=== PATIENT | female | born 1970 | race African-American/Black ===

== ENCOUNTER 2016-12-11 12:08 | Inpatient (IN) | payer OTHER ==
[2016-12-11 13:47] VITALS: BMI 25.7
--- NOTE | 2016-12-11 17:50 | HP ---
CIWA Score - CIWA Score Nausea/Vomitin Muscle Tremors: 3 Anxiety: 3 Agitation: 3 Paroxysmal Sweats: 2 Orientation: 0-Oriented Tacttile Disturbances: 2-Mild Itch/Numbness/Burn Auditory Disturbances: 2-Mild Harshness/Frighten Visual Disturbances: 2-Mild Sensitivity Headache: 2-Mild CIWA-Ar Total Score: 22 Admission ROS [facility] - HPI Chief Complaint: i need help to stop drinking alcohol and cocaine Allergies/Adverse Reactions: Allergies Allergy/AdvReac Type Severity Reaction Status Date / Time No Known Allergies Allergy Verified 12/11/16 17:21 History of Present Illness: this 46 years old female with alcohol,cocaine dependence,heroin abused,seeking detox,last treatment 01/17/16 to 01/21/16 seizure alcohol related last 11/05 old injury left knee seen at [facility] ,need to follow up with orthopedist ambulation with cane history of asthma and hypertension bipolar disorder longest of sobriety 2 years Exam Limitations: No Limitations - Ebola screening Have you traveled outside of the country in the last 21 days: No Have you been sick,other than usual withdrawal symptoms: No - Review of Systems Constitutional: Loss of Appetite, Malaise, Night Sweats, Changes in sleep, Unintentional Wgt. Loss EENT: reports: Nose Congestion Respiratory: reports: No Symptoms reported, Other (athmahistory) Cardiac: reports: No Symptoms Reported GI: reports: Diarrhea, Nausea, Poor Fluid Intake, Vomiting : reports: No Symptoms Reported Musculoskeletal: reports: Back Pain, Joint Pain (pain in left knee history of old injury of left knee), Muscle Pain Integumentary: reports: Dryness Neuro: reports: Headache, Tremors Endocrine: reports: No Symptoms Reported Hematology: reports: No Symptoms Reported Psychiatric: reports: No Sypmtoms Reported (bipolar disorder), Judgement Intact , Mood/Affect Appropiate Patient History - Patient Medical History Hx Anemia: Yes (NO TREATMENT) Hx Asthma: Yes (on albuterolinhaler) Hx Chronic Obstructive Pulmonary Disease (COPD): No Hx Cancer: No Hx Cardiac Disorders: No Hx Congestive Heart Failure: No Hx Hypertension: Yes (on meds.) Hx Hypercholesterolemia: No Hx Pacemaker: No HX Cerebrovascular Accident: No Hx Seizures: Yes (etph related seizure 2 months ago.) Hx Dementia: No Hx Diabetes: No Hx Gastrointestinal Disorders: No Hx Liver Disease: No Hx Genitourinary Disorders: No Hx Sexually Transmitted Disorders: No Hx Renal Disease (ESRD): No Hx Thyroid Disease: No Hx Human Immunodeficiency Virus (HIV): No (10/06 ngative last) Hx Hepatitis C: No Hx Depression: Yes Hx Suicide Attempt: Yes (Tried to drink bleach in 11/04) Hx Bipolar Disorder: Yes Hx Schizophrenia: No Other Medical History: no suicidal,no homicidal - Patient Surgical History Past Surgical History: No Hx Neurologic Surgery: No Hx Cataract Extraction: No Hx Cardiac Surgery: No Hx Lung Surgery: No Hx Breast Surgery: No Hx Breast Biopsy: No Hx Abdominal Surgery: No Hx Appendectomy: No Hx Cholecystectomy: No Hx Genitourinary Surgery: No Hx Section: No Hx Orthopedic Surgery: No Hx Hysterectomy: No - PPD History Previous Implant?: Yes Documented Results: Negative w/o proof Implanted On Prior [facility] Admission?: Yes Date: 06/20/15 Results: 0 mm PPD to be Administered?: Yes - Reproductive History Patient is a Female of Child Bearing Age (11 -55 yrs old): Yes Last Menstrual Period: 11/03/16 Patient : No - Smoking Cessation Smoking history: Current every day smoker Have you smoked in the past 12 months: Yes Aproximately how many cigarettes per day: 10 Cigars Per Day: 0 Hx Chewing Tobacco Use: No Initiated information on smoking cessation: Yes 'Breaking Loose' booklet given: 12/11/16 - Substance & Tx. History Hx Alcohol Use: Yes Hx Substance Use: Yes Substance Use Type: Alcohol, Cocaine, Heroin Hx Substance Use Treatment: Yes ([facility] 01/17/16 to 01/21/16) - Substances Abused Cocaine Route: Inhalation Frequency: Daily Amount used: $30 Age of first use: 24 Date of Last Use: 12/09/16 Heroin Route: Inhalation Frequency: 1-2 times per week Amount used: 2 bags Age of first use: 46 Date of Last Use: 12/10/16 Alcohol-cognac/beer Route: Oral Frequency: Daily Amount used: 2 pts./2-6 pks. Age of first use: 21 Date of Last Use: 12/11/16 Family Disease History - Family Disease History Family Disease History: Diabetes: Sister, Heart Disease: Grandparent, Mother ( 20 years abstinence), CA: Grandparent, Other: Mother Admission Physical Exam S - Vital Signs Vital Signs: Vital Signs - 24 hr 12/11/16 13:44 Temperature 97.0 F L Pulse Rate 104 H Respiratory 18 Rate Blood Pressure 135/82 - Physical General Appearance: Yes: Moderate Distress, Tremorous, Irritable, Sweating HEENTM: Yes: Normal ENT Inspection, CJ, Pharynx Normal, Nasal Congestion Respiratory: Yes: Lungs Clear, Normal Breath Sounds, No Respiratory Distress Neck: Yes: Within Normal Limits, Supple, Trachea in good position Breast: Yes: Breast Exam Deferred Cardiology: Yes: Tachycardia Abdominal: Yes: Within Normal Limits, Normal Bowel Sounds, Non Tender, Soft Genitourinary: Yes: Within Normal Limits Back: Yes: Within Normal Limits, Muscle Spasm Musculoskeletal: Yes: Back pain, Muscle Pain Extremities: Yes: Within Normal Limits, Normal Range of Motion, Tremors, Other ( old injury of left knee ambulation with cane) Neurological: Yes: film and video editor II-XII NML intact, Alert, Motor Strength 5/5 Integumentary: Yes: Dry Lymphatic: Yes: Within Normal Limits - Diagnostic (1) Alcohol dependence with uncomplicated withdrawal Current Visit: No Status: Acute (2) Asthma Current Visit: No Status: Chronic Qualifiers: Asthma severity: mild intermittent Asthma complication type: with status asthmaticus Qualified Code(s): J45.22 - Mild intermittent asthma with status asthmaticus Comment: TREATED WITH VENTOLIN (3) Chronic back pain Current Visit: No Status: Chronic Qualifiers: Back pain location: low back pain Back pain laterality: left Sciatica presence: with sciatica Sciatica laterality: sciatica of left side Qualified Code(s): M54.42 - Lumbago with sciatica, left side; G89.29 - Other chronic pain Comment: SINCE 2010 (4) Cocaine dependence Current Visit: No Status: Chronic Qualifiers: Substance use status: uncomplicated Qualified Code(s): F14.20 - Cocaine dependence, uncomplicated (5) Hypertension Current Visit: No Status: Chronic Qualifiers: Hypertension type: essential hypertension Qualified Code(s): I10 - Essential (primary) hypertension Comment: HYDROCHLOROTHIAZIDE 12.5 MG NORVASC 5 MG (6) Nicotine dependence Current Visit: No Status: Chronic Qualifiers: Nicotine product type: cigarettes Substance use status: uncomplicated Qualified Code(s): F17.210 - Nicotine dependence, cigarettes, uncomplicated (7) Bipolar I disorder, most recent episode mixed Current Visit: No Status: Suspected (8) History of anemia Current Visit: No Status: Suspected Comment: NO TREATMENT LAB PENDING (9) Injury of left knee Current Visit: Yes Status: Acute (10) Use of cane as ambulatory aid Current Visit: Yes Status: Acute Cleared for Admission [facility] - Detox or Rehab [facility] Level of Care: Medically Managed Detox Regimen/Protocol: Librium [facility] Breath Alcohol Content Breath Alcohol Content: 0 Urine Pregancy Test - Result Urine Test Results: Negative- NO Line Present Urine Drug Screen - Results Drug Screen Negative: No Urine Drug Screen Results: THC-Marijuana, JENNIFER-Cocaine, TCA-Tricyclic Antidepress
[2016-12-11] MEDS ORDERED: ACETAMINOPHEN 325 MG TABLET (FP) PO PRN (18:07)
[2016-12-11] MEDS ORDERED: MAG HYDROX/AL HYDROX/SIMETH 30 ML UNIT-DOSE CUP PO PRN (18:07)
[2016-12-11] MEDS ORDERED: diphenhydrAMINE HCL 50 MG CAPSULE PO PRN (18:07)
[2016-12-11] MEDS ORDERED: MAGNESIUM HYDROX 2400MG/30ML ORAL SUSPENSION 30 ML CUP PO PRN (18:07)
[2016-12-11] MEDS ORDERED: P-EPHED 60MG/TRIPROLIDI 2.5MG TABLET PO PRN (18:07)
[2016-12-11] MEDS ORDERED: MAGNESIUM CITRATE 300 ML BOTTLE PO PRN (18:07)
[2016-12-11] MEDS ORDERED: chlordiazePOXIDE HCL 25 MG CAPSULE PO PRN (18:07)
[2016-12-11] MEDS ORDERED: chlordiazePOXIDE HCL 25 MG CAPSULE PO ONE ×2 (18:07→21:00)
[2016-12-11] MEDS ORDERED: guaiFENesin/D-METHORPHAN HB 10 ML UNIT-DOSE CUPS PO PRN (18:07)
[2016-12-11] MEDS ORDERED: LOPERAMIDE HCL 2 MG CAPSULE PO PRN (18:07)
[2016-12-11] MEDS ORDERED: MENTHOL/PHENOL 1 EACH UD MM PRN (18:07)
[2016-12-11] MEDS: NICOTINE 21 MG/24 HOURS TOPICAL PATCH TD SCH (21:06)
[2016-12-11] MEDS: chlordiazePOXIDE HCL 25 MG CAPSULE PO SCH (22:08)
[2016-12-11] MEDS: THIAMINE HCL 100 MG TABLET (FP) PO SCH (22:09)
[2016-12-11] MEDS: IBUPROFEN 400 MG TABLET (FP) PO PRN (22:09)
[2016-12-12] MEDS: chlordiazePOXIDE HCL 25 MG CAPSULE PO SCH ×4 (05:35→22:44)
--- NOTE | 2016-12-12 07:43 | CONSULT ---
[facility] Psychiatric Consult - Data Date of interview: 12/12/16 Admission source: [facility] Identifying data: This is 46 years old female ambulating with cane, with history of psychiatric hospitalization, intoxicated with: Alcohol, Cocaine, Heroin , Nicotine Substance Abuse History: - Smoking Cessation. Smoking history: Current every day smoker. Have you smoked in the past 12 months: Yes. Aproximately how many cigarettes per day: 10. Cigars Per Day: 0. Hx Chewing Tobacco Use: No. Initiated information on smoking cessation: Yes. 'Breaking Loose' booklet given : 12/11/16. - Substance & Tx. History. Hx Alcohol Use: Yes. Hx Substance Use : Yes. Substance Use Type: Alcohol, Cocaine, Heroin. Hx Substance Use Treatment: Yes ([facility] 01/17/16 to 01/21/16). - Substances Abused. Cocaine. Route: Inhalation. Frequency: Daily. Amount used: $30. Age of first use: 24. Date of Last Use: 12/09/16. Heroin. Route: Inhalation. Frequency: 1-2 times per week. Amount used: 2 bags. Age of first use: 46. Date of Last Use: 12/10/16. Alcohol-cognac/beer. Route: Oral. Frequency: Daily. Amount used : 2 pts./2-6 pks. Age of first use: 21. Date of Last Use: 12/11/16 Medical History: LBP, HTN, Anemia history, Psychiatric History: Patient reports hiostory of Bipolar disorder, reports most recent psychiatrioc admission on: 2014 at [facility], reports taking prior to admission: Ambien 10mg po qhs. Lexapro 20mg poqd. Depakote 250mg po bid. \Seroquel 50mg po tid Physical/Sexual Abuse/Trauma History: Denies Additional Comment: Ambien 10mg po qhs. Lexapro 20mg poqd. Depakote 250mg po bid. \Seroquel 50mg po tid Mental Status Exam - Mental Status Exam Alert and Oriented to: Person Cognitive Function: Fair Patient Appearance: Unkempt Mood: Sad Affect: Flat Patient Behavior: Sedated Speech Pattern: Delayed Voice Loudness: Mildly Loud Thought Process: Goal Oriented Thought Disorder: Being Controlled Hallucinations: Denies Suicidal Ideation: Denies Homicidal Ideation: Denies Insight/Judgement: Fair Sleep: Difficulty falling asleep Appetite: Weight gain Muscle strength/Tone: Mild Hypotonicity Gait/Station: Deferred Additional Comments: Seroquel 200mg po qhs. Trazodone 150mg po qhs Psychiatric Findings - Problem List (Pierz 1, 2,3) (1) Alcohol dependence Current Visit: No Status: Acute Qualifiers: Substance use status: uncomplicated Qualified Code(s): F10.20 - Alcohol dependence, uncomplicated (2) Alcohol dependence with uncomplicated withdrawal Current Visit: No Status: Acute (3) Cocaine dependence Current Visit: No Status: Chronic Qualifiers: Substance use status: uncomplicated Qualified Code(s): F14.20 - Cocaine dependence, uncomplicated (4) Hypertension Current Visit: No Status: Chronic Qualifiers: Hypertension type: essential hypertension Qualified Code(s): I10 - Essential (primary) hypertension Comment: HYDROCHLOROTHIAZIDE 12.5 MG NORVASC 5 MG (5) Nicotine dependence Current Visit: No Status: Chronic Qualifiers: Nicotine product type: cigarettes Substance use status: uncomplicated Qualified Code(s): F17.210 - Nicotine dependence, cigarettes, uncomplicated (6) Bipolar I disorder, most recent episode mixed Current Visit: No Status: Suspected - Initial Treatment Plan Initial Treatment Plan: Ambien 10mg po qhs. Lexapro 20mg poqd. Depakote 250mg po bid. \Seroquel 50mg po tid
[2016-12-12 10:13] LABS: MCH 30.7 pg (25.7-33.7); PLATELET COUNT 330 K/MM3 (134-434); RDW 14.9 % (11.6-15.6); WHITE BLOOD COUNT 4.6 K/mm3 (4.0-10.0)
[2016-12-12] MEDS: DIVALPROEX SODIUM 250 MG TABLET E.C. (FP) PO SCH ×2 (10:25→22:25)
[2016-12-12] MEDS: HYDROCHLOROTHIAZIDE 25 MG TABLET (FP) PO SCH (10:25)
[2016-12-12] MEDS: NICOTINE 21 MG/24 HOURS TOPICAL PATCH TD SCH (10:25)
[2016-12-12] MEDS: PRENATAL VITAMINS W/ FOLIC ACID TABLET (FP) PO SCH (10:25)
[2016-12-12] MEDS: ESCITALOPRAM OXALATE 20 MG TABLET (FP) PO SCH (10:25)
[2016-12-12] MEDS ORDERED: COLLOIDAL OATMEAL 1 BAR EACH TP PRN (10:36)
[2016-12-12 10:44] LABS: ALBUMIN 3.3 g/dl (3.4-5.0); ALK PHOS 55 U/L (45-117); ANION GAP 11 (8-16); BILIRUBIN,TOTAL 0.6 mg/dL (0.2-1.0); CALCIUM 8.6 mg/dL (8.5-10.1); CO2 26 mmol/L (21-32); CREATININE 0.8 mg/dL (0.55-1.02); GLUCOSE,RANDOM 101 mg/dL (74-106); SGOT/AST 15 U/L (15-37); SGPT/ALT 17 U/L (12-78); TOT PROT 7.6 g/dl (6.4-8.2)
[2016-12-12] MEDS: CYCLOBENZAPRINE HCL 10 MG TABLET (FP) PO PRN ×2 (10:59→22:27)
--- NOTE | 2016-12-12 11:37 | PN ---
S CIWA - CIWA Score Nausea/Vomitin Muscle Tremors: 3 Anxiety: 3 Agitation: 3 Paroxysmal Sweats: 1-Minimal Palms Moist Orientation: 0-Oriented Tacttile Disturbances: 1-Very Mild Itch/Numbness Auditory Disturbances: 1-Very Mild Visual Disturbances: 1-Very Mild Sensitivity Headache: 2-Mild CIWA-Ar Total Score: 18 S Progress Note (SOAP) Subjective: ALERT,IRRITABLE,ANXIOUS,INTERRUPTED SLEEP,TREMOR,PAIN IN THE LEFT KNEE OLD INJURY Objective: 12/12/16 11:35 Vital Signs Temperature 98.4 F 12/12/16 09:47 Pulse Rate 94 H 12/12/16 09:47 Respiratory Rate 18 12/12/16 09:47 Blood Pressure 143/71 12/12/16 09:47 O2 Sat by Pulse Oximetry (%) EKG NSR,NORMAL ECG Laboratory Last Values WBC 4.6 K/mm3 (4.0-10.0) 12/12/16 07:00 RBC 3.61 M/mm3 (3.60-5.2) 12/12/16 07:00 Hgb 11.1 GM/dL (10.7-15.3) 12/12/16 07:00 Hct 33.6 % (32.4-45.2) 12/12/16 07:00 MCV 93.0 fl (80-96) 12/12/16 07:00 MCH 30.7 pg (25.7-33.7) 12/12/16 07:00 MCHC 33.0 g/dl (32.0-36.0) 12/12/16 07:00 RDW 14.9 % (11.6-15.6) 12/12/16 07:00 Plt Count 330 K/MM3 (134-434) 12/12/16 07:00 MPV 7.0 fl (7.5-11.1) L 12/12/16 07:00 Sodium 135 mmol/L (136-145) L 12/12/16 07:00 Potassium 3.8 mmol/L (3.5-5.1) 12/12/16 07:00 Chloride 98 mmol/L (98-107) 12/12/16 07:00 Carbon Dioxide 26 mmol/L (21-32) 12/12/16 07:00 Anion Gap 11 (8-16) 12/12/16 07:00 BUN 11 mg/dL (7-18) 12/12/16 07:00 Creatinine 0.8 mg/dL (0.55-1.02) 12/12/16 07:00 Creat Clearance w eGFR > 60 (>60) 12/12/16 07:00 Random Glucose 101 mg/dL (74-106) D 12/12/16 07:00 Calcium 8.6 mg/dL (8.5-10.1) 12/12/16 07:00 Total Bilirubin 0.6 mg/dL (0.2-1.0) D 12/12/16 07:00 AST 15 U/L (15-37) D 12/12/16 07:00 ALT 17 U/L (12-78) 12/12/16 07:00 Alkaline Phosphatase 55 U/L (45-117) 12/12/16 07:00 Total Protein 7.6 g/dl (6.4-8.2) 12/12/16 07:00 Albumin 3.3 g/dl (3.4-5.0) L 12/12/16 07:00 Assessment: 12/12/16 11:36 WITHDRAWAL SYMPTOM Plan: CONTINUE DETOX
--- NOTE | 2016-12-12 12:27 | EKG ---
Test Reason : Blood Pressure : / mmHG Vent. Rate : 089 BPM Atrial Rate : 089 BPM P-R Int : 144 ms QRS Dur : 078 ms QT Int : 374 ms P-R-T Axes : 053 015 036 degrees QTc Int : 455 ms NORMAL SINUS RHYTHM NORMAL ECG NO PREVIOUS ECGS AVAILABLE Confirmed by LACEY WINKLER, PACHECO ([id number]) on 12/12/2016 12:27:26 PM Referred By: Jacques Dasilva Confirmed By:PACHECO RAHMAN MD
[2016-12-12] MEDS: QUEtiapine FUMARATE 50 MG TABLET PO SCH ×2 (13:25→22:25)
[2016-12-12] MEDS: hydrOXYzine PAMOATE 50 MG CAPSULE (FP) PO PRN ×2 (13:25→18:37)
[2016-12-12] MEDS: ALBUTEROL SO4 6.7 GM HFA INHALER IH PRN ×2 (14:28→22:42)
[2016-12-12] MEDS: IBUPROFEN 400 MG TABLET (FP) PO PRN (18:36)
[2016-12-12] MEDS: ZOLPIDEM TARTRATE 10 MG TABLET (PARK CARE ONLY) PO PRN (22:27)
[2016-12-12] MEDS: THIAMINE HCL 100 MG TABLET (FP) PO SCH (22:27)
[2016-12-13] MEDS: QUEtiapine FUMARATE 50 MG TABLET PO SCH ×3 (05:50→22:19)
[2016-12-13] MEDS: chlordiazePOXIDE HCL 25 MG CAPSULE PO SCH ×3 (05:50→17:50)
--- NOTE | 2016-12-13 09:19 | PN ---
S CIWA - CIWA Score Nausea/Vomitin Muscle Tremors: 3 Anxiety: 2 Agitation: 2 Paroxysmal Sweats: 1-Minimal Palms Moist Orientation: 0-Oriented Tacttile Disturbances: 1-Very Mild Itch/Numbness Auditory Disturbances: 1-Very Mild Visual Disturbances: 1-Very Mild Sensitivity Headache: 2-Mild CIWA-Ar Total Score: 16 S Progress Note (SOAP) Subjective: ALERT,IRRITABLE,ANXIOUS,INTERRUPTED SLEEP,TREMOR Objective: 12/13/16 09:18 Vital Signs Temperature 96.9 F L 12/13/16 06:04 Pulse Rate 65 12/13/16 06:04 Respiratory Rate 16 12/13/16 06:04 Blood Pressure 136/73 12/13/16 06:04 O2 Sat by Pulse Oximetry (%) Laboratory Last Values WBC 4.6 K/mm3 (4.0-10.0) 12/12/16 07:00 RBC 3.61 M/mm3 (3.60-5.2) 12/12/16 07:00 Hgb 11.1 GM/dL (10.7-15.3) 12/12/16 07:00 Hct 33.6 % (32.4-45.2) 12/12/16 07:00 MCV 93.0 fl (80-96) 12/12/16 07:00 MCH 30.7 pg (25.7-33.7) 12/12/16 07:00 MCHC 33.0 g/dl (32.0-36.0) 12/12/16 07:00 RDW 14.9 % (11.6-15.6) 12/12/16 07:00 Plt Count 330 K/MM3 (134-434) 12/12/16 07:00 MPV 7.0 fl (7.5-11.1) L 12/12/16 07:00 Sodium 135 mmol/L (136-145) L 12/12/16 07:00 Potassium 3.8 mmol/L (3.5-5.1) 12/12/16 07:00 Chloride 98 mmol/L (98-107) 12/12/16 07:00 Carbon Dioxide 26 mmol/L (21-32) 12/12/16 07:00 Anion Gap 11 (8-16) 12/12/16 07:00 BUN 11 mg/dL (7-18) 12/12/16 07:00 Creatinine 0.8 mg/dL (0.55-1.02) 12/12/16 07:00 Creat Clearance w eGFR > 60 (>60) 12/12/16 07:00 Random Glucose 101 mg/dL (74-106) D 12/12/16 07:00 Calcium 8.6 mg/dL (8.5-10.1) 12/12/16 07:00 Total Bilirubin 0.6 mg/dL (0.2-1.0) D 12/12/16 07:00 AST 15 U/L (15-37) D 12/12/16 07:00 ALT 17 U/L (12-78) 12/12/16 07:00 Alkaline Phosphatase 55 U/L (45-117) 12/12/16 07:00 Total Protein 7.6 g/dl (6.4-8.2) 12/12/16 07:00 Albumin 3.3 g/dl (3.4-5.0) L 12/12/16 07:00 Assessment: 12/13/16 09:19 WITHDRAWAL SYMPTOM Plan: CONTINUE DETOX
[2016-12-13] MEDS: PRENATAL VITAMINS W/ FOLIC ACID TABLET (FP) PO SCH (10:18)
[2016-12-13] MEDS: HYDROCHLOROTHIAZIDE 25 MG TABLET (FP) PO SCH (10:18)
[2016-12-13] MEDS: ESCITALOPRAM OXALATE 20 MG TABLET (FP) PO SCH (10:18)
[2016-12-13] MEDS: DIVALPROEX SODIUM 250 MG TABLET E.C. (FP) PO SCH ×2 (10:18→22:18)
[2016-12-13] MEDS: NICOTINE 21 MG/24 HOURS TOPICAL PATCH TD SCH (10:18)
[2016-12-13] MEDS: hydrOXYzine PAMOATE 50 MG CAPSULE (FP) PO PRN ×2 (10:20→17:53)
[2016-12-13] MEDS: IBUPROFEN 400 MG TABLET (FP) PO PRN (10:20)
[2016-12-13 14:35] LABS: URINE APPEARANCE CLOUDY; URINE BILIRUBIN NEGATIVE (NEGATIVE); URINE BLOOD NEGATIVE (NEGATIVE); URINE COLOR YELLOW; URINE GLUCOSE (UA) NEGATIVE (NEGATIVE); URINE KETONE NEGATIVE (NEGATIVE); URINE LEUK ESTERASE NEGATIVE (NEGATIVE); URINE NITRITE NEGATIVE (NEGATIVE); URINE PROTEIN NEGATIVE (NEGATIVE); URINE UROBILINOGEN NEGATIVE mg/dL (0.2-1.0)
[2016-12-13] MEDS: ZOLPIDEM TARTRATE 10 MG TABLET (PARK CARE ONLY) PO PRN (22:18)
[2016-12-13] MEDS: THIAMINE HCL 100 MG TABLET (FP) PO SCH (22:19)
[2016-12-13] MEDS: chlordiazePOXIDE 5 MG CAPSULE PO SCH (22:19)
[2016-12-13] MEDS: ALBUTEROL SO4 6.7 GM HFA INHALER IH PRN (22:21)
[2016-12-14] MEDS: chlordiazePOXIDE 5 MG CAPSULE PO SCH ×3 (05:49→17:31)
[2016-12-14] MEDS: QUEtiapine FUMARATE 50 MG TABLET PO SCH ×3 (05:49→22:11)
[2016-12-14] MEDS: ALBUTEROL SO4 6.7 GM HFA INHALER IH PRN ×2 (05:50→22:11)
[2016-12-14] MEDS: DIVALPROEX SODIUM 250 MG TABLET E.C. (FP) PO SCH ×2 (10:11→22:12)
[2016-12-14] MEDS: ESCITALOPRAM OXALATE 20 MG TABLET (FP) PO SCH (10:11)
[2016-12-14] MEDS: PRENATAL VITAMINS W/ FOLIC ACID TABLET (FP) PO SCH (10:11)
[2016-12-14] MEDS: HYDROCHLOROTHIAZIDE 25 MG TABLET (FP) PO SCH (10:12)
[2016-12-14] MEDS: NICOTINE 21 MG/24 HOURS TOPICAL PATCH TD SCH (10:12)
[2016-12-14] MEDS: hydrOXYzine PAMOATE 50 MG CAPSULE (FP) PO PRN (10:15)
--- NOTE | 2016-12-14 11:17 | PN ---
S Progress Note (SOAP) Subjective: ALERT,IRRITABLE,ANXIOUS,INTERRUPTED SLEEP Objective: 12/14/16 11:16 Vital Signs Temperature 97.3 F L 12/14/16 10:10 Pulse Rate 107 H 12/14/16 10:10 Respiratory Rate 16 12/14/16 10:10 Blood Pressure 122/74 12/14/16 10:10 O2 Sat by Pulse Oximetry (%) Assessment: 12/14/16 11:16 WITHDRAWAL SYMPTOM Plan: CONTINUE DETOX,DISCHARGE IN AM
[2016-12-14] MEDS: CYCLOBENZAPRINE HCL 10 MG TABLET (FP) PO PRN ×2 (11:41→22:12)
[2016-12-14] MEDS ORDERED: CYCLOBENZAPRINE HCL 10 MG TABLET (FP) PO ONE (12:30)
[2016-12-14] MEDS: THIAMINE HCL 100 MG TABLET (FP) PO SCH (22:12)
[2016-12-14] MEDS: chlordiazePOXIDE HCL 10 MG CAPSULE PO SCH (22:12)
[2016-12-14] MEDS: ZOLPIDEM TARTRATE 10 MG TABLET (PARK CARE ONLY) PO PRN (22:12)
[2016-12-15] MEDS: QUEtiapine FUMARATE 50 MG TABLET PO SCH (06:29)
[2016-12-15] MEDS: chlordiazePOXIDE HCL 10 MG CAPSULE PO SCH ×2 (06:29→10:49)
--- NOTE | 2016-12-15 08:10 | DS ---
[facility] Detox Discharge Summary Admission Date: 12/11/16 Discharge Date: 12/15/16 - History Present History: Alcohol Dependence, Cocaine Dependence Additional Comments: follow up with after care program as arrangement Pertinent Past History: asthma hypertension chronic low back pain nicotine dependence bipoar 1 disorder ptsd type 2 dm hypertension old laceration of left upper arm with nerve and vascular injury - Physical Exam Results Vital Signs: Vital Signs Temperature 97.7 F 12/15/16 06:00 Pulse Rate 79 12/15/16 06:00 Respiratory Rate 18 12/15/16 06:00 Blood Pressure 127/71 12/15/16 06:00 O2 Sat by Pulse Oximetry (%) Pertinent Admission Physical Exam Findings: withdrawal symptom - Treatment Hospital Course: Detox Protocol Followed, Detoxed Safely, Responded well, Discharged Condition Good Patient has Accepted a Rehab Referral to: declined - Medication Discharge Medications: Ambulatory Orders Zolpidem Tartrate [Ambien] 10 mg PO HS 06/08/15 Divalproex [Depakote -] 250 mg PO BID #60 tablet.ec 01/18/16 Escitalopram Oxalate [Lexapro -] 20 mg PO DAILY #30 tablet 01/18/16 Divalproex [Depakote -] 250 mg PO BID #60 tab 12/12/16 Escitalopram Oxalate [Lexapro -] 20 mg PO DAILY #30 tab 12/12/16 Quetiapine Fumarate [Seroquel] 100 mg PO TID #90 tablet 12/12/16 Zolpidem Tartrate [Ambien] 0 mg PO HS #14 tablet MDD 10 12/12/16 Albuterol Sulfate Inhaler - [Ventolin HFA Inhaler -] 2 inh IH Q4H PRN #1 inh Hydrochlorothiazide [Hctz -] 25 mg PO DAILY #30 tab 12/15/16 - Diagnosis (1) Alcohol dependence with uncomplicated withdrawal Current Visit: No Status: Acute (2) Asthma Current Visit: No Status: Chronic Qualifiers: Asthma severity: mild intermittent Asthma complication type: with status asthmaticus Qualified Code(s): J45.22 - Mild intermittent asthma with status asthmaticus (3) Chronic back pain Current Visit: No Status: Chronic Qualifiers: Back pain location: low back pain Back pain laterality: left Sciatica presence: with sciatica Sciatica laterality: sciatica of left side Qualified Code(s): M54.42 - Lumbago with sciatica, left side; G89.29 - Other chronic pain (4) Cocaine dependence Current Visit: No Status: Chronic Qualifiers: Substance use status: uncomplicated Qualified Code(s): F14.20 - Cocaine dependence, uncomplicated (5) Hypertension Current Visit: No Status: Chronic Qualifiers: Hypertension type: essential hypertension Qualified Code(s): I10 - Essential (primary) hypertension (6) Nicotine dependence Current Visit: No Status: Chronic Qualifiers: Nicotine product type: cigarettes Substance use status: uncomplicated Qualified Code(s): F17.210 - Nicotine dependence, cigarettes, uncomplicated (7) Bipolar I disorder, most recent episode mixed Current Visit: No Status: Suspected (8) History of anemia Current Visit: No Status: Suspected (9) Injury of left knee Current Visit: Yes Status: Acute (10) Use of cane as ambulatory aid Current Visit: Yes Status: Acute - AMA Did Patient Leave Against Medical Advice: No
[2016-12-15 10:27] VITALS: BP 124/79; PULSE 94; TEMP 98.2
[2016-12-15] MEDS: DIVALPROEX SODIUM 250 MG TABLET E.C. (FP) PO SCH (10:45)
[2016-12-15] MEDS: PRENATAL VITAMINS W/ FOLIC ACID TABLET (FP) PO SCH (10:45)
[2016-12-15] MEDS: HYDROCHLOROTHIAZIDE 25 MG TABLET (FP) PO SCH (10:45)
[2016-12-15] MEDS: ESCITALOPRAM OXALATE 20 MG TABLET (FP) PO SCH (10:45)
[2016-12-15] MEDS: NICOTINE 21 MG/24 HOURS TOPICAL PATCH TD SCH (10:46)
[2016-12-15] MEDS: hydrOXYzine PAMOATE 50 MG CAPSULE (FP) PO PRN (10:48)
== END 2016-12-15 12:25 | disposition home or self-care (01) | DRG 774 ==
LOC: YASAS 12:08 → Y6N 18:47
PROVIDERS: ADMIT Internal Medicine; ATTEND Internal Medicine
PROC: HZ2ZZZZ Detoxification Services for Substance Abuse Treatment (ICD-10-PCS; principal; 2016-12-15)
DX: F10.230 Alcohol dependence with withdrawal, uncomplicated (principal); F14.20 Cocaine dependence, uncomplicated; F31.89 Other bipolar disorder; G40.509 Epileptic seizures related to external causes, not intractable, without status epilepticus; M54.5 Low back pain; G89.29 Other chronic pain; S89.91XD Unspecified injury of right lower leg, subsequent encounter; X58.XXXD Exposure to other specified factors, subsequent encounter; R26.89 Other abnormalities of gait and mobility; Z99.89 Dependence on other enabling machines and devices
CPT/HCPCS: 36415; 80053; 81003; 85027; 86593; 93005; 93010

== ENCOUNTER 2016-12-26 12:36 | Inpatient (IN) | payer OTHER ==
[2016-12-26 13:23] VITALS: BMI 25.6
[2016-12-26] MEDS ORDERED: MENTHOL/PHENOL 1 EACH UD MM PRN (14:07)
[2016-12-26] MEDS ORDERED: P-EPHED 60MG/TRIPROLIDI 2.5MG TABLET PO PRN (14:07)
[2016-12-26] MEDS ORDERED: diphenhydrAMINE HCL 50 MG CAPSULE PO PRN (14:07)
[2016-12-26] MEDS ORDERED: guaiFENesin/D-METHORPHAN HB 10 ML UNIT-DOSE CUPS PO PRN (14:07)
[2016-12-26] MEDS ORDERED: LOPERAMIDE HCL 2 MG CAPSULE PO PRN (14:07)
[2016-12-26] MEDS ORDERED: IBUPROFEN 400 MG TABLET (FP) PO PRN (14:07)
[2016-12-26] MEDS ORDERED: MAGNESIUM HYDROX 2400MG/30ML ORAL SUSPENSION 30 ML CUP PO PRN (14:07)
[2016-12-26] MEDS ORDERED: MAG HYDROX/AL HYDROX/SIMETH 30 ML UNIT-DOSE CUP PO PRN (14:07)
[2016-12-26] MEDS ORDERED: ACETAMINOPHEN 325 MG TABLET (FP) PO PRN (14:07)
[2016-12-26] MEDS ORDERED: MAGNESIUM CITRATE 300 ML BOTTLE PO PRN (14:07)
[2016-12-26] MEDS ORDERED: CYCLOBENZAPRINE HCL 10 MG TABLET (FP) PO PRN (14:09)
--- NOTE | 2016-12-26 14:12 | HP ---
[facility] Rehab Assess/Revision - Admission History Admitted to Rehab from: [facility] Date of Admission to Rehab: 12/26/2016 - Vital signs Vital Signs: Vital Signs Period Temp Pulse Resp BP Sys/Kimble Pulse Ox Last 24 Hr 96.1 F 100 20 129/69 - Findings Detox History & Physical reviewed: Yes Concur with findings: Yes Comments/Additional Findings: Patient has been sober until today when she was told she needed to drink alcohol to be admitted, DESIREE 0.148today, drank only today and yesterday, will stay in admitting until sober enought to go to floor, will monitor for withdrawal symtoms. h/o alcohol withdrwal seizure x1 in past no DTS.
[2016-12-26] MEDS: HYDROCHLOROTHIAZIDE 25 MG TABLET (FP) PO SCH (19:36)
[2016-12-26] MEDS: hydrOXYzine PAMOATE 50 MG CAPSULE (FP) PO PRN (19:36)
[2016-12-26] MEDS: ALBUTEROL SO4 6.7 GM HFA INHALER IH PRN (19:37)
[2016-12-26] MEDS: NICOTINE 21 MG/24 HOURS TOPICAL PATCH TD SCH (21:55)
[2016-12-26] MEDS: THIAMINE HCL 100 MG TABLET (FP) PO SCH (21:56)
[2016-12-26] MEDS: QUEtiapine FUMARATE 100 MG TABLET (FP) PO SCH (21:56)
[2016-12-26] MEDS: DIVALPROEX SODIUM 250 MG TABLET E.C. (FP) PO SCH (21:56)
[2016-12-27] MEDS ORDERED: PT OWN MED DRAWER 7, Y5N ONE ×2 (01:16→17:46)
[2016-12-27] MEDS: QUEtiapine FUMARATE 100 MG TABLET (FP) PO SCH ×3 (06:24→21:39)
[2016-12-27] MEDS: ALBUTEROL SO4 6.7 GM HFA INHALER IH PRN ×2 (06:25→17:47)
[2016-12-27] MEDS: hydrOXYzine PAMOATE 50 MG CAPSULE (FP) PO PRN ×2 (06:26→17:46)
[2016-12-27] MEDS: NICOTINE 21 MG/24 HOURS TOPICAL PATCH TD SCH (10:14)
[2016-12-27] MEDS: DIVALPROEX SODIUM 250 MG TABLET E.C. (FP) PO SCH ×2 (10:14→21:39)
[2016-12-27] MEDS: HYDROCHLOROTHIAZIDE 25 MG TABLET (FP) PO SCH (10:15)
[2016-12-27] MEDS: ESCITALOPRAM OXALATE 20 MG TABLET (FP) PO SCH (10:15)
[2016-12-27] MEDS: PRENATAL VITAMINS W/ FOLIC ACID TABLET (FP) PO SCH (10:15)
[2016-12-27 17:17] LABS: URINE APPEARANCE CLEAR; URINE BILIRUBIN NEGATIVE (NEGATIVE); URINE BLOOD NEGATIVE (NEGATIVE); URINE COLOR LTYELLOW; URINE GLUCOSE (UA) NEGATIVE (NEGATIVE); URINE KETONE NEGATIVE (NEGATIVE); URINE LEUK ESTERASE NEGATIVE (NEGATIVE); URINE NITRITE NEGATIVE (NEGATIVE); URINE PROTEIN NEGATIVE (NEGATIVE); URINE UROBILINOGEN NEGATIVE mg/dL (0.2-1.0)
[2016-12-27] MEDS: THIAMINE HCL 100 MG TABLET (FP) PO SCH (21:40)
[2016-12-28] MEDS: QUEtiapine FUMARATE 100 MG TABLET (FP) PO SCH (06:48)
[2016-12-28] MEDS: ALBUTEROL SO4 6.7 GM HFA INHALER IH PRN ×2 (06:49→13:10)
[2016-12-28] MEDS: hydrOXYzine PAMOATE 50 MG CAPSULE (FP) PO PRN ×3 (06:49→21:55)
--- NOTE | 2016-12-28 09:48 | HP ---
Psychiatrist Admission - Data Date of interview: 12/28/16 Admission source: [facility] Identifying data: This is the second admission to [address] [place] [address] this 46 years old AA female single mother of 8,resides in long term,supporteds by [facility]. Medical History: Significant for HTN,Low back pain,BA,H/O anemia. Psychiatric History: Patient reports history of bipolar disorder.First hospitalization was at 20 yo to [facility] due to first psychotic episode provoked by drug abuse.Patient was placed on Paxil,then Prozac.Both of them has been discontinued due to side effects and she was started on Lexapro and Seroquel with some response.Patient reports 5-6 more psychiatric admissions, most recent was 3 months ago to [facility] due to depression,drug use, drinking.She reports one suicidal attempt in 1992 by cutting her wrist under influence of drugs.Patient sees psychiatrist at [facility] in the [place].Current medications:Depakote 250 mg po bid,Risperidone 2 mg po hs,Lexapro 20 mg po daily and Seroquel 100 mg po tid .Patient is willing to adjust her medications at this time and start Campral. Physical/Sexual Abuse/Trauma History: denies Vital Signs: Vital Signs - 24 hr 12/28/16 12/28/16 12/28/16 00:30 03:30 07:24 Temperature 98.0 F Pulse Rate 88 Respiratory 18 18 18 Rate Blood Pressure 122/79 Allergies/Adverse Reactions: Allergies Allergy/AdvReac Type Severity Reaction Status Date / Time No Known Allergies Allergy Verified 12/26/16 14:02 Date of last physical exam: 12/26/16 Concur with the findings of this exam: Yes - Substance Abuse/Tx History Hx Alcohol Use: Yes (reorts drinking since 20 to,vodka) Hx Substance Use: Yes (cocaine since 20 yo,$100 daily,heroin since 45 sniffing, 4 bags daily) Substance Use Type: Alcohol, Cocaine, Heroin Hx Substance Use Treatment: Yes (completed this program in 2016) - Admission Criteria Previous failed treatment: Yes Poor recovery environment: Yes Comorbidities: Yes Lacks judgement: Yes Mental Status Exam - Mental Status Exam Alert and Oriented to: Time, Place, Person Cognitive Function: Grossly Intact Patient Appearance: Well Groomed Mood: Anxious Affect: Mood Congruent, Labile Patient Behavior: Cooperative Speech Pattern: Clear Voice Loudness: Normal Thought Process: Goal Oriented Thought Disorder: Being Controlled Hallucinations: Denies Suicidal Ideation: Denies Homicidal Ideation: Denies Insight/Judgement: Fair Sleep: Fair Appetite: Good Muscle strength/Tone: Normal Gait/Station: Normal Psychiatric Findings - Problem List ([place] 1, 2,3) (1) Alcohol dependence Current Visit: Yes Status: Chronic Qualifiers: (2) Asthma Current Visit: Yes Status: Chronic Qualifiers: Comment: TREATED WITH VENTOLIN (3) Chronic back pain Current Visit: Yes Status: Chronic Qualifiers: Comment: SINCE 2010 (4) Cocaine dependence Current Visit: Yes Status: Chronic Qualifiers: (5) Hypertension Current Visit: Yes Status: Chronic Qualifiers: Comment: HYDROCHLOROTHIAZIDE 12.5 MG NORVASC 5 MG (6) Nicotine dependence Current Visit: Yes Status: Chronic Qualifiers: (7) Bipolar I disorder, most recent episode mixed Current Visit: Yes Status: Suspected (8) Opioid dependence Current Visit: Yes Status: Chronic - Initial Treatment Plan Initial Treatment Plan: Continue Lexapro 20 mg po daily,Depakote 250 mg po bid, start Risperidone 2 mg po hs and Seroquel 100 mg po bid will be adjusted to 25 mg po tid.Start Campral 333 mg po 2 tab tid.Obtain Depakote level.Will monitor progress.
[2016-12-28] MEDS: DIVALPROEX SODIUM 250 MG TABLET E.C. (FP) PO SCH ×2 (10:39→21:58)
[2016-12-28] MEDS: PRENATAL VITAMINS W/ FOLIC ACID TABLET (FP) PO SCH (10:39)
[2016-12-28] MEDS: HYDROCHLOROTHIAZIDE 25 MG TABLET (FP) PO SCH (10:39)
[2016-12-28] MEDS: ESCITALOPRAM OXALATE 20 MG TABLET (FP) PO SCH (10:39)
[2016-12-28] MEDS: NICOTINE 21 MG/24 HOURS TOPICAL PATCH TD SCH (10:40)
[2016-12-28] MEDS ORDERED: ONDANSETRON *ODT* 4 MG TABLET SL PRN (11:17)
--- NOTE | 2016-12-28 11:22 | PN ---
[facility] Progress Note Note: Patient c/o opioid withdrawal sx, last used methadone 6 days ago, would like to start suboxone and recieve symptomatic treatment for withdrawal. will start suboxone 2mg s/l, patient may increase dose every 3 days until comfortable and not reporting cravings or withdrawal sx. Will follow. give one week suboxone on discharge to local [facility] where she will continue MAT with suboxone. Risks and benefits of suboxone discussed with patient.
[2016-12-28] MEDS ORDERED: ONDANSETRON *ODT* 4 MG TABLET SL ONE (12:15)
[2016-12-28] MEDS: NAPROXEN 500 MG TABLET (FP) PO SCH ×2 (13:09→21:58)
[2016-12-28] MEDS: PANTOPRAZOLE 40 MG TABLET (FP) PO SCH (13:09)
[2016-12-28] MEDS: cloNIDine HCL 0.1 MG TABLET PO SCH ×2 (13:09→21:56)
[2016-12-28] MEDS: BUPRENORPHINE/NALOXONE 2 MG/0.5 MG FILM PACKET SL SCH (13:09)
[2016-12-28] MEDS: ACAMPROSATE CALCIUM 333 MG TABLET.DR PO SCH ×2 (14:55→21:56)
[2016-12-28] MEDS: CYCLOBENZAPRINE HCL 5 MG TABLET PO SCH ×2 (14:55→21:58)
[2016-12-28] MEDS: QUEtiapine FUMARATE 25 MG TABLET (FP) PO SCH ×2 (14:55→21:56)
[2016-12-28] MEDS ORDERED: PT OWN MED DRAWER 7, Y5N ONE ×2 (16:00→21:58)
[2016-12-28] MEDS: THIAMINE HCL 100 MG TABLET (FP) PO SCH (21:55)
[2016-12-28] MEDS: risperiDONE 2 MG TABLET PO SCH (21:59)
[2016-12-29] MEDS ORDERED: PT OWN MED DRAWER 7, Y5N ONE ×4 (03:34→22:24)
[2016-12-29] MEDS: QUEtiapine FUMARATE 25 MG TABLET (FP) PO SCH ×3 (06:58→21:56)
[2016-12-29] MEDS: ACAMPROSATE CALCIUM 333 MG TABLET.DR PO SCH ×3 (06:58→21:56)
[2016-12-29] MEDS: ALBUTEROL SO4 6.7 GM HFA INHALER IH PRN ×2 (06:59→21:54)
[2016-12-29] MEDS: CYCLOBENZAPRINE HCL 5 MG TABLET PO SCH ×3 (06:59→21:55)
[2016-12-29] MEDS: hydrOXYzine PAMOATE 50 MG CAPSULE (FP) PO PRN ×3 (06:59→21:57)
--- NOTE | 2016-12-29 09:32 | EKG ---
Test Reason : Blood Pressure : / mmHG Vent. Rate : 078 BPM Atrial Rate : 078 BPM P-R Int : 152 ms QRS Dur : 082 ms QT Int : 402 ms P-R-T Axes : 029 022 039 degrees QTc Int : 458 ms NORMAL SINUS RHYTHM MINIMAL VOLTAGE CRITERIA FOR LVH, MAY BE NORMAL VARIANT WHEN COMPARED WITH ECG OF 11-DEC-2016 19:18, NO SIGNIFICANT CHANGE WAS FOUND Confirmed by MD MONICA, SUSANA ([id number]) on 12/29/2016 9:31:55 AM Referred By: Confirmed By:SUSANA ANDERSON MD
[2016-12-29] MEDS: cloNIDine HCL 0.1 MG TABLET PO SCH ×2 (10:03→21:55)
[2016-12-29] MEDS: HYDROCHLOROTHIAZIDE 25 MG TABLET (FP) PO SCH (10:04)
[2016-12-29] MEDS: DIVALPROEX SODIUM 250 MG TABLET E.C. (FP) PO SCH ×2 (10:04→21:55)
[2016-12-29] MEDS: ESCITALOPRAM OXALATE 20 MG TABLET (FP) PO SCH (10:04)
[2016-12-29] MEDS: PANTOPRAZOLE 40 MG TABLET (FP) PO SCH (10:04)
[2016-12-29] MEDS: NAPROXEN 500 MG TABLET (FP) PO SCH ×2 (10:04→21:55)
[2016-12-29] MEDS: PRENATAL VITAMINS W/ FOLIC ACID TABLET (FP) PO SCH (10:04)
[2016-12-29] MEDS: BUPRENORPHINE/NALOXONE 2 MG/0.5 MG FILM PACKET SL SCH (10:05)
[2016-12-29] MEDS: NICOTINE 21 MG/24 HOURS TOPICAL PATCH TD SCH (10:05)
[2016-12-29] MEDS: risperiDONE 2 MG TABLET PO SCH (21:55)
[2016-12-29] MEDS: THIAMINE HCL 100 MG TABLET (FP) PO SCH (21:57)
[2016-12-30] MEDS: CYCLOBENZAPRINE HCL 5 MG TABLET PO SCH ×3 (06:29→21:48)
[2016-12-30] MEDS: ALBUTEROL SO4 6.7 GM HFA INHALER IH PRN ×2 (06:29→21:50)
[2016-12-30] MEDS: ACAMPROSATE CALCIUM 333 MG TABLET.DR PO SCH ×3 (06:29→21:47)
[2016-12-30] MEDS: QUEtiapine FUMARATE 25 MG TABLET (FP) PO SCH ×3 (06:29→21:48)
[2016-12-30] MEDS: hydrOXYzine PAMOATE 50 MG CAPSULE (FP) PO PRN ×3 (06:30→21:50)
[2016-12-30] MEDS: NICOTINE 21 MG/24 HOURS TOPICAL PATCH TD SCH (10:09)
[2016-12-30] MEDS: PRENATAL VITAMINS W/ FOLIC ACID TABLET (FP) PO SCH (10:10)
[2016-12-30] MEDS: DIVALPROEX SODIUM 250 MG TABLET E.C. (FP) PO SCH ×2 (10:10→21:48)
[2016-12-30] MEDS: PANTOPRAZOLE 40 MG TABLET (FP) PO SCH (10:10)
[2016-12-30] MEDS: NAPROXEN 500 MG TABLET (FP) PO SCH ×2 (10:10→21:50)
[2016-12-30] MEDS: HYDROCHLOROTHIAZIDE 25 MG TABLET (FP) PO SCH (10:10)
[2016-12-30] MEDS: cloNIDine HCL 0.1 MG TABLET PO SCH ×2 (10:10→21:48)
[2016-12-30] MEDS: ESCITALOPRAM OXALATE 20 MG TABLET (FP) PO SCH (10:10)
[2016-12-30] MEDS: BUPRENORPHINE/NALOXONE 2 MG/0.5 MG FILM PACKET SL SCH (10:11)
[2016-12-30] MEDS ORDERED: PT OWN MED DRAWER 7, Y5N ONE ×2 (13:19→21:46)
[2016-12-30] MEDS: risperiDONE 2 MG TABLET PO SCH (21:48)
[2016-12-30] MEDS: THIAMINE HCL 100 MG TABLET (FP) PO SCH (21:48)
[2016-12-31] MEDS: ACAMPROSATE CALCIUM 333 MG TABLET.DR PO SCH ×3 (06:40→21:50)
[2016-12-31] MEDS: ALBUTEROL SO4 6.7 GM HFA INHALER IH PRN ×3 (06:40→17:58)
[2016-12-31] MEDS: CYCLOBENZAPRINE HCL 5 MG TABLET PO SCH ×3 (06:40→21:53)
[2016-12-31] MEDS: QUEtiapine FUMARATE 25 MG TABLET (FP) PO SCH ×3 (06:40→21:52)
[2016-12-31] MEDS: hydrOXYzine PAMOATE 50 MG CAPSULE (FP) PO PRN ×4 (06:40→23:06)
[2016-12-31] MEDS: cloNIDine HCL 0.1 MG TABLET PO SCH ×2 (10:43→21:49)
[2016-12-31] MEDS: BUPRENORPHINE/NALOXONE 2 MG/0.5 MG FILM PACKET SL SCH ×2 (10:43→21:49)
[2016-12-31] MEDS: NAPROXEN 500 MG TABLET (FP) PO SCH ×2 (10:43→21:49)
[2016-12-31] MEDS: DIVALPROEX SODIUM 250 MG TABLET E.C. (FP) PO SCH ×2 (10:43→21:49)
[2016-12-31] MEDS: NICOTINE 21 MG/24 HOURS TOPICAL PATCH TD SCH (10:43)
[2016-12-31] MEDS: HYDROCHLOROTHIAZIDE 25 MG TABLET (FP) PO SCH (10:43)
[2016-12-31] MEDS: ESCITALOPRAM OXALATE 20 MG TABLET (FP) PO SCH (10:43)
[2016-12-31] MEDS: PRENATAL VITAMINS W/ FOLIC ACID TABLET (FP) PO SCH (10:43)
[2016-12-31] MEDS: PANTOPRAZOLE 40 MG TABLET (FP) PO SCH (10:43)
[2016-12-31] MEDS ORDERED: PT OWN MED DRAWER 7, Y5N ONE ×3 (12:24→22:16)
[2016-12-31] MEDS: HYDROCORTISONE 1% TOPICAL CREAM 30 GM TUBE TP SCH ×2 (16:22→21:53)
[2016-12-31] MEDS: risperiDONE 2 MG TABLET PO SCH (21:50)
[2016-12-31] MEDS: THIAMINE HCL 100 MG TABLET (FP) PO SCH (21:51)
[2017-01-01] MEDS: CYCLOBENZAPRINE HCL 5 MG TABLET PO SCH ×3 (06:53→21:50)
[2017-01-01] MEDS: ACAMPROSATE CALCIUM 333 MG TABLET.DR PO SCH ×3 (06:53→21:48)
[2017-01-01] MEDS: ALBUTEROL SO4 6.7 GM HFA INHALER IH PRN ×2 (06:53→13:17)
[2017-01-01] MEDS: QUEtiapine FUMARATE 25 MG TABLET (FP) PO SCH ×3 (06:54→21:48)
[2017-01-01] MEDS: hydrOXYzine PAMOATE 50 MG CAPSULE (FP) PO PRN ×3 (06:55→21:48)
[2017-01-01] MEDS ORDERED: PT OWN MED DRAWER 7, Y5N ONE ×3 (08:46→21:09)
[2017-01-01] MEDS: HYDROCHLOROTHIAZIDE 25 MG TABLET (FP) PO SCH (10:52)
[2017-01-01] MEDS: NAPROXEN 500 MG TABLET (FP) PO SCH ×2 (10:52→21:50)
[2017-01-01] MEDS: cloNIDine HCL 0.1 MG TABLET PO SCH ×2 (10:52→21:48)
[2017-01-01] MEDS: ESCITALOPRAM OXALATE 20 MG TABLET (FP) PO SCH (10:52)
[2017-01-01] MEDS: NICOTINE 21 MG/24 HOURS TOPICAL PATCH TD SCH (10:53)
[2017-01-01] MEDS: DIVALPROEX SODIUM 250 MG TABLET E.C. (FP) PO SCH ×2 (10:53→21:48)
[2017-01-01] MEDS: PRENATAL VITAMINS W/ FOLIC ACID TABLET (FP) PO SCH (10:53)
[2017-01-01] MEDS: PANTOPRAZOLE 40 MG TABLET (FP) PO SCH (10:53)
[2017-01-01] MEDS: HYDROCORTISONE 1% TOPICAL CREAM 30 GM TUBE TP SCH ×2 (10:54→21:50)
[2017-01-01] MEDS: BUPRENORPHINE/NALOXONE 2 MG/0.5 MG FILM PACKET SL SCH ×2 (10:54→21:48)
[2017-01-01] MEDS: risperiDONE 2 MG TABLET PO SCH (21:48)
[2017-01-01] MEDS: THIAMINE HCL 100 MG TABLET (FP) PO SCH (21:48)
[2017-01-02] MEDS: ACAMPROSATE CALCIUM 333 MG TABLET.DR PO SCH ×3 (06:49→21:54)
[2017-01-02] MEDS: QUEtiapine FUMARATE 25 MG TABLET (FP) PO SCH ×3 (06:49→21:54)
[2017-01-02] MEDS: ALBUTEROL SO4 6.7 GM HFA INHALER IH PRN (06:49)
[2017-01-02] MEDS: CYCLOBENZAPRINE HCL 5 MG TABLET PO SCH ×3 (06:50→21:55)
[2017-01-02] MEDS: hydrOXYzine PAMOATE 50 MG CAPSULE (FP) PO PRN ×3 (06:50→14:51)
[2017-01-02] MEDS: DIVALPROEX SODIUM 250 MG TABLET E.C. (FP) PO SCH ×2 (10:22→21:54)
[2017-01-02] MEDS: cloNIDine HCL 0.1 MG TABLET PO SCH ×2 (10:22→21:54)
[2017-01-02] MEDS: PANTOPRAZOLE 40 MG TABLET (FP) PO SCH (10:22)
[2017-01-02] MEDS: PRENATAL VITAMINS W/ FOLIC ACID TABLET (FP) PO SCH (10:22)
[2017-01-02] MEDS: HYDROCORTISONE 1% TOPICAL CREAM 30 GM TUBE TP SCH ×2 (10:22→21:55)
[2017-01-02] MEDS: ESCITALOPRAM OXALATE 20 MG TABLET (FP) PO SCH (10:22)
[2017-01-02] MEDS: NAPROXEN 500 MG TABLET (FP) PO SCH ×2 (10:22→21:55)
[2017-01-02] MEDS: HYDROCHLOROTHIAZIDE 25 MG TABLET (FP) PO SCH (10:22)
[2017-01-02] MEDS: NICOTINE 21 MG/24 HOURS TOPICAL PATCH TD SCH (10:23)
[2017-01-02] MEDS: BUPRENORPHINE/NALOXONE 2 MG/0.5 MG FILM PACKET SL SCH ×2 (10:23→21:54)
[2017-01-02] MEDS: COLLOIDAL OATMEAL 1 BAR EACH TP PRN (10:30)
[2017-01-02] MEDS ORDERED: PT OWN MED DRAWER 7, Y5N ONE ×2 (12:38→22:59)
[2017-01-02] MEDS: THIAMINE HCL 100 MG TABLET (FP) PO SCH (21:54)
[2017-01-02] MEDS: risperiDONE 2 MG TABLET PO SCH (21:54)
[2017-01-03] MEDS: ACAMPROSATE CALCIUM 333 MG TABLET.DR PO SCH ×3 (06:45→21:47)
[2017-01-03] MEDS: QUEtiapine FUMARATE 25 MG TABLET (FP) PO SCH ×3 (06:45→21:51)
[2017-01-03] MEDS: hydrOXYzine PAMOATE 50 MG CAPSULE (FP) PO PRN ×3 (06:45→21:51)
[2017-01-03] MEDS: CYCLOBENZAPRINE HCL 5 MG TABLET PO SCH ×3 (06:45→21:52)
[2017-01-03] MEDS ORDERED: PT OWN MED DRAWER 7, Y5N ONE ×2 (08:45→21:48)
[2017-01-03] MEDS: ESCITALOPRAM OXALATE 20 MG TABLET (FP) PO SCH (11:02)
[2017-01-03] MEDS: PANTOPRAZOLE 40 MG TABLET (FP) PO SCH (11:02)
[2017-01-03] MEDS: DIVALPROEX SODIUM 250 MG TABLET E.C. (FP) PO SCH ×2 (11:02→21:47)
[2017-01-03] MEDS: HYDROCORTISONE 1% TOPICAL CREAM 30 GM TUBE TP SCH ×2 (11:03→21:52)
[2017-01-03] MEDS: NAPROXEN 500 MG TABLET (FP) PO SCH ×2 (11:03→21:47)
[2017-01-03] MEDS: HYDROCHLOROTHIAZIDE 25 MG TABLET (FP) PO SCH (11:03)
[2017-01-03] MEDS: NICOTINE 21 MG/24 HOURS TOPICAL PATCH TD SCH (11:03)
[2017-01-03] MEDS: cloNIDine HCL 0.1 MG TABLET PO SCH ×2 (11:03→21:47)
[2017-01-03] MEDS: PRENATAL VITAMINS W/ FOLIC ACID TABLET (FP) PO SCH (11:03)
[2017-01-03] MEDS: BUPRENORPHINE/NALOXONE 2 MG/0.5 MG FILM PACKET SL SCH ×2 (11:04→21:47)
[2017-01-03] MEDS: THIAMINE HCL 100 MG TABLET (FP) PO SCH (21:47)
[2017-01-03] MEDS: risperiDONE 2 MG TABLET PO SCH (21:47)
[2017-01-04] MEDS: hydrOXYzine PAMOATE 50 MG CAPSULE (FP) PO PRN ×2 (06:56→10:50)
[2017-01-04] MEDS: CYCLOBENZAPRINE HCL 5 MG TABLET PO SCH ×3 (06:56→22:32)
[2017-01-04] MEDS: ACAMPROSATE CALCIUM 333 MG TABLET.DR PO SCH ×3 (06:56→22:30)
[2017-01-04] MEDS: ALBUTEROL SO4 6.7 GM HFA INHALER IH PRN ×3 (06:57→22:33)
[2017-01-04] MEDS: QUEtiapine FUMARATE 25 MG TABLET (FP) PO SCH ×2 (06:57→13:22)
[2017-01-04] MEDS ORDERED: PT OWN MED DRAWER 7, Y5N ONE ×4 (09:13→20:21)
[2017-01-04] MEDS: HYDROCORTISONE 1% TOPICAL CREAM 30 GM TUBE TP SCH ×2 (10:48→22:32)
[2017-01-04] MEDS: cloNIDine HCL 0.1 MG TABLET PO SCH ×2 (10:49→22:32)
[2017-01-04] MEDS: ESCITALOPRAM OXALATE 20 MG TABLET (FP) PO SCH (10:49)
[2017-01-04] MEDS: DIVALPROEX SODIUM 250 MG TABLET E.C. (FP) PO SCH ×2 (10:50→22:32)
[2017-01-04] MEDS: BUPRENORPHINE/NALOXONE 2 MG/0.5 MG FILM PACKET SL SCH ×2 (10:50→22:32)
[2017-01-04] MEDS: NICOTINE 21 MG/24 HOURS TOPICAL PATCH TD SCH (10:50)
[2017-01-04] MEDS: HYDROCHLOROTHIAZIDE 25 MG TABLET (FP) PO SCH (10:50)
[2017-01-04] MEDS: PANTOPRAZOLE 40 MG TABLET (FP) PO SCH (10:50)
[2017-01-04] MEDS: NAPROXEN 500 MG TABLET (FP) PO SCH ×2 (10:50→22:32)
[2017-01-04] MEDS: PRENATAL VITAMINS W/ FOLIC ACID TABLET (FP) PO SCH (10:52)
[2017-01-04] MEDS: risperiDONE 2 MG TABLET PO SCH (22:32)
[2017-01-04] MEDS: THIAMINE HCL 100 MG TABLET (FP) PO SCH (22:36)
[2017-01-05] MEDS ORDERED: PT OWN MED DRAWER 7, Y5N ONE ×6 (06:13→23:07)
[2017-01-05] MEDS: hydrOXYzine PAMOATE 50 MG CAPSULE (FP) PO PRN ×3 (06:41→21:49)
[2017-01-05] MEDS: ACAMPROSATE CALCIUM 333 MG TABLET.DR PO SCH ×3 (06:42→21:49)
[2017-01-05] MEDS: CYCLOBENZAPRINE HCL 5 MG TABLET PO SCH ×3 (06:42→21:53)
[2017-01-05] MEDS: ALBUTEROL SO4 6.7 GM HFA INHALER IH PRN (06:43)
[2017-01-05] MEDS: BUPRENORPHINE/NALOXONE 2 MG/0.5 MG FILM PACKET SL SCH ×2 (10:24→21:49)
[2017-01-05] MEDS: HYDROCHLOROTHIAZIDE 25 MG TABLET (FP) PO SCH (10:24)
[2017-01-05] MEDS: DIVALPROEX SODIUM 250 MG TABLET E.C. (FP) PO SCH ×2 (10:25→21:49)
[2017-01-05] MEDS: ESCITALOPRAM OXALATE 20 MG TABLET (FP) PO SCH (10:25)
[2017-01-05] MEDS: PANTOPRAZOLE 40 MG TABLET (FP) PO SCH (10:25)
[2017-01-05] MEDS: NAPROXEN 500 MG TABLET (FP) PO SCH ×2 (10:25→21:50)
[2017-01-05] MEDS: NICOTINE 21 MG/24 HOURS TOPICAL PATCH TD SCH (10:25)
[2017-01-05] MEDS: cloNIDine HCL 0.1 MG TABLET PO SCH ×2 (10:25→21:49)
[2017-01-05] MEDS: HYDROCORTISONE 1% TOPICAL CREAM 30 GM TUBE TP SCH ×2 (10:26→21:51)
[2017-01-05] MEDS: PRENATAL VITAMINS W/ FOLIC ACID TABLET (FP) PO SCH (10:32)
[2017-01-05] MEDS: risperiDONE 2 MG TABLET PO SCH (21:49)
[2017-01-05] MEDS: THIAMINE HCL 100 MG TABLET (FP) PO SCH (21:50)
[2017-01-05] MEDS: NICOTINE POLACRILEX 4 MG GUM BUC PRN (21:52)
[2017-01-06] MEDS: CYCLOBENZAPRINE HCL 5 MG TABLET PO SCH ×3 (06:24→22:01)
[2017-01-06] MEDS: ACAMPROSATE CALCIUM 333 MG TABLET.DR PO SCH ×3 (06:24→22:00)
[2017-01-06] MEDS: ALBUTEROL SO4 6.7 GM HFA INHALER IH PRN ×2 (06:24→15:22)
[2017-01-06] MEDS: NICOTINE POLACRILEX 4 MG GUM BUC PRN ×3 (06:24→15:21)
[2017-01-06] MEDS: hydrOXYzine PAMOATE 50 MG CAPSULE (FP) PO PRN ×3 (06:25→22:02)
[2017-01-06] MEDS ORDERED: PT OWN MED DRAWER 7, Y5N ONE (09:04)
[2017-01-06] MEDS: HYDROCORTISONE 1% TOPICAL CREAM 30 GM TUBE TP SCH ×2 (10:17→22:03)
[2017-01-06] MEDS: NICOTINE 21 MG/24 HOURS TOPICAL PATCH TD SCH (10:17)
[2017-01-06] MEDS: BUPRENORPHINE/NALOXONE 2 MG/0.5 MG FILM PACKET SL SCH ×2 (10:17→22:01)
[2017-01-06] MEDS: PANTOPRAZOLE 40 MG TABLET (FP) PO SCH (10:18)
[2017-01-06] MEDS: HYDROCHLOROTHIAZIDE 25 MG TABLET (FP) PO SCH (10:18)
[2017-01-06] MEDS: DIVALPROEX SODIUM 250 MG TABLET E.C. (FP) PO SCH ×2 (10:19→22:00)
[2017-01-06] MEDS: ESCITALOPRAM OXALATE 20 MG TABLET (FP) PO SCH (10:19)
[2017-01-06] MEDS: NAPROXEN 500 MG TABLET (FP) PO SCH ×2 (10:19→22:00)
[2017-01-06] MEDS: cloNIDine HCL 0.1 MG TABLET PO SCH ×2 (10:19→22:00)
[2017-01-06] MEDS: PRENATAL VITAMINS W/ FOLIC ACID TABLET (FP) PO SCH (10:20)
[2017-01-06] MEDS: risperiDONE 2 MG TABLET PO SCH (22:00)
[2017-01-06] MEDS: THIAMINE HCL 100 MG TABLET (FP) PO SCH (22:03)
[2017-01-07] MEDS ORDERED: PT OWN MED DRAWER 7, Y5N ONE ×3 (03:30→12:38)
[2017-01-07] MEDS: ACAMPROSATE CALCIUM 333 MG TABLET.DR PO SCH ×3 (06:15→22:05)
[2017-01-07] MEDS: hydrOXYzine PAMOATE 50 MG CAPSULE (FP) PO PRN ×2 (06:16→22:03)
[2017-01-07] MEDS: CYCLOBENZAPRINE HCL 5 MG TABLET PO SCH ×3 (06:16→22:04)
[2017-01-07] MEDS: NICOTINE POLACRILEX 4 MG GUM BUC PRN ×3 (06:17→13:15)
[2017-01-07] MEDS: HYDROCHLOROTHIAZIDE 25 MG TABLET (FP) PO SCH (10:19)
[2017-01-07] MEDS: NAPROXEN 500 MG TABLET (FP) PO SCH ×2 (10:19→22:03)
[2017-01-07] MEDS: DIVALPROEX SODIUM 250 MG TABLET E.C. (FP) PO SCH ×2 (10:19→22:03)
[2017-01-07] MEDS: PANTOPRAZOLE 40 MG TABLET (FP) PO SCH (10:19)
[2017-01-07] MEDS: ESCITALOPRAM OXALATE 20 MG TABLET (FP) PO SCH (10:19)
[2017-01-07] MEDS: NICOTINE 21 MG/24 HOURS TOPICAL PATCH TD SCH (10:19)
[2017-01-07] MEDS: BUPRENORPHINE/NALOXONE 2 MG/0.5 MG FILM PACKET SL SCH ×2 (10:19→22:03)
[2017-01-07] MEDS: PRENATAL VITAMINS W/ FOLIC ACID TABLET (FP) PO SCH (10:20)
[2017-01-07] MEDS: ALBUTEROL SO4 6.7 GM HFA INHALER IH PRN (10:22)
[2017-01-07] MEDS: cloNIDine HCL 0.1 MG TABLET PO SCH ×2 (10:28→22:03)
[2017-01-07] MEDS: HYDROCORTISONE 1% TOPICAL CREAM 30 GM TUBE TP SCH ×2 (10:28→22:06)
[2017-01-07] MEDS: risperiDONE 2 MG TABLET PO SCH (22:03)
[2017-01-07] MEDS: THIAMINE HCL 100 MG TABLET (FP) PO SCH (22:03)
[2017-01-08] MEDS: ACAMPROSATE CALCIUM 333 MG TABLET.DR PO SCH ×3 (06:16→21:47)
[2017-01-08] MEDS: hydrOXYzine PAMOATE 50 MG CAPSULE (FP) PO PRN ×4 (06:17→21:49)
[2017-01-08] MEDS: CYCLOBENZAPRINE HCL 5 MG TABLET PO SCH ×3 (06:17→21:47)
[2017-01-08] MEDS: NICOTINE POLACRILEX 4 MG GUM BUC PRN ×2 (06:17→13:16)
[2017-01-08] MEDS: COLLOIDAL OATMEAL 1 BAR EACH TP PRN (06:23)
--- NOTE | 2017-01-08 10:21 | PN ---
[facility] Progress Note Note: Fungus of the feet Tinactin cream bid
[2017-01-08] MEDS: NICOTINE 21 MG/24 HOURS TOPICAL PATCH TD SCH (10:32)
[2017-01-08] MEDS: BUPRENORPHINE/NALOXONE 2 MG/0.5 MG FILM PACKET SL SCH ×2 (10:32→21:49)
[2017-01-08] MEDS: NAPROXEN 500 MG TABLET (FP) PO SCH ×2 (10:32→21:48)
[2017-01-08] MEDS: ESCITALOPRAM OXALATE 20 MG TABLET (FP) PO SCH (10:32)
[2017-01-08] MEDS: PRENATAL VITAMINS W/ FOLIC ACID TABLET (FP) PO SCH (10:32)
[2017-01-08] MEDS: DIVALPROEX SODIUM 250 MG TABLET E.C. (FP) PO SCH ×2 (10:32→21:48)
[2017-01-08] MEDS: PANTOPRAZOLE 40 MG TABLET (FP) PO SCH (10:32)
[2017-01-08] MEDS: HYDROCHLOROTHIAZIDE 25 MG TABLET (FP) PO SCH (10:32)
[2017-01-08] MEDS ORDERED: PT OWN MED DRAWER 7, Y5N ONE ×2 (10:34→10:49)
[2017-01-08] MEDS: HYDROCORTISONE 1% TOPICAL CREAM 30 GM TUBE TP SCH ×2 (10:35→21:47)
[2017-01-08] MEDS: cloNIDine HCL 0.1 MG TABLET PO SCH ×2 (10:45→21:48)
[2017-01-08] MEDS: TOLNAFTATE 1% CREAM 15 GM TUBE TP SCH ×2 (10:47→21:51)
[2017-01-08] MEDS: risperiDONE 2 MG TABLET PO SCH (21:47)
[2017-01-08] MEDS: THIAMINE HCL 100 MG TABLET (FP) PO SCH (21:55)
[2017-01-09] MEDS: CYCLOBENZAPRINE HCL 5 MG TABLET PO SCH ×3 (06:27→21:53)
[2017-01-09] MEDS: ACAMPROSATE CALCIUM 333 MG TABLET.DR PO SCH ×3 (06:27→21:54)
[2017-01-09] MEDS: ALBUTEROL SO4 6.7 GM HFA INHALER IH PRN ×2 (06:27→18:39)
[2017-01-09] MEDS: hydrOXYzine PAMOATE 50 MG CAPSULE (FP) PO PRN ×4 (06:27→21:53)
[2017-01-09] MEDS: NICOTINE POLACRILEX 4 MG GUM BUC PRN ×3 (06:28→18:39)
[2017-01-09] MEDS: cloNIDine HCL 0.1 MG TABLET PO SCH ×2 (10:23→21:54)
[2017-01-09] MEDS: HYDROCHLOROTHIAZIDE 25 MG TABLET (FP) PO SCH (10:23)
[2017-01-09] MEDS: DIVALPROEX SODIUM 250 MG TABLET E.C. (FP) PO SCH ×2 (10:23→21:53)
[2017-01-09] MEDS: PANTOPRAZOLE 40 MG TABLET (FP) PO SCH (10:24)
[2017-01-09] MEDS: PRENATAL VITAMINS W/ FOLIC ACID TABLET (FP) PO SCH (10:24)
[2017-01-09] MEDS: ESCITALOPRAM OXALATE 20 MG TABLET (FP) PO SCH (10:24)
[2017-01-09] MEDS: NAPROXEN 500 MG TABLET (FP) PO SCH ×2 (10:24→21:53)
[2017-01-09] MEDS: BUPRENORPHINE/NALOXONE 2 MG/0.5 MG FILM PACKET SL SCH ×2 (10:27→21:53)
[2017-01-09] MEDS: NICOTINE 21 MG/24 HOURS TOPICAL PATCH TD SCH (10:27)
[2017-01-09] MEDS: HYDROCORTISONE 1% TOPICAL CREAM 30 GM TUBE TP SCH ×2 (10:28→21:56)
[2017-01-09] MEDS: TOLNAFTATE 1% CREAM 15 GM TUBE TP SCH ×2 (10:41→21:57)
[2017-01-09] MEDS ORDERED: PT OWN MED DRAWER 7, Y5N ONE (12:13)
--- NOTE | 2017-01-09 16:16 | PN ---
Psychiatric Progress Note Vital Signs: Vital Signs Period Temp Pulse Resp BP Sys/Kimble Pulse Ox Last 24 Hr 98.6 F 99-108 18-18 115-146/75-89 Date of Session: 01/09/17 Chief Complaint:: Discharge visit HPI: Patient addressed Alcohol,Opioid,Cocaine dependence comorbid with Bipolar disorder. ROS: Significant for BA,HTN,Low back pain. Current Medications: Active Medications Generic Name Dose Route Start Last Admin Trade Name Freq PRN Reason Stop Dose Admin Acamprosate 666 mg 12/28/16 14:00 01/09/17 13:32 Campral - PO 666 mg TID RAYMUNDO Administration Acetaminophen 650 mg 12/26/16 14:07 Tylenol - PO Q4H PRN FEVER OR PAIN Al Hydroxide/Mg Hydroxide 30 ml 12/26/16 14:07 Mylanta Oral Suspension - PO Q6H PRN DYSPEPSIA Albuterol Sulfate 2 puff 12/26/16 14:08 01/09/17 06:27 Ventolin Hfa Inhaler - IH 2 puff Q4H PRN Administration ASTHMA Buprenorphine/Naloxone 1 each 12/31/16 22:00 01/09/17 10:27 Suboxone 2mg/0.5mg Sl Film - SL 1 each BID RAYMUNDO Administration Clonidine 0.1 mg 12/28/16 12:15 01/09/17 10:23 Catapres - PO 0.1 mg BID RAYMUNDO Administration Colloidal Oatmeal 1 applic 12/31/16 13:35 01/08/17 06:23 Aveeno Soap - TP 1 applic DAILY PRN Administration HYGEINE Cyclobenzaprine HCl 5 mg 12/28/16 14:00 01/09/17 13:32 Cyclobenzaprine Hcl PO 5 mg TID RAYMUNDO Administration Diphenhydramine HCl 50 mg 12/26/16 14:07 12/27/16 21:40 Benadryl - PO 50 mg HSMR1 PRN Administration FOR ITCHING Divalproex Sodium 250 mg 12/26/16 22:00 01/09/17 10:23 Depakote - PO 250 mg BID RAYMUNDO Administration Escitalopram Oxalate 20 mg 12/27/16 10:00 01/09/17 10:24 Lexapro - PO 20 mg DAILY RAYMUNDO Administration Eucalyptus/Menthol/Phenol/Sorbitol 1 each 09/06/17 14:07 Cepastat Lozenge - MM Q4H PRN SORE THROAT Guaifenesin 10 ml 12/26/16 14:07 Robitussin Dm - PO Q6H PRN COUGH Hydrochlorothiazide 25 mg 12/26/16 14:15 01/09/17 10:23 Hctz - PO 25 mg DAILY RAYMUNDO Administration Hydrocortisone 1 applic 12/31/16 15:15 01/09/17 10:28 Hytone 1% Cream - TP 1 appful BID RAYMUNDO Administration Hydroxyzine Pamoate 50 mg 12/26/16 14:07 01/09/17 14:38 Vistaril - PO 50 mg Q4H PRN Administration AGITATION Loperamide HCl 4 mg 12/26/16 14:07 Imodium - PO Q6H PRN DIARRHEA Magnesium Hydroxide 30 ml 12/26/16 14:07 Milk Of Magnesia - PO DAILY PRN CONSTIPATION Naproxen 500 mg 12/28/16 12:15 01/09/17 10:24 Naprosyn - PO 500 mg BID RAYMUNDO Administration Nicotine 21 mg 12/26/16 14:15 01/09/17 10:27 Nicoderm Patch - TD 21 mg DAILY RAYMUNDO Administration Nicotine Polacrilex 4 mg 12/26/16 14:07 01/09/17 10:27 Nicorette Gum - BUC 4 mg Q2H PRN Administration NICOTINE REPLACEMENT RX Ondansetron HCl 8 mg 12/28/16 11:17 Zofran Odt - SL Q6H PRN NAUSEA AND/OR VOMITING Pantoprazole Sodium 40 mg 12/28/16 12:15 01/09/17 10:24 Protonix - PO 40 mg DAILY RAYMUNDO Administration Multivit/Folic Acid/Iron 1 tab 12/27/16 10:00 01/09/17 10:24 Vitamins (Sjr) - PO 1 tab DAILY RAYMUNDO Administration Pseudoephedrine/Triprolidine 1 combo 12/26/16 14:07 Actifed - PO TID PRN NASAL CONGESTION Risperidone 2 mg 12/28/16 22:00 01/08/17 21:47 Risperdal - PO 2 mg HS RAYMUNDO Administration Thiamine HCl 100 mg 12/26/16 22:00 01/08/17 21:55 Vitamin B1 - PO Not Given HS RAYMUNDO Tolnaftate 1 applic 01/08/17 10:30 01/09/17 10:41 Tinactin 1% Cream - TP Not Given BID RAYMUNDO Current Side Effect: No Lab tests ordered: No Lab tests reviewed: Yes Provider note:: Patient will complete this program tomorrow 01/10/17.She has met her treatment plan and will continue to address his issues on outpatient basis.Patient reports finding Risperidone 2 mg po hs,Depakote 250 mg po bid, Campral 333 mg po 2 tab tid,Lexapro 20 mg po daily help to cope with mood instability,anxiety,cravings for alcohol,depression.Scripts for 30 days provided.Patient identifies areas of difficulties,behaviors which contribute to relapse.Supportive therapy provided focusing on coping skills,support utilization to maintain recovery. PAtient is stable for ddischarge tomorrow . Total face to face time:: 30 Mental Status Exam - Mental Status Exam Alert and Oriented to: Time, Place, Person Cognitive Function: Grossly Intact Patient Appearance: Well Groomed Mood: Sad Affect: Mood Congruent Patient Behavior: Cooperative Speech Pattern: Clear Voice Loudness: Normal Thought Process: Goal Oriented Thought Disorder: Not Present Hallucinations: Denies Suicidal Ideation: Denies Homicidal Ideation: Denies Insight/Judgement: Fair Sleep: Fair Appetite: Good Muscle strength/Tone: Normal Gait/Station: Normal Psychiatric Treatment Plan - Problem List (1) Alcohol dependence Current Visit: Yes Qualifiers: (2) Asthma Current Visit: Yes Qualifiers: Comment: TREATED WITH VENTOLIN (3) Chronic back pain Current Visit: Yes Qualifiers: Comment: SINCE 2010 (4) Cocaine dependence Current Visit: Yes Qualifiers: (5) Hypertension Current Visit: Yes Qualifiers: Comment: HYDROCHLOROTHIAZIDE 12.5 MG NORVASC 5 MG (6) Nicotine dependence Current Visit: Yes Qualifiers: (7) Bipolar I disorder, most recent episode mixed Current Visit: Yes (8) Opioid dependence Current Visit: Yes
[2017-01-09] MEDS: risperiDONE 2 MG TABLET PO SCH (21:54)
[2017-01-09] MEDS: THIAMINE HCL 100 MG TABLET (FP) PO SCH (21:57)
[2017-01-10] MEDS ORDERED: PT OWN MED DRAWER 7, Y5N ONE ×2 (03:17→09:16)
[2017-01-10] MEDS: ACAMPROSATE CALCIUM 333 MG TABLET.DR PO SCH (06:34)
[2017-01-10] MEDS: CYCLOBENZAPRINE HCL 5 MG TABLET PO SCH (06:34)
[2017-01-10] MEDS: ALBUTEROL SO4 6.7 GM HFA INHALER IH PRN (06:35)
[2017-01-10] MEDS: hydrOXYzine PAMOATE 50 MG CAPSULE (FP) PO PRN ×2 (06:35→10:32)
[2017-01-10] MEDS: NICOTINE POLACRILEX 4 MG GUM BUC PRN ×2 (06:35→10:33)
[2017-01-10 07:04] VITALS: TEMP 98.5
[2017-01-10 09:43] VITALS: BP 130/82; PULSE 112
[2017-01-10] MEDS: DIVALPROEX SODIUM 250 MG TABLET E.C. (FP) PO SCH (10:28)
[2017-01-10] MEDS: HYDROCHLOROTHIAZIDE 25 MG TABLET (FP) PO SCH (10:29)
[2017-01-10] MEDS: BUPRENORPHINE/NALOXONE 2 MG/0.5 MG FILM PACKET SL SCH (10:29)
[2017-01-10] MEDS: NAPROXEN 500 MG TABLET (FP) PO SCH (10:29)
[2017-01-10] MEDS: cloNIDine HCL 0.1 MG TABLET PO SCH (10:29)
[2017-01-10] MEDS: ESCITALOPRAM OXALATE 20 MG TABLET (FP) PO SCH (10:29)
[2017-01-10] MEDS: PANTOPRAZOLE 40 MG TABLET (FP) PO SCH (10:29)
[2017-01-10] MEDS: NICOTINE 21 MG/24 HOURS TOPICAL PATCH TD SCH (10:30)
[2017-01-10] MEDS: TOLNAFTATE 1% CREAM 15 GM TUBE TP SCH (10:32)
[2017-01-10] MEDS: PRENATAL VITAMINS W/ FOLIC ACID TABLET (FP) PO SCH (10:33)
[2017-01-10] MEDS: HYDROCORTISONE 1% TOPICAL CREAM 30 GM TUBE TP SCH (10:33)
== END 2017-01-10 12:30 | disposition home or self-care (01) | DRG 772 ==
LOC: YASAS 12:36 → Y3E 16:03
PROVIDERS: ADMIT Psychiatry & Neurology Psychiatry; ATTEND Psychiatry & Neurology Psychiatry
PROC: HZ42ZZZ Group Counseling for Substance Abuse Treatment, Cognitive-Behavioral (ICD-10-PCS; principal; 2016-12-26)
DX: F11.20 Opioid dependence, uncomplicated (principal); F10.20 Alcohol dependence, uncomplicated; F14.20 Cocaine dependence, uncomplicated; F17.210 Nicotine dependence, cigarettes, uncomplicated; F31.89 Other bipolar disorder; I10 Essential (primary) hypertension; J45.909 Unspecified asthma, uncomplicated; M54.5 Low back pain; G89.29 Other chronic pain
CPT/HCPCS: 36415; 80164; 81003; 93005; 93010

== ENCOUNTER 2017-08-13 09:45 | Inpatient (IN) | payer OTHER ==
[2017-08-13 10:28] VITALS: BMI 23.8
--- NOTE | 2017-08-13 11:40 | HP ---
COWS - Scale Resting Pulse: 1= AR 81-100 Sweatin= Chills/Flushing Restless Observation: 3= Extraneous Movement Pupil Size: 2= Moderately Dilated Bone or Joint Aches: 2= Severe Diffuse Aches Runny Nose/ Eye Tearin= Runny Nose/Eyes GI Upset > 30mins: 2= Nausea/Diarrhea Tremor Observation: 2= Slight Tremor Visible Yawning Observation: 2= >3x During Session Anxiety or Irritability: 2=Irritable/Anxious Goose Flesh Skin: 0=Smooth Skin COWS Score: 19 CIWA Score - CIWA Score Nausea/Vomitin Muscle Tremors: 3 Anxiety: 3 Agitation: 3 Paroxysmal Sweats: 2 Orientation: 0-Oriented Tacttile Disturbances: 2-Mild Itch/Numbness/Burn Auditory Disturbances: 2-Mild Harshness/Frighten Visual Disturbances: 1-Very Mild Sensitivity Headache: 2-Mild CIWA-Ar Total Score: 21 Admission ROS BHS - HPI Chief Complaint: I NEED HELP TO STOP USING HEROIN,ALCOHOL,COCAINE AND MARIJUANA Allergies/Adverse Reactions: Allergies Allergy/AdvReac Type Severity Reaction Status Date / Time No Known Allergies Allergy Verified 08/13/17 10:36 History of Present Illness: THIS 46 YEARS OLD MALE WITH HEROIN,ALCOHOL,COCAINE,MARIJUANA DEPENDENCE,SEEKING DETOX,WITHDRAWAL SYMPTOM,LAST TREATMENT [facility] 12/11/16 TO 12/15/16,REHAB TO 01/10/17 HISTORY OF HYPERTENSION,ARTHRITIS LEFT KNEE WEIGHT LOSS NICOTINE DEPENDENCE LONGEST PERIOD OF SOBRIETY 2 YEARS BIPOLAR DISORDER Exam Limitations: No Limitations - Ebola screening Have you traveled outside of the country in the last 21 days: No Have you had contact with anyone from an Ebola affected area: No Have you been sick,other than usual withdrawal symptoms: No Do you have a fever: No - Review of Systems Constitutional: Chills, Loss of Appetite, Malaise, Night Sweats, Changes in sleep, Weakness, Unintentional Wgt. Loss EENT: reports: Tearing, Nose Congestion Respiratory: reports: No Symptoms reported, Other (ON ALBUPEROL INHALER) Cardiac: reports: Palpitations GI: reports: Diarrhea, Nausea, Vomiting : reports: No Symptoms Reported Musculoskeletal: reports: No Symptoms Reported, Back Pain, Joint Pain, Muscle Pain Integumentary: reports: Dryness Neuro: reports: Headache, Tremors Endocrine: reports: No Symptoms Reported Hematology: reports: No Symptoms Reported Psychiatric: reports: No Sypmtoms Reported, Judgement Intact, Mood/Affect Appropiate, Orientated x3 (BIPOLAR DISORDER) Other Systems: Reviewed and Negative Patient History - Patient Medical History Hx Anemia: Yes (NO TREATMENT) Hx Asthma: Yes (ON MDI) Hx Chronic Obstructive Pulmonary Disease (COPD): No Hx Cancer: No Hx Cardiac Disorders: No Hx Congestive Heart Failure: No Hx Hypertension: Yes (NON COMPLIANT) Hx Hypercholesterolemia: No Hx Pacemaker: No HX Cerebrovascular Accident: No Hx Seizures: Yes (07/2017 ETOH RELATED) Hx Dementia: No Hx Diabetes: No Hx Gastrointestinal Disorders: No Hx Liver Disease: No Hx Genitourinary Disorders: No Hx Sexually Transmitted Disorders: No Hx Renal Disease (ESRD): No Hx Thyroid Disease: No Hx Human Immunodeficiency Virus (HIV): No (10/06 ngative last) Hx Hepatitis C: No Hx Depression: Yes Hx Suicide Attempt: No Hx Bipolar Disorder: Yes Hx Schizophrenia: No Other Medical History: NO SUICIDAL,NO HOMICIDAL - Patient Surgical History Past Surgical History: No Hx Neurologic Surgery: No Hx Cataract Extraction: No Hx Cardiac Surgery: No Hx Lung Surgery: No Hx Breast Surgery: No Hx Breast Biopsy: No Hx Abdominal Surgery: No Hx Appendectomy: No Hx Cholecystectomy: No Hx Genitourinary Surgery: No Hx Section: No Hx Orthopedic Surgery: No Hx Hysterectomy: No Anesthesia Reaction: No - PPD History Previous Implant?: Yes Documented Results: Negative w/proof Implanted On Prior [facility] Admission?: Yes Date: 12/13/16 Results: 0MM PPD to be Administered?: No - Reproductive History Patient is a Female of Child Bearing Age (11 -55 yrs old): Yes Last Menstrual Period: 07/26/17 Patient : No - Smoking Cessation Smoking history: Current every day smoker Have you smoked in the past 12 months: Yes Aproximately how many cigarettes per day: 30 Cigars Per Day: 0 Hx Chewing Tobacco Use: No Initiated information on smoking cessation: Yes 'Breaking Loose' booklet given: 08/13/17 - Substance & Tx. History Hx Alcohol Use: Yes Hx Substance Use: Yes Substance Use Type: Alcohol, Cocaine, Heroin, Marijuana Hx Substance Use Treatment: Yes ([facility] 12/11/16 TO 12/15/16,REHAB 12/26/16 TO ) - Substances Abused Heroin Route: Inhalation Frequency: Daily Amount used: 7 BAGS Age of first use: 29 Date of Last Use: 08/12/17 Cocaine Route: Smoking Frequency: 1-2 times per week Amount used: $30, 1 GRAM Age of first use: 20 Date of Last Use: 08/11/17 ETOH Route: Oral Frequency: Daily Amount used: VODKA- 3 PINT, 6-PK-24OZ Age of first use: 21 Date of Last Use: 08/13/17 Marijuana/Hashish Route: Smoking Frequency: 3-6 times per week Amount used: 40$ Age of first use: 19 Date of Last Use: 08/12/17 Family Disease History - Family Disease History Family Disease History: Diabetes: Sister, Heart Disease: Grandparent, Mother ( 20 years abstinence), CA: Grandparent, Other: Mother Admission Physical Exam [facility] - Vital Signs Vital Signs: Vital Signs - 24 hr 08/13/17 10:24 Temperature 99.1 F Pulse Rate 93 H Respiratory 19 Rate Blood Pressure 166/84 - Physical General Appearance: Yes: Moderate Distress, Tremorous, Irritable, Sweating, Anxious HEENTM: Yes: Normal ENT Inspection, CJ, Pharynx Normal Respiratory: Yes: Within Normal Limits, Lungs Clear, Normal Breath Sounds Neck: Yes: Within Normal Limits, Supple, Trachea in good position Breast: Yes: Breast Exam Deferred Cardiology: Yes: Within Normal Limits, Regular Rhythm, Regular Rate, S1, S2 Abdominal: Yes: Within Normal Limits, Normal Bowel Sounds, Non Tender, Soft Genitourinary: Yes: Within Normal Limits Back: Yes: Normal Inspection, Muscle Spasm Musculoskeletal: Yes: Within Normal Limits, Back pain, Muscle Pain Extremities: Yes: Within Normal Limits, Normal Range of Motion, Tremors 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, Alert, Motor Strength 5/5 Integumentary: Yes: Dry Lymphatic: Yes: Within Normal Limits - Diagnostic (1) Opioid dependence with withdrawal Current Visit: Yes Status: Acute (2) Cocaine dependence Current Visit: No Status: Chronic Qualifiers: (3) Cannabis dependence Current Visit: Yes Status: Acute (4) Alcohol dependence with uncomplicated withdrawal Current Visit: No Status: Acute (5) Asthma Current Visit: No Status: Chronic Qualifiers: Comment: TREATED WITH VENTOLIN (6) Hypertension Current Visit: No Status: Chronic Qualifiers: Comment: HYDROCHLOROTHIAZIDE 12.5 MG NORVASC 5 MG (7) Nicotine dependence Current Visit: No Status: Chronic Qualifiers: (8) History of anemia Current Visit: No Status: Suspected Comment: NO TREATMENT LAB PENDING (9) Weight loss Current Visit: Yes Status: Acute Cleared for Admission S - Detox or Rehab [facility] Level of Care: Medically Managed Detox Regimen/Protocol: Methadone/Librium S Breath Alcohol Content Breath Alcohol Content: 0.022 Urine Pregancy Test - Result Urine Test Results: Negative- NO Line Present Urine Drug Screen - Results Drug Screen Negative: Yes Urine Drug Screen Results: THC-Marijuana, JENNIFER-Cocaine, OPI-Opiates
[2017-08-13] MEDS ORDERED: guaiFENesin/D-METHORPHAN HB 10 ML UNIT-DOSE CUPS PO PRN (11:55)
[2017-08-13] MEDS ORDERED: MENTHOL/PHENOL 1 EACH UD MM PRN (11:55)
[2017-08-13] MEDS ORDERED: MAGNESIUM CITRATE 300 ML BOTTLE PO PRN (11:55)
[2017-08-13] MEDS ORDERED: MAGNESIUM HYDROX 2400MG/30ML ORAL SUSPENSION 30 ML CUP PO PRN (11:55)
[2017-08-13] MEDS ORDERED: P-EPHED 60MG/TRIPROLIDI 2.5MG TABLET PO PRN (11:55)
[2017-08-13] MEDS ORDERED: IBUPROFEN 400 MG TABLET (FP) PO PRN (11:55)
[2017-08-13] MEDS ORDERED: hydrOXYzine PAMOATE 25 MG CAPSULE (FP) PO PRN (11:55)
[2017-08-13] MEDS ORDERED: MAG HYDROX/AL HYDROX/SIMETH 30 ML UNIT-DOSE CUP PO PRN (11:55)
[2017-08-13] MEDS ORDERED: chlordiazePOXIDE HCL 25 MG CAPSULE PO PRN (11:55)
[2017-08-13] MEDS ORDERED: LOPERAMIDE HCL 2 MG CAPSULE PO PRN (11:55)
[2017-08-13] MEDS ORDERED: ACETAMINOPHEN 325 MG TABLET (FP) PO PRN (11:55)
[2017-08-13] MEDS ORDERED: METHADONE HCL 10 MG TABLET (FOR DETOX USE ONLY) PO ONE ×2 (12:15→23:00)
[2017-08-13] MEDS: NICOTINE 21 MG/24 HOURS TOPICAL PATCH TD SCH (12:53)
[2017-08-13] MEDS: HYDROCHLOROTHIAZIDE 25 MG TABLET (FP) PO SCH (12:53)
[2017-08-13] MEDS: ONDANSETRON *ODT* 4 MG TABLET SL PRN ×2 (15:57→23:03)
--- NOTE | 2017-08-13 16:25 | EKG ---
Test Reason : Blood Pressure : / mmHG Vent. Rate : 093 BPM Atrial Rate : 093 BPM P-R Int : 142 ms QRS Dur : 084 ms QT Int : 364 ms P-R-T Axes : 061 020 039 degrees QTc Int : 452 ms NORMAL SINUS RHYTHM VOLTAGE CRITERIA FOR LEFT VENTRICULAR HYPERTROPHY ABNORMAL ECG WHEN COMPARED WITH ECG OF 26-DEC-2016 22:15, NO SIGNIFICANT CHANGE WAS FOUND Confirmed by MD JEAN MARIE, RODOLFO ([id number]) on 08/13/2017 4:24:56 PM Referred By: Confirmed By:RODOLFO AJ MD
--- NOTE | 2017-08-13 16:46 | PN ---
S Progress Note Note: Patient with nausea and vomiting. Vital Signs Temperature 99.3 F 08/13/17 14:48 Pulse Rate 95 H 08/13/17 14:48 Respiratory Rate 18 08/13/17 14:48 Blood Pressure 157/96 08/13/17 14:48 O2 Sat by Pulse Oximetry (%) Tigan IM increase fluids Continue to monitor
[2017-08-13] MEDS ORDERED: TRIMETHOBENZAMIDE HCL 200MG/2ML INJ IM ONE (17:00)
[2017-08-13] MEDS: chlordiazePOXIDE HCL 25 MG CAPSULE PO SCH ×2 (17:15→23:00)
[2017-08-13 18:52] LABS: URINE APPEARANCE CLEAR; URINE BILIRUBIN NEGATIVE (<2.0 mg/dL); URINE BLOOD 1+ (NEGATIVE); URINE COLOR LTYELLOW; URINE GLUCOSE (UA) NEGATIVE (NEGATIVE); URINE KETONE NEGATIVE (NEGATIVE); URINE NITRITE NEGATIVE (NEGATIVE); URINE PROTEIN NEGATIVE (NEGATIVE); URINE UROBILINOGEN NEGATIVE mg/dL (0.2-1.0)
[2017-08-13 18:53] LABS: URINE LEUK ESTERASE 2+ (NEGATIVE)
[2017-08-13 18:55] LABS: EPI CELLS RARE /HPF (FEW); URINE MUCUS RARE
[2017-08-13] MEDS: hydrOXYzine PAMOATE 50 MG CAPSULE (FP) PO PRN (19:08)
[2017-08-13] MEDS: ALBUTEROL SO4 18 GM HFA INHALER IH PRN (19:09)
--- NOTE | 2017-08-13 21:26 | PN ---
S Progress Note Note: Patient with severe withdrawal with continuos vomiting and has been tolerate PO medications properly, including methadone PO after trial of zofran and tigan. Vital Signs Temperature 99.3 F 08/13/17 14:48 Pulse Rate 95 H 08/13/17 14:48 Respiratory Rate 18 08/13/17 14:48 Blood Pressure 157/96 08/13/17 14:48 O2 Sat by Pulse Oximetry (%) One time order methadone 5mg IM Continue to monitor
[2017-08-13] MEDS ORDERED: METHADONE DETOX 10 MG/1 ML [20ML VIAL] IM ONE (21:30)
[2017-08-13] MEDS ORDERED: MELATONIN 5 MG TABLETS PO PRN (22:00)
[2017-08-13] MEDS: THIAMINE HCL 100 MG TABLET (FP) PO SCH (23:01)
[2017-08-14] MEDS: chlordiazePOXIDE HCL 25 MG CAPSULE PO SCH ×4 (06:19→22:06)
--- NOTE | 2017-08-14 07:41 | CONSULT ---
[facility] Psychiatric Consult - Data Date of interview: 08/14/17 Admission source: [facility] Identifying data: This is 46 years old gemale, single mother of eight, living with family, on [place], with psychiatric hospitalization history, history of Bipolar Disorder, seeking for detos with withdrawal symptoms after abusingAlcohol, Heroin, Cocaine and Nicotine. Substance Abuse History: - Smoking Cessation. Smoking history: Current every day smoker. Have you smoked in the past 12 months: Yes. Aproximately how many cigarettes per day: 30. Cigars Per Day: 0. Hx Chewing Tobacco Use: No. Initiated information on smoking cessation: Yes. 'Breaking Loose' booklet given : 08/13/17. - Substance & Tx. History. Hx Alcohol Use: Yes. Hx Substance Use : Yes. Substance Use Type: Alcohol, Cocaine, Heroin, Marijuana. Hx Substance Use Treatment: Yes ([facility] 12/11/16 TO 12/15/16,REHAB 12/26/16 TO 01/04/17). - Substances Abused. Heroin. Route: Inhalation. Frequency: Daily. Amount used: 7 BAGS. Age of first use: 29. Date of Last Use: 08/12/17. Cocaine. Route: Smoking. Frequency: 1-2 times per week. Amount used: $30, 1 GRAM. Age of first use: 20. Date of Last Use: 08/11/17. ETOH. Route: Oral. Frequency: Daily. Amount used: VODKA- 3 PINT, 6-PK-24OZ. Age of first use: 21. Date of Last Use: 08/13/17. Marijuana/Hashish. Route: Smoking. Frequency: 3-6 times per week. Amount used: 40$. Age of first use: 19. Date of Last Use: 08/12/17 Medical History: Asthma, Anemia history, HTN, Weight loss history, Psychiatric History: Patient reports history of Bipolar Disorder with most rceent psychiatric admission at [facility] reports cirrently taking : Depakote 250mg po bid. Ambien 10mg po qhs. Risperdal 2mg po bid. [id number] poqd Physical/Sexual Abuse/Trauma History: Denies Additional Comment: Depakote 250mg po bid. Ambien 10mg po qhs. Risperdal 2mg po bid. [id number] poqd Mental Status Exam - Mental Status Exam Alert and Oriented to: Person Cognitive Function: Fair Patient Appearance: Unkempt Mood: Sad Affect: Flat Patient Behavior: Sedated Speech Pattern: Delayed Voice Loudness: Mildly Soft/Quiet Thought Process: Circumstantial, Goal Oriented Thought Disorder: Being Controlled Hallucinations: Denies Suicidal Ideation: Denies Homicidal Ideation: Denies Insight/Judgement: Fair Sleep: Difficulty falling asleep Appetite: Weight loss Muscle strength/Tone: Normal Gait/Station: Normal Additional Comments: Depakote 250mg po bid. Ambien 10mg po qhs. Risperdal 2mg po bid. [id number] poqd Psychiatric Findings - Problem List ([place] 1, 2,3) (1) Cannabis dependence Current Visit: Yes Status: Acute (2) Opioid dependence with withdrawal Current Visit: Yes Status: Acute (3) Alcohol dependence with uncomplicated withdrawal Current Visit: No Status: Acute (4) Alcohol dependence Current Visit: No Status: Chronic Qualifiers: (5) Cocaine dependence Current Visit: No Status: Chronic Qualifiers: (6) Nicotine dependence Current Visit: No Status: Chronic Qualifiers: (7) Opioid dependence Current Visit: No Status: Chronic (8) Bipolar I disorder, most recent episode mixed Current Visit: No Status: Suspected - Initial Treatment Plan Initial Treatment Plan: Depakote 250mg po bid. Ambien 10mg po qhs. Risperdal 2mg po bid. [id number] poqd
[2017-08-14] MEDS ORDERED: METHADONE HCL 10 MG TABLET (FOR DETOX USE ONLY) PO SCH (10:00)
[2017-08-14 10:12] LABS: HEMATOCRIT 37.2 % (32.4-45.2); HEMOGLOBIN 12.3 GM/dL (10.7-15.3); MEAN PLT VOLUME 8.1 fl (7.5-11.1); PLATELET COUNT 351 K/MM3 (134-434); RBC 4.09 M/mm3 (3.60-5.2); RDW 16.3 % (11.6-15.6)
[2017-08-14 10:33] LABS: CHLORIDE 101 mmol/L (98-107); POTASSIUM 3.7 mmol/L (3.5-5.1); SODIUM 137 mmol/L (136-145)
[2017-08-14] MEDS: ONDANSETRON *ODT* 4 MG TABLET SL PRN (10:36)
[2017-08-14] MEDS: PRENATAL VITAMINS W/ FOLIC ACID TABLET (FP) PO SCH (10:38)
[2017-08-14] MEDS: DIVALPROEX SODIUM 250 MG TABLET E.C. PO SCH ×2 (10:39→22:06)
[2017-08-14] MEDS: HYDROCHLOROTHIAZIDE 25 MG TABLET (FP) PO SCH (10:39)
[2017-08-14] MEDS: ESCITALOPRAM OXALATE 20 MG TABLET (FP) PO SCH (10:39)
[2017-08-14] MEDS: risperiDONE 2 MG TABLET PO SCH ×2 (10:39→22:06)
[2017-08-14] MEDS: amLODIPine BESYLATE 10 MG TABLET (FP) PO SCH (10:42)
[2017-08-14] MEDS: NICOTINE 21 MG/24 HOURS TOPICAL PATCH TD SCH (10:43)
[2017-08-14 10:52] LABS: ALBUMIN 3.7 g/dl (3.4-5.0); ALK PHOS 64 U/L (45-117); ANION GAP 8 (8-16); BILIRUBIN,TOTAL 0.4 mg/dL (0.2-1.0); BLOOD UREA NITROGEN 16 mg/dL (7-18); CALCIUM 8.8 mg/dL (8.5-10.1); CO2 28 mmol/L (21-32); CREATININE 0.9 mg/dL (0.55-1.02); GLUCOSE,RANDOM 63 mg/dL (74-106); SGOT/AST 15 U/L (15-37); SGPT/ALT 16 U/L (12-78); TOT PROT 8.6 g/dl (6.4-8.2)
[2017-08-14] MEDS: RANITIDINE HCL 150 MG TABLET (FP) PO SCH ×2 (12:38→22:06)
--- NOTE | 2017-08-14 12:44 | PN ---
S Progress Note Note: patient continue vomiting can not tolerate oral fluid bp 199/90 ap 54 diaphoretic difficulty to take a deep breath ambulance was called and attempted to give information to er without success
[2017-08-14] MEDS: hydrOXYzine PAMOATE 50 MG CAPSULE (FP) PO PRN (18:52)
--- NOTE | 2017-08-14 21:53 | PN ---
[facility] Progress Note Note: Vital Signs Temperature 99.9 F H 08/14/17 19:15 Pulse Rate 91 H 08/14/17 19:15 Respiratory Rate 20 08/14/17 19:15 Blood Pressure 166/96 08/14/17 19:15 O2 Sat by Pulse Oximetry (%) Patient with asymptomatic elevated BP One time dose clonidine 0.1mg STAT
[2017-08-14] MEDS ORDERED: cloNIDine HCL 0.1 MG TABLET PO ONE (22:00)
[2017-08-14] MEDS: THIAMINE HCL 100 MG TABLET (FP) PO SCH (22:06)
[2017-08-14] MEDS: ALBUTEROL SO4 18 GM HFA INHALER IH PRN (22:08)
[2017-08-15] MEDS: chlordiazePOXIDE HCL 25 MG CAPSULE PO SCH ×2 (06:19→10:48)
[2017-08-15] MEDS: DIVALPROEX SODIUM 250 MG TABLET E.C. PO SCH (10:46)
[2017-08-15] MEDS: RANITIDINE HCL 150 MG TABLET (FP) PO SCH ×2 (10:47→22:27)
[2017-08-15] MEDS: METHADONE HCL 5 MG TABLET (FOR DETOX USE ONLY) PO SCH (10:47)
[2017-08-15] MEDS: HYDROCHLOROTHIAZIDE 25 MG TABLET (FP) PO SCH (10:47)
[2017-08-15] MEDS: ALBUTEROL SO4 18 GM HFA INHALER IH PRN ×2 (10:48→17:33)
[2017-08-15] MEDS: risperiDONE 2 MG TABLET PO SCH (10:48)
[2017-08-15] MEDS: PRENATAL VITAMINS W/ FOLIC ACID TABLET (FP) PO SCH (10:48)
[2017-08-15] MEDS: amLODIPine BESYLATE 10 MG TABLET (FP) PO SCH (10:48)
[2017-08-15] MEDS: ESCITALOPRAM OXALATE 20 MG TABLET (FP) PO SCH (10:48)
[2017-08-15] MEDS: NICOTINE 21 MG/24 HOURS TOPICAL PATCH TD SCH (10:49)
[2017-08-15] MEDS: hydrOXYzine PAMOATE 50 MG CAPSULE (FP) PO PRN (11:27)
--- NOTE | 2017-08-15 11:58 | PN ---
[facility] CIWA - CIWA Score Nausea/Vomitin-No Nausea/No Vomiting Muscle Tremors: 4-Moderate,w/Arms Extend Anxiety: 4-Mod. Anxious/Guarded Agitation: 4-Moderately Restless Paroxysmal Sweats: 1-Minimal Palms Moist Orientation: 0-Oriented Tacttile Disturbances: 0-None Auditory Disturbances: 0-None Visual Disturbances: 0-None Headache: 0-None Present CIWA-Ar Total Score: 13 [facility] COWS - Scale Resting Pulse: 1= [place] 81-100 Sweatin= Chills/Flushing Restless Observation: 1= Difficult to Sit Still Pupil Size: 0= Normal to Room Light Bone or Joint Aches: 2= Severe Diffuse Aches Runny Nose/ Eye Tearin= Nasal Congestion GI Upset > 30mins: 1= Stomach Cramp Tremor Observation of Outstretched Hands: 2= Slight Tremor Visible Yawning Observation: 2= >3x During Session Anxiety or Irritability: 2=Irritable/Anxious Goose Flesh Skin: 0=Smooth Skin COWS Score: 13 [facility] Progress Note (SOAP) Subjective: joint pain body ache sweat tremor anxiety restlessness trouble sleep at night denies gi distress tolerate food and fluid well request methadone 40 mg now and percocet 10 mg now for pain Objective: 08/15/17 12:02 Vital Signs Temperature 100.4 F H 08/15/17 10:18 Pulse Rate 122 H 08/15/17 10:18 Respiratory Rate 18 08/15/17 10:18 Blood Pressure 130/89 08/15/17 10:18 O2 Sat by Pulse Oximetry (%) Laboratory Last Values WBC 6.0 K/mm3 (4.0-10.0) D 08/14/17 06:00 RBC 4.09 M/mm3 (3.60-5.2) 08/14/17 06:00 Hgb 12.3 GM/dL (10.7-15.3) D 08/14/17 06:00 Hct 37.2 % (32.4-45.2) 08/14/17 06:00 MCV 91.0 fl (80-96) 08/14/17 06:00 MCH 30.0 pg (25.7-33.7) 08/14/17 06:00 MCHC 33.0 g/dl (32.0-36.0) 08/14/17 06:00 RDW 16.3 % (11.6-15.6) H 08/14/17 06:00 Plt Count 351 K/MM3 (134-434) 08/14/17 06:00 MPV 8.1 fl (7.5-11.1) D 08/14/17 06:00 Sodium 137 mmol/L (136-145) 08/14/17 06:00 Potassium 3.7 mmol/L (3.5-5.1) 08/14/17 06:00 Chloride 101 mmol/L (98-107) 08/14/17 06:00 Carbon Dioxide 28 mmol/L (21-32) 08/14/17 06:00 Anion Gap 8 (8-16) 08/14/17 06:00 BUN 16 mg/dL (7-18) 08/14/17 06:00 Creatinine 0.9 mg/dL (0.55-1.02) 08/14/17 06:00 Creat Clearance w eGFR > 60 (>60) 08/14/17 06:00 Random Glucose 63 mg/dL (74-106) L 08/14/17 06:00 Calcium 8.8 mg/dL (8.5-10.1) 08/14/17 06:00 Total Bilirubin 0.4 mg/dL (0.2-1.0) D 08/14/17 06:00 AST 15 U/L (15-37) 08/14/17 06:00 ALT 16 U/L (12-78) 08/14/17 06:00 Alkaline Phosphatase 64 U/L (45-117) 08/14/17 06:00 Total Protein 8.6 g/dl (6.4-8.2) H 08/14/17 06:00 Albumin 3.7 g/dl (3.4-5.0) 08/14/17 06:00 Urine Color Ltyellow 08/13/17 18:00 Urine Appearance Clear 08/13/17 18:00 Urine pH 6.0 (5.0-8.0) 08/13/17 18:00 Ur Specific [place] 1.010 (1.001-1.035) 08/13/17 18:00 Urine Protein Negative (NEGATIVE) 08/13/17 18:00 Urine Glucose (UA) Negative (NEGATIVE) 08/13/17 18:00 Urine Ketones Negative (NEGATIVE) 08/13/17 18:00 Urine Blood 1+ (NEGATIVE) H 08/13/17 18:00 Urine Nitrite Negative (NEGATIVE) 08/13/17 18:00 Urine Bilirubin Negative (<2.0 mg/dL) 08/13/17 18:00 Urine Urobilinogen Negative mg/dL (0.2-1.0) 08/13/17 18:00 Ur Leukocyte Esterase 2+ (NEGATIVE) H 08/13/17 18:00 Urine WBC (Auto) 7 /hpf (3-5) 08/13/17 18:00 Urine RBC (Auto) 1 /hpf (0-3) 08/13/17 18:00 Ur Epithelial Cells Rare /HPF (FEW) 08/13/17 18:00 Urine Mucus Rare 08/13/17 18:00 RPR Titer Nonreactive (NONREACTIVE) 08/14/17 06:00 lab noted Assessment: 08/15/17 12:02 withdrawal sx Plan: continue detox health teaching on risks of methadone and percocet discuss healthy life style and benefit of drug free
--- NOTE | 2017-08-15 14:02 | PN ---
Psychiatric Progress Note Vital Signs: Vital Signs Period Temp Pulse Resp BP Sys/Kimble Pulse Ox Last 24 Hr 99.1 F-100.4 F 91-122 18-20 130-183/88-98 Date of Session: 08/15/17 Chief Complaint:: Oversedated HPI: As per nursing reportn patient became sedated since this morning Current Medications: Active Medications Generic Name Dose Route Start Last Admin Trade Name Freq PRN Reason Stop Dose Admin Acetaminophen 650 mg 08/13/17 11:55 Tylenol - PO Q4H PRN FEVER Al Hydroxide/Mg Hydroxide 30 ml 08/13/17 11:55 Mylanta Oral Suspension - PO Q6H PRN DYSPEPSIA Albuterol Sulfate 2 puff 08/13/17 11:59 08/15/17 10:48 Ventolin Hfa Inhaler - IH 2 puff Q4H PRN Administration ASTHMA Amlodipine Besylate 10 mg 08/14/17 10:00 08/15/17 10:48 Norvasc - PO 10 mg DAILY RAYMUNDO Administration Chlordiazepoxide HCl 15 mg 08/15/17 17:00 Librium - PO 08/16/17 11:01 [id number] RAYMUNDO Chlordiazepoxide HCl 10 mg 08/16/17 17:00 Librium - PO 08/17/17 11:01 [id number] RAYMUNDO Chlordiazepoxide HCl 25 mg 08/13/17 11:55 08/14/17 01:07 Librium - PO 08/16/17 11:55 25 mg Q4H PRN Administration WITHDRAWAL(CONT SUBST) Divalproex Sodium 250 mg 08/14/17 10:00 08/15/17 10:46 Depakote - PO 250 mg BID RAYMUNDO Administration Escitalopram Oxalate 20 mg 08/14/17 10:00 08/15/17 10:48 Lexapro - PO 20 mg DAILY RAYMUNDO Administration Eucalyptus/Menthol/Phenol/Sorbitol 1 each 08/13/17 11:55 Cepastat Lozenge - MM Q4H PRN SORE THROAT Guaifenesin 10 ml 08/13/17 11:55 Robitussin Dm - PO Q6H PRN COUGH Hydrochlorothiazide 25 mg 08/13/17 12:15 08/15/17 10:47 Hctz - PO 25 mg DAILY RAYMUNDO Administration Hydroxyzine Pamoate 50 mg 08/13/17 19:00 08/15/17 11:27 Vistaril - PO 50 mg Q4H PRN Administration FOR ITCHING Loperamide HCl 4 mg 08/13/17 11:55 Imodium - PO Q6H PRN DIARRHEA Magnesium Citrate 300 ml 08/13/17 11:55 Citroma - PO Q48H PRN CONSTIPATION Magnesium Hydroxide 30 ml 08/13/17 11:55 Milk Of Magnesia - PO DAILY PRN CONSTIPATION Melatonin 5 mg 08/13/17 22:00 Melatonin PO HS PRN INSOMNIA Methadone HCl 15 mg 08/15/17 10:00 08/15/17 10:47 Dolophine - PO 08/16/17 10:01 15 mg DAILY RAYMUNDO Administration Methadone HCl 5 mg 08/18/17 06:00 Dolophine - PO 08/18/17 06:01 DAILY@0600 RAYMUNDO Methadone HCl 10 mg 08/17/17 10:00 Dolophine - PO 08/17/17 10:01 DAILY RAYMUNDO Nicotine 21 mg 08/13/17 12:00 08/15/17 10:49 Nicoderm Patch - TD 21 mg DAILY RAYMUNDO Administration Nicotine Polacrilex 2 mg 08/13/17 11:55 Nicorette Gum - BUC Q2H PRN NICOTINE REPLACEMENT RX Ondansetron HCl 4 mg 08/13/17 15:41 08/14/17 10:36 Zofran Odt - SL 4 mg Q8H PRN Administration NAUSEA Multivit/Folic Acid/Iron 1 tab 08/14/17 10:00 08/15/17 10:48 Vitamins (Sjr) - PO 1 tab DAILY RAYMUNDO Administration Pseudoephedrine/Triprolidine 1 combo 08/13/17 11:55 Actifed - PO TID PRN NASAL CONGESTION Ranitidine HCl 150 mg 08/14/17 10:00 08/15/17 10:47 Zantac - PO 150 mg BID RAYMUNDO Administration Risperidone 2 mg 08/14/17 10:00 08/15/17 10:48 Risperdal - PO 2 mg BID RAYMUNDO Administration Thiamine HCl 100 mg 08/13/17 22:00 08/14/17 22:06 Vitamin B1 - PO 100 mg HS RAYMUNDO Administration Zolpidem Tartrate 10 mg 08/14/17 22:00 Ambien - PO 08/17/17 21:59 HS PRN INSOMNIA Provider note:: Patient evaluated at bedside, chart revewed, patient reports wickness, sedations, not stable , slow speech rate and volume,. Rec: Ho;d psychiatric medications till am evaluation Mental Status Exam - Mental Status Exam Alert and Oriented to: Person Cognitive Function: Fair Patient Appearance: Unkempt Mood: Apathetic, Sad Affect: Flat Patient Behavior: Sedated, Cooperative Speech Pattern: Slurred Voice Loudness: Moderately Soft/Quiet Thought Process: Circumstantial Thought Disorder: Being Controlled Hallucinations: Denies Suicidal Ideation: Denies Homicidal Ideation: Denies Insight/Judgement: Fair Sleep: Difficulty falling asleep Appetite: Fair Muscle strength/Tone: Moderate Hypotonicity Gait/Station: Shuffling Additional Comments: Hold psychiatric medications until psychiatric evaluation in am Psychiatric Treatment Plan - Problem List (1) Cannabis dependence Current Visit: Yes (2) Opioid dependence with withdrawal Current Visit: Yes (3) Alcohol dependence with uncomplicated withdrawal Current Visit: No (4) Alcohol dependence Current Visit: No Qualifiers: (5) Cocaine dependence Current Visit: No Qualifiers: (6) Nicotine dependence Current Visit: No Qualifiers: (7) Opioid dependence Current Visit: No (8) Bipolar I disorder, most recent episode mixed Current Visit: No Initial treatment plan: Hold psychiatric medications until psychiatric evaluation in am
--- NOTE | 2017-08-15 15:06 | PN ---
[facility] Progress Note Note: S: bp 65/32 ap 110 c/o dizziness O: observed patient lying on bed alert oriented x 3 breath even no shortness of breath no trouble breathing skin warm dry speech clearly, cardiac S1S2 tachycardia, pulmonary: wheezing right lower lob abdomen: soft non tenderness extremities full range of motion A: sinus tachycardia unknown origin P: discontinue bp medication psychiatrist discontinue psychotropic medications ekg no significant change observed patient walk from bed to bathroom found make up of few other items health teaching on risks of overdose nursing superviser informed security was called
--- NOTE | 2017-08-15 16:15 | EKG ---
Test Reason : Blood Pressure : / mmHG Vent. Rate : 106 BPM Atrial Rate : 106 BPM P-R Int : 126 ms QRS Dur : 080 ms QT Int : 338 ms P-R-T Axes : 050 024 047 degrees QTc Int : 448 ms SINUS TACHYCARDIA VOLTAGE CRITERIA FOR LEFT VENTRICULAR HYPERTROPHY NONSPECIFIC T WAVE ABNORMALITY ABNORMAL ECG WHEN COMPARED WITH ECG OF 14-AUG-2017 11:04, SINUS RHYTHM IS NO LONGER WITH 2ND DEGREE A-V BLOCK VENT. RATE HAS INCREASED BY 51 BPM NONSPECIFIC T WAVE ABNORMALITY, IMPROVED IN ANTERIOR LEADS NONSPECIFIC T WAVE ABNORMALITY, WORSE IN LATERAL LEADS Confirmed by RUI RASHID MD ([id number]) on 08/15/2017 4:15:03 PM Referred By: Confirmed By:RUI RASHID MD
[2017-08-15] MEDS: NICOTINE POLACRILEX 2 MG GUM BUC PRN ×2 (17:32→22:29)
[2017-08-15] MEDS: chlordiazePOXIDE 5 MG CAPSULE PO SCH ×2 (18:07→22:28)
[2017-08-15] MEDS: ZOLPIDEM TARTRATE 10 MG TABLET (PARK CARE ONLY) PO PRN (22:27)
[2017-08-15] MEDS: THIAMINE HCL 100 MG TABLET (FP) PO SCH (22:28)
[2017-08-16] MEDS: chlordiazePOXIDE 5 MG CAPSULE PO SCH (05:27)
[2017-08-16] MEDS: ALBUTEROL SO4 18 GM HFA INHALER IH PRN ×2 (05:27→20:30)
--- NOTE | 2017-08-16 09:18 | PN ---
[facility] CIWA - CIWA Score Nausea/Vomitin-Mild Nausea/No Vomiting Muscle Tremors: 1-None Visible, but [place] Anxiety: 1-Mildly Anxious Agitation: 1-Slight > Activity Paroxysmal Sweats: 1-Minimal Palms Moist Orientation: 0-Oriented Tacttile Disturbances: 1-Very Mild Itch/Numbness Auditory Disturbances: 0-None Visual Disturbances: 4-Moderate Hallucinations Headache: 1-Very Mild CIWA-Ar Total Score: 11 [facility] COWS - Scale Resting Pulse: 1= [place] 81-100 Sweatin= Chills/Flushing Restless Observation: 1= Difficult to Sit Still Pupil Size: 1= Pupils >than Normal Bone or Joint Aches: 2= Severe Diffuse Aches Runny Nose/ Eye Tearin= Nasal Congestion GI Upset > 30mins: 2= Nausea/Diarrhea Tremor Observation of Outstretched Hands: 1= Tremor [place], Not Seen Yawning Observation: 1= 1-2x During Session Anxiety or Irritability: 2=Irritable/Anxious Goose Flesh Skin: 0=Smooth Skin COWS Score: 13 [facility] Progress Note (SOAP) Subjective: nausea, sweats, interrupted sleep, anxiety, tremors, does nto want libirum for alcohol withdrawl , requesting valium prn for symptomatic control of withdrawla Objective: 08/16/17 09:17 Laboratory Tests 08/13/17 08/14/17 08/14/17 18:00 06:00 06:00 WBC 6.0 D RBC 4.09 Hgb 12.3 D Hct 37.2 MCV 91.0 MCH 30.0 MCHC 33.0 RDW 16.3 H Plt Count 351 MPV 8.1 D Sodium 137 Potassium 3.7 Chloride 101 Carbon Dioxide 28 Anion Gap 8 BUN 16 Creatinine 0.9 Creat Clearance w eGFR > 60 Random Glucose 63 L Calcium 8.8 Total Bilirubin 0.4 D AST 15 ALT 16 Alkaline Phosphatase 64 Total Protein 8.6 H Albumin 3.7 Urine Color Ltyellow Urine Appearance Clear Urine pH 6.0 Ur Specific [place] 1.010 Urine Protein Negative Urine Glucose (UA) Negative Urine Ketones Negative Urine Blood 1+ H Urine Nitrite Negative Urine Bilirubin Negative Urine Urobilinogen Negative Ur Leukocyte Esterase 2+ H Urine WBC (Auto) 7 Urine RBC (Auto) 1 Ur Epithelial Cells Rare Urine Mucus Rare RPR Titer 08/14/17 06:00 WBC RBC Hgb Hct MCV MCH MCHC RDW Plt Count MPV Sodium Potassium Chloride Carbon Dioxide Anion Gap BUN Creatinine Creat Clearance w eGFR Random Glucose Calcium Total Bilirubin AST ALT Alkaline Phosphatase Total Protein Albumin Urine Color Urine Appearance Urine pH Ur Specific [place] Urine Protein Urine Glucose (UA) Urine Ketones Urine Blood Urine Nitrite Urine Bilirubin Urine Urobilinogen Ur Leukocyte Esterase Urine WBC (Auto) Urine RBC (Auto) Ur Epithelial Cells Urine Mucus RPR Titer Nonreactive Assessment: 08/16/17 09:17 wihtdrawal sx - d/c libirum as patietn requested will give valium 10mg q4h prn. for symptoms opf richy
[2017-08-16] MEDS: ESCITALOPRAM OXALATE 20 MG TABLET (FP) PO SCH (10:18)
[2017-08-16] MEDS: RANITIDINE HCL 150 MG TABLET (FP) PO SCH ×2 (10:18→22:22)
[2017-08-16] MEDS: diazePAM 5 MG TABLET PO PRN ×3 (10:18→22:58)
[2017-08-16] MEDS: METHADONE HCL 5 MG TABLET (FOR DETOX USE ONLY) PO SCH (10:18)
[2017-08-16] MEDS: PRENATAL VITAMINS W/ FOLIC ACID TABLET (FP) PO SCH (10:19)
[2017-08-16] MEDS: NICOTINE 21 MG/24 HOURS TOPICAL PATCH TD SCH (10:19)
[2017-08-16] MEDS: NICOTINE POLACRILEX 2 MG GUM BUC PRN ×4 (10:21→22:58)
[2017-08-16] MEDS ORDERED: chlordiazePOXIDE HCL 10 MG CAPSULE PO SCH (17:00)
[2017-08-16] MEDS: ZOLPIDEM TARTRATE 10 MG TABLET (PARK CARE ONLY) PO PRN (22:22)
[2017-08-16] MEDS: THIAMINE HCL 100 MG TABLET (FP) PO SCH (22:22)
[2017-08-17] MEDS: hydrOXYzine PAMOATE 50 MG CAPSULE (FP) PO PRN ×3 (01:56→19:20)
[2017-08-17] MEDS: diazePAM 5 MG TABLET PO PRN (05:54)
[2017-08-17] MEDS: ALBUTEROL SO4 18 GM HFA INHALER IH PRN ×3 (05:55→22:54)
[2017-08-17] MEDS: NICOTINE POLACRILEX 2 MG GUM BUC PRN ×4 (05:56→22:56)
[2017-08-17] MEDS ORDERED: COLLOIDAL OATMEAL 1 BAR EACH TP PRN (09:28)
[2017-08-17] MEDS ORDERED: METHADONE HCL 10 MG TABLET (FOR DETOX USE ONLY) PO SCH (10:00)
[2017-08-17] MEDS: risperiDONE 2 MG TABLET PO SCH ×2 (10:36→22:55)
[2017-08-17] MEDS: PRENATAL VITAMINS W/ FOLIC ACID TABLET (FP) PO SCH (10:36)
[2017-08-17] MEDS: RANITIDINE HCL 150 MG TABLET (FP) PO SCH ×2 (10:36→22:54)
[2017-08-17] MEDS: DIVALPROEX SODIUM 250 MG TABLET E.C. PO SCH ×2 (10:37→22:55)
[2017-08-17] MEDS: ESCITALOPRAM OXALATE 20 MG TABLET (FP) PO SCH (10:37)
[2017-08-17] MEDS: NICOTINE 21 MG/24 HOURS TOPICAL PATCH TD SCH (10:39)
--- NOTE | 2017-08-17 10:57 | PN ---
[facility] Progress Note (SOAP) Subjective: ALERT,PAIN IN THE LEFT KNEE HAD PREVIOUS SURGERY BEFORE,SENSITIVE SKIN Objective: 08/17/17 10:56 Vital Signs Temperature 98.2 F 08/17/17 10:00 Pulse Rate 89 08/17/17 10:00 Respiratory Rate 18 08/17/17 10:00 Blood Pressure 127/76 08/17/17 10:00 O2 Sat by Pulse Oximetry (%) Assessment: 08/17/17 10:56 WITHDRAWAL SYMPTOM Plan: CONTINUE DETOX,DISCHARGE IN AM
[2017-08-17] MEDS: HYDROCORTISONE 1% TOPICAL CREAM 30 GM TUBE TP SCH ×2 (11:21→22:56)
[2017-08-17] MEDS: THIAMINE HCL 100 MG TABLET (FP) PO SCH (22:54)
[2017-08-17] MEDS: CYCLOBENZAPRINE HCL 10 MG TABLET (FP) PO PRN (22:55)
[2017-08-17] MEDS: ZOLPIDEM TARTRATE 10 MG TABLET (PARK CARE ONLY) PO PRN (22:55)
[2017-08-18] MEDS ORDERED: METHADONE HCL 5 MG TABLET (FOR DETOX USE ONLY) PO SCH (06:00)
[2017-08-18] MEDS: ALBUTEROL SO4 18 GM HFA INHALER IH PRN (07:01)
[2017-08-18] MEDS: hydrOXYzine PAMOATE 50 MG CAPSULE (FP) PO PRN (07:03)
[2017-08-18] MEDS: NICOTINE POLACRILEX 2 MG GUM BUC PRN ×2 (07:04→09:56)
--- NOTE | 2017-08-18 09:01 | DS ---
[facility] Detox Discharge Summary Admission Date: 08/13/17 Discharge Date: 08/18/17 - History Present History: Alcohol Dependence, Cannabis Dependence, Cocaine Dependence, Opioid Dependence - Physical Exam Results Vital Signs: Vital Signs Temperature 98.2 F 08/18/17 07:21 Pulse Rate 84 08/18/17 07:21 Respiratory Rate 19 08/18/17 07:21 Blood Pressure 108/65 08/18/17 07:21 O2 Sat by Pulse Oximetry (%) - Treatment Hospital Course: Detox Protocol Followed, Detoxed Safely, Responded well, Discharged Condition Good, Rehab Referral Accepted - Medication Discharge Medications: Ambulatory Orders Zolpidem Tartrate [Ambien] 10 mg PO HS 06/08/15 Hydrochlorothiazide [Hctz -] 25 mg PO DAILY #30 tab 01/10/17 Divalproex [Depakote -] 250 mg PO BID #60 tab 08/14/17 Escitalopram Oxalate [Lexapro -] 20 mg PO DAILY #30 tablet 08/14/17 Risperidone [Risperdal -] 2 mg PO BID #60 tablet 08/14/17 Albuterol Sulfate Inhaler - [Ventolin HFA Inhaler -] 2 inh IH Q4H PRN #1 inh Ranitidine [Zantac -] 150 mg PO BID #60 tablet 08/17/17 - Diagnosis (1) Cannabis dependence Current Visit: Yes Status: Chronic (2) Opioid dependence with withdrawal Current Visit: Yes Status: Chronic (3) Weight loss Current Visit: Yes Status: Chronic (4) Alcohol dependence with uncomplicated withdrawal Current Visit: Yes Status: Chronic (5) Injury of left knee Current Visit: No Status: Acute (6) Nausea & vomiting Current Visit: No Status: Acute Qualifiers: Vomiting type: unspecified Vomiting Intractability: non-intractable Qualified Code(s): R11.2 - Nausea with vomiting, unspecified (7) Use of cane as ambulatory aid Current Visit: No Status: Acute (8) Alcohol dependence Current Visit: Yes Status: Chronic Qualifiers: Substance use status: uncomplicated (9) Asthma Current Visit: No Status: Chronic Qualifiers: (10) Chronic back pain Current Visit: No Status: Chronic Qualifiers: (11) Cocaine dependence Current Visit: Yes Status: Chronic Qualifiers: Substance use status: uncomplicated (12) Hypertension Current Visit: Yes Status: Chronic Qualifiers: Hypertension type: essential hypertension (13) Nicotine dependence Current Visit: Yes Status: Chronic Qualifiers: Nicotine product type: cigarettes Substance use status: uncomplicated Qualified Code(s): F17.210 - Nicotine dependence, cigarettes, uncomplicated (14) Opioid dependence Current Visit: Yes Status: Chronic Qualifiers: Substance use status: uncomplicated Qualified Code(s): F11.20 - Opioid dependence, uncomplicated (15) Bipolar I disorder, most recent episode mixed Current Visit: No Status: Suspected (16) History of anemia Current Visit: No Status: Suspected - AMA Did Patient Leave Against Medical Advice: No
[2017-08-18] MEDS: RANITIDINE HCL 150 MG TABLET (FP) PO SCH (09:56)
[2017-08-18] MEDS: risperiDONE 2 MG TABLET PO SCH (09:56)
[2017-08-18] MEDS: PRENATAL VITAMINS W/ FOLIC ACID TABLET (FP) PO SCH (09:56)
[2017-08-18] MEDS: ESCITALOPRAM OXALATE 20 MG TABLET (FP) PO SCH (09:56)
[2017-08-18] MEDS: NICOTINE 21 MG/24 HOURS TOPICAL PATCH TD SCH (09:56)
[2017-08-18] MEDS: DIVALPROEX SODIUM 250 MG TABLET E.C. PO SCH (09:56)
[2017-08-18] MEDS: HYDROCORTISONE 1% TOPICAL CREAM 30 GM TUBE TP SCH (09:56)
[2017-08-18] MEDS: CYCLOBENZAPRINE HCL 10 MG TABLET (FP) PO PRN (09:58)
[2017-08-18 11:08] VITALS: BP 123/80; PULSE 95; TEMP 99.5
== END 2017-08-18 10:11 | disposition home or self-care (01) | DRG 773 ==
LOC: YASAS 09:45 → Y6N 11:49
PROVIDERS: ADMIT Internal Medicine; ATTEND Internal Medicine
PROC: HZ2ZZZZ Detoxification Services for Substance Abuse Treatment (ICD-10-PCS; principal; 2017-08-13)
DX: F11.23 Opioid dependence with withdrawal (principal); F10.230 Alcohol dependence with withdrawal, uncomplicated; F14.20 Cocaine dependence, uncomplicated; F12.20 Cannabis dependence, uncomplicated; F17.210 Nicotine dependence, cigarettes, uncomplicated; F31.60 Bipolar disorder, current episode mixed, unspecified; I10 Essential (primary) hypertension; J45.909 Unspecified asthma, uncomplicated; M54.5 Low back pain; G89.29 Other chronic pain; R11.2 Nausea with vomiting, unspecified; R26.2 Difficulty in walking, not elsewhere classified; Z99.89 Dependence on other enabling machines and devices; Z91.14 Patient's other noncompliance with medication regimen; Z86.69 Personal history of other diseases of the nervous system and sense organs; Z87.898 Personal history of other specified conditions
CPT/HCPCS: 36415; 80053; 81003; 81015; 85027; 86593; 93005; 93010; J0735; Q0162

== ENCOUNTER 2017-08-14 11:00 | Emergency (ER) | payer OTHER ==
[2017-08-14] MEDS ORDERED: ONDANSETRON 4 MG/2 ML VIAL IVPUSH ONE (11:16)
[2017-08-14] MEDS ORDERED: SODIUM CHLORIDE 1,000 ML IV STA (11:16)
--- NOTE | 2017-08-14 11:16 | PDOC ---
History of Present Illness - General History Source: Patient Exam Limitations: Clinical Condition - History of Present Illness Initial Comments: 08/14/17 11:30 This is 46 years old female, single mother of eight, living with family, with significant past medical history of Asthma, anemia, hypertension, bipolar disorder, and Alcohol, Heroin, Cocaine and Nicotine abuse, sent from [facility] detox facility for evaluation of nausea and vomiting. The patient is a poor historian. The patient reportedly complained of abdominal pain with associated nausea and vomiting in the facility today. The patient reports low back pain and diffuse abdominal pain today. She denies use of drugs or ETOH since being at [facility]. The patients last reported drug use was on 08/12/17 involving heroin, cocaine, marijuana and tobacco. She denies chest pain, shortness of breath, headache and dizziness. She denies fever, chills, diarrhea and constipation. She denies dysuria, frequency, urgency and hematuria. <Margi Moraes - Last Filed: 08/14/17 11:30> - General History Source: Patient Exam Limitations: No Limitations <Angelina Roblero - Last Filed: 08/14/17 15:27> - General Chief Complaint: Pain, Acute Stated Complaint: DRUG WITHDRAWAL Past History <Margi Moraes - Last Filed: 08/14/17 11:30> - Past Medical History Anemia: Yes (NO TREATMENT) Asthma: Yes (ON MDI) Cancer: No Cardiac Disorders: No CVA: No COPD: No CHF: No Dementia: No Diabetes: No GI Disorders: No Disorders: No HTN: Yes (NON COMPLIANT) Hypercholesterolemia: No Kidney Stones: No Liver Disease: No Seizures: Yes (07/2017 ETOH RELATED) Thyroid Disease: No - Surgical History Abdominal Surgery: No Appendectomy: No Cardiac Surgery: No Cholecystectomy: No Lung Surgery: No Neurologic Surgery: No Orthopedic Surgery: No - Reproductive History PID: No - Suicide/Smoking/Psychosocial Hx Smoking History: Current every day smoker Have you smoked in the past 12 months: Yes Number of Cigarettes Smoked Daily: 30 Cigars Per Day: 0 'Breaking Loose' booklet given: 08/13/17 Hx Alcohol Use: Yes Drug/Substance Use Hx: Yes Substance Use Type: Alcohol, Cocaine, Heroin, Marijuana Hx Substance Use Treatment: Yes ([facility] 12/11/16 TO 12/15/16,[facility] 12/26/16 TO ) <Angelina Roblero - Last Filed: 08/14/17 15:27> - Past Medical History Allergies/Adverse Reactions: Allergies Allergy/AdvReac Type Severity Reaction Status Date / Time No Known Allergies Allergy Verified 08/13/17 10:36 Home Medications: Ambulatory Orders Zolpidem Tartrate [Ambien] 10 mg PO HS 06/08/15 Albuterol Sulfate Inhaler - [Ventolin HFA Inhaler -] 2 inh IH Q4H PRN #1 inh Hydrochlorothiazide [Hctz -] 25 mg PO DAILY #30 tab 01/10/17 Divalproex [Depakote -] 250 mg PO BID #60 tab 08/14/17 Escitalopram Oxalate [Lexapro -] 20 mg PO DAILY #30 tablet 08/14/17 Risperidone [Risperdal -] 2 mg PO BID #60 tablet 08/14/17 Review of Systems - Review of Systems Able to Perform ROS?: Yes Comments:: 08/14/17 11:30 CONSTITUTIONAL: Absent: fever, no chills, no fatigue EYES: Absent: visual changes ENT: Absent: ear pain, no sore throat CARDIOVASCULAR: Absent: chest pain, no palpitations RESPIRATORY: Absent: cough, no SOB GASTROINTESTINAL: (+) abdominal pain, nausea, vomiting, Absent: no constipation, no diarrhea GENITOURINARY: Absent: dysuria, no frequency, no hematuria MUSCULOSKELETAL: (+) back pain, Absent: no arthralgia, no myalgia SKIN: Absent: rash NEURO: Absent: headache <Margi Moraes - Last Filed: 08/14/17 11:30> *Physical Exam - Vital Signs Last Vital Signs Temp Pulse Resp BP Pulse Ox 98.5 F 57 L 18 175/79 100 08/14/17 11:15 08/14/17 11:15 08/14/17 11:15 08/14/17 11:15 08/14/17 11:15 - Physical Exam Comments: 08/14/17 11:31 GENERAL: (+) somnolent but arousable to verbal stimuli. The patient is in no acute distress. HEAD: Normal with no signs of trauma. EYES: PERRLA, EOMI, sclera anicteric, conjunctiva clear. ENT: Ears normal, nares patent, oropharynx clear without exudates. Moist mucous membranes. NECK: Normal range of motion, supple without lymphadenopathy, JVD, or masses. LUNGS: Breath sounds equal, clear to auscultation bilaterally. No wheezes, and no crackles. HEART:(+) bradycardic rate with Regular rhythm, normal S1 and S2 without murmur , rub or gallop. ABDOMEN: (+) diffuse abdominal tendernes with guarding. Soft, normoactive bowel sounds. no rebound. No masses palpable. EXTREMITIES: Normal range of motion, no edema. No clubbing or cyanosis. No erythema, or tenderness. NEUROLOGICAL: Cranial nerves II through XII grossly intact. Normal speech. No focal neurological deficits. MUSCULOSKELETAL: Back non-tender to palpation, no CVA tenderness SKIN: Warm, Dry, normal turgor, no rashes or lesions noted. <Margi Moraes - Last Filed: 08/14/17 11:30> ED Treatment Course - LABORATORY CBC & Chemistry Diagram: 08/14/17 11:40 08/14/17 11:40 <Angelina Roblero - Last Filed: 08/14/17 15:27> Medical Decision Making - Medical Decision Making 08/14/17 11:34 Respiratory is a 46-year-old female with a history of anemia, asthma, hypertension, polysubstance abuse including snorting heroin, snorting cocaine, daily use of alcohol, daily use of marijuana, daily uses tobacco. She was admitted to the [facility] for detox yesterday. She was noted since then to have persistent nausea and vomiting. She was started on by mouth medications, but there is some concern that she is not holding down her medications. Patient apparently complained of abdominal pain. She was noted to have no fever, no chills. No diarrhea. She is transferred to the ER for further evaluation. On the nurse's examination, the patient reported abdominal pain On my examination, the patient was very somnolent, and reported lower back pain. She denied all other review of system complaints including abdominal pain. Heart is bradycardic with no murmur Lungs are clear Patient abdomen is soft but diffusely tender to palpation, patient voluntarily guards. Will do: Labs EKG CT abdomen and pelvis IV hydration Zofran EKG: Sinus rhythm, rate of 55 bpm, axis is normal, intervals are normal, biphasic T waves noted in V3 V4 V5 V6. This is new as compared to EKG from December 2016 08/14/17 13:43 Laboratory Tests 08/14/17 08/14/17 08/14/17 11:40 11:40 11:40 WBC 10.3 H D Hgb 14.0 D Hct 41.8 Plt Count 371 Neutrophils % 72.6 Lymphocytes % 16.2 Sodium 135 L Potassium 3.9 Chloride 100 Carbon Dioxide 27 BUN 14 Creatinine 0.8 Random Glucose 104 Creatine Kinase 109 Troponin I < 0.02 Total Amylase 62 Lipase 127 Serum , Qual Negative Pending CT 08/14/17 15:21 CT is negative for acute pathology Results reviewed with patient She is in agreement with discharge to home Will po challenge Will discharge back to [facility] No pathology found on CT Suspect pt abdominal pain and nausea to be related to withdrawal? Clinical Impression: nausea and vomiting, initial presentation 08/14/17 15:26 <Angelina Roblero - Last Filed: 08/14/17 15:27> *DC/Admit/Observation/Transfer - Attestations Scribe Attestion: 08/14/17 11:32 Documentation prepared by Margi Moraes, acting as medical office receptionist for Angelina Roblero MD <Margi Moraes - Last Filed: 08/14/17 11:30> - Discharge Dispostion Admit: No <Angelina Roblero - Last Filed: 08/14/17 15:27> Diagnosis at time of Disposition: Nausea & vomiting Qualifiers: Vomiting type: unspecified Vomiting Intractability: non-intractable Qualified Code(s): R11.2 - Nausea with vomiting, unspecified - Discharge Dispostion Disposition: HOME Condition at time of disposition: Stable - Patient Instructions Printed Discharge Instructions: DI for Nausea -- Adult, Nausea and Vomiting- Adult Additional Instructions: Thank you for coming to the ER Please request anti emetics for nausea
[2017-08-14 11:25] VITALS: BMI 24.3
[2017-08-14] MEDS ORDERED: ONDANSETRON 4 MG/2 ML VIAL ONE (11:25)
[2017-08-14 11:47] LABS: BASO % 0.9 % (0-2.0); EOS % 0.2 % (0-4.5); HEMATOCRIT 41.8 % (32.4-45.2); LYMPH % 16.2 % (8-40); MCH 30.1 pg (25.7-33.7); MCHC 33.6 g/dl (32.0-36.0); MEAN CELL VOLUME 89.5 fl (80-96); MEAN PLT VOLUME 7.4 fl (7.5-11.1); MONO % 10.1 % (3.8-10.2); NEUT % 72.6 % (42.8-82.8); PLATELET COUNT 371 K/MM3 (134-434); RBC 4.67 M/mm3 (3.60-5.2); RDW 16.3 % (11.6-15.6); WHITE BLOOD COUNT 10.3 K/mm3 (4.0-10.0)
--- NOTE | 2017-08-14 12:02 | EKG ---
Test Reason : Blood Pressure : / mmHG Vent. Rate : 055 BPM Atrial Rate : 102 BPM P-R Int : 134 ms QRS Dur : 082 ms QT Int : 452 ms P-R-T Axes : 026 025 034 degrees QTc Int : 432 ms SINUS TACHYCARDIA WITH 2ND DEGREE A-V BLOCK VOLTAGE CRITERIA FOR LEFT VENTRICULAR HYPERTROPHY ABNORMAL ECG WHEN COMPARED WITH ECG OF 13-AUG-2017 13:01, SINUS RHYTHM IS NOW WITH 2ND DEGREE A-V BLOCK VENT. RATE HAS DECREASED BY 38 BPM Confirmed by PACHECO RAHMAN MD ([id number]) on 08/14/2017 12:02:32 PM Referred By: Confirmed By:PACHECO RAHMAN MD
[2017-08-14 12:43] LABS: ALBUMIN 3.9 g/dl (3.4-5.0); AMYLASE 62 U/L (25-115); ANION GAP 8 (8-16); BILIRUBIN,TOTAL 0.5 mg/dL (0.2-1.0); BLOOD UREA NITROGEN 14 mg/dL (7-18); CALCIUM 9.1 mg/dL (8.5-10.1); CHLORIDE 100 mmol/L (98-107); CO2 27 mmol/L (21-32); CREATININE 0.8 mg/dL (0.55-1.02); GLUCOSE,RANDOM 104 mg/dL (74-106); LIPASE 127 U/L (73-393); SGPT/ALT 16 U/L (12-78); SODIUM 135 mmol/L (136-145); TOT PROT 9.3 g/dl (6.4-8.2)
[2017-08-14 12:45] LABS: ALK PHOS 64 U/L (45-117)
[2017-08-14 12:54] LABS: POTASSIUM 3.9 mmol/L (3.5-5.1); SGOT/AST 18 U/L (15-37)
[2017-08-14 18:10] VITALS: BP 140/84; PULSE 89; TEMP 98
== END 2017-08-14 18:10 | disposition home or self-care (01) ==
LOC: JER 11:00
PROC: 3E033GC Introduction of Other Therapeutic Substance into Peripheral Vein, Percutaneous Approach (ICD-10-PCS; principal; 2017-08-14)
DX: R11.2 Nausea with vomiting, unspecified (principal); I10 Essential (primary) hypertension; J45.909 Unspecified asthma, uncomplicated; D64.9 Anemia, unspecified; F31.9 Bipolar disorder, unspecified; F10.10 Alcohol abuse, uncomplicated; F14.10 Cocaine abuse, uncomplicated; F17.210 Nicotine dependence, cigarettes, uncomplicated
CPT/HCPCS: 36415; 71045-TC-FY; 74177-TC; 80053; 82150; 82550; 83690; 84484; 84703; 85025; 93005; 93010; 99282-25; J7030

== ENCOUNTER 2018-03-12 10:34 | Inpatient (IN) | payer OTHER ==
[2018-03-12 11:09] VITALS: BMI 22.3
--- NOTE | 2018-03-12 12:00 | HP ---
COWS - Scale Resting Pulse: 1= [place] 81-100 Sweatin= Chills/Flushing Restless Observation: 1= Difficult to Sit Still Pupil Size: 1= Pupils >than Normal Bone or Joint Aches: 2= Severe Diffuse Aches Runny Nose/ Eye Tearin= Runny Nose/Eyes GI Upset > 30mins: 2= Nausea/Diarrhea Tremor Observation: 2= Slight Tremor Visible Yawning Observation: 1= 1-2x During Session Anxiety or Irritability: 2=Irritable/Anxious Goose Flesh Skin: 0=Smooth Skin COWS Score: 15 CIWA Score Nausea/Vomitin Muscle Tremors: 2 Anxiety: 2 Agitation: 2 Paroxysmal Sweats: 1-Minimal Palms Moist Orientation: 0-Oriented Tacttile Disturbances: 1-Very Mild Itch/Numbness Auditory Disturbances: 1-Very Mild Visual Disturbances: 0-None Headache: 2-Mild CIWA-Ar Total Score: 13 - Admission Criteria OASAS Guidelines: Admission for Medically Managed Detox: Requires at least one of the followin. CIWA greater than 12 2. Seizures within the past 24 hours 3. Delirium tremens within the past 24 hours 4. Hallucinations within the past 24 hours 5. Acute intervention needed for co occurring medical disorder 6. Acute intervention needed for co occurring psychiatric disorder 7. Severe withdrawal that cannot be handled at a lower level of care (continued vomiting, continued diarrhea, abnormal vital signs) requiring intravenous medication and/or fluids 8. Patient presents the following: CIWA greater than 12 Admission Criteria Met: Admission criteria met Admission ROS [facility] - [facility] Chief Complaint: i need help to stop using heroin and alcohol Allergies/Adverse Reactions: Allergies Allergy/AdvReac Type Severity Reaction Status Date / Time No Known Allergies Allergy Verified 03/12/18 11:33 History of Present Illness: this 47 years old female with heroin and alcohol dependence,seeking detox, withdrawal symptom,last detox 08/13/17 to 08/18/17 [id number] nicotine dependence weight loss bipolar disorder,insomnia longest sobriety 3 years Exam Limitations: No Limitations - Ebola screening Have you traveled outside of the country in the last 21 days: No Have you had contact with anyone from an Ebola affected area: No Have you been sick,other than usual withdrawal symptoms: No Do you have a fever: No - Review of Systems Constitutional: Chills, Loss of Appetite, Malaise, Night Sweats, Changes in sleep, Weakness, Unintentional Wgt. Loss EENT: reports: Tearing, Nose Congestion Respiratory: reports: No Symptoms reported, Other (asthma) Cardiac: reports: No Symptoms Reported GI: reports: Diarrhea, Nausea, Poor Appetite, Vomiting, Abdominal cramping : reports: No Symptoms Reported Musculoskeletal: reports: Back Pain, Muscle Pain Integumentary: reports: Dryness Neuro: reports: Headache, Tremors Endocrine: reports: No Symptoms Reported Hematology: reports: No Symptoms Reported Psychiatric: reports: No Sypmtoms Reported, Judgement Intact, Mood/Affect Appropiate, Orientated x3, Anxious (bipolar disorder), Depressed Patient History - Patient Medical History Hx Anemia: Yes (NO TREATMENT) Hx Asthma: Yes (on albuterol inhaler) Hx Chronic Obstructive Pulmonary Disease (COPD): No Hx Cancer: No Hx Cardiac Disorders: No Hx Congestive Heart Failure: No Hx Hypertension: Yes (On meds.) Hx Hypercholesterolemia: No Hx Pacemaker: No HX Cerebrovascular Accident: No Hx Seizures: No Hx Dementia: No Hx Diabetes: No Hx Gastrointestinal Disorders: No Hx Liver Disease: No Hx Genitourinary Disorders: No Hx Sexually Transmitted Disorders: No Hx Renal Disease (ESRD): No Hx Thyroid Disease: No Hx Human Immunodeficiency Virus (HIV): No (10/06 ngative last) Hx Hepatitis C: No Hx Depression: Yes Hx Suicide Attempt: Yes (Pt states she tried to overdose 1 yr ago.) Hx Bipolar Disorder: Yes Hx Schizophrenia: No Other Medical History: no suicidal,no homicidal - Patient Surgical History Past Surgical History: No Hx Neurologic Surgery: No Hx Cataract Extraction: No Hx Cardiac Surgery: No Hx Lung Surgery: No Hx Breast Surgery: No Hx Breast Biopsy: No Hx Abdominal Surgery: No Hx Appendectomy: No Hx Cholecystectomy: No Hx Genitourinary Surgery: No Hx Section: No Hx Orthopedic Surgery: No Hx Hysterectomy: No Anesthesia Reaction: No - PPD History Previous Implant?: Yes Documented Results: Negative w/proof Implanted On Prior [facility] Admission?: Yes Date: 12/13/16 Results: 0 mm PPD to be Administered?: Yes - Reproductive History Patient is a Female of Child Bearing Age (11 -55 yrs old): Yes Last Menstrual Period: 01/21/18 Patient : No - Smoking Cessation Smoking history: Current every day smoker Have you smoked in the past 12 months: Yes Aproximately how many cigarettes per day: 20 Cigars Per Day: 0 Hx Chewing Tobacco Use: No Initiated information on smoking cessation: Yes 'Breaking Loose' booklet given: 03/12/18 - Substance & Tx. History Hx Alcohol Use: Yes Hx Substance Use: Yes Substance Use Type: Alcohol, Heroin Hx Substance Use Treatment: Yes ([facility] 08/13/17 to 08/18/17) - Substances Abused Heroin Route: Inhalation Frequency: Daily Amount used: 1 and 1/2 grams Age of first use: 40 Date of Last Use: 03/11/18 Alcohol Route: Oral Frequency: Daily Amount used: 2 20 oz cans of beer Age of first use: 21 Date of Last Use: 03/12/18 Family Disease History - Family Disease History Family Disease History: Diabetes: Sister, Heart Disease: Grandparent, Mother ( 20 years abstinence), CA: Grandparent, Other: Mother Admission Physical Exam S - Vital Signs Vital Signs: Vital Signs - 24 hr 03/12/18 11:06 Temperature 98.9 F Pulse Rate 83 Respiratory 18 Rate Blood Pressure 146/99 - Physical General Appearance: Yes: Moderate Distress, Tremorous, Irritable, Sweating, Anxious HEENTM: Yes: Normal ENT Inspection, CJ, Pharynx Normal Respiratory: Yes: Lungs Clear, Normal Breath Sounds, No Respiratory Distress Neck: Yes: Within Normal Limits, Supple, Trachea in good position Breast: Yes: Breast Exam Deferred Cardiology: Yes: Within Normal Limits, Regular Rhythm, Regular Rate, S1, S2 Abdominal: Yes: Within Normal Limits, Normal Bowel Sounds, Non Tender, Flat, Soft Genitourinary: Yes: Within Normal Limits Back: Yes: Within Normal Limits, Muscle Spasm Musculoskeletal: Yes: Within Normal Limits, Back pain, Muscle Pain Extremities: Yes: Within Normal Limits, Normal Range of Motion, Tremors Neurological: Yes: damascener II-XII NML intact, Fully Oriented, Alert, Motor Strength 5/5 Integumentary: Yes: Dry Lymphatic: Yes: Within Normal Limits - Diagnostic (1) Opioid dependence with withdrawal Current Visit: Yes Status: Acute (2) Alcohol dependence with uncomplicated withdrawal Current Visit: Yes Status: Acute (3) Asthma Current Visit: No Status: Chronic Qualifiers: Comment: TREATED WITH VENTOLIN (4) Chronic back pain Current Visit: No Status: Chronic Qualifiers: Comment: SINCE 2010 (5) Hypertension Current Visit: No Status: Chronic Qualifiers: Hypertension type: essential hypertension Qualified Code(s): I10 - Essential (primary) hypertension Comment: HYDROCHLOROTHIAZIDE 12.5 MG NORVASC 5 MG (6) Nicotine dependence Current Visit: No Status: Chronic Qualifiers: Nicotine product type: cigarettes Substance use status: uncomplicated Qualified Code(s): F17.210 - Nicotine dependence, cigarettes, uncomplicated (7) Weight loss Current Visit: No Status: Chronic (8) History of anemia Current Visit: No Status: Suspected Comment: NO TREATMENT LAB PENDING (9) Bipolar disorder Current Visit: Yes Status: Acute Cleared for Admission [facility] - Detox or Rehab S Level of Care: Medically Managed Detox Regimen/Protocol: Methadone/Librium [facility] Breath Alcohol Content Breath Alcohol Content: 0 Urine Pregancy Test - Result Urine Test Results: Negative- NO Line Present Urine Drug Screen - Results Drug Screen Negative: No Urine Drug Screen Results: OPI-Opiates, OXY-Oxycodone
[2018-03-12] MEDS ORDERED: LOPERAMIDE HCL 2 MG CAPSULE PO PRN (12:07)
[2018-03-12] MEDS ORDERED: MAGNESIUM CITRATE 300 ML BOTTLE PO PRN (12:07)
[2018-03-12] MEDS ORDERED: MAGNESIUM HYDROX 2400MG/30ML ORAL SUSPENSION 30 ML CUP PO PRN (12:07)
[2018-03-12] MEDS ORDERED: IBUPROFEN 400 MG TABLET (FP) PO PRN (12:07)
[2018-03-12] MEDS ORDERED: MENTHOL/PHENOL 1 EACH UD MM PRN (12:07)
[2018-03-12] MEDS ORDERED: guaiFENesin/D-METHORPHAN HB 10 ML UNIT-DOSE CUPS PO PRN (12:07)
[2018-03-12] MEDS ORDERED: P-EPHED 60MG/TRIPROLIDI 2.5MG TABLET PO PRN (12:07)
[2018-03-12] MEDS ORDERED: ACETAMINOPHEN 325 MG TABLET (FP) PO PRN (12:07)
[2018-03-12] MEDS ORDERED: METHADONE HCL 10 MG TABLET (FOR DETOX USE ONLY) PO ONE ×2 (13:00→23:00)
[2018-03-12] MEDS: TRIMETHOBENZAMIDE HCL 200MG/2ML INJ IM PRN ×2 (15:03→21:16)
[2018-03-12] MEDS: NICOTINE 21 MG/24 HOURS TOPICAL PATCH TD SCH (15:59)
--- NOTE | 2018-03-12 16:12 | CONSULT ---
[facility] Psychiatric Consult - Data Date of interview: 03/12/18 Admission source: [facility] Identifying data: Patient is a 47 year old single female, mother of eight, domiciled (living with her mother), and is supported by [facility]. This is one of multiple admissions to detox. Patient admitted to for alcohol and opiate dependence. Substance Abuse History: Smoking Cessation. Smoking history: Current every day smoker. Have you smoked in the past 12 months: Yes. Aproximately how many cigarettes per day: 20. Cigars Per Day: 0. Hx Chewing Tobacco Use: No. Initiated information on smoking cessation: Yes. 'Breaking Loose' booklet given : 03/12/18. - Substance & Tx. History. Hx Alcohol Use: Yes. Hx Substance Use : Yes. Substance Use Type: Alcohol, Heroin. Hx Substance Use Treatment: Yes ( [facility] 08/13/17 to 08/18/17). - Substances Abused. Heroin. Route: Inhalation. Frequency: Daily. Amount used: 1 and 1/2 grams. Age of first use : 40. Date of Last Use: 03/11/18. Alcohol. Route: Oral. Frequency: Daily. Amount used: 2 20 oz cans of beer. Age of first use: 21. Date of Last Use: 03/12/18 Medical History: Anemia, asthma, hypertension Psychiatric History: Patient reports h/o multiple psychiatric hospitalizations, most recently 3 years ago at [facility]. She is also known to [facility]. Patient was prescribed lexapro 20mg daily + Depakote 250mg BID + risperdal 2mg while in detox in July of 2017. She has also accepted seroquel in the past. Reports medication noncompliance for several months. Patient refusing to restart psychotrophic medications. Patient is requesting a sleep aid. She reports taking ambien. Pharmacy claims reviewed and noted ambien prescription for january 2018. Patient reports one suicide attempt via overdose last year. Patient denies current thoughts or urges to hurt self or others. Physical/Sexual Abuse/Trauma History: denies. Mental Status Exam - Mental Status Exam Alert and Oriented to: Time, Place, Person Cognitive Function: Fair Patient Appearance: Well Groomed Mood: Withdrawn, Anxious Affect: Mood Congruent Patient Behavior: Fatigued Speech Pattern: Appropriate Voice Loudness: Moderately Soft/Quiet Thought Process: Goal Oriented Thought Disorder: Not Present Hallucinations: Denies Suicidal Ideation: Denies Homicidal Ideation: Denies Insight/Judgement: Poor Sleep: Poorly Appetite: Fair Muscle strength/Tone: Normal Gait/Station: Normal Psychiatric Findings - Problem List ([place] 1, 2,3) (1) Substance induced mood disorder Current Visit: Yes Status: Acute (2) Substance-induced sleep disorder Current Visit: Yes Status: Acute (3) Alcohol dependence with uncomplicated withdrawal Current Visit: Yes Status: Acute (4) Opioid dependence with withdrawal Current Visit: Yes Status: Acute - Initial Treatment Plan Initial Treatment Plan: Psychoeducation provided. Detoxification in progress. Will order Belsomra 10mg qhs. Benefits and side effects discussed. Verbal consent given.
[2018-03-12] MEDS: chlordiazePOXIDE HCL 25 MG CAPSULE PO SCH ×2 (17:28→23:15)
[2018-03-12] MEDS: chlordiazePOXIDE HCL 25 MG CAPSULE PO PRN (19:49)
[2018-03-12] MEDS: SUVOREXANT 10 MG TABLET PO PRN (21:17)
[2018-03-12] MEDS: THIAMINE HCL 100 MG TABLET (FP) PO SCH (21:18)
[2018-03-13] LABS: URINE APPEARANCE CLEAR; URINE BILIRUBIN NEGATIVE (<2.0 mg/dL); URINE COLOR STRAW; URINE GLUCOSE (UA) NEGATIVE (NEGATIVE); URINE KETONE NEGATIVE (NEGATIVE); URINE LEUK ESTERASE 2+ (NEGATIVE); URINE NITRITE NEGATIVE (NEGATIVE); URINE PROTEIN NEGATIVE (NEGATIVE); URINE UROBILINOGEN NEGATIVE mg/dL (0.2-1.0)
[2018-03-13 00:06] LABS: EPI CELLS RARE /HPF (FEW); URINE BACTERIA RARE /hpf (NONE SEEN)
[2018-03-13] MEDS: chlordiazePOXIDE HCL 25 MG CAPSULE PO SCH ×4 (05:45→22:35)
[2018-03-13] MEDS: TRIMETHOBENZAMIDE HCL 200MG/2ML INJ IM PRN (06:15)
[2018-03-13] MEDS ORDERED: cloNIDine HCL 0.1 MG TABLET PO SCH (10:00)
[2018-03-13] MEDS ORDERED: METHADONE HCL 10 MG TABLET (FOR DETOX USE ONLY) PO SCH (10:00)
[2018-03-13 10:22] LABS: HEMATOCRIT 40.1 % (32.4-45.2); HEMOGLOBIN 13.3 GM/dL (10.7-15.3); MCH 31.6 pg (25.7-33.7); MCHC 33.1 g/dl (32.0-36.0); MEAN CELL VOLUME 95.3 fl (80-96); MEAN PLT VOLUME 8.1 fl (7.5-11.1); PLATELET COUNT 353 K/MM3 (134-434); RBC 4.21 M/mm3 (3.60-5.2); RDW 14.6 % (11.6-15.6); WHITE BLOOD COUNT 8.5 K/mm3 (4.0-10.0)
[2018-03-13] MEDS: PRENATAL VITAMINS W/ FOLIC ACID TABLET (FP) PO SCH (10:23)
[2018-03-13] MEDS: NICOTINE POLACRILEX 2 MG GUM BUC PRN ×3 (10:24→22:36)
[2018-03-13] MEDS: cloNIDine HCL 0.1 MG TABLET PO SCH ×2 (10:24→22:35)
[2018-03-13] MEDS: HYDROCHLOROTHIAZIDE 25 MG TABLET (FP) PO SCH (10:24)
[2018-03-13] MEDS: NICOTINE 21 MG/24 HOURS TOPICAL PATCH TD SCH (10:24)
[2018-03-13] MEDS: ALBUTEROL SO4 8 GM HFA INHALER IH PRN ×2 (10:27→22:34)
[2018-03-13 10:38] LABS: ALBUMIN 3.8 g/dl (3.4-5.0); ALK PHOS 58 U/L (45-117); ANION GAP 12 MMOL/L (8-16); BILIRUBIN,TOTAL 0.5 mg/dL (0.2-1); BLOOD UREA NITROGEN 23 mg/dL (7-18); CALCIUM 8.6 mg/dL (8.5-10.1); CHLORIDE 97 mmol/L (98-107); CO2 25 mmol/L (21-32); CREATININE 0.8 mg/dL (0.55-1.3); GLUCOSE,RANDOM 71 mg/dL (74-106); POTASSIUM 3.6 mmol/L (3.5-5.1); SGOT/AST 19 U/L (15-37); SGPT/ALT 24 U/L (13-61); SODIUM 134 mmol/L (136-145); TOT PROT 8.3 g/dl (6.4-8.2)
--- NOTE | 2018-03-13 11:11 | PN ---
[facility] CIWA - CIWA Score Nausea/Vomitin-No Nausea/No Vomiting Muscle Tremors: 3 Anxiety: 3 Agitation: 3 Paroxysmal Sweats: 3 Orientation: 0-Oriented Tacttile Disturbances: 0-None Auditory Disturbances: 0-None Visual Disturbances: 0-None Headache: 0-None Present CIWA-Ar Total Score: 12 S COWS - Scale Resting Pulse: 0= [place] 80 or Below Sweatin=Flushed/Facial Moisture Restless Observation: 1= Difficult to Sit Still Pupil Size: 0= Normal to Room Light Bone or Joint Aches: 2= Severe Diffuse Aches Runny Nose/ Eye Tearin= Nasal Congestion GI Upset > 30mins: 1= Stomach Cramp Tremor Observation of Outstretched Hands: 1= Tremor [place], Not Seen Yawning Observation: 1= 1-2x During Session Anxiety or Irritability: 1=Feels Anxious/Irritable Goose Flesh Skin: 0=Smooth Skin COWS Score: 10 S Progress Note (SOAP) Subjective: sweats shakes interrupted sleep body aches Objective: 03/13/18 11:10 Vital Signs Temperature 99.9 F H 03/13/18 09:36 Pulse Rate 55 L 03/13/18 09:36 Respiratory Rate 18 03/13/18 09:36 Blood Pressure 168/74 03/13/18 09:36 O2 Sat by Pulse Oximetry (%) Laboratory Tests 03/12/18 03/13/18 03/13/18 23:45 05:40 05:40 WBC 8.5 RBC 4.21 Hgb 13.3 Hct 40.1 MCV 95.3 MCH 31.6 MCHC 33.1 RDW 14.6 D Plt Count 353 MPV 8.1 Sodium 134 L Potassium 3.6 Chloride 97 L Carbon Dioxide 25 Anion Gap 12 BUN 23 H Creatinine 0.8 Creat Clearance w eGFR > 60 Random Glucose 71 L Calcium 8.6 Total Bilirubin 0.5 AST 19 ALT 24 Alkaline Phosphatase 58 Total Protein 8.3 H Albumin 3.8 Urine Color Straw Urine Appearance Clear Urine pH 5.0 Ur Specific [place] 1.009 L Urine Protein Negative Urine Glucose (UA) Negative Urine Ketones Negative Urine Blood 1+ H Urine Nitrite Negative Urine Bilirubin Negative Urine Urobilinogen Negative Ur Leukocyte Esterase 2+ H Urine WBC (Auto) 16 Urine RBC (Auto) 1 Ur Epithelial Cells Rare Urine Bacteria Rare aaox3 ambulating no acute distress Assessment: 03/13/18 11:11 withdrawal sx Plan: continue detox increase fluids
[2018-03-13] MEDS: chlordiazePOXIDE HCL 25 MG CAPSULE PO PRN (13:55)
[2018-03-13] MEDS: hydrOXYzine PAMOATE 25 MG CAPSULE (FP) PO PRN ×2 (18:08→22:34)
[2018-03-13] MEDS: THIAMINE HCL 100 MG TABLET (FP) PO SCH (22:35)
[2018-03-13] MEDS: SUVOREXANT 10 MG TABLET PO PRN (22:35)
[2018-03-14] MEDS: chlordiazePOXIDE HCL 25 MG CAPSULE PO SCH ×2 (05:54→10:27)
[2018-03-14] MEDS: NICOTINE POLACRILEX 2 MG GUM BUC PRN ×5 (06:12→22:24)
[2018-03-14] MEDS: hydrOXYzine PAMOATE 25 MG CAPSULE (FP) PO PRN ×2 (08:02→14:41)
[2018-03-14] MEDS: PRENATAL VITAMINS W/ FOLIC ACID TABLET (FP) PO SCH (10:26)
[2018-03-14] MEDS: HYDROCHLOROTHIAZIDE 25 MG TABLET (FP) PO SCH (10:27)
[2018-03-14] MEDS: METHADONE HCL 5 MG TABLET (FOR DETOX USE ONLY) PO SCH (10:27)
[2018-03-14] MEDS: NICOTINE 21 MG/24 HOURS TOPICAL PATCH TD SCH (10:28)
[2018-03-14] MEDS: cloNIDine HCL 0.1 MG TABLET PO SCH ×2 (11:00→22:24)
--- NOTE | 2018-03-14 12:31 | PN ---
[facility] CIWA - CIWA Score Nausea/Vomitin-No Nausea/No Vomiting Muscle Tremors: 3 Anxiety: 3 Agitation: 3 Paroxysmal Sweats: 2 Orientation: 0-Oriented Tacttile Disturbances: 0-None Auditory Disturbances: 0-None Visual Disturbances: 0-None Headache: 0-None Present CIWA-Ar Total Score: 11 [facility] COWS - Scale Resting Pulse: 2= [place] 101-120 Sweatin= Chills/Flushing Restless Observation: 1= Difficult to Sit Still Pupil Size: 0= Normal to Room Light Bone or Joint Aches: 1= Mild Discomfort Runny Nose/ Eye Tearin= Nasal Congestion GI Upset > 30mins: 0= None Tremor Observation of Outstretched Hands: 2= Slight Tremor Visible Yawning Observation: 0= None Anxiety or Irritability: 2=Irritable/Anxious Goose Flesh Skin: 0=Smooth Skin COWS Score: 10 [facility] Progress Note (SOAP) Subjective: anxiety sweats chills body aches interrupted sleep muscle spasms Objective: 03/14/18 12:30 Vital Signs Temperature 98.1 F 03/14/18 09:24 Pulse Rate 101 H 03/14/18 09:24 Respiratory Rate 18 03/14/18 09:24 Blood Pressure 100/69 03/14/18 09:24 O2 Sat by Pulse Oximetry (%) Laboratory Tests 03/12/18 03/13/18 03/13/18 23:45 05:40 05:40 WBC 8.5 RBC 4.21 Hgb 13.3 Hct 40.1 MCV 95.3 MCH 31.6 MCHC 33.1 RDW 14.6 D Plt Count 353 MPV 8.1 Sodium 134 L Potassium 3.6 Chloride 97 L Carbon Dioxide 25 Anion Gap 12 BUN 23 H Creatinine 0.8 Creat Clearance w eGFR > 60 Random Glucose 71 L Calcium 8.6 Total Bilirubin 0.5 AST 19 ALT 24 Alkaline Phosphatase 58 Total Protein 8.3 H Albumin 3.8 Urine Color Straw Urine Appearance Clear Urine pH 5.0 Ur Specific [place] 1.009 L Urine Protein Negative Urine Glucose (UA) Negative Urine Ketones Negative Urine Blood 1+ H Urine Nitrite Negative Urine Bilirubin Negative Urine Urobilinogen Negative Ur Leukocyte Esterase 2+ H Urine WBC (Auto) 16 Urine RBC (Auto) 1 Ur Epithelial Cells Rare Urine Bacteria Rare RPR Titer 03/13/18 05:40 WBC RBC Hgb Hct MCV MCH MCHC RDW Plt Count MPV Sodium Potassium Chloride Carbon Dioxide Anion Gap BUN Creatinine Creat Clearance w eGFR Random Glucose Calcium Total Bilirubin AST ALT Alkaline Phosphatase Total Protein Albumin Urine Color Urine Appearance Urine pH Ur Specific [place] Urine Protein Urine Glucose (UA) Urine Ketones Urine Blood Urine Nitrite Urine Bilirubin Urine Urobilinogen Ur Leukocyte Esterase Urine WBC (Auto) Urine RBC (Auto) Ur Epithelial Cells Urine Bacteria RPR Titer Nonreactive aaox3 ambulating no acute distress Assessment: 03/14/18 12:30 withdrawal sx Plan: continue detox increase fluids flexitil 10mg prn visitirl prn
[2018-03-14] MEDS: ALBUTEROL SO4 8 GM HFA INHALER IH PRN ×2 (14:41→22:22)
--- NOTE | 2018-03-14 19:04 | PN ---
Psychiatric Progress Note Vital Signs: Vital Signs Period Temp Pulse Resp BP Sys/Kimble Pulse Ox Last 24 Hr 97.7 F-98.4 F 82-103 18-20 100-129/64-70 Date of Session: 03/14/18 Chief Complaint:: " I need my sleep aid and other medications." HPI: Patient admitted to for alcohol and opiate dependence. ROS: Anemia, asthma, hypertension Current Medications: Active Medications Generic Name Dose Route Start Last Admin Trade Name Freq PRN Reason Stop Dose Admin Acetaminophen 650 mg 03/12/18 12:07 Tylenol - PO Q4H PRN FEVER Al Hydroxide/Mg Hydroxide 30 ml 03/12/18 12:07 Mylanta Oral Suspension - PO Q6H PRN DYSPEPSIA Albuterol Sulfate 2 puff 03/12/18 12:10 03/14/18 14:41 Ventolin Hfa Inhaler - IH 2 puff Q4H PRN Administration ASTHMA Chlordiazepoxide HCl 15 mg 03/14/18 17:00 Librium - PO 03/15/18 11:01 [id number] RAYMUNDO Chlordiazepoxide HCl 10 mg 03/15/18 17:00 Librium - PO 03/16/18 11:01 [id number] RAYMUNDO Chlordiazepoxide HCl 25 mg 03/12/18 12:07 03/13/18 13:55 Librium - PO 03/15/18 12:08 25 mg Q4H PRN Administration WITHDRAWAL(CONT SUBST) Clonidine 0.1 mg 03/13/18 10:00 03/14/18 11:00 Catapres - PO 0.1 mg BID RAYMUNDO Administration Cyclobenzaprine HCl 10 mg 03/14/18 10:04 Flexeril - PO TID PRN MUSCLE SPASMS Eucalyptus/Menthol/Phenol/Sorbitol 1 each 03/12/18 12:07 Cepastat Lozenge - MM Q4H PRN SORE THROAT Guaifenesin 10 ml 03/12/18 12:07 Robitussin Dm - PO Q6H PRN COUGH Hydrochlorothiazide 25 mg 03/13/18 10:00 03/14/18 10:27 Hctz - PO 25 mg DAILY RAYMUNDO Administration Hydroxyzine Pamoate 50 mg 03/14/18 15:38 Vistaril - PO Q4H PRN FOR ITCHING Ibuprofen 400 mg 03/12/18 12:07 Motrin - PO Q6H PRN PAIN LEVEL 4-6 Loperamide HCl 4 mg 03/12/18 12:07 Imodium - PO Q6H PRN DIARRHEA Magnesium Citrate 300 ml 03/12/18 12:07 Citroma - PO Q48H PRN CONSTIPATION Magnesium Hydroxide 30 ml 03/12/18 12:07 Milk Of Magnesia - PO DAILY PRN CONSTIPATION Melatonin 5 mg 03/12/18 22:00 Melatonin PO HS PRN INSOMNIA Methadone HCl 15 mg 03/14/18 10:00 03/14/18 10:27 Dolophine - PO 03/15/18 10:01 15 mg DAILY RAYMUNDO Administration Methadone HCl 5 mg 03/17/18 06:00 Dolophine - PO 03/17/18 06:01 DAILY@0600 RAYMUNDO Methadone HCl 10 mg 03/16/18 10:00 Dolophine - PO 03/16/18 10:01 DAILY RAYMUNDO Nicotine 21 mg 03/12/18 12:45 03/14/18 10:28 Nicoderm Patch - TD 21 mg DAILY RAYMUNDO Administration Nicotine Polacrilex 2 mg 03/12/18 12:07 03/14/18 14:39 Nicorette Gum - BUC 2 mg Q2H PRN Administration NICOTINE REPLACEMENT RX Multivit/Folic Acid/Iron 1 tab 03/13/18 10:00 03/14/18 10:26 Vitamins (Sjr) - PO 1 tab DAILY RAYMUNDO Administration Pseudoephedrine/Triprolidine 1 combo 03/12/18 12:07 Actifed - PO TID PRN NASAL CONGESTION Suvorexant 10 mg 03/14/18 22:00 Belsomra PO 03/17/18 17:21 HS PRN INSOMNIA Thiamine HCl 100 mg 03/12/18 22:00 03/13/18 22:35 Vitamin B1 - PO 100 mg HS RAYMUNDO Administration Trimethobenzamide HCl 200 mg 03/12/18 14:04 03/13/18 06:15 Tigan Injection - IM 200 mg Q8H PRN Administration NAUSEA AND/OR VOMITING Medication(s) Change(s): No. Current Side Effect: No Lab tests ordered: No Lab tests reviewed: Yes Provider note:: Patient requesting renewal of belsomra 10mg qhs. She is also requesting to restart lexapro and depakote. As per pharmacy claims patient most recently received a prescription of lexapro and depakote in July. 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 Patient satisfied and receptive to feedback. Will renew belsomra 10mg qhs. Total face to face time:: 25 Mental Status Exam - Mental Status Exam Alert and Oriented to: Time, Place, Person Cognitive Function: Good Patient Appearance: Well Groomed Mood: Hopeful Affect: Appropriate Patient Behavior: Appropriate, Cooperative Speech Pattern: Appropriate Voice Loudness: Normal Thought Process: Intact, Goal Oriented Thought Disorder: Not Present Hallucinations: Denies Suicidal Ideation: Denies Homicidal Ideation: Denies Insight/Judgement: Poor Sleep: Fair Appetite: Fair Muscle strength/Tone: Normal Gait/Station: Normal Psychiatric Treatment Plan - Problem List (1) Substance induced mood disorder Current Visit: Yes (2) Substance-induced sleep disorder Current Visit: Yes (3) Alcohol dependence with uncomplicated withdrawal Current Visit: Yes (4) Opioid dependence with withdrawal Current Visit: Yes
[2018-03-14] MEDS: hydrOXYzine PAMOATE 50 MG CAPSULE (FP) PO PRN (19:33)
[2018-03-14] MEDS ORDERED: SUVOREXANT 10 MG TABLET PO PRN (22:00)
[2018-03-14] MEDS: chlordiazePOXIDE 5 MG CAPSULE PO SCH ×2 (22:21→22:25)
[2018-03-14] MEDS: THIAMINE HCL 100 MG TABLET (FP) PO SCH (22:21)
[2018-03-14] MEDS: MELATONIN 5 MG TABLETS PO PRN (22:23)
[2018-03-14] MEDS: CYCLOBENZAPRINE HCL 10 MG TABLET (FP) PO PRN (22:25)
[2018-03-15] MEDS: NICOTINE POLACRILEX 2 MG GUM BUC PRN ×3 (05:43→22:36)
[2018-03-15] MEDS: chlordiazePOXIDE 5 MG CAPSULE PO SCH ×2 (05:43→10:22)
[2018-03-15] MEDS: ALBUTEROL SO4 8 GM HFA INHALER IH PRN (05:44)
[2018-03-15] MEDS: hydrOXYzine PAMOATE 50 MG CAPSULE (FP) PO PRN ×3 (08:45→22:33)
[2018-03-15] MEDS: MAG HYDROX/AL HYDROX/SIMETH 30 ML UNIT-DOSE CUP PO PRN (08:46)
[2018-03-15] MEDS: HYDROCHLOROTHIAZIDE 25 MG TABLET (FP) PO SCH (10:22)
[2018-03-15] MEDS: PRENATAL VITAMINS W/ FOLIC ACID TABLET (FP) PO SCH (10:22)
[2018-03-15] MEDS: METHADONE HCL 5 MG TABLET (FOR DETOX USE ONLY) PO SCH (10:22)
[2018-03-15] MEDS: cloNIDine HCL 0.1 MG TABLET PO SCH ×2 (10:22→22:32)
[2018-03-15] MEDS: NICOTINE 21 MG/24 HOURS TOPICAL PATCH TD SCH (10:23)
[2018-03-15] MEDS: CYCLOBENZAPRINE HCL 10 MG TABLET (FP) PO PRN ×2 (10:23→22:32)
--- NOTE | 2018-03-15 12:59 | PN ---
[facility] Progress Note (SOAP) Subjective: anxiety sweats Objective: 03/15/18 12:58 Vital Signs Temperature 98.8 F 03/15/18 09:47 Pulse Rate 83 03/15/18 09:47 Respiratory Rate 16 03/15/18 09:47 Blood Pressure 130/77 03/15/18 09:47 O2 Sat by Pulse Oximetry (%) aaox3 ambulating no acute distress Assessment: 03/15/18 12:58 withdrawal sx Plan: continue detox increase fluids psych order for a revisit placed. pt prefer to speak to psych.
[2018-03-15] MEDS ORDERED: COLLOIDAL OATMEAL 1 BAR EACH TP PRN (13:20)
--- NOTE | 2018-03-15 16:06 | PN ---
Psychiatric Progress Note Vital Signs: Vital Signs Period Temp Pulse Resp BP Sys/Kimble Pulse Ox Last 24 Hr 97.7 F-99.3 F 79-97 16-18 118-130/63-77 Date of Session: 03/15/18 Chief Complaint:: " I feel anxious. " HPI: Asked to see this patient because of complaint of " feeling anxious and in need of something strong to calm me down ". Detoxification remains uneventful. Well tolerated. Except for mild anxiety + medication-seeking behavior. ROS: Unremarkable. Current Medications: Active Medications Generic Name Dose Route Start Last Admin Trade Name Freq PRN Reason Stop Dose Admin Acetaminophen 650 mg 03/12/18 12:07 Tylenol - PO Q4H PRN FEVER Al Hydroxide/Mg Hydroxide 30 ml 03/12/18 12:07 03/15/18 08:46 Mylanta Oral Suspension - PO 30 ml Q6H PRN Administration DYSPEPSIA Albuterol Sulfate 2 puff 03/12/18 12:10 03/15/18 05:44 Ventolin Hfa Inhaler - IH 2 puff Q4H PRN Administration ASTHMA Chlordiazepoxide HCl 10 mg 03/15/18 17:00 Librium - PO 03/16/18 11:01 [id number] RAYMUNDO Clonidine 0.1 mg 03/13/18 10:00 03/15/18 10:22 Catapres - PO 0.1 mg BID RAYMUNDO Administration Colloidal Oatmeal 1 applic 03/15/18 13:20 03/15/18 13:38 Aveeno Soap - TP 1 applic DAILY PRN Administration HYGEINE Cyclobenzaprine HCl 10 mg 03/14/18 10:04 03/15/18 10:23 Flexeril - PO 10 mg TID PRN Administration MUSCLE SPASMS Eucalyptus/Menthol/Phenol/Sorbitol 1 each 03/12/18 12:07 Cepastat Lozenge - MM Q4H PRN SORE THROAT Guaifenesin 10 ml 03/12/18 12:07 Robitussin Dm - PO Q6H PRN COUGH Hydrochlorothiazide 25 mg 03/13/18 10:00 03/15/18 10:22 Hctz - PO 25 mg DAILY RAYMUNDO Administration Hydroxyzine Pamoate 50 mg 03/14/18 15:38 03/15/18 13:19 Vistaril - PO 50 mg Q4H PRN Administration FOR ITCHING Ibuprofen 400 mg 03/12/18 12:07 Motrin - PO Q6H PRN PAIN LEVEL 4-6 Loperamide HCl 4 mg 03/12/18 12:07 Imodium - PO Q6H PRN DIARRHEA Magnesium Citrate 300 ml 03/12/18 12:07 Citroma - PO Q48H PRN CONSTIPATION Magnesium Hydroxide 30 ml 03/12/18 12:07 Milk Of Magnesia - PO DAILY PRN CONSTIPATION Melatonin 5 mg 03/12/18 22:00 03/14/18 22:23 Melatonin PO 5 mg HS PRN Administration INSOMNIA Methadone HCl 5 mg 03/17/18 06:00 Dolophine - PO 03/17/18 06:01 DAILY@0600 RAYMUNDO Methadone HCl 10 mg 03/16/18 10:00 Dolophine - PO 03/16/18 10:01 DAILY RAYMUNDO Nicotine 21 mg 03/12/18 12:45 03/15/18 10:23 Nicoderm Patch - TD 21 mg DAILY RAYMUNDO Administration Nicotine Polacrilex 2 mg 03/12/18 12:07 03/15/18 08:46 Nicorette Gum - BUC 2 mg Q2H PRN Administration NICOTINE REPLACEMENT RX Multivit/Folic Acid/Iron 1 tab 03/13/18 10:00 03/15/18 10:22 Vitamins (Sjr) - PO 1 tab DAILY RAYMUNDO Administration Pseudoephedrine/Triprolidine 1 combo 03/12/18 12:07 Actifed - PO TID PRN NASAL CONGESTION Suvorexant 10 mg 03/14/18 22:00 Belsomra PO 03/17/18 17:21 HS PRN INSOMNIA Thiamine HCl 100 mg 03/12/18 22:00 03/14/18 22:21 Vitamin B1 - PO 100 mg HS RAYMUNDO Administration Trimethobenzamide HCl 200 mg 03/12/18 14:04 03/13/18 06:15 Tigan Injection - IM 200 mg Q8H PRN Administration NAUSEA AND/OR VOMITING Medication(s) Change(s): None. Patient is instructed to use her prn doses of hydroxyzine + breathing exercises + attendance to therapy sessions. Current Side Effect: No Lab tests ordered: No Lab tests reviewed: Yes Provider note:: Chart reviewed. Met with the patient. She declares that she is apprehensive about her discharge date due to issue of homelessness + fear of returning to the company of the " people who use ". Advised to enlist in rehabilitation. Patient indicates that she plans to go to the [facility] program after discharge. Redirected about her request for a benzodiazepine. Made aware that anxiety responds to medications other than benzos (SSRI drugs) in addition to psychotherapy. Calmed down. Ms Carlos is not psychotic. Responds well to reassurance. Baseline. Total face to face time:: 25 Mental Status Exam - Mental Status Exam Alert and Oriented to: Time, Place, Person Cognitive Function: Good Patient Appearance: Well Groomed Mood: Apprehensive Affect: Normal Range Patient Behavior: Appropriate, Cooperative Speech Pattern: Clear, Appropriate Voice Loudness: Normal Thought Process: Goal Oriented Thought Disorder: Not Present Hallucinations: Denies Suicidal Ideation: Denies Homicidal Ideation: Denies Insight/Judgement: Poor Sleep: Well Appetite: Good Muscle strength/Tone: Normal Gait/Station: Normal Psychiatric Treatment Plan - Problem List (1) Alcohol dependence with uncomplicated withdrawal Current Visit: Yes (2) Opioid dependence with withdrawal Current Visit: Yes (3) Substance induced mood disorder Current Visit: Yes (4) Nicotine dependence Current Visit: No Qualifiers: Nicotine product type: cigarettes Substance use status: uncomplicated Qualified Code(s): F17.210 - Nicotine dependence, cigarettes, uncomplicated
[2018-03-15] MEDS: chlordiazePOXIDE HCL 10 MG CAPSULE PO SCH ×2 (17:23→22:32)
[2018-03-15] MEDS: THIAMINE HCL 100 MG TABLET (FP) PO SCH (22:32)
[2018-03-15] MEDS: MELATONIN 5 MG TABLETS PO PRN (22:34)
[2018-03-16] MEDS: chlordiazePOXIDE HCL 10 MG CAPSULE PO SCH ×2 (05:54→10:27)
[2018-03-16] MEDS: hydrOXYzine PAMOATE 50 MG CAPSULE (FP) PO PRN ×3 (05:56→22:31)
[2018-03-16] MEDS: NICOTINE POLACRILEX 2 MG GUM BUC PRN ×3 (05:57→22:35)
[2018-03-16] MEDS: ALBUTEROL SO4 8 GM HFA INHALER IH PRN ×2 (06:09→22:33)
[2018-03-16] MEDS: MAG HYDROX/AL HYDROX/SIMETH 30 ML UNIT-DOSE CUP PO PRN ×2 (07:04→12:57)
[2018-03-16] MEDS ORDERED: METHADONE HCL 10 MG TABLET (FOR DETOX USE ONLY) PO SCH (10:00)
[2018-03-16] MEDS: HYDROCHLOROTHIAZIDE 25 MG TABLET (FP) PO SCH (10:27)
[2018-03-16] MEDS: PRENATAL VITAMINS W/ FOLIC ACID TABLET (FP) PO SCH (10:27)
[2018-03-16] MEDS: cloNIDine HCL 0.1 MG TABLET PO SCH ×2 (10:28→22:31)
[2018-03-16] MEDS: CYCLOBENZAPRINE HCL 10 MG TABLET (FP) PO PRN ×2 (10:30→22:31)
--- NOTE | 2018-03-16 10:58 | PN ---
[facility] Progress Note (SOAP) Subjective: feeling better no tremor no body aches no gi distress sleep better at night Objective: 03/16/18 10:57 Vital Signs Temperature 98.6 F 03/16/18 09:36 Pulse Rate 97 H 03/16/18 09:36 Respiratory Rate 16 03/16/18 09:36 Blood Pressure 127/67 03/16/18 09:36 O2 Sat by Pulse Oximetry (%) Laboratory Last Values WBC 8.5 K/mm3 (4.0-10.0) 03/13/18 05:40 RBC 4.21 M/mm3 (3.60-5.2) 03/13/18 05:40 Hgb 13.3 GM/dL (10.7-15.3) 03/13/18 05:40 Hct 40.1 % (32.4-45.2) 03/13/18 05:40 MCV 95.3 fl (80-96) 03/13/18 05:40 MCH 31.6 pg (25.7-33.7) 03/13/18 05:40 MCHC 33.1 g/dl (32.0-36.0) 03/13/18 05:40 RDW 14.6 % (11.6-15.6) D 03/13/18 05:40 Plt Count 353 K/MM3 (134-434) 03/13/18 05:40 MPV 8.1 fl (7.5-11.1) 03/13/18 05:40 Sodium 134 mmol/L (136-145) L 03/13/18 05:40 Potassium 3.6 mmol/L (3.5-5.1) 03/13/18 05:40 Chloride 97 mmol/L (98-107) L 03/13/18 05:40 Carbon Dioxide 25 mmol/L (21-32) 03/13/18 05:40 Anion Gap 12 MMOL/L (8-16) 03/13/18 05:40 BUN 23 mg/dL (7-18) H 03/13/18 05:40 Creatinine 0.8 mg/dL (0.55-1.3) 03/13/18 05:40 Creat Clearance w eGFR > 60 (>60) 03/13/18 05:40 Random Glucose 71 mg/dL (74-106) L 03/13/18 05:40 Calcium 8.6 mg/dL (8.5-10.1) 03/13/18 05:40 Total Bilirubin 0.5 mg/dL (0.2-1) 03/13/18 05:40 AST 19 U/L (15-37) 03/13/18 05:40 ALT 24 U/L (13-61) 03/13/18 05:40 Alkaline Phosphatase 58 U/L (45-117) 03/13/18 05:40 Total Protein 8.3 g/dl (6.4-8.2) H 03/13/18 05:40 Albumin 3.8 g/dl (3.4-5.0) 03/13/18 05:40 Urine Color Straw 03/12/18 23:45 Urine Appearance Clear 03/12/18 23:45 Urine pH 5.0 (5.0-8.0) 03/12/18 23:45 Ur Specific [place] 1.009 (1.010-1.035) L 03/12/18 23:45 Urine Protein Negative (NEGATIVE) 03/12/18 23:45 Urine Glucose (UA) Negative (NEGATIVE) 03/12/18 23:45 Urine Ketones Negative (NEGATIVE) 03/12/18 23:45 Urine Blood 1+ (NEGATIVE) H 03/12/18 23:45 Urine Nitrite Negative (NEGATIVE) 03/12/18 23:45 Urine Bilirubin Negative (<2.0 mg/dL) 03/12/18 23:45 Urine Urobilinogen Negative mg/dL (0.2-1.0) 03/12/18 23:45 Ur Leukocyte Esterase 2+ (NEGATIVE) H 03/12/18 23:45 Urine WBC (Auto) 16 /hpf (3-5) 03/12/18 23:45 Urine RBC (Auto) 1 /hpf (0-3) 03/12/18 23:45 Ur Epithelial Cells Rare /HPF (FEW) 03/12/18 23:45 Urine Bacteria Rare /hpf (NONE SEEN) 03/12/18 23:45 RPR Titer Nonreactive (NONREACTIVE) 03/13/18 05:40 lab noted Assessment: 03/16/18 10:57 mild withdrawal sx Plan: medically supervised detox
[2018-03-16] MEDS: NICOTINE 21 MG/24 HOURS TOPICAL PATCH TD SCH (11:03)
[2018-03-16] MEDS: THIAMINE HCL 100 MG TABLET (FP) PO SCH (22:31)
[2018-03-16] MEDS: MELATONIN 5 MG TABLETS PO PRN (22:32)
[2018-03-17] MEDS ORDERED: METHADONE HCL 5 MG TABLET (FOR DETOX USE ONLY) PO SCH (06:00)
[2018-03-17] MEDS: hydrOXYzine PAMOATE 50 MG CAPSULE (FP) PO PRN ×2 (06:05→10:06)
[2018-03-17] MEDS: CYCLOBENZAPRINE HCL 10 MG TABLET (FP) PO PRN (06:05)
[2018-03-17] MEDS: TRIMETHOBENZAMIDE HCL 200MG/2ML INJ IM PRN (06:06)
[2018-03-17] MEDS: NICOTINE POLACRILEX 2 MG GUM BUC PRN ×2 (06:07→10:06)
[2018-03-17 06:15] VITALS: TEMP 98.1
[2018-03-17 09:16] VITALS: BP 121/67; PULSE 101
--- NOTE | 2018-03-17 09:33 | DS ---
[facility] Detox Discharge Summary Admission Date: 03/12/18 Discharge Date: 03/17/18 - History Present History: Alcohol Dependence, Opioid Dependence - Physical Exam Results Vital Signs: Vital Signs Temperature 98.1 F 03/17/18 06:00 Pulse Rate 101 H 03/17/18 09:15 Respiratory Rate 18 03/17/18 09:15 Blood Pressure 121/67 03/17/18 09:15 O2 Sat by Pulse Oximetry (%) - Treatment Hospital Course: Detox Protocol Followed, Detoxed Safely, Responded well, Discharged Condition Good, Rehab Referral Accepted - Medication Discharge Medications: Ambulatory Orders Zolpidem Tartrate [Ambien] 10 mg PO HS 06/08/15 Albuterol Sulfate Inhaler - [Ventolin HFA Inhaler -] 2 inh IH Q4H PRN #1 inh Clonidine HCl [Catapres] 0.1 mg PO DAILY #10 tablet 03/16/18 Hydrochlorothiazide [Hctz -] 25 mg PO DAILY #14 tab 03/16/18 - Diagnosis (1) Alcohol dependence with uncomplicated withdrawal Current Visit: Yes Status: Chronic (2) Bipolar disorder Current Visit: Yes Status: Acute (3) Opioid dependence with withdrawal Current Visit: Yes Status: Chronic (4) Substance induced mood disorder Current Visit: Yes Status: Acute (5) Substance-induced sleep disorder Current Visit: Yes Status: Acute (6) Asthma Current Visit: Yes Status: Chronic Qualifiers: Asthma severity: mild Asthma complication type: unspecified (7) Cannabis dependence Current Visit: Yes Status: Chronic (8) Chronic back pain Current Visit: Yes Status: Chronic Qualifiers: Back pain location: low back pain Back pain laterality: unspecified (9) Cocaine dependence Current Visit: No Status: Chronic Qualifiers: Substance use status: uncomplicated (10) Hypertension Current Visit: Yes Status: Chronic Qualifiers: Hypertension type: essential hypertension Qualified Code(s): I10 - Essential (primary) hypertension (11) Nicotine dependence Current Visit: Yes Status: Chronic Qualifiers: Nicotine product type: cigarettes Substance use status: uncomplicated Qualified Code(s): F17.210 - Nicotine dependence, cigarettes, uncomplicated (12) Weight loss Current Visit: No Status: Chronic (13) Bipolar I disorder, most recent episode mixed Current Visit: No Status: Suspected (14) History of anemia Current Visit: No Status: Suspected - AMA Did Patient Leave Against Medical Advice: No (pt decleined)
[2018-03-17] MEDS: HYDROCHLOROTHIAZIDE 25 MG TABLET (FP) PO SCH (10:06)
[2018-03-17] MEDS: cloNIDine HCL 0.1 MG TABLET PO SCH (10:06)
[2018-03-17] MEDS: PRENATAL VITAMINS W/ FOLIC ACID TABLET (FP) PO SCH (10:06)
[2018-03-17] MEDS: NICOTINE 21 MG/24 HOURS TOPICAL PATCH TD SCH (10:06)
[2018-03-17] MEDS: MAG HYDROX/AL HYDROX/SIMETH 30 ML UNIT-DOSE CUP PO PRN (10:55)
== END 2018-03-17 13:00 | disposition home or self-care (01) | DRG 773 ==
LOC: YASAS 10:34 → Y6N 12:32
PROVIDERS: ADMIT Neuromusculoskeletal Medicine & OMM; ATTEND Neuromusculoskeletal Medicine & OMM
PROC: HZ2ZZZZ Detoxification Services for Substance Abuse Treatment (ICD-10-PCS; principal; 2018-03-12)
DX: F11.23 Opioid dependence with withdrawal (principal); F10.230 Alcohol dependence with withdrawal, uncomplicated; F14.20 Cocaine dependence, uncomplicated; F12.20 Cannabis dependence, uncomplicated; F17.210 Nicotine dependence, cigarettes, uncomplicated; F19.24 Other psychoactive substance dependence with psychoactive substance-induced mood disorder; F19.282 Other psychoactive substance dependence with psychoactive substance-induced sleep disorder; F31.60 Bipolar disorder, current episode mixed, unspecified; I10 Essential (primary) hypertension; J45.909 Unspecified asthma, uncomplicated; M54.5 Low back pain; G89.29 Other chronic pain; R63.4 Abnormal weight loss; Z68.22 Body mass index [BMI] 22.0-22.9, adult; Z86.2 Personal history of diseases of the blood and blood-forming organs and certain disorders involving the immune mechanism
CPT/HCPCS: 36415; 80053; 81003; 81015; 85027; 86593; J0735

== ENCOUNTER 2019-05-14 10:05 | Inpatient (IN) | payer OTHER ==
--- NOTE | 2019-05-14 12:43 | HP ---
COWS - Scale Resting Pulse: 2= SC 101-120 Sweatin= Chills/Flushing Restless Observation: 0= Sits Still Pupil Size: 1= Pupils >than Normal Bone or Joint Aches: 2= Severe Diffuse Aches Runny Nose/ Eye Tearin= Runny Nose/Eyes GI Upset > 30mins: 2= Nausea/Diarrhea Tremor Observation: 1= Tremor [place], Not Seen Yawning Observation: 0= None Anxiety or Irritability: 2=Irritable/Anxious Goose Flesh Skin: 0=Smooth Skin COWS Score: 13 CIWA Score Nausea/Vomitin Muscle Tremors: 6 Anxiety: 3 Agitation: 3 Paroxysmal Sweats: 1-Minimal Palms Moist Orientation: 1-Uncertain about Date Tacttile Disturbances: 0-None Auditory Disturbances: 0-None Visual Disturbances: 0-None Headache: 3-Moderate CIWA-Ar Total Score: 19 - Admission Criteria OASAS Guidelines: Admission for Medically Managed Detox: Requires at least one of the followin. CIWA greater than 12 2. Seizures within the past 24 hours 3. Delirium tremens within the past 24 hours 4. Hallucinations within the past 24 hours 5. Acute intervention needed for co occurring medical disorder 6. Acute intervention needed for co occurring psychiatric disorder 7. Severe withdrawal that cannot be handled at a lower level of care (continued vomiting, continued diarrhea, abnormal vital signs) requiring intravenous medication and/or fluids 8. Admitting History and Physical - Admission Chief Complaint: for detox from heroin and alcohol History of Present Illness: 48 yo F PMH of asthma, HTN , athritis, polysubstance abuse ( heroin, alcohol, cocaine, morphine, marijuana) presents to [facility] for detox. pt was last here in 02/2018. she states she was only sober for a week and relapsed since there was a in her family. Pt states that she has gets tremors from withdrawal, and 2 weeks ago she had a seizure when she tried to detox on her own. she was hospitalized at [facility] 2 weeks ago for the seizure. Her last blackout was on saturday. Her last overdose from heroin was last year , hospitalized at [facility]. Denies thoughts of hurting herself or others . denies IV drug use . states she inhales and smokes Heroin: 1.5 bundle/ day. last use this am at 4 am . started 3 years ago Alcohol: 2 pints peter daily started > 30 y ago. last drink this am prior to arrival Cocaine: uses every other day. $40 day Marijuana: 3x/week Fentanyl: in the heroin Morphine: admits use but cant state how much Cigarettes 1.5 pk/ day. since 15 Lives in apartment in the by herself. History Source: Patient Limitations to Obtaining History: No Limitations - Past Medical History Pulmonary: Yes: Asthma ...LMP: 01/21/18 - Smoking History Smoking history: Current every day smoker Have you smoked in the past 12 months: Yes Aproximately how many cigarettes per day: 20 - Alcohol/Substance Use Hx Alcohol Use: Yes History of Substance Use: reports: Cocaine, Heroin, Marijuana - Social History Usual Living Arrangement: Yes: Alone Admission [facility] Allergies/Adverse Reactions: Allergies Allergy/AdvReac Type Severity Reaction Status Date / Time No Known Allergies Allergy Verified 03/12/18 11:33 Exam Limitations: No Limitations - Ebola screening Have you traveled outside of the country in the last 21 days: No Have you had contact with anyone from an Ebola affected area: No Do you have a fever: No - Review of Systems Constitutional: Chills Respiratory: denies: Cough, Orthopnea, Shortness of Breath Cardiac: denies: Chest Pain, Palpitations GI: reports: Diarrhea, Nausea. denies: Constipated, Vomiting Musculoskeletal: reports: Joint Pain, Muscle Pain Integumentary: reports: Pruritus. denies: Rash Neuro: reports: Headache. denies: Numbness Patient History - Patient Medical History Hx Anemia: Yes (NO TREATMENT) Hx Asthma: Yes (TAKE RESCUE INHALER) Hx Chronic Obstructive Pulmonary Disease (COPD): No Hx Cancer: No Hx Cardiac Disorders: No Hx Congestive Heart Failure: No Hx Hypertension: Yes (TAKING DIRUETIC) Hx Hypercholesterolemia: No Hx Pacemaker: No HX Cerebrovascular Accident: No Hx Seizures: Yes Hx Dementia: No Hx Diabetes: No Hx Gastrointestinal Disorders: No Hx Liver Disease: No Hx Genitourinary Disorders: No Hx Sexually Transmitted Disorders: No Hx Renal Disease (ESRD): No Hx Thyroid Disease: No Hx Human Immunodeficiency Virus (HIV): No (10/06 ngative last) Hx Hepatitis C: No Hx Depression: No Hx Suicide Attempt: Yes (8 YEARS AGO) Hx Bipolar Disorder: Yes Hx Schizophrenia: No - Patient Surgical History Past Surgical History: No Hx Neurologic Surgery: No Hx Cataract Extraction: No Hx Cardiac Surgery: No Hx Lung Surgery: No Hx Breast Surgery: No Hx Breast Biopsy: No Hx Abdominal Surgery: No Hx Appendectomy: No Hx Cholecystectomy: No Hx Genitourinary Surgery: No Hx Section: No Hx Orthopedic Surgery: No Hx Hysterectomy: No Anesthesia Reaction: No - PPD History Previous Implant?: Yes Documented Results: Negative w/proof Date: 12/13/16 Results: 0 mm - Reproductive History Last Menstrual Period: 01/21/18 - Smoking Cessation Smoking history: Current every day smoker Have you smoked in the past 12 months: Yes Aproximately how many cigarettes per day: 20 Cigars Per Day: 0 Hx Chewing Tobacco Use: No Initiated information on smoking cessation: Yes 'Breaking Loose' booklet given: 05/14/19 - Substances abused Heroin Substance route: Inhalation Frequency: Daily Amount used: about 2 and half BAGS Age of first use: 45 Date of last use: 05/13/19 Cocaine Substance route: Inhalation Frequency: 3-6 times per week Amount used: 50 dollars a day Age of first use: 21 Date of last use: 05/14/19 Marijuana/Hashish Substance route: Smoking Frequency: 3-6 times per week Amount used: .5 gram Age of first use: 18 Date of last use: 05/12/19 Admission Physical Exam [facility] - Vital Signs Vital Signs: Vital Signs - 24 hr 05/14/19 11:06 Temperature 98 F Pulse Rate 103 H Respiratory 18 Rate Blood Pressure 136/76 - Physical General Appearance: Yes: Thin, Tremorous, Irritable, Anxious HEENTM: Yes: Hearing grossly Normal, Normocephalic, Normal Voice, CJ, Pharynx Normal Respiratory: Yes: No Accessory Muscle Use, Rhonchi (scattered throughout), Wheezing Cardiology: Yes: Regular Rhythm, S1, S2, JVD, Tachycardia. No: Edema Abdominal: Yes: Normal Bowel Sounds, Soft, Tenderness (throughout) Back: No: CVA Tenderness Extremities: Yes: Normal Inspection, Tremors Neurological: Yes: applied anthropologist II-XII NML intact, Fully Oriented. No: Numbness Integumentary: Yes: Normal Color, Dry, Warm - Diagnostic (2) Asthma Current Visit: Yes Status: Chronic Qualifiers: Asthma severity: mild Asthma persistence: unspecified Asthma complication type: uncomplicated Qualified Code(s): J45.909 - Unspecified asthma, uncomplicated Comment: TREATED WITH VENTOLIN (3) Cocaine dependence Current Visit: Yes Status: Chronic Qualifiers: Substance use status: uncomplicated Qualified Code(s): F14.20 - Cocaine dependence, uncomplicated (4) Hypertension Current Visit: Yes Status: Chronic Qualifiers: Hypertension type: essential hypertension Qualified Code(s): I10 - Essential (primary) hypertension Comment: HYDROCHLOROTHIAZIDE 12.5 MG NORVASC 5 MG (5) Nicotine dependence Current Visit: Yes Status: Chronic Qualifiers: Nicotine product type: cigarettes Substance use status: uncomplicated Qualified Code(s): F17.210 - Nicotine dependence, cigarettes, uncomplicated Comment: . Cleared for Admission S - Detox or Rehab [facility] Level of Care: Medically Managed Breathalyzer - Breathalyzer Breathalyzer: 0.029 Urine Drug Screen - Test Device Lot number: [id number] Expiration date: 11/19/20 - Control Is test valid?: Yes - Results Drug screen NEGATIVE: No Urine drug screen results: THC-Marijuana, JENNIFER-Cocaine, FEN-Fentanyl, MOP-Opiates Inpatient Rehab Admission - Rehab Decision to Admit Inpatient rehab admission?: No
[2019-05-14] MEDS ORDERED: ALBUTEROL SO4 2.5/IPRATROPIUM 0.5 INH SOL 3 ML VIAL.NEB. NEB ONE (13:08)
[2019-05-14] MEDS ORDERED: MAG HYDROX/AL HYDROX/SIMETH 30 ML UNIT-DOSE CUP PO PRN (13:14)
[2019-05-14] MEDS ORDERED: hydrOXYzine PAMOATE 25 MG CAPSULE (FP) PO PRN (13:14)
[2019-05-14] MEDS ORDERED: MENTHOL/PHENOL 1 EACH UD MM PRN (13:14)
[2019-05-14] MEDS ORDERED: MAGNESIUM HYDROX 2400MG/30ML ORAL SUSPENSION 30 ML CUP PO PRN (13:14)
[2019-05-14] MEDS ORDERED: IBUPROFEN 400 MG TABLET (FP) PO PRN (13:14)
[2019-05-14] MEDS ORDERED: cloNIDine HCL 0.1 MG TABLET PO PRN (13:14)
[2019-05-14] MEDS ORDERED: MAGNESIUM CITRATE 300 ML BOTTLE PO PRN (13:14)
[2019-05-14] MEDS ORDERED: METHADONE HCL 10 MG TABLET (FOR DETOX USE ONLY) PO ONE (13:14)
[2019-05-14] MEDS ORDERED: chlordiazePOXIDE HCL 25 MG CAPSULE PO PRN (13:14)
[2019-05-14] MEDS ORDERED: ACETAMINOPHEN 325 MG TABLET (FP) PO PRN ×2 (13:14)
[2019-05-14] MEDS: chlordiazePOXIDE HCL 25 MG CAPSULE PO SCH ×3 (14:42→22:28)
--- NOTE | 2019-05-14 15:15 | EKG ---
Test Reason : Blood Pressure : / mmHG Vent. Rate : 100 BPM Atrial Rate : 100 BPM P-R Int : 150 ms QRS Dur : 074 ms QT Int : 342 ms P-R-T Axes : 054 026 051 degrees QTc Int : 441 ms NORMAL SINUS RHYTHM VOLTAGE CRITERIA FOR LEFT VENTRICULAR HYPERTROPHY CANNOT RULE OUT SEPTAL INFARCT , AGE UNDETERMINED ABNORMAL ECG WHEN COMPARED WITH ECG OF 15-AUG-2017 14:42, MINIMAL CRITERIA FOR SEPTAL INFARCT ARE NOW PRESENT Confirmed by RUI RASHID MD ([id number]) on 05/14/2019 3:15:00 PM Referred By: Confirmed By:RUI RASHID MD
[2019-05-14 17:01] LABS: HEMATOCRIT 35.6 % (32.4-45.2); HEMOGLOBIN 11.9 GM/dL (10.7-15.3); MCH 31.4 pg (25.7-33.7); MCHC 33.4 g/dl (32.0-36.0); MEAN CELL VOLUME 93.9 fl (80-96); MEAN PLT VOLUME 7.5 fl (7.5-11.1); PLATELET COUNT 326 K/MM3 (134-434); RBC 3.79 M/mm3 (3.60-5.2); RDW 15.4 % (11.6-15.6); WHITE BLOOD COUNT 7.4 K/mm3 (4.0-10.0)
--- NOTE | 2019-05-14 17:17 | PN ---
Teaching Attending Note Name of Resident: Clara Cadena ATTENDING PHYSICIAN STATEMENT I saw and evaluated the patient. I reviewed the resident's note and discussed the case with the resident. I agree with the resident's findings and plan as documented. SUBJECTIVE: 48 y.o. pt here requesting detox from etoh and heroin use , reports 2 pints of peter daily latest use today , w/d seizure 2 weeks [address] [facility],reports tremors and blackouts . heroin : 1.5 bundles/day x 3 years via inhalation , latest use today , OD 1 yr ago , hosp. @ [facility] . cocaine : every other day cannabis : 3 x/week tobacco : 1 1/2 ppd PMH of asthma, HTN , athritis, OBJECTIVE: thin , moderate distress . Vital Signs - 24 hr 05/14/19 11:06 Temperature 98 F Pulse Rate 103 H Respiratory 18 Rate Blood Pressure 136/76 ASSESSMENT AND PLAN: AUD - Librium detox Opiate dependence - Methadone detox Smoking cessation counseling .
[2019-05-14 17:39] LABS: ALBUMIN 3.7 g/dl (3.4-5.0); BILIRUBIN,TOTAL 0.6 mg/dL (0.2-1); BLOOD UREA NITROGEN 25.8 mg/dL (7-18); CALCIUM 8.8 mg/dL (8.5-10.1); CREATININE 1.1 mg/dL (0.55-1.3); TOT PROT 7.5 g/dl (6.4-8.2)
[2019-05-14] MEDS: THIAMINE HCL 100 MG TABLET (FP) PO SCH (21:53)
[2019-05-14] MEDS: cloNIDine HCL 0.1 MG TABLET PO SCH (21:53)
[2019-05-14] MEDS: MELATONIN 5 MG TABLETS PO PRN (21:56)
[2019-05-15] MEDS: chlordiazePOXIDE HCL 25 MG CAPSULE PO SCH ×3 (06:10→17:35)
[2019-05-15] MEDS: cloNIDine HCL 0.1 MG TABLET PO SCH ×3 (06:13→22:18)
[2019-05-15] MEDS ORDERED: METHADONE HCL 10 MG TABLET (FOR DETOX USE ONLY) ONE (08:50)
[2019-05-15] MEDS ORDERED: METHADONE HCL 5 MG TABLET (FOR DETOX USE ONLY) ONE (08:50)
[2019-05-15] MEDS ORDERED: METHADONE (DETOX) 20 MG, METHADONE (DETOX) 5 MG PO ONE (10:00)
[2019-05-15] MEDS: NICOTINE 14 MG/24 HOURS TOPICAL PATCH TD SCH (10:19)
[2019-05-15] MEDS: PRENATAL VITAMINS W/ FOLIC ACID TABLET (FP) PO SCH (10:19)
[2019-05-15] MEDS: NICOTINE POLACRILEX 2 MG GUM BUC PRN ×2 (10:20→18:21)
--- NOTE | 2019-05-15 11:22 | PN ---
S CIWA - CIWA Score Nausea/Vomitin-Mild Nausea/No Vomiting Muscle Tremors: 3 (mild postural tremor on arm extension) Anxiety: 3 Agitation: 1-Slight > Activity Paroxysmal Sweats: 2 Orientation: 0-Oriented Tacttile Disturbances: 0-None Auditory Disturbances: 0-None Visual Disturbances: 0-None Headache: 3-Moderate CIWA-Ar Total Score: 13 S COWS - Scale Resting Pulse: 0= IN 80 or Below Sweatin=Flushed/Facial Moisture Restless Observation: 1= Difficult to Sit Still Pupil Size: 0= Normal to Room Light Bone or Joint Aches: 1= Mild Discomfort Runny Nose/ Eye Tearin= None GI Upset > 30mins: 2= Nausea/Diarrhea Tremor Observation of Outstretched Hands: 2= Slight Tremor Visible Yawning Observation: 0= None Anxiety or Irritability: 2=Irritable/Anxious Goose Flesh Skin: 0=Smooth Skin COWS Score: 10 S Progress Note (SOAP) Subjective: Complaints include the following: diaphoresis, insomnia, aches all over, nause, anxiety, headache, itch over chest Objective: 05/15/19 11:20 Laboratory Last Values WBC 7.4 K/mm3 (4.0-10.0) 05/14/19 13:40 RBC 3.79 M/mm3 (3.60-5.2) 05/14/19 13:40 Hgb 11.9 GM/dL (10.7-15.3) 05/14/19 13:40 Hct 35.6 % (32.4-45.2) 05/14/19 13:40 MCV 93.9 fl (80-96) 05/14/19 13:40 MCH 31.4 pg (25.7-33.7) 05/14/19 13:40 MCHC 33.4 g/dl (32.0-36.0) 05/14/19 13:40 RDW 15.4 % (11.6-15.6) 05/14/19 13:40 Plt Count 326 K/MM3 (134-434) 05/14/19 13:40 MPV 7.5 fl (7.5-11.1) 05/14/19 13:40 Sodium 137 mmol/L (136-145) 05/14/19 13:40 Potassium 4.0 mmol/L (3.5-5.1) 05/14/19 13:40 Chloride 101 mmol/L (98-107) 05/14/19 13:40 Carbon Dioxide 29 mmol/L (21-32) 05/14/19 13:40 Anion Gap 7 MMOL/L (8-16) L 05/14/19 13:40 BUN 25.8 mg/dL (7-18) H 05/14/19 13:40 Creatinine 1.1 mg/dL (0.55-1.3) 05/14/19 13:40 Est GFR (CKD-EPI)AfAm 67.79 05/14/19 13:40 Est GFR (CKD-EPI)NonAf 58.49 05/14/19 13:40 Random Glucose 107 mg/dL (74-106) H 05/14/19 13:40 Calcium 8.8 mg/dL (8.5-10.1) 05/14/19 13:40 Total Bilirubin 0.6 mg/dL (0.2-1) 05/14/19 13:40 AST 16 U/L (15-37) 05/14/19 13:40 ALT 19 U/L (13-61) 05/14/19 13:40 Alkaline Phosphatase 61 U/L (45-117) 05/14/19 13:40 Total Protein 7.5 g/dl (6.4-8.2) 05/14/19 13:40 Albumin 3.7 g/dl (3.4-5.0) 05/14/19 13:40 POC Urine HCG, Qual Negative 05/14/19 12:04 Vital Signs Temperature 97.9 F 05/15/19 10:00 Pulse Rate 87 05/15/19 10:00 Respiratory Rate 18 05/15/19 10:00 Blood Pressure 110/69 05/15/19 10:00 O2 Sat by Pulse Oximetry (%) Gnl: WDWN, in mild distress Mental status: anxious, alert, attentive, follows complex commands Motor: ambulates in roach without difficulty Skin: scars and slightly red anterior chest wall Assessment: 05/15/19 11:22 1 Opioid withdrawal 2. alcohol withdrawal 3. Anxiety 4. Rash 05/15/19 11:24 Plan: 1. continue opiod withdrawal protocol 2. continue alcohol withdrawal protocol 3. [place] soap 4. Psychiatry consultation
--- NOTE | 2019-05-15 11:30 | CONSULT ---
[facility] Psychiatric Consult - Data Date of interview: 05/15/19 Admission source: Self-referred Identifying data: Ms Carlos is a 48 years old single Black female, mother of 8 children, unemployed receiving SSI, domiciled seeking detox treatment for alcohol opioid, covaine and cannabis Substance Abuse History: Reports history of alcohol, heroin, morphine, cocaine and marijuana use. Refer to addiction counselor's summary for further information Medical History: Significant for bronchial asthma, hypertension, arthritis and history of anemia and alcohol related seizure Psychiatric History: Patient is known for multiple previous admission to this facility. She reports that her fisrt psychiaric contact was at age 16 when she was admitted to [facility] for one month. She said that she was diagnosed with MDD, Bipolar and started on psychotropic medications. Reports mutiple subsequent psychiatric hospitalizations at [facility] and [facility]. Reports that her most recent one was in 2017 at [facility]. Denies current outpatient psychiatric treatment nor taking psychotropic medication. Told tag writer that her most recent OPD care was at [facility] in 2018 . Reports being prescribed Lexapro, Depakote, Risperdal in the past. During her most recent admission to this facility, she saw MANULE Gotti and she was prescribed Belsomra 10 mg/hs prn for insomnia. Patient reports one suicide attempt via overdose in 2017. At present, denies experiencing psychotic, manic or depressive symptoms, S/H ideations. However, reports feeling anxious and sleeping poorly Mental Status Exam - Mental Status Exam Alert and Oriented to: Time, Place, Person Cognitive Function: Fair Patient Appearance: Well Groomed Mood: Anxious Affect: Appropriate Patient Behavior: Cooperative Speech Pattern: Clear Voice Loudness: Normal Thought Process: Intact, Goal Oriented Hallucinations: Denies Suicidal Ideation: Denies Homicidal Ideation: Denies Insight/Judgement: Poor Sleep: Poorly Appetite: Fair Muscle strength/Tone: Normal Gait/Station: Normal Psychiatric Findings - Problem List ([place] 1, 2,3) (1) Bipolar II disorder Current Visit: Yes Status: Chronic (2) Substance-induced anxiety disorder Current Visit: Yes Status: Acute (3) Substance-induced sleep disorder Current Visit: No Status: Acute (4) Alcohol dependence with uncomplicated withdrawal Current Visit: No Status: Acute Comment: . (5) Opioid dependence with withdrawal Current Visit: No Status: Acute Comment: . (6) Cocaine dependence Current Visit: No Status: Chronic Qualifiers: Substance use status: uncomplicated Qualified Code(s): F14.20 - Cocaine dependence, uncomplicated (7) Cannabis dependence Current Visit: No Status: Acute (8) Nicotine dependence Current Visit: No Status: Chronic Qualifiers: Nicotine product type: cigarettes Substance use status: uncomplicated Qualified Code(s): F17.210 - Nicotine dependence, cigarettes, uncomplicated Comment: . (9) Asthma Current Visit: No Status: Chronic Qualifiers: Asthma severity: mild Asthma complication type: unspecified Comment: TREATED WITH VENTOLIN (10) Hypertension Current Visit: No Status: Chronic Qualifiers: Hypertension type: essential hypertension Qualified Code(s): I10 - Essential (primary) hypertension Comment: HYDROCHLOROTHIAZIDE 12.5 MG NORVASC 5 MG (11) History of anemia Current Visit: No Status: Suspected Comment: NO TREATMENT LAB PENDING - Initial Treatment Plan Initial Treatment Plan: 1) Start Belsomra 10 mg po HS prn for insomia and Vistaril 50 mg po Q 4hrs prn for anxiety. 2) Continue inpatient detoxification
[2019-05-15] MEDS ORDERED: COLLOIDAL OATMEAL 1 BAR EACH TP ONE (12:00)
[2019-05-15] MEDS: hydrOXYzine PAMOATE 50 MG CAPSULE (FP) PO PRN (12:02)
--- NOTE | 2019-05-15 17:39 | PN ---
[facility] CIWA - CIWA Score Nausea/Vomitin-No Nausea/No Vomiting Muscle Tremors: 3 Anxiety: 4-Mod. Anxious/Guarded Agitation: 4-Moderately Restless Paroxysmal Sweats: No Perspiration Orientation: 0-Oriented Tacttile Disturbances: 0-None Auditory Disturbances: 0-None Visual Disturbances: 0-None Headache: 0-None Present CIWA-Ar Total Score: 11 BHS Progress Note (SOAP) Subjective: C/o increased anxiety w/ minimal help from Libruim or vistaril. States takes clonazepam at home regularly. Patient Name: Aria Carlos Date: 1970 Address: [address] [place] [address] Sex: Male Rx Written Rx Dispensed Drug Quantity Days Supply Prescriber Name 04/17/2019 04/27/2019 clonazepam 2 mg tablet 90 30 Micah Zuluaga MD 04/17/2019 04/27/2019 zolpidem tartrate 10 mg tablet 30 30 Micah Zuluaga MD Patient Name: Aria Carlos Date: 1970 Address: [address] [place] [address] Sex: Female Rx Written Rx Dispensed Drug Quantity Days Supply Prescriber Name 03/31/2019 03/31/2019 clonazepam 2 mg tablet 90 30 Micah Zuluaga MD 03/31/2019 03/31/2019 zolpidem tartrate 10 mg tablet 30 30 Micah Zuluaga MD 02/25/2019 02/25/2019 zolpidem tartrate 10 mg tablet 30 30 Micah Zuluaga MD 02/25/2019 02/25/2019 clonazepam 2 mg tablet 90 30 Micah Zuluaga MD 01/13/2019 01/16/2019 zolpidem tartrate 10 mg tablet 30 30 Micah Zuluaga MD 01/13/2019 01/16/2019 clonazepam 2 mg tablet 90 30 Micah Zuluaga MD 12/15/2018 12/15/2018 zolpidem tartrate 10 mg tablet 30 30 Micah Zuluaga MD 12/15/2018 12/15/2018 clonazepam 2 mg tablet 90 30 Micah Zuluaga MD 11/10/2018 11/15/2018 clonazepam 2 mg tablet 90 30 Micah Zuluaga MD 10/30/2018 10/31/2018 zolpidem tartrate 5 mg tablet 15 15 Micah Zuluaga MD 10/15/2018 10/15/2018 clonazepam 2 mg tablet 90 30 Micah Zuluaga MD 06/16/2018 09/16/2018 zolpidem tartrate 10 mg tablet 30 30 Micah Zuluaga MD 09/11/2018 09/13/2018 clonazepam 2 mg tablet 90 30 Micah Zuluaga MD 06/16/2018 08/16/2018 zolpidem tartrate 10 mg tablet 30 30 Micah Zuluaga MD 06/16/2018 07/16/2018 zolpidem tartrate 10 mg tablet 30 30 FedMicah gannon MD 06/16/2018 06/16/2018 zolpidem tartrate 10 mg tablet 30 30 Micah Zuluaga MD 06/16/2018 06/16/2018 clonazepam 1 mg tablet 90 30 Micah Zuluaga MD Will d/c Libruim and start on Valium. Patient explained that based on drug hx may still have some anxiety and that will not be able to switch back to Libruim. Patient states will f/u with MH Provider upon discharge,
[2019-05-15] MEDS ORDERED: diazePAM 5 MG TABLET PO ONE (18:00)
[2019-05-15] MEDS: ALBUTEROL SO4 HFA INHALER IH PRN (18:22)
[2019-05-15] MEDS: THIAMINE HCL 100 MG TABLET (FP) PO SCH (22:13)
[2019-05-15] MEDS: diazePAM 5 MG TABLET PO SCH (22:13)
[2019-05-16] MEDS: diazePAM 5 MG TABLET PO PRN ×3 (02:40→22:18)
[2019-05-16] MEDS: METHOCARBAMOL 500 MG TABLET PO PRN ×2 (02:40→23:36)
[2019-05-16] MEDS: hydrOXYzine PAMOATE 50 MG CAPSULE (FP) PO PRN ×3 (02:40→12:20)
[2019-05-16] MEDS ORDERED: chlordiazePOXIDE HCL 25 MG CAPSULE PO SCH (05:00)
[2019-05-16] MEDS: diazePAM 5 MG TABLET PO SCH ×3 (05:21→22:56)
[2019-05-16] MEDS: ALBUTEROL SO4 HFA INHALER IH PRN (05:23)
[2019-05-16] MEDS: cloNIDine HCL 0.1 MG TABLET PO SCH ×3 (05:56→23:03)
[2019-05-16] MEDS: PRENATAL VITAMINS W/ FOLIC ACID TABLET (FP) PO SCH (09:26)
[2019-05-16] MEDS: NICOTINE 14 MG/24 HOURS TOPICAL PATCH TD SCH (09:26)
[2019-05-16] MEDS ORDERED: METHADONE HCL 10 MG TABLET (FOR DETOX USE ONLY) PO ONE (10:00)
[2019-05-16] MEDS: NICOTINE POLACRILEX 2 MG GUM BUC PRN ×2 (10:28→22:22)
[2019-05-16] MEDS ORDERED: HYDROCORTISONE 0.5% TOPICAL OINTMENT TUBE TP SCH (11:15)
[2019-05-16] MEDS: HYDROCORTISONE 0.5% TOPICAL CREAM 30 GM TUBE TP SCH ×2 (12:19→22:56)
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
[2019-05-16] MEDS: THIAMINE HCL 100 MG TABLET (FP) PO SCH (22:19)
[2019-05-16] MEDS: SUVOREXANT 10 MG TABLET PO PRN (22:21)
[2019-05-17] MEDS ORDERED: chlordiazePOXIDE HCL 10 MG CAPSULE PO PRN
[2019-05-17] MEDS: hydrOXYzine PAMOATE 50 MG CAPSULE (FP) PO PRN ×3 (01:28→20:21)
[2019-05-17] MEDS ORDERED: chlordiazePOXIDE HCL 10 MG CAPSULE PO SCH (05:00)
[2019-05-17] MEDS: diazePAM 5 MG TABLET PO SCH ×2 (05:45→17:31)
[2019-05-17] MEDS: cloNIDine HCL 0.1 MG TABLET PO SCH ×3 (05:46→21:58)
[2019-05-17] MEDS: ALBUTEROL SO4 HFA INHALER IH PRN (05:49)
[2019-05-17] MEDS: NICOTINE POLACRILEX 2 MG GUM BUC PRN ×3 (05:50→22:03)
[2019-05-17] MEDS ORDERED: METHADONE HCL 5 MG TABLET (FOR DETOX USE ONLY) ONE (09:00)
[2019-05-17] MEDS ORDERED: METHADONE HCL 10 MG TABLET (FOR DETOX USE ONLY) ONE (09:01)
[2019-05-17] MEDS: NICOTINE 14 MG/24 HOURS TOPICAL PATCH TD SCH (09:23)
[2019-05-17] MEDS: HYDROCORTISONE 0.5% TOPICAL CREAM 30 GM TUBE TP SCH (09:23)
[2019-05-17] MEDS: PRENATAL VITAMINS W/ FOLIC ACID TABLET (FP) PO SCH (09:23)
[2019-05-17] MEDS: diazePAM 5 MG TABLET PO PRN (09:27)
[2019-05-17] MEDS: METHOCARBAMOL 500 MG TABLET PO PRN ×2 (09:48→22:01)
[2019-05-17] MEDS ORDERED: METHADONE (DETOX) 10 MG, METHADONE (DETOX) 5 MG PO ONE (10:00)
--- NOTE | 2019-05-17 17:16 | PN ---
[facility] CIWA - CIWA Score Nausea/Vomitin-No Nausea/No Vomiting Muscle Tremors: 2 Anxiety: 2 Agitation: 2 Paroxysmal Sweats: 2 Orientation: 0-Oriented Tacttile Disturbances: 0-None Auditory Disturbances: 0-None Visual Disturbances: 0-None Headache: 0-None Present CIWA-Ar Total Score: 8 BHS COWS - Scale Resting Pulse: 1= [place] 81-100 Sweatin= Chills/Flushing Restless Observation: 0= Sits Still Pupil Size: 0= Normal to Room Light Bone or Joint Aches: 1= Mild Discomfort Runny Nose/ Eye Tearin= Runny Nose/Eyes GI Upset > 30mins: 1= Stomach Cramp Tremor Observation of Outstretched Hands: 0= None Yawning Observation: 1= 1-2x During Session Anxiety or Irritability: 1=Feels Anxious/Irritable Goose Flesh Skin: 0=Smooth Skin COWS Score: 8 S Progress Note (SOAP) Subjective: Profuse sweating, yawning, body ache, tremor, chills, nausea, diarrhea Objective: 05/17/19 17:14 Last Vital Signs Temp Pulse Resp BP Pulse Ox 97.9 F 90 17 117/72 05/17/19 14:38 05/17/19 14:38 05/17/19 14:38 05/17/19 14:38 Laboratory Tests 05/14/19 05/14/19 05/14/19 12:04 13:40 13:40 WBC 7.4 RBC 3.79 Hgb 11.9 Hct 35.6 MCV 93.9 MCH 31.4 MCHC 33.4 RDW 15.4 Plt Count 326 MPV 7.5 Sodium 137 Potassium 4.0 Chloride 101 Carbon Dioxide 29 Anion Gap 7 L BUN 25.8 H Creatinine 1.1 Est GFR (CKD-EPI)AfAm 67.79 Est GFR (CKD-EPI)NonAf 58.49 Random Glucose 107 H Calcium 8.8 Total Bilirubin 0.6 AST 16 ALT 19 Alkaline Phosphatase 61 Total Protein 7.5 Albumin 3.7 POC Urine HCG, Qual Negative RPR Titer 05/14/19 13:40 WBC RBC Hgb Hct MCV MCH MCHC RDW Plt Count MPV Sodium Potassium Chloride Carbon Dioxide Anion Gap BUN Creatinine Est GFR (CKD-EPI)AfAm Est GFR (CKD-EPI)NonAf Random Glucose Calcium Total Bilirubin AST ALT Alkaline Phosphatase Total Protein Albumin POC Urine HCG, Qual RPR Titer Nonreactive Labs reviewed: bun 25.8 (high) Assessment: 05/17/19 17:15 Withdrawal sxs Noted with azotemia Plan: Continue detox Azotemia: encouraged PO water intake
[2019-05-17] MEDS: THIAMINE HCL 100 MG TABLET (FP) PO SCH (21:59)
[2019-05-17] MEDS: SUVOREXANT 10 MG TABLET PO PRN (22:00)
[2019-05-18] MEDS: HYDROCORTISONE 0.5% TOPICAL CREAM 30 GM TUBE TP SCH ×3 (00:23→22:11)
[2019-05-18] MEDS: hydrOXYzine PAMOATE 50 MG CAPSULE (FP) PO PRN ×3 (03:37→16:07)
[2019-05-18] MEDS: NICOTINE POLACRILEX 2 MG GUM BUC PRN ×3 (03:38→17:26)
[2019-05-18] MEDS: ALBUTEROL SO4 HFA INHALER IH PRN ×2 (03:39→17:26)
[2019-05-18] MEDS ORDERED: chlordiazePOXIDE HCL 10 MG CAPSULE PO SCH (05:00)
[2019-05-18] MEDS: cloNIDine HCL 0.1 MG TABLET PO SCH ×3 (05:30→22:06)
[2019-05-18] MEDS: METHOCARBAMOL 500 MG TABLET PO PRN ×2 (05:31→11:44)
[2019-05-18] MEDS ORDERED: diazePAM 5 MG TABLET PO ONE (06:00)
[2019-05-18] MEDS ORDERED: METHADONE HCL 10 MG TABLET (FOR DETOX USE ONLY) PO ONE (10:00)
[2019-05-18] MEDS: NICOTINE 14 MG/24 HOURS TOPICAL PATCH TD SCH (10:26)
[2019-05-18] MEDS: PRENATAL VITAMINS W/ FOLIC ACID TABLET (FP) PO SCH (10:26)
[2019-05-18] MEDS: diazePAM 5 MG TABLET PO PRN ×3 (13:05→22:07)
--- NOTE | 2019-05-18 13:54 | PN ---
[facility] CIWA - CIWA Score Nausea/Vomitin-No Nausea/No Vomiting Muscle Tremors: 2 Anxiety: 1-Mildly Anxious Agitation: 0-Normal Activity Paroxysmal Sweats: No Perspiration Orientation: 0-Oriented Tacttile Disturbances: 0-None Auditory Disturbances: 0-None Visual Disturbances: 0-None Headache: 0-None Present CIWA-Ar Total Score: 3 S COWS - Scale Resting Pulse: 1= [place] 81-100 Sweatin= No chills or Flushing Restless Observation: 1= Difficult to Sit Still Pupil Size: 0= Normal to Room Light Bone or Joint Aches: 1= Mild Discomfort Runny Nose/ Eye Tearin= None GI Upset > 30mins: 0= None Tremor Observation of Outstretched Hands: 0= None Yawning Observation: 0= None Anxiety or Irritability: 1=Feels Anxious/Irritable Goose Flesh Skin: 0=Smooth Skin COWS Score: 4 [facility] Progress Note (SOAP) Subjective: anxiety sweats irritable Objective: 05/18/19 13:54 Vital Signs Temperature 98.1 F 05/18/19 13:15 Pulse Rate 99 H 05/18/19 13:15 Respiratory Rate 18 05/18/19 13:15 Blood Pressure 130/67 05/18/19 13:15 O2 Sat by Pulse Oximetry (%) aaox3 ambulating no acute distress Assessment: 05/18/19 13:54 withdrawals Plan: continue detox valium prn d/c in am
[2019-05-18] MEDS: BISMUTH SUBSALICYLATE 524 MG/30 ML UD PO PRN ×2 (17:27→22:11)
[2019-05-18] MEDS: THIAMINE HCL 100 MG TABLET (FP) PO SCH (22:05)
[2019-05-18] MEDS: MELATONIN 5 MG TABLETS PO PRN (22:06)
[2019-05-19] MEDS: hydrOXYzine PAMOATE 50 MG CAPSULE (FP) PO PRN ×2 (03:03→08:33)
[2019-05-19] MEDS ORDERED: chlordiazePOXIDE HCL 10 MG CAPSULE PO ONE (05:00)
[2019-05-19] MEDS ORDERED: METHADONE HCL 5 MG TABLET (FOR DETOX USE ONLY) PO ONE (06:00)
[2019-05-19] MEDS: cloNIDine HCL 0.1 MG TABLET PO SCH (06:09)
[2019-05-19] MEDS: NICOTINE POLACRILEX 2 MG GUM BUC PRN (06:11)
--- NOTE | 2019-05-19 08:28 | DS ---
[facility] Detox Discharge Summary Admission Date: 05/14/19 Discharge Date: 05/19/19 - History Present History: Alcohol Dependence, Cannabis Dependence, Opioid Dependence, Sedative Dependence - Physical Exam Results Vital Signs: Vital Signs Temperature 98.1 F 05/19/19 07:16 Pulse Rate 76 05/19/19 07:16 Respiratory Rate 18 05/19/19 07:16 Blood Pressure 112/50 L 05/19/19 07:16 O2 Sat by Pulse Oximetry (%) Pertinent Admission Physical Exam Findings: Vital Signs Temperature 98.1 F 05/19/19 07:16 Pulse Rate 76 05/19/19 07:16 Respiratory Rate 18 05/19/19 07:16 Blood Pressure 112/50 L 05/19/19 07:16 O2 Sat by Pulse Oximetry (%) Laboratory Tests 05/14/19 05/14/19 05/14/19 12:04 13:40 13:40 WBC 7.4 RBC 3.79 Hgb 11.9 Hct 35.6 MCV 93.9 MCH 31.4 MCHC 33.4 RDW 15.4 Plt Count 326 MPV 7.5 Sodium 137 Potassium 4.0 Chloride 101 Carbon Dioxide 29 Anion Gap 7 L BUN 25.8 H Creatinine 1.1 Est GFR (CKD-EPI)AfAm 67.79 Est GFR (CKD-EPI)NonAf 58.49 Random Glucose 107 H Calcium 8.8 Total Bilirubin 0.6 AST 16 ALT 19 Alkaline Phosphatase 61 Total Protein 7.5 Albumin 3.7 POC Urine HCG, Qual Negative RPR Titer 05/14/19 13:40 WBC RBC Hgb Hct MCV MCH MCHC RDW Plt Count MPV Sodium Potassium Chloride Carbon Dioxide Anion Gap BUN Creatinine Est GFR (CKD-EPI)AfAm Est GFR (CKD-EPI)NonAf Random Glucose Calcium Total Bilirubin AST ALT Alkaline Phosphatase Total Protein Albumin POC Urine HCG, Qual RPR Titer Nonreactive aaox3 ambulating no acute distress - Treatment Hospital Course: Detox Protocol Followed, Detoxed Safely, Responded well, Discharged Condition Good, Rehab Referral Accepted - Medication Discharge Medications: Ambulatory Orders Albuterol Sulfate Inhaler - [Ventolin HFA Inhaler -] 2 inh IH Q4H PRN #1 inh - Diagnosis (1) Substance-induced anxiety disorder Current Visit: Yes Status: Acute (2) Bipolar II disorder Current Visit: Yes Status: Chronic (3) Alcohol dependence with uncomplicated withdrawal Current Visit: Yes Status: Chronic (4) Bipolar disorder Current Visit: No Status: Acute (5) Cannabis dependence Current Visit: Yes Status: Chronic (6) Opioid dependence with withdrawal Current Visit: Yes Status: Chronic (7) Substance induced mood disorder Current Visit: No Status: Acute (8) Substance-induced sleep disorder Current Visit: No Status: Acute (9) Asthma Current Visit: Yes Status: Chronic Qualifiers: Asthma severity: mild Asthma persistence: unspecified Asthma complication type: uncomplicated Qualified Code(s): J45.909 - Unspecified asthma, uncomplicated (10) Chronic back pain Current Visit: No Status: Chronic Qualifiers: Back pain location: low back pain Back pain laterality: unspecified (11) Cocaine dependence Current Visit: Yes Status: Chronic Qualifiers: Substance use status: uncomplicated Qualified Code(s): F14.20 - Cocaine dependence, uncomplicated (12) Hypertension Current Visit: Yes Status: Chronic Qualifiers: Hypertension type: essential hypertension Qualified Code(s): I10 - Essential (primary) hypertension (13) Nicotine dependence Current Visit: Yes Status: Chronic Qualifiers: Nicotine product type: cigarettes Substance use status: uncomplicated Qualified Code(s): F17.210 - Nicotine dependence, cigarettes, uncomplicated - AMA Did Patient Leave Against Medical Advice: No
[2019-05-19] MEDS: NICOTINE 14 MG/24 HOURS TOPICAL PATCH TD SCH (10:21)
[2019-05-19] MEDS: PRENATAL VITAMINS W/ FOLIC ACID TABLET (FP) PO SCH (10:21)
[2019-05-19] MEDS: HYDROCORTISONE 0.5% TOPICAL CREAM 30 GM TUBE TP SCH (11:12)
[2019-05-19] MEDS: METHOCARBAMOL 500 MG TABLET PO PRN (12:05)
[2019-05-19 13:48] VITALS: BP 104/69; PULSE 95; TEMP 97.9
--- NOTE | 2019-05-19 15:11 | EKG ---
Test Reason : Blood Pressure : / mmHG Vent. Rate : 086 BPM Atrial Rate : 086 BPM P-R Int : 146 ms QRS Dur : 082 ms QT Int : 382 ms P-R-T Axes : 056 030 051 degrees QTc Int : 457 ms NORMAL SINUS RHYTHM MODERATE VOLTAGE CRITERIA FOR LVH, MAY BE NORMAL VARIANT BORDERLINE ECG WHEN COMPARED WITH ECG OF 14-MAY-2019 13:46, MINIMAL CRITERIA FOR SEPTAL INFARCT ARE NO LONGER PRESENT Confirmed by MD Elfego, Sanjay ([id number]) on 05/19/2019 3:11:32 PM Referred By: VERONICA ROWE Confirmed By:Sanjay Telles MD
== END 2019-05-19 14:02 | disposition home or self-care (01) | DRG 773 ==
LOC: YASAS 10:05 → Y6N 13:34
PROVIDERS: ADMIT Allergy & Immunology; ATTEND Allergy & Immunology
PROC: HZ2ZZZZ Detoxification Services for Substance Abuse Treatment (ICD-10-PCS; principal; 2019-05-14)
DX: F11.23 Opioid dependence with withdrawal (principal); F10.230 Alcohol dependence with withdrawal, uncomplicated; F14.20 Cocaine dependence, uncomplicated; F12.20 Cannabis dependence, uncomplicated; F17.210 Nicotine dependence, cigarettes, uncomplicated; F31.81 Bipolar II disorder; F19.24 Other psychoactive substance dependence with psychoactive substance-induced mood disorder; F19.280 Other psychoactive substance dependence with psychoactive substance-induced anxiety disorder; F19.282 Other psychoactive substance dependence with psychoactive substance-induced sleep disorder; F31.9 Bipolar disorder, unspecified; F41.9 Anxiety disorder, unspecified; I10 Essential (primary) hypertension; J45.909 Unspecified asthma, uncomplicated; M54.5 Low back pain; G89.29 Other chronic pain; R79.89 Other specified abnormal findings of blood chemistry; R21 Rash and other nonspecific skin eruption; R00.0 Tachycardia, unspecified; M19.90 Unspecified osteoarthritis, unspecified site; Z86.69 Personal history of other diseases of the nervous system and sense organs; Z91.5 Personal history of self-harm
CPT/HCPCS: 36415; 80053; 81025; 85027; 86593; 93005; 93010; J0735

== ENCOUNTER 2019-05-19 14:22 | Inpatient (IN) | payer OTHER ==
--- NOTE | 2019-05-19 12:22 | HP ---
[facility] Rehab Assess/Revision - Admission History Admitted to Rehab from[facility] - Findings Detox History & Physical reviewed: Yes Concur with findings: Yes Inpatient Rehab Admission - Rehab Decision to Admit Inpatient rehab admission?: Yes - Initial Determination Are CD services needed?: Yes Free of communicable disease: Yes Not in need of hospitalization: Yes - Rehab Admission Criteria Previous failed treatment: Yes Poor recovery environment: Yes Comorbidities: Yes Lacks judgement: Yes Patient is meeting Inpatient Rehab admission criteria:: Yes
[2019-05-19] MEDS ORDERED: P-EPHED 60MG/TRIPROLIDI 2.5MG TABLET PO PRN (15:49)
[2019-05-19] MEDS ORDERED: MENTHOL/PHENOL 1 EACH UD MM PRN (15:49)
[2019-05-19] MEDS ORDERED: guaiFENesin 200 MG/10 ML 10 ML UNIT-DOSE CUPS PO PRN (15:49)
[2019-05-19] MEDS ORDERED: ACETAMINOPHEN 325 MG TABLET (FP) PO PRN (15:49)
[2019-05-19] MEDS ORDERED: LOPERAMIDE HCL 2 MG CAPSULE PO PRN (15:49)
--- NOTE | 2019-05-19 15:56 | PN ---
S Progress Note Note: patient admitted to [facility], stable. Orders initiated. Vital Signs Period Temp Pulse Resp BP Sys/Kimble Pulse Ox Last 24 Hr 98.4 F 97 18 100/66
[2019-05-19] MEDS ORDERED: TUBERCULIN PPD 5 TU/0.1ML VIAL ID ONE (16:36)
[2019-05-19] MEDS: hydrOXYzine PAMOATE 50 MG CAPSULE (FP) PO PRN ×2 (16:37→21:40)
[2019-05-19] MEDS: THIAMINE HCL 100 MG TABLET (FP) PO SCH (21:40)
[2019-05-19] MEDS: NICOTINE POLACRILEX 2 MG GUM BUC PRN (21:41)
[2019-05-19] MEDS: MELATONIN 5 MG TABLETS PO PRN (21:41)
[2019-05-20] MEDS: ALBUTEROL SO4 HFA INHALER IH PRN (02:39)
[2019-05-20] MEDS: hydrOXYzine PAMOATE 50 MG CAPSULE (FP) PO PRN ×4 (02:40→21:29)
[2019-05-20] MEDS: HYDROCORTISONE 1% TOPICAL CREAM 30 GM TUBE TP PRN (06:08)
[2019-05-20] MEDS ORDERED: NICOTINE 14 MG/24 HOURS TOPICAL PATCH TD SCH (10:00)
[2019-05-20] MEDS: PRENATAL VITAMINS W/ FOLIC ACID TABLET (FP) PO SCH (10:04)
[2019-05-20] MEDS: NICOTINE POLACRILEX 2 MG GUM BUC PRN ×2 (10:08→14:33)
--- NOTE | 2019-05-20 10:40 | PN ---
BHS COWS - Scale Resting Pulse: 2= [place] 101-120 (109-pulse) Sweatin= Streaming Sweat Restless Observation: 1= Difficult to Sit Still (Shaking hands, shaking head.) Pupil Size: 0= Normal to Room Light Bone or Joint Aches: 2= Severe Diffuse Aches Runny Nose/ Eye Tearin= Runny Nose/Eyes GI Upset > 30mins: 0= None Tremor Observation of Outstretched Hands: 4= Gross Tremor/Twitching Yawning Observation: 0= None Anxiety or Irritability: 2=Irritable/Anxious Goose Flesh Skin: 0=Smooth Skin COWS Score: 17 BHS Progress Note (SOAP) Subjective: 04/17/2019 04/27/2019 clonazepam 2 mg tablet 90 30 Micah Zuluaga MD 04/17/2019 04/27/2019 zolpidem tartrate 10 mg tablet 30 30 Micah Zuluaga MD Patient Name: Aria Carlos Date: 1970 Address: [address] [place] [address] Sex: Female Rx Written Rx Dispensed Drug Quantity Days Supply Prescriber Name 03/31/2019 03/31/2019 clonazepam 2 mg tablet 90 30 Micah Zuluaga MD 03/31/2019 03/31/2019 zolpidem tartrate 10 mg tablet 30 30 Micah Zuluaga MD 02/25/2019 02/25/2019 zolpidem tartrate 10 mg tablet 30 30 Micah Zuluaga MD 02/25/2019 02/25/2019 clonazepam 2 mg tablet 90 30 Micha Zuluaga MD 01/13/2019 01/16/2019 zolpidem tartrate 10 mg tablet 30 30 Micah Zuluaga MD 01/13/2019 01/16/2019 clonazepam 2 mg tablet 90 30 Micah Zuluaga MD 12/15/2018 12/15/2018 zolpidem tartrate 10 mg tablet 30 30 Micah Zuluaga MD 12/15/2018 12/15/2018 clonazepam 2 mg tablet 90 30 Micah Zuluaga MD 11/10/2018 11/15/2018 clonazepam 2 mg tablet 90 30 Micah Zuluaga MD 10/30/2018 10/31/2018 zolpidem tartrate 5 mg tablet 15 15 Micah Zuluaga MD 10/15/2018 10/15/2018 clonazepam 2 mg tablet 90 30 FedrickMicah MD 06/16/2018 09/16/2018 zolpidem tartrate 10 mg tablet 30 30 FedrickMicah MD 09/11/2018 09/13/2018 clonazepam 2 mg tablet 90 30 FedrickMicah MD 06/16/2018 08/16/2018 zolpidem tartrate 10 mg tablet 30 30 FedrickMicah MD 06/16/2018 07/16/2018 zolpidem tartrate 10 mg tablet 30 30 FedrickMicah MD 06/16/2018 06/16/2018 zolpidem tartrate 10 mg tablet 30 30 FedrickMicah MD 06/16/2018 06/16/2018 clonazepam 1 mg tablet 90 30 FedrickMicah MD Objective: see COIWS, General: anxious, HEENTM: normocephalic Lungs: clear' Heart: s1 s1 ABD: _BS MSK: full weight bearing, steady gait, Neuro: Cn 2-12intact 05/21/19 12:10 Assessment: withdrawal from heroin 05/21/19 12:11 Plan: Start Suboxone MAT
[2019-05-20] MEDS ORDERED: BUPRENORPHINE/NALOXONE 4 MG/1 MG FILM PACKET SL ONE (11:17)
[2019-05-20] MEDS ORDERED: PT OWN MED DRAWER 7, Y5N ONE (11:30)
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
[2019-05-20] MEDS: ESCITALOPRAM OXALATE 10 MG TABLET PO SCH (14:33)
[2019-05-20] MEDS: THIAMINE HCL 100 MG TABLET (FP) PO SCH (21:29)
[2019-05-20] MEDS: BUPRENORPHINE/NALOXONE 4 MG/1 MG FILM PACKET SL SCH (21:31)
[2019-05-20] MEDS: risperiDONE 2 MG TABLET PO SCH (21:31)
[2019-05-20] MEDS: SUVOREXANT 10 MG TABLET PO PRN (21:33)
[2019-05-21] MEDS: hydrOXYzine PAMOATE 50 MG CAPSULE (FP) PO PRN ×4 (03:04→21:37)
[2019-05-21] MEDS: ALBUTEROL SO4 HFA INHALER IH PRN ×2 (06:36→16:36)
[2019-05-21] MEDS: NICOTINE POLACRILEX 2 MG GUM BUC PRN ×4 (06:37→21:55)
[2019-05-21] MEDS: HYDROCORTISONE 1% TOPICAL CREAM 30 GM TUBE TP PRN (07:27)
[2019-05-21] MEDS ORDERED: PT OWN MED DRAWER 7, Y5N ONE ×3 (07:27→15:10)
[2019-05-21] MEDS: NICOTINE 21 MG/24 HOURS TOPICAL PATCH TD SCH (09:58)
[2019-05-21] MEDS: ESCITALOPRAM OXALATE 10 MG TABLET PO SCH (09:58)
[2019-05-21] MEDS: BUPRENORPHINE/NALOXONE 4 MG/1 MG FILM PACKET SL SCH ×2 (09:58→21:36)
[2019-05-21] MEDS: PRENATAL VITAMINS W/ FOLIC ACID TABLET (FP) PO SCH (09:58)
--- NOTE | 2019-05-21 14:49 | PN ---
BHS COWS - Scale Resting Pulse: 2= ND 101-120 Sweatin= Beads of Sweat on Face Restless Observation: 0= Sits Still Pupil Size: 0= Normal to Room Light Bone or Joint Aches: 2= Severe Diffuse Aches (legs and back) Runny Nose/ Eye Tearin= Runny Nose/Eyes GI Upset > 30mins: 1= Stomach Cramp Tremor Observation of Outstretched Hands: 2= Slight Tremor Visible Yawning Observation: 0= None Anxiety or Irritability: 1=Feels Anxious/Irritable Goose Flesh Skin: 0=Smooth Skin COWS Score: 13 BHS Progress Note (SOAP) Subjective: patient is still experiencing withdrawal. See COWS Objective: P/D; General: restless, anxious HEENTM: Normocephalic, nares-congested, [place] Neck: supple Lungs: clear, respirations unlabored Heart: s1 s2 ABD:=BS Neuro: CN 2-12 intact 05/21/19 14:50 Assessment: Withdrawal from heroin 05/21/19 14:50 Plan: Increase suboxone to 4 mg TID.
[2019-05-21] MEDS ORDERED: BUPRENORPHINE/NALOXONE 4 MG/1 MG FILM PACKET SL ONE (15:00)
[2019-05-21] MEDS: THIAMINE HCL 100 MG TABLET (FP) PO SCH (21:36)
[2019-05-21] MEDS: MELATONIN 5 MG TABLETS PO PRN (21:36)
[2019-05-21] MEDS: risperiDONE 2 MG TABLET PO SCH (21:37)
[2019-05-21] MEDS: SUVOREXANT 10 MG TABLET PO PRN (21:37)
[2019-05-22] MEDS: hydrOXYzine PAMOATE 50 MG CAPSULE (FP) PO PRN ×4 (05:13→21:38)
[2019-05-22] MEDS: ALBUTEROL SO4 HFA INHALER IH PRN ×2 (06:19→09:57)
[2019-05-22] MEDS: NICOTINE POLACRILEX 2 MG GUM BUC PRN ×2 (06:19→15:39)
[2019-05-22] MEDS: HYDROCORTISONE 1% TOPICAL CREAM 30 GM TUBE TP PRN (06:19)
[2019-05-22] MEDS: COLLOIDAL OATMEAL 1 BAR EACH TP PRN (09:54)
[2019-05-22] MEDS: NICOTINE 21 MG/24 HOURS TOPICAL PATCH TD SCH (09:54)
[2019-05-22] MEDS: PRENATAL VITAMINS W/ FOLIC ACID TABLET (FP) PO SCH (09:55)
[2019-05-22] MEDS: BUPRENORPHINE/NALOXONE 4 MG/1 MG FILM PACKET SL SCH ×3 (09:55→21:39)
[2019-05-22] MEDS: ESCITALOPRAM OXALATE 10 MG TABLET PO SCH (09:55)
[2019-05-22] MEDS ORDERED: BUPRENORPHINE/NALOXONE 4 MG/1 MG FILM PACKET SL SCH (10:00)
[2019-05-22] MEDS ORDERED: PT OWN MED DRAWER 7, Y5N ONE ×2 (13:23→16:04)
--- NOTE | 2019-05-22 14:25 | PN ---
BHS Progress Note Note: Patient c/o itching to arms (posterior aspect). Healing scabs noted. No redness or swelling of arms present. Will d/c hydrocortisone and start Benadryl TP cream bid. Monitor clinically.
[2019-05-22] MEDS: risperiDONE 2 MG TABLET PO SCH (21:38)
[2019-05-22] MEDS: THIAMINE HCL 100 MG TABLET (FP) PO SCH (21:38)
[2019-05-22] MEDS: SUVOREXANT 10 MG TABLET PO PRN (21:40)
[2019-05-23] MEDS: NICOTINE POLACRILEX 2 MG GUM BUC PRN ×2 (06:10→15:48)
[2019-05-23] MEDS: hydrOXYzine PAMOATE 50 MG CAPSULE (FP) PO PRN ×4 (06:10→21:08)
[2019-05-23] MEDS: ALBUTEROL SO4 HFA INHALER IH PRN (06:10)
[2019-05-23] MEDS: ESCITALOPRAM OXALATE 10 MG TABLET PO SCH (10:07)
[2019-05-23] MEDS: NICOTINE 21 MG/24 HOURS TOPICAL PATCH TD SCH (10:07)
[2019-05-23] MEDS: PRENATAL VITAMINS W/ FOLIC ACID TABLET (FP) PO SCH (10:07)
[2019-05-23] MEDS: BUPRENORPHINE/NALOXONE 4 MG/1 MG FILM PACKET SL SCH ×3 (10:08→21:08)
[2019-05-23] MEDS: risperiDONE 2 MG TABLET PO SCH (21:07)
[2019-05-23] MEDS: THIAMINE HCL 100 MG TABLET (FP) PO SCH (21:07)
[2019-05-23] MEDS: SUVOREXANT 10 MG TABLET PO PRN (21:09)
[2019-05-24] MEDS: ALBUTEROL SO4 HFA INHALER IH PRN (06:32)
[2019-05-24] MEDS: NICOTINE POLACRILEX 2 MG GUM BUC PRN ×4 (06:32→21:14)
[2019-05-24] MEDS: hydrOXYzine PAMOATE 50 MG CAPSULE (FP) PO PRN ×4 (06:32→21:11)
[2019-05-24] MEDS: BUPRENORPHINE/NALOXONE 4 MG/1 MG FILM PACKET SL SCH ×3 (09:57→21:11)
[2019-05-24] MEDS: NICOTINE 21 MG/24 HOURS TOPICAL PATCH TD SCH (09:57)
[2019-05-24] MEDS: PRENATAL VITAMINS W/ FOLIC ACID TABLET (FP) PO SCH (09:58)
[2019-05-24] MEDS: ESCITALOPRAM OXALATE 10 MG TABLET PO SCH (09:58)
--- NOTE | 2019-05-24 13:46 | PN ---
Psychiatric Progress Note Vital Signs: Vital Signs Period Temp Pulse Resp BP Sys/Kimble Pulse Ox Last 24 Hr 97.5 F 62-106 16-18 103-122/65-79 Date of Session: 05/24/19 Chief Complaint:: " I'm not sleeping well." HPI: Patient admitted to [facility] for alcohol opioid, cocaine, and cannabis dependence. Consultation ordered due to complaints of insomnia. ROS: Patient is alert +oriented x3. Current Medications: Active Medications Generic Name Dose Route Start Last Admin Trade Name Freq PRN Reason Stop Dose Admin Acetaminophen 650 mg 05/19/19 15:49 Tylenol - PO Q4H PRN FEVER Al Hydroxide/Mg Hydroxide 30 ml 05/19/19 15:49 Mylanta Oral Suspension - PO Q6H PRN DYSPEPSIA Albuterol Sulfate 2 puff 05/19/19 15:50 05/24/19 06:32 Ventolin Hfa Inhaler - IH 2 puff Q4H PRN Administration SHORT OF BREATH/WHEEZING Buprenorphine/Naloxone 1 each 05/21/19 22:00 05/24/19 09:57 Suboxone 4 Mg/1 Mg Film Packet SL 05/27/19 21:59 1 each TID@1000,1400,2200 RAYMUNDO Administration Colloidal Oatmeal 1 applic 05/22/19 08:41 05/22/19 09:54 Aveeno Soap - TP 1 bar DAILY PRN Administration HYGEINE Escitalopram Oxalate 10 mg 05/20/19 14:10 05/24/19 09:58 Lexapro - PO 10 mg DAILY RAYMUNDO Administration Eucalyptus/Menthol/Phenol/Sorbitol 1 each 05/19/19 15:49 Cepastat Lozenge - MM Q4H PRN SORE THROAT Guaifenesin 10 ml 05/19/19 15:49 Robitussin - PO Q6H PRN COUGH Hydroxyzine Pamoate 50 mg 05/19/19 15:49 05/24/19 11:08 Vistaril - PO 50 mg Q4H PRN Administration AGITATION Ibuprofen 400 mg 05/19/19 15:49 Motrin - PO Q6H PRN Pain Level 4-6 Loperamide HCl 4 mg 05/19/19 15:49 Imodium - PO Q6H PRN DIARRHEA Magnesium Citrate 300 ml 05/19/19 15:49 Citroma - PO Q48H PRN CONSTIPATION Magnesium Hydroxide 30 ml 05/19/19 15:49 Milk Of Magnesia - PO DAILY PRN CONSTIPATION Nicotine 21 mg 05/21/19 10:00 05/24/19 09:57 Nicoderm Patch - TD 21 mg DAILY RAYMUNDO Administration Nicotine Polacrilex 2 mg 05/19/19 15:49 05/24/19 06:32 Nicorette Gum - BUC 2 mg Q2H PRN Administration NICOTINE REPLACEMENT RX Multivit/Folic Acid/Iron 1 tab 05/20/19 10:00 05/24/19 09:58 Vitamins (Sjr) - PO 1 tab DAILY RAYMUNDO Administration Pseudoephedrine/Triprolidine 1 combo 05/19/19 15:49 Actifed - PO TID PRN NASAL CONGESTION Risperidone 2 mg 05/20/19 22:00 05/23/19 21:07 Risperdal - PO 2 mg HS RAYMUNDO Administration Suvorexant 15 mg 05/24/19 22:00 Belsomra PO HS PRN INSOMNIA Thiamine HCl 100 mg 05/19/19 22:00 05/23/19 21:07 Vitamin B1 - PO 100 mg HS RAYMUNDO Administration Zinc Acetate/Diphenhydramine 1 applic 05/22/19 22:00 05/24/19 09:57 Benadryl 2% Cream TP 1 applic BID RAYMUNDO Administration Medication(s) Change(s): Yes. Will order Belsomra 15mg HS. Current Side Effect: No Lab tests ordered: No Lab tests reviewed: Yes Provider note:: Patient seen by Dr. Morton. Today, patient reports poor sleep despite accepting Belsomra 10mg HS. Medications reviewed. Will order Belsomra 15mg HS. Patient educated on the importance of proper sleep hygiene. Benefits and side effects discussed. Verbal consent given. Total face to face time:: 20 Mental Status Exam - Mental Status Exam Alert and Oriented to: Time, Place, Person Cognitive Function: Good Patient Appearance: Well Groomed Mood: Euthymic Affect: Mood Congruent Patient Behavior: Appropriate, Cooperative Speech Pattern: Appropriate Voice Loudness: Normal Thought Process: Intact, Goal Oriented Thought Disorder: Not Present Hallucinations: Denies Suicidal Ideation: Denies Homicidal Ideation: Denies Insight/Judgement: Poor Sleep: Poorly Appetite: Fair Muscle strength/Tone: Normal Gait/Station: Normal Psychiatric Treatment Plan - Problem List (1) Alcohol dependence Current Visit: Yes (2) Opioid dependence Current Visit: Yes (3) Bipolar disorder Current Visit: Yes (4) Cannabis dependence Current Visit: Yes (5) Substance-induced anxiety disorder Current Visit: No (6) Substance-induced sleep disorder Current Visit: Yes
[2019-05-24] MEDS: MAG HYDROX/AL HYDROX/SIMETH 30 ML UNIT-DOSE CUP PO PRN (13:48)
[2019-05-24] MEDS ORDERED: PT OWN MED DRAWER 7, Y5N ONE (21:10)
[2019-05-24] MEDS: risperiDONE 2 MG TABLET PO SCH (21:11)
[2019-05-24] MEDS: THIAMINE HCL 100 MG TABLET (FP) PO SCH (21:11)
[2019-05-24] MEDS: SUVOREXANT 15 MG TABLET PO PRN (21:12)
[2019-05-25] MEDS: hydrOXYzine PAMOATE 50 MG CAPSULE (FP) PO PRN ×4 (04:37→18:05)
[2019-05-25] MEDS: IBUPROFEN 400 MG TABLET (FP) PO PRN (05:06)
[2019-05-25] MEDS: NICOTINE POLACRILEX 2 MG GUM BUC PRN ×2 (06:33→10:02)
[2019-05-25] MEDS: ALBUTEROL SO4 HFA INHALER IH PRN (06:33)
[2019-05-25] MEDS: NICOTINE 21 MG/24 HOURS TOPICAL PATCH TD SCH (09:59)
[2019-05-25] MEDS: PRENATAL VITAMINS W/ FOLIC ACID TABLET (FP) PO SCH (09:59)
[2019-05-25] MEDS: ESCITALOPRAM OXALATE 10 MG TABLET PO SCH (09:59)
[2019-05-25] MEDS ORDERED: PT OWN MED DRAWER 7, Y5N ONE (10:01)
[2019-05-25] MEDS: BUPRENORPHINE/NALOXONE 4 MG/1 MG FILM PACKET SL SCH ×3 (10:02→21:48)
[2019-05-25] MEDS: MAG HYDROX/AL HYDROX/SIMETH 30 ML UNIT-DOSE CUP PO PRN (18:04)
[2019-05-25] MEDS: risperiDONE 2 MG TABLET PO SCH (21:48)
[2019-05-25] MEDS: THIAMINE HCL 100 MG TABLET (FP) PO SCH (21:48)
[2019-05-25] MEDS: MELATONIN 5 MG TABLETS PO PRN (21:49)
[2019-05-25] MEDS: SUVOREXANT 15 MG TABLET PO PRN (21:50)
[2019-05-26] MEDS: hydrOXYzine PAMOATE 50 MG CAPSULE (FP) PO PRN ×5 (03:17→21:09)
[2019-05-26] MEDS ORDERED: PT OWN MED DRAWER 7, Y5N ONE ×4 (06:12→16:05)
[2019-05-26] MEDS: ALBUTEROL SO4 HFA INHALER IH PRN ×3 (06:29→18:22)
[2019-05-26] MEDS: NICOTINE POLACRILEX 2 MG GUM BUC PRN ×3 (06:29→18:23)
[2019-05-26] MEDS: NICOTINE 21 MG/24 HOURS TOPICAL PATCH TD SCH (09:54)
[2019-05-26] MEDS: ESCITALOPRAM OXALATE 10 MG TABLET PO SCH (09:54)
[2019-05-26] MEDS: BUPRENORPHINE/NALOXONE 4 MG/1 MG FILM PACKET SL SCH ×3 (09:54→21:09)
[2019-05-26] MEDS: PRENATAL VITAMINS W/ FOLIC ACID TABLET (FP) PO SCH (09:54)
[2019-05-26] MEDS: MAG HYDROX/AL HYDROX/SIMETH 30 ML UNIT-DOSE CUP PO PRN (15:47)
[2019-05-26] MEDS: risperiDONE 2 MG TABLET PO SCH (21:08)
[2019-05-26] MEDS: THIAMINE HCL 100 MG TABLET (FP) PO SCH (21:09)
[2019-05-26] MEDS: SUVOREXANT 15 MG TABLET PO PRN (21:10)
[2019-05-27] MEDS: hydrOXYzine PAMOATE 50 MG CAPSULE (FP) PO PRN ×4 (02:28→18:26)
[2019-05-27] MEDS: IBUPROFEN 400 MG TABLET (FP) PO PRN ×2 (02:42→14:12)
[2019-05-27] MEDS: ALBUTEROL SO4 HFA INHALER IH PRN (06:46)
[2019-05-27] MEDS: NICOTINE POLACRILEX 2 MG GUM BUC PRN ×3 (06:46→14:39)
[2019-05-27] MEDS: NICOTINE 21 MG/24 HOURS TOPICAL PATCH TD SCH (09:44)
[2019-05-27] MEDS: ESCITALOPRAM OXALATE 10 MG TABLET PO SCH (09:45)
[2019-05-27] MEDS: PRENATAL VITAMINS W/ FOLIC ACID TABLET (FP) PO SCH (09:46)
[2019-05-27] MEDS: BUPRENORPHINE/NALOXONE 4 MG/1 MG FILM PACKET SL SCH ×2 (09:46→14:10)
--- NOTE | 2019-05-27 14:02 | PN ---
BHS COWS - Scale Resting Pulse: 2= [place] 101-120 Sweatin=Flushed/Facial Moisture Restless Observation: 1= Difficult to Sit Still Pupil Size: 0= Normal to Room Light Bone or Joint Aches: 4=Acute Joint/Muscle Pain Runny Nose/ Eye Tearin= Runny Nose/Eyes GI Upset > 30mins: 1= Stomach Cramp Tremor Observation of Outstretched Hands: 2= Slight Tremor Visible Yawning Observation: 0= None Anxiety or Irritability: 2=Irritable/Anxious Goose Flesh Skin: 0=Smooth Skin COWS Score: 16 BHS Progress Note (SOAP) Subjective: Patient continues to be anxious and experience symptoms of withdrawal Objective: GeneraL anxious HEENTM: normocephalic Lungs: clear Heart; s1 s2 ABD; +BS neuro Cn2-12intact 05/27/19 14:04 Assessment: Continues to experience withdrawal from heroin 05/27/19 14:05 Plan: Presently on suboxone 12mg/day, will increase to 16mg
[2019-05-27] MEDS: MAGNESIUM HYDROX 2400MG/30ML ORAL SUSPENSION 30 ML CUP PO PRN (14:13)
[2019-05-27] MEDS ORDERED: PT OWN MED DRAWER 7, Y5N ONE ×3 (17:23→22:37)
[2019-05-27] MEDS: BUPRENORPHINE/NALOXONE 8 MG/2 MG FILM PACKET SL SCH (17:55)
[2019-05-27] MEDS: THIAMINE HCL 100 MG TABLET (FP) PO SCH (21:33)
[2019-05-27] MEDS: risperiDONE 2 MG TABLET PO SCH (21:34)
[2019-05-27] MEDS: SUVOREXANT 15 MG TABLET PO PRN (21:36)
[2019-05-28] MEDS: IBUPROFEN 400 MG TABLET (FP) PO PRN ×2 (02:36→22:45)
[2019-05-28] MEDS: hydrOXYzine PAMOATE 50 MG CAPSULE (FP) PO PRN ×4 (02:36→22:46)
[2019-05-28] MEDS: ALBUTEROL SO4 HFA INHALER IH PRN (06:25)
[2019-05-28] MEDS: NICOTINE POLACRILEX 2 MG GUM BUC PRN ×2 (06:26→10:11)
[2019-05-28] MEDS: COLLOIDAL OATMEAL 1 BAR EACH TP PRN (06:27)
[2019-05-28] MEDS: NICOTINE 21 MG/24 HOURS TOPICAL PATCH TD SCH (10:10)
[2019-05-28] MEDS: PRENATAL VITAMINS W/ FOLIC ACID TABLET (FP) PO SCH (10:11)
[2019-05-28] MEDS: ESCITALOPRAM OXALATE 10 MG TABLET PO SCH (10:11)
[2019-05-28] MEDS: BUPRENORPHINE/NALOXONE 8 MG/2 MG FILM PACKET SL SCH ×2 (10:11→18:03)
[2019-05-28] MEDS ORDERED: PT OWN MED DRAWER 7, Y5N ONE ×4 (14:07→22:06)
[2019-05-28] MEDS: MAGNESIUM HYDROX 2400MG/30ML ORAL SUSPENSION 30 ML CUP PO PRN (18:31)
[2019-05-28] MEDS: THIAMINE HCL 100 MG TABLET (FP) PO SCH (22:45)
[2019-05-28] MEDS: risperiDONE 2 MG TABLET PO SCH (22:46)
[2019-05-29] MEDS ORDERED: PT OWN MED DRAWER 7, Y5N ONE ×2 (08:15→18:39)
[2019-05-29] MEDS: ESCITALOPRAM OXALATE 10 MG TABLET PO SCH (09:41)
[2019-05-29] MEDS: NICOTINE 21 MG/24 HOURS TOPICAL PATCH TD SCH (09:41)
[2019-05-29] MEDS: PRENATAL VITAMINS W/ FOLIC ACID TABLET (FP) PO SCH (09:41)
[2019-05-29] MEDS: BUPRENORPHINE/NALOXONE 8 MG/2 MG FILM PACKET SL SCH ×2 (09:41→18:28)
[2019-05-29] MEDS: hydrOXYzine PAMOATE 50 MG CAPSULE (FP) PO PRN ×3 (12:28→22:07)
[2019-05-29] MEDS: NICOTINE POLACRILEX 2 MG GUM BUC PRN ×2 (15:53→22:11)
[2019-05-29] MEDS: THIAMINE HCL 100 MG TABLET (FP) PO SCH (22:04)
[2019-05-29] MEDS: risperiDONE 2 MG TABLET PO SCH (22:04)
[2019-05-29] MEDS: SUVOREXANT 15 MG TABLET PO PRN (22:07)
[2019-05-30] MEDS: ALBUTEROL SO4 HFA INHALER IH PRN ×2 (06:35→21:37)
[2019-05-30] MEDS: hydrOXYzine PAMOATE 50 MG CAPSULE (FP) PO PRN ×5 (06:35→22:47)
[2019-05-30] MEDS: IBUPROFEN 400 MG TABLET (FP) PO PRN ×2 (06:35→21:38)
[2019-05-30] MEDS ORDERED: PT OWN MED DRAWER 7, Y5N ONE ×4 (08:09→19:04)
[2019-05-30] MEDS: NICOTINE 21 MG/24 HOURS TOPICAL PATCH TD SCH (09:46)
[2019-05-30] MEDS: ESCITALOPRAM OXALATE 10 MG TABLET PO SCH (09:46)
[2019-05-30] MEDS: PRENATAL VITAMINS W/ FOLIC ACID TABLET (FP) PO SCH (09:46)
[2019-05-30] MEDS: BUPRENORPHINE/NALOXONE 8 MG/2 MG FILM PACKET SL SCH ×2 (09:47→17:46)
[2019-05-30] MEDS: NICOTINE POLACRILEX 2 MG GUM BUC PRN ×3 (10:39→21:39)
--- NOTE | 2019-05-30 14:53 | PN ---
[facility] Progress Note Note: Psychiatry Attending's note : Called for renewal of suvorexant. Chart reviewed. Medication is confirmed. Well tolerated. No report of adverse effects. Informed consent already given by the patient. Belsomra 15 mg po hs prn. Ordered. Continuity of care.
[2019-05-30] MEDS: THIAMINE HCL 100 MG TABLET (FP) PO SCH (21:37)
[2019-05-30] MEDS: risperiDONE 2 MG TABLET PO SCH (21:37)
[2019-05-30] MEDS: SUVOREXANT 15 MG TABLET PO PRN (21:38)
[2019-05-30] MEDS ORDERED: SUVOREXANT 10 MG TABLET PO PRN (22:00)
[2019-05-31] MEDS: hydrOXYzine PAMOATE 50 MG CAPSULE (FP) PO PRN ×4 (06:36→23:17)
[2019-05-31] MEDS: ALBUTEROL SO4 HFA INHALER IH PRN ×2 (06:36→21:42)
[2019-05-31] MEDS: NICOTINE POLACRILEX 2 MG GUM BUC PRN ×3 (06:36→21:42)
[2019-05-31] MEDS: NICOTINE 21 MG/24 HOURS TOPICAL PATCH TD SCH (10:11)
[2019-05-31] MEDS: PRENATAL VITAMINS W/ FOLIC ACID TABLET (FP) PO SCH (10:12)
[2019-05-31] MEDS: ESCITALOPRAM OXALATE 10 MG TABLET PO SCH (10:12)
[2019-05-31] MEDS: BUPRENORPHINE/NALOXONE 8 MG/2 MG FILM PACKET SL SCH ×2 (10:13→17:59)
[2019-05-31] MEDS: COLLOIDAL OATMEAL 1 BAR EACH TP PRN (19:17)
[2019-05-31] MEDS ORDERED: PT OWN MED DRAWER 7, Y5N ONE (19:35)
[2019-05-31] MEDS: SUVOREXANT 15 MG TABLET PO PRN (21:42)
[2019-05-31] MEDS: IBUPROFEN 400 MG TABLET (FP) PO PRN (21:43)
[2019-05-31] MEDS: risperiDONE 2 MG TABLET PO SCH (21:43)
[2019-05-31] MEDS: THIAMINE HCL 100 MG TABLET (FP) PO SCH (21:43)
[2019-06-01] MEDS: IBUPROFEN 400 MG TABLET (FP) PO PRN ×3 (06:57→22:03)
[2019-06-01] MEDS: hydrOXYzine PAMOATE 50 MG CAPSULE (FP) PO PRN ×4 (06:57→21:53)
[2019-06-01] MEDS: ALBUTEROL SO4 HFA INHALER IH PRN ×2 (06:57→14:28)
[2019-06-01] MEDS: NICOTINE POLACRILEX 2 MG GUM BUC PRN ×4 (06:57→21:53)
[2019-06-01] MEDS ORDERED: PT OWN MED DRAWER 7, Y5N ONE ×2 (08:46→19:58)
[2019-06-01] MEDS: NICOTINE 21 MG/24 HOURS TOPICAL PATCH TD SCH (09:35)
[2019-06-01] MEDS: BUPRENORPHINE/NALOXONE 8 MG/2 MG FILM PACKET SL SCH ×2 (09:35→17:59)
[2019-06-01] MEDS: PRENATAL VITAMINS W/ FOLIC ACID TABLET (FP) PO SCH (09:35)
[2019-06-01] MEDS: ESCITALOPRAM OXALATE 10 MG TABLET PO SCH (09:35)
[2019-06-01] MEDS: THIAMINE HCL 100 MG TABLET (FP) PO SCH (21:50)
[2019-06-01] MEDS: risperiDONE 2 MG TABLET PO SCH (21:50)
[2019-06-01] MEDS: SUVOREXANT 15 MG TABLET PO PRN (21:59)
[2019-06-02] MEDS ORDERED: PT OWN MED DRAWER 7, Y5N ONE (06:37)
[2019-06-02] MEDS: NICOTINE POLACRILEX 2 MG GUM BUC PRN ×2 (06:37→09:57)
[2019-06-02] MEDS: ALBUTEROL SO4 HFA INHALER IH PRN (06:37)
[2019-06-02] MEDS: hydrOXYzine PAMOATE 50 MG CAPSULE (FP) PO PRN ×3 (06:37→17:25)
[2019-06-02] MEDS: IBUPROFEN 400 MG TABLET (FP) PO PRN ×2 (07:23→17:25)
[2019-06-02] MEDS: NICOTINE 21 MG/24 HOURS TOPICAL PATCH TD SCH (09:55)
[2019-06-02] MEDS: ESCITALOPRAM OXALATE 10 MG TABLET PO SCH (09:55)
[2019-06-02] MEDS: PRENATAL VITAMINS W/ FOLIC ACID TABLET (FP) PO SCH (09:55)
[2019-06-02] MEDS ORDERED: BUPRENORPHINE/NALOXONE 8 MG/2 MG FILM PACKET SL ONE (10:14)
--- NOTE | 2019-06-02 10:42 | PN ---
BHS Progress Note Note: Psychiatric nurse practitioner note: Belsomra 15mg renewed X3 days. Verbal consent given.
--- NOTE | 2019-06-02 13:53 | PN ---
S Progress Note Note: Patient continues to feel the effects of withdrawal. anxious, sweats, body aches. Requests increasing suboxone P/E: General: appears anxious skin: moist, extremities: slight tremor Neuro: CN 2-12 intact. Vital Signs Period Temp Pulse Resp BP Sys/Kimble Pulse Ox Last 24 Hr 98.1 F 85-99 18-18 114-115/63-73 A/P: withdrawal from opioids. Will increase suboxone to 8mg TID. Patient understands that suboxone cannot be increased again.
[2019-06-02] MEDS: BUPRENORPHINE/NALOXONE 8 MG/2 MG FILM PACKET SL SCH ×2 (17:04→21:01)
[2019-06-02] MEDS ORDERED: BUPRENORPHINE/NALOXONE 8 MG/2 MG FILM PACKET SL SCH (18:00)
[2019-06-02] MEDS: THIAMINE HCL 100 MG TABLET (FP) PO SCH (21:02)
[2019-06-02] MEDS: risperiDONE 2 MG TABLET PO SCH (21:02)
[2019-06-02] MEDS: SUVOREXANT 15 MG TABLET PO PRN (21:04)
[2019-06-03] MEDS: hydrOXYzine PAMOATE 50 MG CAPSULE (FP) PO PRN ×5 (06:27→21:51)
[2019-06-03] MEDS: ALBUTEROL SO4 HFA INHALER IH PRN ×2 (06:27→21:52)
[2019-06-03] MEDS: IBUPROFEN 400 MG TABLET (FP) PO PRN ×2 (06:27→21:52)
[2019-06-03] MEDS: NICOTINE POLACRILEX 2 MG GUM BUC PRN ×4 (06:27→16:49)
[2019-06-03] MEDS: NICOTINE 21 MG/24 HOURS TOPICAL PATCH TD SCH (09:41)
[2019-06-03] MEDS: PRENATAL VITAMINS W/ FOLIC ACID TABLET (FP) PO SCH (09:41)
[2019-06-03] MEDS: ESCITALOPRAM OXALATE 10 MG TABLET PO SCH (09:41)
[2019-06-03] MEDS: BUPRENORPHINE/NALOXONE 8 MG/2 MG FILM PACKET SL SCH ×3 (09:43→22:48)
--- NOTE | 2019-06-03 15:17 | PREP.REFER ---
HIV PrEP/PEP - PrEP HIV Risk Assessment When was your last HIV test?: 02/2019-negative HIV Test offered: Refused Are you concerned about any sexual encounters past 6 months?: No Have you had a STI in the last 6 months?: No Have you shared needles or other equipment?: No Are you interested in daily medication to help prevent HIV?: Yes (Patient was on PrEP in the community, insurance stopped payment on it. will follow up with provider.) Recommendation: Consider PrEP referral
--- NOTE | 2019-06-03 15:18 | PN ---
S Progress Note Note: Patient reports that cravings and withdrawal symptoms seem to be reduced at this dosage of suboxone
[2019-06-03] MEDS ORDERED: PT OWN MED DRAWER 7, Y5N ONE ×2 (19:12→21:51)
[2019-06-03] MEDS: THIAMINE HCL 100 MG TABLET (FP) PO SCH (21:51)
[2019-06-03] MEDS: risperiDONE 2 MG TABLET PO SCH (21:53)
[2019-06-03] MEDS: SUVOREXANT 15 MG TABLET PO PRN (22:47)
[2019-06-04] MEDS: hydrOXYzine PAMOATE 50 MG CAPSULE (FP) PO PRN ×4 (01:55→18:15)
[2019-06-04] MEDS: ALBUTEROL SO4 HFA INHALER IH PRN ×2 (06:34→22:00)
[2019-06-04] MEDS: NICOTINE POLACRILEX 2 MG GUM BUC PRN ×4 (06:35→18:16)
[2019-06-04] MEDS: IBUPROFEN 400 MG TABLET (FP) PO PRN (06:35)
[2019-06-04] MEDS ORDERED: PT OWN MED DRAWER 7, Y5N ONE ×3 (08:31→22:08)
[2019-06-04] MEDS: PRENATAL VITAMINS W/ FOLIC ACID TABLET (FP) PO SCH (09:38)
[2019-06-04] MEDS: BUPRENORPHINE/NALOXONE 8 MG/2 MG FILM PACKET SL SCH ×3 (09:38→22:02)
[2019-06-04] MEDS: ESCITALOPRAM OXALATE 10 MG TABLET PO SCH (09:38)
[2019-06-04] MEDS: NICOTINE 21 MG/24 HOURS TOPICAL PATCH TD SCH (09:38)
--- NOTE | 2019-06-04 11:13 | PN ---
BHS Progress Note (SOAP) Subjective: patient c/o bump on left arm. Has been self treating for 3 days with lotion. denies fever, chills, other s/s of systemic infection. Objective: 06/04/19 11:09 Vital Signs Period Temp Pulse Resp BP Sys/Kimble Pulse Ox Last 24 Hr 98.0 F 76-96 16-18 96-118/65-66 P/E General: no apparent distress SKIN: raised red area on posterior side of lower left arm above the level of the rest of skin with central punctum and some scaling. Warm to touch Extremities: Full ROM, +pulses, brisk capillary refill bilateral arms. Neuro: Muscle strength equal upper extremities. Assessment: cellulitis, left arm. 06/04/19 11:12 Plan: Bactrim DS and warm soaks to area ordered.
[2019-06-04] MEDS: SULFAMETHOXAZOLE/TRIMETHOPRIM 800MG/160MG D.S. TABLET PO SCH (11:41)
[2019-06-04] MEDS: COLLOIDAL OATMEAL 1 BAR EACH TP PRN (17:39)
[2019-06-04] MEDS: risperiDONE 2 MG TABLET PO SCH (22:00)
[2019-06-04] MEDS: THIAMINE HCL 100 MG TABLET (FP) PO SCH (22:00)
[2019-06-04] MEDS: SUVOREXANT 15 MG TABLET PO PRN (22:01)
[2019-06-05] MEDS: NICOTINE POLACRILEX 2 MG GUM BUC PRN ×4 (06:31→22:53)
[2019-06-05] MEDS: hydrOXYzine PAMOATE 50 MG CAPSULE (FP) PO PRN ×4 (06:31→21:38)
[2019-06-05] MEDS: PRENATAL VITAMINS W/ FOLIC ACID TABLET (FP) PO SCH (09:47)
[2019-06-05] MEDS: NICOTINE 21 MG/24 HOURS TOPICAL PATCH TD SCH (09:47)
[2019-06-05] MEDS: ESCITALOPRAM OXALATE 10 MG TABLET PO SCH (09:47)
[2019-06-05] MEDS: SULFAMETHOXAZOLE/TRIMETHOPRIM 800MG/160MG D.S. TABLET PO SCH (09:47)
[2019-06-05] MEDS: BUPRENORPHINE/NALOXONE 8 MG/2 MG FILM PACKET SL SCH ×3 (09:49→22:51)
--- NOTE | 2019-06-05 12:30 | PN ---
BHS Progress Note Note: Psychiatric nurse practitioner note: Belsomra 15mg HS PRN renewed X3 days. Verbal consent given.
[2019-06-05] MEDS: THIAMINE HCL 100 MG TABLET (FP) PO SCH (21:35)
[2019-06-05] MEDS: risperiDONE 2 MG TABLET PO SCH (21:35)
[2019-06-05] MEDS: SUVOREXANT 15 MG TABLET PO PRN (21:42)
[2019-06-05] MEDS: ALBUTEROL SO4 HFA INHALER IH PRN (22:51)
[2019-06-06] MEDS: hydrOXYzine PAMOATE 50 MG CAPSULE (FP) PO PRN ×4 (06:48→19:01)
[2019-06-06] MEDS: NICOTINE POLACRILEX 2 MG GUM BUC PRN ×5 (06:50→22:11)
[2019-06-06] MEDS: SULFAMETHOXAZOLE/TRIMETHOPRIM 800MG/160MG D.S. TABLET PO SCH (09:47)
[2019-06-06] MEDS: BUPRENORPHINE/NALOXONE 8 MG/2 MG FILM PACKET SL SCH ×3 (09:47→21:36)
[2019-06-06] MEDS: ESCITALOPRAM OXALATE 10 MG TABLET PO SCH (09:47)
[2019-06-06] MEDS: PRENATAL VITAMINS W/ FOLIC ACID TABLET (FP) PO SCH (09:47)
[2019-06-06] MEDS: NICOTINE 21 MG/24 HOURS TOPICAL PATCH TD SCH (09:47)
[2019-06-06] MEDS: IBUPROFEN 400 MG TABLET (FP) PO PRN (22:09)
[2019-06-06] MEDS: THIAMINE HCL 100 MG TABLET (FP) PO SCH (22:09)
[2019-06-06] MEDS: risperiDONE 2 MG TABLET PO SCH (22:09)
[2019-06-06] MEDS: ALBUTEROL SO4 HFA INHALER IH PRN (22:10)
[2019-06-06] MEDS: SUVOREXANT 15 MG TABLET PO PRN (22:10)
[2019-06-06] MEDS ORDERED: PT OWN MED DRAWER 7, Y5N ONE (22:12)
[2019-06-07] MEDS: hydrOXYzine PAMOATE 50 MG CAPSULE (FP) PO PRN ×3 (06:37→17:57)
[2019-06-07] MEDS: NICOTINE POLACRILEX 2 MG GUM BUC PRN ×2 (06:39→21:23)
[2019-06-07] MEDS: SULFAMETHOXAZOLE/TRIMETHOPRIM 800MG/160MG D.S. TABLET PO SCH (10:13)
[2019-06-07] MEDS: PRENATAL VITAMINS W/ FOLIC ACID TABLET (FP) PO SCH (10:13)
[2019-06-07] MEDS: ESCITALOPRAM OXALATE 10 MG TABLET PO SCH (10:13)
[2019-06-07] MEDS: NICOTINE 21 MG/24 HOURS TOPICAL PATCH TD SCH (10:14)
[2019-06-07] MEDS: BUPRENORPHINE/NALOXONE 8 MG/2 MG FILM PACKET SL SCH ×3 (10:14→21:19)
[2019-06-07] MEDS: IBUPROFEN 400 MG TABLET (FP) PO PRN (10:16)
[2019-06-07] MEDS ORDERED: PT OWN MED DRAWER 7, Y5N ONE (11:26)
[2019-06-07] MEDS: risperiDONE 2 MG TABLET PO SCH (21:19)
[2019-06-07] MEDS: SUVOREXANT 15 MG TABLET PO PRN (21:20)
[2019-06-07] MEDS: THIAMINE HCL 100 MG TABLET (FP) PO SCH (21:20)
[2019-06-08] MEDS ORDERED: PT OWN MED DRAWER 7, Y5N ONE ×3 (06:18→22:02)
[2019-06-08] MEDS: IBUPROFEN 400 MG TABLET (FP) PO PRN (06:27)
[2019-06-08] MEDS: ALBUTEROL SO4 HFA INHALER IH PRN (06:27)
[2019-06-08] MEDS: hydrOXYzine PAMOATE 50 MG CAPSULE (FP) PO PRN ×4 (06:27→22:10)
[2019-06-08] MEDS: NICOTINE POLACRILEX 2 MG GUM BUC PRN ×2 (06:28→19:06)
[2019-06-08] MEDS: SULFAMETHOXAZOLE/TRIMETHOPRIM 800MG/160MG D.S. TABLET PO SCH (09:52)
[2019-06-08] MEDS: PRENATAL VITAMINS W/ FOLIC ACID TABLET (FP) PO SCH (09:52)
[2019-06-08] MEDS: NICOTINE 21 MG/24 HOURS TOPICAL PATCH TD SCH (09:53)
[2019-06-08] MEDS: ESCITALOPRAM OXALATE 10 MG TABLET PO SCH (09:53)
[2019-06-08] MEDS: BUPRENORPHINE/NALOXONE 8 MG/2 MG FILM PACKET SL SCH ×3 (09:53→21:27)
[2019-06-08] MEDS: THIAMINE HCL 100 MG TABLET (FP) PO SCH (21:27)
[2019-06-08] MEDS: risperiDONE 2 MG TABLET PO SCH (21:27)
[2019-06-09] MEDS: IBUPROFEN 400 MG TABLET (FP) PO PRN (06:38)
[2019-06-09] MEDS: hydrOXYzine PAMOATE 50 MG CAPSULE (FP) PO PRN ×3 (06:38→17:58)
[2019-06-09] MEDS: ALBUTEROL SO4 HFA INHALER IH PRN (06:38)
[2019-06-09] MEDS: NICOTINE POLACRILEX 2 MG GUM BUC PRN ×3 (06:38→17:58)
[2019-06-09] MEDS: NICOTINE 21 MG/24 HOURS TOPICAL PATCH TD SCH (09:59)
[2019-06-09] MEDS: SULFAMETHOXAZOLE/TRIMETHOPRIM 800MG/160MG D.S. TABLET PO SCH (10:00)
[2019-06-09] MEDS: PRENATAL VITAMINS W/ FOLIC ACID TABLET (FP) PO SCH (10:00)
[2019-06-09] MEDS: ESCITALOPRAM OXALATE 10 MG TABLET PO SCH (10:00)
[2019-06-09] MEDS: BUPRENORPHINE/NALOXONE 8 MG/2 MG FILM PACKET SL SCH ×3 (10:01→21:51)
[2019-06-09] MEDS: COLLOIDAL OATMEAL 1 BAR EACH TP PRN (10:58)
[2019-06-09] MEDS ORDERED: BUPRENORPHINE/NALOXONE 8 MG/2 MG FILM PACKET SL SCH (17:30)
[2019-06-09] MEDS: SUVOREXANT 15 MG TABLET PO PRN (21:51)
[2019-06-09] MEDS: risperiDONE 2 MG TABLET PO SCH (21:51)
[2019-06-09] MEDS: THIAMINE HCL 100 MG TABLET (FP) PO SCH (21:51)
[2019-06-10] MEDS: IBUPROFEN 400 MG TABLET (FP) PO PRN (06:44)
[2019-06-10] MEDS: hydrOXYzine PAMOATE 50 MG CAPSULE (FP) PO PRN ×3 (06:44→18:20)
[2019-06-10] MEDS: ALBUTEROL SO4 HFA INHALER IH PRN (06:44)
[2019-06-10] MEDS ORDERED: PT OWN MED DRAWER 7, Y5N ONE (06:45)
[2019-06-10] MEDS: NICOTINE POLACRILEX 2 MG GUM BUC PRN ×3 (06:45→18:20)
[2019-06-10] MEDS: ESCITALOPRAM OXALATE 10 MG TABLET PO SCH (09:50)
[2019-06-10] MEDS: BUPRENORPHINE/NALOXONE 8 MG/2 MG FILM PACKET SL SCH ×3 (09:50→21:28)
[2019-06-10] MEDS: NICOTINE 21 MG/24 HOURS TOPICAL PATCH TD SCH (09:50)
[2019-06-10] MEDS: PRENATAL VITAMINS W/ FOLIC ACID TABLET (FP) PO SCH (09:50)
[2019-06-10] MEDS: SULFAMETHOXAZOLE/TRIMETHOPRIM 800MG/160MG D.S. TABLET PO SCH (09:50)
[2019-06-10] MEDS: MAGNESIUM HYDROX 2400MG/30ML ORAL SUSPENSION 30 ML CUP PO PRN (13:09)
[2019-06-10] MEDS: risperiDONE 2 MG TABLET PO SCH (21:27)
[2019-06-10] MEDS: THIAMINE HCL 100 MG TABLET (FP) PO SCH (21:27)
[2019-06-10] MEDS: SUVOREXANT 15 MG TABLET PO PRN (21:29)
[2019-06-11] MEDS: ALBUTEROL SO4 HFA INHALER IH PRN (06:36)
[2019-06-11] MEDS: hydrOXYzine PAMOATE 50 MG CAPSULE (FP) PO PRN ×3 (06:36→18:33)
[2019-06-11] MEDS: NICOTINE POLACRILEX 2 MG GUM BUC PRN ×4 (06:37→18:34)
[2019-06-11] MEDS: IBUPROFEN 400 MG TABLET (FP) PO PRN (06:37)
[2019-06-11] MEDS: ESCITALOPRAM OXALATE 10 MG TABLET PO SCH (10:07)
[2019-06-11] MEDS: SULFAMETHOXAZOLE/TRIMETHOPRIM 800MG/160MG D.S. TABLET PO SCH (10:07)
[2019-06-11] MEDS: NICOTINE 21 MG/24 HOURS TOPICAL PATCH TD SCH (10:07)
[2019-06-11] MEDS: PRENATAL VITAMINS W/ FOLIC ACID TABLET (FP) PO SCH (10:08)
[2019-06-11] MEDS: BUPRENORPHINE/NALOXONE 8 MG/2 MG FILM PACKET SL SCH ×3 (10:08→21:50)
[2019-06-11] MEDS: MAGNESIUM CITRATE 300 ML BOTTLE PO PRN (10:10)
[2019-06-11] MEDS ORDERED: PT OWN MED DRAWER 7, Y5N ONE (16:46)
[2019-06-11] MEDS: THIAMINE HCL 100 MG TABLET (FP) PO SCH (21:50)
[2019-06-11] MEDS: risperiDONE 2 MG TABLET PO SCH (21:51)
[2019-06-12] MEDS: hydrOXYzine PAMOATE 50 MG CAPSULE (FP) PO PRN ×2 (06:40→21:10)
[2019-06-12] MEDS: ALBUTEROL SO4 HFA INHALER IH PRN (06:40)
[2019-06-12] MEDS: NICOTINE POLACRILEX 2 MG GUM BUC PRN ×3 (06:41→15:36)
[2019-06-12] MEDS: BUPRENORPHINE/NALOXONE 8 MG/2 MG FILM PACKET SL SCH ×3 (10:04→21:10)
[2019-06-12] MEDS: ESCITALOPRAM OXALATE 10 MG TABLET PO SCH (10:04)
[2019-06-12] MEDS: SULFAMETHOXAZOLE/TRIMETHOPRIM 800MG/160MG D.S. TABLET PO SCH (10:04)
[2019-06-12] MEDS: NICOTINE 21 MG/24 HOURS TOPICAL PATCH TD SCH (10:04)
[2019-06-12] MEDS: PRENATAL VITAMINS W/ FOLIC ACID TABLET (FP) PO SCH (10:04)
[2019-06-12] MEDS ORDERED: PT OWN MED DRAWER 7, Y5N ONE ×3 (15:36→21:39)
[2019-06-12] MEDS: risperiDONE 2 MG TABLET PO SCH (21:10)
[2019-06-12] MEDS: THIAMINE HCL 100 MG TABLET (FP) PO SCH (21:10)
[2019-06-13] MEDS: ALBUTEROL SO4 HFA INHALER IH PRN (06:34)
[2019-06-13] MEDS: IBUPROFEN 400 MG TABLET (FP) PO PRN (06:34)
[2019-06-13] MEDS: NICOTINE POLACRILEX 2 MG GUM BUC PRN ×3 (06:34→22:00)
[2019-06-13] MEDS: hydrOXYzine PAMOATE 50 MG CAPSULE (FP) PO PRN ×4 (06:34→22:00)
[2019-06-13] MEDS: COLLOIDAL OATMEAL 1 BAR EACH TP PRN (08:44)
[2019-06-13] MEDS: NICOTINE 21 MG/24 HOURS TOPICAL PATCH TD SCH (10:04)
[2019-06-13] MEDS: ESCITALOPRAM OXALATE 10 MG TABLET PO SCH (10:04)
[2019-06-13] MEDS: SULFAMETHOXAZOLE/TRIMETHOPRIM 800MG/160MG D.S. TABLET PO SCH (10:04)
[2019-06-13] MEDS: BUPRENORPHINE/NALOXONE 8 MG/2 MG FILM PACKET SL SCH ×3 (10:05→21:23)
[2019-06-13] MEDS: PRENATAL VITAMINS W/ FOLIC ACID TABLET (FP) PO SCH (10:05)
[2019-06-13] MEDS ORDERED: PT OWN MED DRAWER 7, Y5N ONE (20:19)
[2019-06-13] MEDS: risperiDONE 2 MG TABLET PO SCH (21:59)
[2019-06-13] MEDS: THIAMINE HCL 100 MG TABLET (FP) PO SCH (21:59)
[2019-06-13] MEDS: SUVOREXANT 15 MG TABLET PO PRN (22:01)
[2019-06-14] MEDS: hydrOXYzine PAMOATE 50 MG CAPSULE (FP) PO PRN ×4 (06:36→21:08)
[2019-06-14] MEDS: NICOTINE POLACRILEX 2 MG GUM BUC PRN ×2 (06:36→17:19)
[2019-06-14] MEDS: IBUPROFEN 400 MG TABLET (FP) PO PRN (06:36)
[2019-06-14] MEDS: ALBUTEROL SO4 HFA INHALER IH PRN (06:36)
[2019-06-14] MEDS: SULFAMETHOXAZOLE/TRIMETHOPRIM 800MG/160MG D.S. TABLET PO SCH (09:53)
[2019-06-14] MEDS: PRENATAL VITAMINS W/ FOLIC ACID TABLET (FP) PO SCH (09:54)
[2019-06-14] MEDS: NICOTINE 21 MG/24 HOURS TOPICAL PATCH TD SCH (09:54)
[2019-06-14] MEDS: ESCITALOPRAM OXALATE 10 MG TABLET PO SCH (09:54)
[2019-06-14] MEDS: BUPRENORPHINE/NALOXONE 8 MG/2 MG FILM PACKET SL SCH ×3 (09:55→21:06)
[2019-06-14] MEDS: MAGNESIUM HYDROX 2400MG/30ML ORAL SUSPENSION 30 ML CUP PO PRN (12:53)
[2019-06-14] MEDS: risperiDONE 2 MG TABLET PO SCH (21:06)
[2019-06-14] MEDS: THIAMINE HCL 100 MG TABLET (FP) PO SCH (21:06)
[2019-06-14] MEDS: SUVOREXANT 15 MG TABLET PO PRN (21:07)
[2019-06-15] MEDS: NICOTINE POLACRILEX 2 MG GUM BUC PRN ×2 (06:29→09:48)
[2019-06-15] MEDS: ALBUTEROL SO4 HFA INHALER IH PRN (06:29)
[2019-06-15] MEDS: IBUPROFEN 400 MG TABLET (FP) PO PRN (06:30)
[2019-06-15] MEDS: hydrOXYzine PAMOATE 50 MG CAPSULE (FP) PO PRN ×2 (06:30→15:05)
[2019-06-15] MEDS ORDERED: PT OWN MED DRAWER 7, Y5N ONE ×5 (08:12→23:11)
--- NOTE | 2019-06-15 09:10 | PN ---
BHS Progress Note Note: Pt c/o tingling and on/off numbness to finger tips especially left hand. Vital Signs - 24 hr 06/15/19 06/15/19 06/15/19 00:35 03:31 06:33 Temperature 98.5 F Pulse Rate 74 Respiratory 16 18 18 Rate Blood Pressure 95/61 Alert o x 3 nad Hands:Active ROM of all joints,nt,no swelling;skin intact A/P Pt with ISAIAS D/w pt to follow up with primary care if continues to experience symptoms. Increase po fluids
[2019-06-15] MEDS: PRENATAL VITAMINS W/ FOLIC ACID TABLET (FP) PO SCH (09:46)
[2019-06-15] MEDS: SULFAMETHOXAZOLE/TRIMETHOPRIM 800MG/160MG D.S. TABLET PO SCH (09:46)
[2019-06-15] MEDS: NICOTINE 21 MG/24 HOURS TOPICAL PATCH TD SCH (09:46)
[2019-06-15] MEDS: ESCITALOPRAM OXALATE 10 MG TABLET PO SCH (09:46)
[2019-06-15] MEDS: BUPRENORPHINE/NALOXONE 8 MG/2 MG FILM PACKET SL SCH ×3 (09:48→21:32)
[2019-06-15] MEDS: MAGNESIUM CITRATE 300 ML BOTTLE PO PRN (09:48)
--- NOTE | 2019-06-15 11:41 | PN ---
[facility] Progress Note Note: Patient is scheduled for discharge tomorrow. Scripts for 30 days supply of medications(Lexapro 10 mg/day, Risperdal 2 mg/hs) will be electronically transmitted to [facility] at [address] [place] [id number]
[2019-06-15] MEDS ORDERED: SUVOREXANT 5 MG TABLET PO PRN (20:12)
[2019-06-15] MEDS ORDERED: SUVOREXANT 15 MG TABLET PO PRN (20:16)
[2019-06-15] MEDS: risperiDONE 2 MG TABLET PO SCH (21:31)
[2019-06-15] MEDS: THIAMINE HCL 100 MG TABLET (FP) PO SCH (21:32)
[2019-06-16] MEDS: BUPRENORPHINE/NALOXONE 8 MG/2 MG FILM PACKET SL SCH (06:28)
[2019-06-16] MEDS: IBUPROFEN 400 MG TABLET (FP) PO PRN (06:29)
[2019-06-16 07:04] VITALS: BP 109/65; PULSE 78; TEMP 98.1
[2019-06-16] MEDS: hydrOXYzine PAMOATE 50 MG CAPSULE (FP) PO PRN (07:23)
[2019-06-16] MEDS ORDERED: PT OWN MED DRAWER 7, Y5N ONE (08:51)
--- NOTE | 2019-06-16 09:37 | DS ---
[facility] Rehab Discharge Summary - [facility] Rehab Discharge Summary Admission Date: 05/19/19 Discharge Date: 06/16/19 - History Present History: Alcohol dependence, Cannabis dependence, Cocaine dependence, Opioid dependence Additional Comments: Pt is a 48 y/o female with a hx of ISAIAS admitted to rehab and scheduled to discharge today after completion of treatment. Pt has been referred to CD aftercare follow up at [facility] on [address] [place] Pt reports she has primary care with Dr. Zavala at [place], [place]. Pertinent Past History: Asthma HTN Chronic Back Pain Bipolar Disorder - Discharge Physical Exam Vital Signs: Vital Signs Temperature 98.1 F 06/16/19 06:25 Pulse Rate 78 06/16/19 06:25 Respiratory Rate 18 06/16/19 06:25 Blood Pressure 109/65 06/16/19 06:25 O2 Sat by Pulse Oximetry (%) Alert o x 3,denies s/h/i nad oob ambulating with steady gait cardiac:s1 s2,rrr lungs:cta,connie. abdomen:+bs,soft,nt,nd extremities/skin:no edema;skin intact. Pertinent Admission Physical Exam Findings: status stable on admission from detox. - Treatment Discharge Condition: Discharge condition good Hospital Course: Rehabilitated safely and responded well CD aftercare referral accepted to [facility] CD program Pt participated in groups and individual sessions - Medication Discharge Medications: Ambulatory Orders Albuterol Sulfate Inhaler - [Ventolin HFA Inhaler -] 2 inh IH Q4H PRN #1 inh Clonidine HCl [Catapres] 0.2 mg PO TID 05/19/19 Escitalopram Oxalate [Lexapro -] 10 mg PO DAILY 05/20/19 Escitalopram Oxalate [Lexapro -] 10 mg PO DAILY #30 tablet 06/15/19 Risperidone [Risperdal -] 2 mg PO HS #30 tablet 06/15/19 Buprenorphine/Naloxone [Suboxone 8Mg/2Mg Sl Film -] 1 each SL TID 7 Days #21 packet MDD 3 06/16/19 - Medication-Assisted Treatment (MAT) Medication-Assisted Treatment (MAT): Yes Medication Prescribed: Suboxone MAT Follow-up Referral: [facility] [address] [place] - Discharge Instructions Diet, activity, other medical instructions: Diet:KRISTEN Activity:oob ad amber Other medical instructions:follow up with CD aftercare as recommended and scheduled. Continue Suboxone MAT with VIP follow up with your primary care provider within 1 week after discharge. - Diagnosis (1) Encounter for monitoring Suboxone maintenance therapy Current Visit: Yes Status: Chronic (2) Alcohol dependence Current Visit: Yes Status: Chronic Qualifiers: Substance use status: uncomplicated Qualified Code(s): F10.20 - Alcohol dependence, uncomplicated (3) Cannabis dependence Current Visit: Yes Status: Acute (4) Opioid dependence Current Visit: Yes Status: Chronic Qualifiers: Substance use status: uncomplicated Qualified Code(s): F11.20 - Opioid dependence, uncomplicated (5) Cocaine dependence Current Visit: Yes Status: Chronic Qualifiers: Substance use status: uncomplicated Qualified Code(s): F14.20 - Cocaine dependence, uncomplicated (6) Asthma Current Visit: Yes Status: Chronic Qualifiers: Asthma severity: mild Asthma persistence: unspecified Asthma complication type: uncomplicated Qualified Code(s): J45.909 - Unspecified asthma, uncomplicated (7) Chronic back pain Current Visit: Yes Status: Chronic Qualifiers: Back pain location: low back pain Back pain laterality: unspecified (8) Hypertension Current Visit: Yes Status: Chronic Qualifiers: Hypertension type: essential hypertension Qualified Code(s): I10 - Essential (primary) hypertension (9) Nicotine dependence Current Visit: Yes Status: Chronic Qualifiers: Nicotine product type: cigarettes Substance use status: uncomplicated Qualified Code(s): F17.210 - Nicotine dependence, cigarettes, uncomplicated - Follow-up Referral Minutes to complete discharge: 30 - AMA Did Patient Leave Against Medical Advice: No Additional Comments: Pt reports she has own meds at home. 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
[2019-06-16] MEDS: ESCITALOPRAM OXALATE 10 MG TABLET PO SCH (09:45)
[2019-06-16] MEDS: NICOTINE 21 MG/24 HOURS TOPICAL PATCH TD SCH (09:45)
[2019-06-16] MEDS: PRENATAL VITAMINS W/ FOLIC ACID TABLET (FP) PO SCH (09:45)
[2019-06-16] MEDS: SULFAMETHOXAZOLE/TRIMETHOPRIM 800MG/160MG D.S. TABLET PO SCH (09:47)
== END 2019-06-16 09:55 | disposition home or self-care (01) | DRG 772 ==
LOC: YASAS 14:22 → Y3E 14:23
PROVIDERS: ADMIT Allergy & Immunology; ATTEND Allergy & Immunology
PROC: HZ42ZZZ Group Counseling for Substance Abuse Treatment, Cognitive-Behavioral (ICD-10-PCS; principal; 2019-05-19)
DX: F10.20 Alcohol dependence, uncomplicated (principal); F11.20 Opioid dependence, uncomplicated; F14.20 Cocaine dependence, uncomplicated; F12.20 Cannabis dependence, uncomplicated; F17.210 Nicotine dependence, cigarettes, uncomplicated; F19.280 Other psychoactive substance dependence with psychoactive substance-induced anxiety disorder; F19.282 Other psychoactive substance dependence with psychoactive substance-induced sleep disorder; F31.81 Bipolar II disorder; F41.9 Anxiety disorder, unspecified; I10 Essential (primary) hypertension; J45.909 Unspecified asthma, uncomplicated; L03.114 Cellulitis of left upper limb; M54.5 Low back pain; G89.29 Other chronic pain; M12.9 Arthropathy, unspecified; Z86.69 Personal history of other diseases of the nervous system and sense organs; Z51.81 Encounter for therapeutic drug level monitoring

== ENCOUNTER 2019-10-11 12:38 | Inpatient (IN) | payer OTHER ==
[2019-10-11] MEDS ORDERED: MAGNESIUM CITRATE 300 ML BOTTLE PO PRN (13:47)
[2019-10-11] MEDS ORDERED: LOPERAMIDE HCL 2 MG CAPSULE PO PRN (13:47)
[2019-10-11] MEDS ORDERED: MENTHOL/PHENOL 1 EACH UD MM PRN (13:47)
[2019-10-11] MEDS ORDERED: ACETAMINOPHEN 325 MG TABLET (FP) PO PRN (13:47)
[2019-10-11] MEDS ORDERED: P-EPHED 60MG/TRIPROLIDI 2.5MG TABLET PO PRN (13:47)
[2019-10-11] MEDS ORDERED: guaiFENesin 200 MG/10 ML 10 ML UNIT-DOSE CUPS PO PRN (13:47)
--- NOTE | 2019-10-11 13:47 | HP ---
[facility] Rehab Assess/Revision - Admission History Admitted to Rehab from: [facility] Date of Admission to Rehab: 10/11/19 - Vital signs Vital Signs: Vital Signs Period Temp Pulse Resp BP Sys/Kimble Pulse Ox Last 24 Hr 98.0 F 89 18 118/76 Vital Signs 10/11/19 12:40 Temperature 98.0 F Pulse Rate 89 Respiratory 18 Rate Blood Pressure 118/76 - Findings Detox History & Physical reviewed: Yes Concur with findings: Yes Inpatient Rehab Admission - Rehab Decision to Admit Inpatient rehab admission?: Yes - Initial Determination Are CD services needed?: Yes Free of communicable disease: Yes Not in need of hospitalization: Yes - Rehab Admission Criteria Previous failed treatment: Yes Poor recovery environment: Yes Comorbidities: Yes Lacks judgement: Yes Patient is meeting Inpatient Rehab admission criteria:: Yes
[2019-10-11] MEDS: cloNIDine HCL 0.1 MG TABLET PO SCH ×2 (15:49→21:32)
[2019-10-11] MEDS: IBUPROFEN 400 MG TABLET (FP) PO PRN (15:49)
[2019-10-11] MEDS: COLLOIDAL OATMEAL 1 BAR EACH TP PRN (15:49)
[2019-10-11] MEDS: hydrOXYzine PAMOATE 25 MG CAPSULE (FP) PO SCH ×3 (15:50→21:32)
[2019-10-11] MEDS: THIAMINE HCL 100 MG TABLET (FP) PO SCH (21:32)
[2019-10-11] MEDS: HYDROCORTISONE 1% TOPICAL CREAM 30 GM TUBE TP SCH (21:32)
[2019-10-11] MEDS: risperiDONE 1 MG TABLET PO SCH (21:32)
[2019-10-11] MEDS: MELATONIN 5 MG TABLETS PO SCH (21:33)
[2019-10-11] MEDS: NICOTINE POLACRILEX 2 MG GUM BUC PRN (21:34)
[2019-10-12] MEDS: cloNIDine HCL 0.1 MG TABLET PO SCH ×3 (06:27→21:16)
[2019-10-12] MEDS: hydrOXYzine PAMOATE 25 MG CAPSULE (FP) PO SCH ×5 (06:27→21:16)
[2019-10-12] MEDS: NICOTINE POLACRILEX 2 MG GUM BUC PRN ×3 (06:27→21:18)
[2019-10-12] MEDS: PRENATAL VITAMINS W/ FOLIC ACID TABLET (FP) PO SCH (09:41)
[2019-10-12] MEDS: risperiDONE 1 MG TABLET PO SCH ×2 (09:41→21:16)
[2019-10-12] MEDS: IBUPROFEN 400 MG TABLET (FP) PO PRN (09:41)
[2019-10-12] MEDS: ESCITALOPRAM OXALATE 10 MG TABLET PO SCH (09:42)
[2019-10-12] MEDS: HYDROCORTISONE 1% TOPICAL CREAM 30 GM TUBE TP SCH ×2 (09:43→21:17)
[2019-10-12] MEDS ORDERED: NICOTINE 7 MG/24 HOURS TOPICAL PATCH TD SCH (10:00)
[2019-10-12] MEDS: MAG HYDROX/AL HYDROX/SIMETH 30 ML UNIT-DOSE CUP PO PRN (10:19)
--- NOTE | 2019-10-12 12:26 | PN ---
[facility] Progress Note Note: Patient seen for c/o withdrawal symptoms of chills, anxiety, restlessness and body aches. She states she was treated in past with suboxone and left treatment 3 months ago. [facility] does not verify Suboxone treatment. Patient completed detox 10/11/19 at [facility] for heroin use. Patient requesting suboxone MAT and will require connection to OTP. Others' Prescriptions Patient Name: Aria Carlos Date: 1970 Address: [address] [place] [address] Sex: Male Rx Written Rx Dispensed Drug Quantity Days Supply Prescriber Name Payment Method Dispenser 09/25/2019 09/30/2019 clonazepam 2 mg tablet 90 30 Micah Zuluaga MD Insurance [facility] 04/17/2019 09/15/2019 zolpidem tartrate 10 mg tablet 30 30 Micah Zuluaga MD Insurance [facility] 04/17/2019 08/20/2019 zolpidem tartrate 10 mg tablet 30 30 Micah Zuluaga MD [facility] 04/17/2019 07/24/2019 zolpidem tartrate 10 mg tablet 30 30 Micah Zuluaga MD [facility] 07/03/2019 07/24/2019 clonazepam 2 mg tablet 90 30 Micah Zuluaga MD [facility] 04/17/2019 06/26/2019 zolpidem tartrate 10 mg tablet 30 30 Micah Zuluaga MD Insurance [facility] PE alert and oriented x 3 skin warm, dry +perrla, eoms intact bl neck supple, no jvd gi nt, nd ext anxious, restless pacing on unit A/P Opiod dependence Suboxone MAT Patient referred to counselor for connection to [facility] prior to starting treatment will continue current rehab treatment encourage oral hydration/nutrition monitor clinically
[2019-10-12] MEDS: NICOTINE 21 MG/24 HOURS TOPICAL PATCH TD SCH (13:08)
[2019-10-12] MEDS: MELATONIN 5 MG TABLETS PO SCH (21:16)
[2019-10-12] MEDS: THIAMINE HCL 100 MG TABLET (FP) PO SCH (21:16)
[2019-10-13] MEDS: hydrOXYzine PAMOATE 25 MG CAPSULE (FP) PO SCH (06:17)
[2019-10-13] MEDS: cloNIDine HCL 0.1 MG TABLET PO SCH ×3 (06:17→21:38)
[2019-10-13] MEDS: NICOTINE POLACRILEX 2 MG GUM BUC PRN ×4 (06:18→21:39)
[2019-10-13] MEDS ORDERED: hydrOXYzine PAMOATE 50 MG CAPSULE (FP) PO PRN (09:49)
[2019-10-13] MEDS: METHOCARBAMOL 500 MG TABLET PO SCH ×4 (09:54→21:38)
[2019-10-13] MEDS: PRENATAL VITAMINS W/ FOLIC ACID TABLET (FP) PO SCH (09:55)
[2019-10-13] MEDS: ESCITALOPRAM OXALATE 10 MG TABLET PO SCH (09:55)
[2019-10-13] MEDS: risperiDONE 1 MG TABLET PO SCH ×2 (09:55→21:37)
[2019-10-13] MEDS: NICOTINE 21 MG/24 HOURS TOPICAL PATCH TD SCH (09:55)
[2019-10-13] MEDS: hydrOXYzine PAMOATE 50 MG CAPSULE (FP) PO PRN ×3 (09:55→18:02)
[2019-10-13] MEDS: HYDROCORTISONE 1% TOPICAL CREAM 30 GM TUBE TP SCH ×2 (09:56→21:40)
--- NOTE | 2019-10-13 09:56 | PN ---
BHS Progress Note Note: Vital Signs Period Temp Pulse Resp BP Sys/Kimble Pulse Ox Last 24 Hr 98 F-98.8 F 78-88 18-18 112-119/71-76 97-99 Patient requesting to start suboxone. Stated that her counselor has secured continued treatment after discharge. However, there is no available documentation of that in the chart. Patient reports muscle aches and anxiety. \P/E: General: appears anxious HEENTM: normocephalic Respirations: unlabored Neck: supple MSK> full weight bearing Neuro: no cognitive deficits. A/P Anxiety vs. Withdrawal Increased vistaril, added robaxin, encouraged to take motrin as needed.
[2019-10-13] MEDS: ALBUTEROL SO4 HFA INHALER IH PRN (09:59)
[2019-10-13] MEDS ORDERED: MINERAL OIL/PETROLAT/WATER TOPICAL CREAM 113 GM JAR TP PRN (10:54)
--- NOTE | 2019-10-13 11:45 | CONSULT ---
[facility] Psychiatric Consult - Data Date of interview: 10/13/19 Admission source: [facility] Identifying data: Patient is 48 year old single female, mother of seven, unemployed, domiciled, and is supported by [facility]. This is one of multiple admissions for patient. Patient admitted to [facility] rehab for treatment of heroin, cocaine, cannabis, alcohol, nicotine dependence. Substance Abuse History: Smoking Cessation. Smoking history: Current every day smoker. Have you smoked in the past 12 months: Yes. Aproximately how many cigarettes per day: 20. Cigars Per Day: 0. Hx Chewing Tobacco Use: No. Initiated information on smoking cessation: Yes. 'Breaking Loose' booklet given: 10/07/19. - Substances abused. Alcohol. Substance route: Oral. Frequency: Daily. Amount used: 1 pint vodka and beers. Age of first use: 24. Date of last use: 10/07/19. Heroin. Substance route: Inhalation. Frequency: Daily. Amount used: 8 bags. Age of first use: 34. Date of last use: 10/06/19. Cocaine. Substance route: Inhalation. Frequency: Daily. Amount used: $70. Age of first use: 22. Date of last use: 10/06/19 Medical History: hypertension, bronchial asthma, chronic lumbar pain and arthritis of both knees (self-report). Psychiatric History: Mr. Carlos reports a history of multiple psychiatric hospitalizations ([facility] + [facility]) and most recently two years ago at [facility] due to severe depression. Reportly diagnosed with Bipolar disorder. Patient has been on past trials of various SSRI agents (escitalopram, paroxetine, sertraline, fluoxetine), mood stabilizers (valproate) and second generation antipsychotic medications (risperidone, quetiapine). Ms. Carlos is totally lost in outpatient psychiatric care. States that her PCP Dr. Macdonald prescribed her lexapro 10mg + Risperdal 2mg HS. Patient seen by Dr. Andrade and was resumed on lexapro 5mg + Risperdal 1mg BID. History of four suicide attempt via overdose and self mutilation. At present patient is reporting difficulty sleeping and is requesting to resume lexapro at 10mg. Physical/Sexual Abuse/Trauma History: denies. Mental Status Exam - Mental Status Exam Alert and Oriented to: Time, Place, Person Cognitive Function: Good Patient Appearance: Well Groomed Mood: Hopeful Affect: Appropriate Patient Behavior: Appropriate, Cooperative Speech Pattern: Appropriate Voice Loudness: Normal Thought Process: Intact, Goal Oriented Thought Disorder: Not Present Hallucinations: Denies Suicidal Ideation: Denies Homicidal Ideation: Denies Insight/Judgement: Poor Sleep: Poorly Appetite: Fair Muscle strength/Tone: Normal Gait/Station: Normal Psychiatric Findings - Problem List ([place] 1, 2,3) (1) Alcohol use disorder Current Visit: Yes Status: Acute (2) Substance-induced sleep disorder Current Visit: Yes Status: Acute (3) Cannabis dependence Current Visit: Yes Status: Chronic (4) History of bipolar disorder Current Visit: Yes Status: Chronic - Initial Treatment Plan Initial Treatment Plan: Psychoeducation provided. Detoxification in progress. 1) Will d/c Lexapro 5mg daily. 2) Will order lexapro 10mg daily and Belsomra 10mg HS PRN. 3) Will continue Risperdal 1mg BID. Benefits and side effects discussed. Verbal consent given.
[2019-10-13] MEDS: IBUPROFEN 400 MG TABLET (FP) PO PRN (13:53)
[2019-10-13] MEDS ORDERED: PT OWN MED DRAWER 7, Y5N ONE (15:54)
[2019-10-13] MEDS: THIAMINE HCL 100 MG TABLET (FP) PO SCH (21:37)
[2019-10-13] MEDS: MELATONIN 5 MG TABLETS PO SCH (21:37)
[2019-10-13] MEDS: SUVOREXANT 10 MG TABLET PO PRN (21:38)
[2019-10-14] MEDS: hydrOXYzine PAMOATE 50 MG CAPSULE (FP) PO PRN ×3 (06:06→21:07)
[2019-10-14] MEDS: cloNIDine HCL 0.1 MG TABLET PO SCH ×3 (06:06→21:09)
[2019-10-14] MEDS: METHOCARBAMOL 500 MG TABLET PO SCH ×4 (09:33→21:07)
[2019-10-14] MEDS: ESCITALOPRAM OXALATE 10 MG TABLET PO SCH (09:34)
[2019-10-14] MEDS: NICOTINE 21 MG/24 HOURS TOPICAL PATCH TD SCH (09:34)
[2019-10-14] MEDS: risperiDONE 1 MG TABLET PO SCH ×2 (09:34→21:07)
[2019-10-14] MEDS: PRENATAL VITAMINS W/ FOLIC ACID TABLET (FP) PO SCH (09:34)
[2019-10-14] MEDS: HYDROCORTISONE 1% TOPICAL CREAM 30 GM TUBE TP SCH ×2 (09:35→21:09)
--- NOTE | 2019-10-14 12:50 | PN ---
BHS COWS - Scale Resting Pulse: 0= CO 80 or Below Sweatin= Beads of Sweat on Face Restless Observation: 1= Difficult to Sit Still Pupil Size: 0= Normal to Room Light Bone or Joint Aches: 2= Severe Diffuse Aches Runny Nose/ Eye Tearin= Runny Nose/Eyes GI Upset > 30mins: 1= Stomach Cramp Tremor Observation of Outstretched Hands: 2= Slight Tremor Visible Yawning Observation: 0= None Anxiety or Irritability: 2=Irritable/Anxious Goose Flesh Skin: 0=Smooth Skin COWS Score: 13 BHS Progress Note (SOAP) Subjective: Patient requesting suboxone. States she continues to have symptoms of withdrawal. Pt used heroin and oxycontin when she was in the community. Upon her last admission here, she was started on suboxone. After induction, she was titrated to 24 mg/day in three divided doses. However, she did not continue suboxone use upon discharge. She reports that she went to [facility], but she was unable to continue after a fight with one of her daughters. PMHx: 48 year old female with history of alcohol dependence with moderate to severe withdrawal, opioid dependence with withdrawal, cocaine use disorder, and nicotine dependence. She was last here in [facility] from 05/14-06/16/19 when she completed detox and rehab and was referred for aftercare at [facility] and follow up with her PMD at [facility]. However, she relapsed 2 weeks later after having a fight with her daughter. Alcohol: 1 pint vodka and beers daily, started at age 24. 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 Heroin: 8 bags daily IN, started at age 34 . She has had 2 prior overdoses and does not carry any narcan Nicotine: 1.5 packs daily smoking since the age of 15 PMH: Asthma, HTN, Chronic Back Pain, Arthritis Psurg: None Psych: Bipolar, Insomnia Lives in the [place] with daughter and does not wish to return there to avoid the fights with her daughter. She has no legal issues. [employer] Report: Patient Name: Aria CarlosBirth Date: 1970 Address: [address] [place] [id number]: Male Rx Written Rx Dispensed Drug Quantity Days Supply Prescriber Name Payment Method Dispenser 09/25/2019 09/30/2019 clonazepam 2 mg tablet 90 30 Micah Zuluaga MD [facility] 04/17/2019 09/15/2019 zolpidem tartrate 10 mg tablet 30 30 Micah Zuluaga MD [facility] 04/17/2019 08/20/2019 zolpidem tartrate 10 mg tablet 30 30 Micah Zuluaga MD [facility] 04/17/2019 07/24/2019 zolpidem tartrate 10 mg tablet 30 30 Micah Zuluaga MD [facility] 07/03/2019 07/24/2019 clonazepam 2 mg tablet 90 30 Micah Zuluaga MD [facility] 04/17/2019 06/26/2019 zolpidem tartrate 10 mg tablet 30 30 Micah Zuluaga MD [facility] 06/19/2019 06/19/2019 clonazepam 2 mg tablet 90 30 Micah Zuluaga MD [facility] 04/17/2019 06/17/2019 zolpidem tartrate 10 mg tablet 30 30 Micah Zuluaga MD [facility] 04/17/2019 04/27/2019 clonazepam 2 mg tablet 90 30 Micah Zuluaga MD [facility] 04/17/2019 04/27/2019 zolpidem tartrate 10 mg tablet 30 30 Micah Zuluaga MD [facility] Patient Name: Aria Gallo Date: 1970 Address: [address] [place] [id number]: Female Rx Written Rx Dispensed Drug Quantity Days Supply Prescriber Name Payment Method Dispenser 03/31/2019 03/31/2019 clonazepam 2 mg tablet 90 30 Micah Zuluaga MD [facility] 03/31/2019 03/31/2019 zolpidem tartrate 10 mg tablet 30 30 Teresa Zuluaga MD [facility] 02/25/2019 02/25/2019 zolpidem tartrate 10 mg tablet 30 30 Micah Zuluaga MD [facility] 02/25/2019 02/25/2019 clonazepam 2 mg tablet 90 30 Micah Zuluaga MD [facility] 01/13/2019 01/16/2019 zolpidem tartrate 10 mg tablet 30 30 Micah Zuluaga MD [facility] 01/13/2019 01/16/2019 clonazepam 2 mg tablet 90 30 Micah Zuluaga MD [facility] 12/15/2018 12/15/2018 zolpidem tartrate 10 mg tablet 30 30 Micah Zuluaga MD [facility] 12/15/2018 12/15/2018 clonazepam 2 mg tablet 90 30 Micah Zuluaga MD [facility] 11/10/2018 11/15/2018 clonazepam 2 mg tablet 90 30 Micah Zuluaga MD [facility] 10/30/2018 10/31/2018 zolpidem tartrate 5 mg tablet 15 15 Micah Zuluaga MD [facility] 10/15/2018 10/15/2018 clonazepam 2 mg tablet 90 30 Micah Zuluaga MD [facility] No prescriptions from other states Objective: P/E General: appears anxious HEENTM: PERRLA Neck: supple Respirations: unlabored Cardiac: s1 s2 ABD: +BS Neuro: 10/14/19 13:00 Assessment: Opioid Use disorder Heroin, Oxycontin use when in the community 10/14/19 13:09 10/14/19 13:11 10/14/19 13:12 Plan: MAT with Suboxone for Opioid use disorder. Started at 4mg BID. Patient agreed to plan, will continue to monitor.
[2019-10-14] MEDS ORDERED: BUPRENORPHINE/NALOXONE 4 MG/1 MG FILM PACKET SL ONE (13:30)
[2019-10-14] MEDS ORDERED: PT OWN MED DRAWER 7, Y5N ONE (16:04)
[2019-10-14] MEDS: BUPRENORPHINE/NALOXONE 4 MG/1 MG FILM PACKET SL SCH (17:46)
[2019-10-14] MEDS: MELATONIN 5 MG TABLETS PO SCH (21:07)
[2019-10-14] MEDS: THIAMINE HCL 100 MG TABLET (FP) PO SCH (21:07)
[2019-10-14] MEDS: NICOTINE POLACRILEX 2 MG GUM BUC PRN (21:08)
[2019-10-14] MEDS: SUVOREXANT 10 MG TABLET PO PRN (21:08)
[2019-10-15] MEDS: cloNIDine HCL 0.1 MG TABLET PO SCH (06:44)
[2019-10-15] MEDS: hydrOXYzine PAMOATE 50 MG CAPSULE (FP) PO PRN ×4 (06:44→21:35)
[2019-10-15] MEDS: BUPRENORPHINE/NALOXONE 4 MG/1 MG FILM PACKET SL SCH ×3 (06:45→21:34)
[2019-10-15] MEDS: PRENATAL VITAMINS W/ FOLIC ACID TABLET (FP) PO SCH (09:44)
[2019-10-15] MEDS: METHOCARBAMOL 500 MG TABLET PO SCH ×4 (09:44→21:35)
[2019-10-15] MEDS: ESCITALOPRAM OXALATE 10 MG TABLET PO SCH (09:44)
[2019-10-15] MEDS: risperiDONE 1 MG TABLET PO SCH ×2 (09:45→21:34)
[2019-10-15] MEDS: NICOTINE 21 MG/24 HOURS TOPICAL PATCH TD SCH (09:45)
[2019-10-15] MEDS: ALBUTEROL SO4 HFA INHALER IH PRN (09:46)
[2019-10-15] MEDS: NICOTINE POLACRILEX 2 MG GUM BUC PRN (09:47)
[2019-10-15] MEDS: HYDROCORTISONE 1% TOPICAL CREAM 30 GM TUBE TP SCH ×2 (10:47→21:34)
--- NOTE | 2019-10-15 13:31 | PN ---
BHS COWS - Scale Resting Pulse: 0= SC 80 or Below Sweatin= Chills/Flushing Restless Observation: 1= Difficult to Sit Still Pupil Size: 0= Normal to Room Light Bone or Joint Aches: 2= Severe Diffuse Aches Runny Nose/ Eye Tearin= Nasal Congestion GI Upset > 30mins: 0= None Tremor Observation of Outstretched Hands: 4= Gross Tremor/Twitching Yawning Observation: 0= None Anxiety or Irritability: 2=Irritable/Anxious Goose Flesh Skin: 0=Smooth Skin COWS Score: 11 BHS Progress Note (SOAP) Subjective: Continues to c/o symptoms, especially at night. Objective: General: appears anxious HEENTM: normocephalic Neck: supple Respirations: increased, no use of accessory muscle, audible breathing Cardiac: s1 s1 Neuro: no cognitive deficits/. 10/15/19 13:28 Assessment: Withdrawal from opioids 10/15/19 13:29 Plan: Will increase suboxone to 4mg TID at patient request and to alleviate symptoms continue to monitor
[2019-10-15] MEDS ORDERED: MINERAL OIL/PETROLAT/WATER TOPICAL CREAM 113 GM JAR TP PRN (13:33)
[2019-10-15] MEDS ORDERED: PT OWN MED DRAWER 7, Y5N ONE (13:37)
[2019-10-15] MEDS: MAGNESIUM HYDROX 2400MG/30ML ORAL SUSPENSION 30 ML CUP PO PRN (13:38)
[2019-10-15] MEDS ORDERED: MINERAL OIL/PETROLAT/WATER TOPICAL CREAM 454 GM JAR TP PRN (13:43)
[2019-10-15] MEDS: THIAMINE HCL 100 MG TABLET (FP) PO SCH (21:34)
[2019-10-15] MEDS: SUVOREXANT 10 MG TABLET PO PRN (21:35)
[2019-10-15] MEDS: MELATONIN 5 MG TABLETS PO SCH (21:35)
[2019-10-16] MEDS: IBUPROFEN 400 MG TABLET (FP) PO PRN (01:15)
[2019-10-16] MEDS: hydrOXYzine PAMOATE 50 MG CAPSULE (FP) PO PRN ×5 (01:15→19:54)
[2019-10-16] MEDS: NICOTINE POLACRILEX 2 MG GUM BUC PRN ×3 (04:21→21:31)
[2019-10-16] MEDS: ALBUTEROL SO4 HFA INHALER IH PRN ×2 (06:42→09:53)
[2019-10-16] MEDS: BUPRENORPHINE/NALOXONE 4 MG/1 MG FILM PACKET SL SCH ×3 (06:43→21:30)
[2019-10-16] MEDS: ESCITALOPRAM OXALATE 10 MG TABLET PO SCH (09:51)
[2019-10-16] MEDS: METHOCARBAMOL 500 MG TABLET PO SCH (09:51)
[2019-10-16] MEDS: NICOTINE 21 MG/24 HOURS TOPICAL PATCH TD SCH (09:52)
[2019-10-16] MEDS: HYDROCORTISONE 1% TOPICAL CREAM 30 GM TUBE TP SCH ×2 (09:52→21:31)
[2019-10-16] MEDS: PRENATAL VITAMINS W/ FOLIC ACID TABLET (FP) PO SCH (09:52)
[2019-10-16] MEDS: risperiDONE 1 MG TABLET PO SCH ×2 (09:52→21:28)
[2019-10-16] MEDS ORDERED: PT OWN MED DRAWER 7, Y5N ONE (09:56)
[2019-10-16] MEDS: METHOCARBAMOL 500 MG TABLET PO PRN ×2 (13:58→21:30)
[2019-10-16] MEDS: SUVOREXANT 10 MG TABLET PO PRN (21:28)
[2019-10-16] MEDS: MELATONIN 5 MG TABLETS PO SCH (21:28)
[2019-10-16] MEDS: THIAMINE HCL 100 MG TABLET (FP) PO SCH (21:28)
[2019-10-17] MEDS: METHOCARBAMOL 500 MG TABLET PO PRN ×2 (06:49→14:00)
[2019-10-17] MEDS: BUPRENORPHINE/NALOXONE 4 MG/1 MG FILM PACKET SL SCH ×3 (06:49→21:35)
[2019-10-17] MEDS: hydrOXYzine PAMOATE 50 MG CAPSULE (FP) PO PRN ×2 (06:49→14:00)
[2019-10-17] MEDS: NICOTINE POLACRILEX 2 MG GUM BUC PRN ×3 (06:51→14:02)
[2019-10-17] MEDS: COLLOIDAL OATMEAL 1 BAR EACH TP PRN (07:36)
[2019-10-17] MEDS: risperiDONE 1 MG TABLET PO SCH ×2 (10:03→21:34)
[2019-10-17] MEDS: ESCITALOPRAM OXALATE 10 MG TABLET PO SCH (10:03)
[2019-10-17] MEDS: NICOTINE 21 MG/24 HOURS TOPICAL PATCH TD SCH (10:03)
[2019-10-17] MEDS: PRENATAL VITAMINS W/ FOLIC ACID TABLET (FP) PO SCH (10:03)
[2019-10-17] MEDS: MAGNESIUM HYDROX 2400MG/30ML ORAL SUSPENSION 30 ML CUP PO PRN (10:08)
[2019-10-17] MEDS: HYDROCORTISONE 1% TOPICAL CREAM 30 GM TUBE TP SCH ×2 (11:47→21:36)
[2019-10-17] MEDS: ALBUTEROL SO4 HFA INHALER IH PRN (14:00)
[2019-10-17] MEDS: MELATONIN 5 MG TABLETS PO SCH (21:34)
[2019-10-17] MEDS: SUVOREXANT 10 MG TABLET PO PRN (21:34)
[2019-10-17] MEDS: THIAMINE HCL 100 MG TABLET (FP) PO SCH (21:34)
[2019-10-17] MEDS: IBUPROFEN 400 MG TABLET (FP) PO PRN (21:35)
[2019-10-18] MEDS: BUPRENORPHINE/NALOXONE 4 MG/1 MG FILM PACKET SL SCH ×3 (06:24→21:43)
[2019-10-18] MEDS: hydrOXYzine PAMOATE 50 MG CAPSULE (FP) PO PRN ×4 (06:24→22:00)
[2019-10-18] MEDS: METHOCARBAMOL 500 MG TABLET PO PRN ×4 (06:24→22:00)
[2019-10-18] MEDS: NICOTINE POLACRILEX 2 MG GUM BUC PRN ×2 (09:37→16:35)
[2019-10-18] MEDS: PRENATAL VITAMINS W/ FOLIC ACID TABLET (FP) PO SCH (09:37)
[2019-10-18] MEDS: ESCITALOPRAM OXALATE 10 MG TABLET PO SCH (09:37)
[2019-10-18] MEDS: NICOTINE 21 MG/24 HOURS TOPICAL PATCH TD SCH (09:37)
[2019-10-18] MEDS: risperiDONE 1 MG TABLET PO SCH ×2 (09:37→21:41)
[2019-10-18] MEDS: HYDROCORTISONE 1% TOPICAL CREAM 30 GM TUBE TP SCH ×2 (10:53→21:43)
[2019-10-18] MEDS: MAG HYDROX/AL HYDROX/SIMETH 30 ML UNIT-DOSE CUP PO PRN ×2 (15:16→21:43)
[2019-10-18] MEDS: IBUPROFEN 400 MG TABLET (FP) PO PRN (15:16)
[2019-10-18] MEDS: SUVOREXANT 10 MG TABLET PO PRN (21:41)
[2019-10-18] MEDS: THIAMINE HCL 100 MG TABLET (FP) PO SCH (21:41)
[2019-10-18] MEDS: MELATONIN 5 MG TABLETS PO SCH (21:41)
[2019-10-19] MEDS: BUPRENORPHINE/NALOXONE 4 MG/1 MG FILM PACKET SL SCH ×3 (06:32→22:00)
[2019-10-19] MEDS: hydrOXYzine PAMOATE 50 MG CAPSULE (FP) PO PRN ×4 (06:33→21:57)
[2019-10-19] MEDS: NICOTINE POLACRILEX 2 MG GUM BUC PRN ×3 (06:34→14:24)
[2019-10-19] MEDS: ALBUTEROL SO4 HFA INHALER IH PRN (06:34)
[2019-10-19] MEDS: METHOCARBAMOL 500 MG TABLET PO PRN ×4 (06:34→21:57)
[2019-10-19] MEDS: MAG HYDROX/AL HYDROX/SIMETH 30 ML UNIT-DOSE CUP PO PRN ×3 (06:36→22:00)
[2019-10-19] MEDS ORDERED: PT OWN MED DRAWER 7, Y5N ONE ×3 (09:11→20:30)
[2019-10-19] MEDS: ESCITALOPRAM OXALATE 10 MG TABLET PO SCH (10:05)
[2019-10-19] MEDS: NICOTINE 21 MG/24 HOURS TOPICAL PATCH TD SCH (10:05)
[2019-10-19] MEDS: risperiDONE 1 MG TABLET PO SCH ×2 (10:05→21:57)
[2019-10-19] MEDS: IBUPROFEN 400 MG TABLET (FP) PO PRN (10:07)
[2019-10-19] MEDS: MAGNESIUM HYDROX 2400MG/30ML ORAL SUSPENSION 30 ML CUP PO PRN (10:07)
[2019-10-19] MEDS: PRENATAL VITAMINS W/ FOLIC ACID TABLET (FP) PO SCH (10:10)
[2019-10-19] MEDS: HYDROCORTISONE 1% TOPICAL CREAM 30 GM TUBE TP SCH ×2 (10:10→21:57)
[2019-10-19] MEDS ORDERED: cloNIDine HCL 0.1 MG TABLET PO ONE (14:00)
--- NOTE | 2019-10-19 14:00 | PN ---
[facility] Progress Note Note: Patient c/o feeling anxious, annoyed and irritable. Requested treatment for anxiety/irritability. Has Vistaril prn but wants another alternative. Vital Signs Temperature 98.4 F 10/19/19 07:09 Pulse Rate 99 H 10/19/19 07:09 Respiratory Rate 18 10/19/19 07:09 Blood Pressure 124/83 10/19/19 07:09 O2 Sat by Pulse Oximetry (%) 98 10/19/19 07:09 PE alert and oriented x 3 skin warm and dry in no acute distress ext full rom amb ad amber A/P: anxiety irritability will order one time dose of clonidine 0.1mg po x one monitor clinically
--- NOTE | 2019-10-19 15:14 | PN ---
[facility] Progress Note Note: Patient is scheduled for discharge tomorrow. Scripts for 30 days supply of medications(Lexapro 10 mg/day, Risperdal 1 mg/bid) will be electronically transmitted to [facility], [address] [place] [id number]
[2019-10-19] MEDS: MELATONIN 5 MG TABLETS PO SCH (21:57)
[2019-10-19] MEDS: THIAMINE HCL 100 MG TABLET (FP) PO SCH (21:57)
[2019-10-19] MEDS ORDERED: SUVOREXANT 10 MG TABLET PO PRN (22:00)
[2019-10-20] MEDS: BUPRENORPHINE/NALOXONE 4 MG/1 MG FILM PACKET SL SCH (06:57)
[2019-10-20] MEDS: METHOCARBAMOL 500 MG TABLET PO PRN ×2 (06:58→09:10)
[2019-10-20] MEDS: hydrOXYzine PAMOATE 50 MG CAPSULE (FP) PO PRN (06:58)
[2019-10-20] MEDS: ALBUTEROL SO4 HFA INHALER IH PRN (06:59)
[2019-10-20 07:28] VITALS: BP 115/67; PULSE 97; TEMP 98.4
--- NOTE | 2019-10-20 08:18 | DS ---
[facility] Rehab Discharge Summary - [facility] Rehab Discharge Summary Admission Date: 10/11/19 Discharge Date: 10/20/19 - History Present History: Alcohol dependence, Cannabis dependence, Opioid dependence Pertinent Past History: 1 year old female with history of alcohol dependence with moderate to severe withdrawal, opioid dependence with withdrawal, cocaine use disorder, and nicotine dependence . She was last here in [facility] from 05/14-06/16/19 when she completed detox and rehab and was referred for aftercare at [facility] and follow up with her PMD at [facility]. However, she relapsed 2 weeks later after having a fight with her daughter. Alcohol: 1 pint vodka and beers daily, started at age 24 and last used today at 6AM. She endorses multiple blackouts, last one 1 month ago, and the need for an eye dough puncher daily. Heroin: 8 bags daily IN, started at age 34 and last used yesterday. She has had 2 prior overdoses, last one 1 week ago, and does not carry any narcan Nicotine: 1.5 packs daily smoking since the age of 15 PMH: Asthma, HTN, Chronic Back Pain, Arthritis Psurg: None Psych: Bipolar, Insomnia Lives in the [place] with daughter and does not wish to return there to avoid the fights with her daughter. She has no legal issues. 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 medically stable for discharge.) Hospital Course: Patient attended groups, had 1:1 with her counselor, was seen by psychiatric service. She had no acute or urgent medical problems while in rehab. She was started on suboxone. - Medication Discharge Medications: Ambulatory Orders Clonidine HCl [Catapres] 0.2 mg PO TID 05/19/19 Albuterol Sulfate Inhaler - [Ventolin HFA Inhaler -] 2 inh IH Q4H PRN #1 inh 10/19/19 Buprenorphine HCl/Naloxone HCl [Suboxone 4 mg/1 mg Film Packet] 1 each SL TID@0600,1730,2200 #21 film MDD 12mg 10/19/19 Escitalopram Oxalate [Lexapro -] 10 mg PO DAILY #30 tablet 10/19/19 Risperidone [Risperdal -] 1 mg PO BID #60 tablet 10/19/19 - Medication-Assisted Treatment (MAT) Medication-Assisted Treatment (MAT): Yes Medication Prescribed: Buprenorphine MAT Follow-up Referral: Patient will go to [facility] - Discharge Instructions Diet, activity, other medical instructions: Diet: Activity: Other medical instructions: - Diagnosis (1) Alcohol use disorder Current Visit: Yes Status: Chronic (2) Cannabis dependence Current Visit: Yes Status: Chronic (3) Opioid dependence with withdrawal Current Visit: No Status: Chronic - Follow-up Referral Minutes to complete discharge: 15 - AMA Did Patient Leave Against Medical Advice: No
[2019-10-20] MEDS: risperiDONE 1 MG TABLET PO SCH (09:10)
[2019-10-20] MEDS: HYDROCORTISONE 1% TOPICAL CREAM 30 GM TUBE TP SCH (09:10)
[2019-10-20] MEDS: PRENATAL VITAMINS W/ FOLIC ACID TABLET (FP) PO SCH (09:10)
[2019-10-20] MEDS: NICOTINE 21 MG/24 HOURS TOPICAL PATCH TD SCH (09:10)
[2019-10-20] MEDS: ESCITALOPRAM OXALATE 10 MG TABLET PO SCH (09:10)
[2019-10-20] MEDS ORDERED: PT OWN MED DRAWER 7, Y5N ONE (09:12)
--- NOTE | 2019-10-20 15:29 | PN ---
[facility] Progress Note Note: Asked by Provider Tram Petit NP to send Suboxone Rx to [facility] in [place], [place] for this pt who was discharged today to an [facility] rehab and could not sisal picker suboxone originally sent to her other pharmacy. Suboxone 4mg/1 mg sl #9 electronically sent to [facility]Rx for pt to sisal picker to her aftercare program. Pt will continue Suboxone-MAT with a suboxone provider in the program.
== END 2019-10-20 09:25 | disposition home or self-care (01) | DRG 772 ==
LOC: YASAS 12:38 → Y3W 12:39
PROVIDERS: ADMIT Allergy & Immunology; ATTEND Allergy & Immunology
PROC: HZ42ZZZ Group Counseling for Substance Abuse Treatment, Cognitive-Behavioral (ICD-10-PCS; principal; 2019-10-11)
DX: F11.23 Opioid dependence with withdrawal (principal); F10.20 Alcohol dependence, uncomplicated; F14.20 Cocaine dependence, uncomplicated; F12.20 Cannabis dependence, uncomplicated; F17.210 Nicotine dependence, cigarettes, uncomplicated; F19.24 Other psychoactive substance dependence with psychoactive substance-induced mood disorder; F19.282 Other psychoactive substance dependence with psychoactive substance-induced sleep disorder; F41.9 Anxiety disorder, unspecified; F31.9 Bipolar disorder, unspecified; J45.909 Unspecified asthma, uncomplicated; M17.0 Bilateral primary osteoarthritis of knee; M54.5 Low back pain; G89.29 Other chronic pain; Z86.69 Personal history of other diseases of the nervous system and sense organs; Z91.5 Personal history of self-harm
CPT/HCPCS: J0735; J2794

== ENCOUNTER 2020-03-30 10:57 | Inpatient (IN) | payer OTHER ==
[2020-03-30] MEDS ORDERED: chlordiazePOXIDE HCL 25 MG CAPSULE ONE (11:57)
[2020-03-30] MEDS ORDERED: NICOTINE 21 MG/24 HOURS TOPICAL PATCH ONE (11:59)
[2020-03-30 12:02] VITALS: BMI 29.3
[2020-03-30] MEDS ORDERED: ALBUTEROL SO4 HFA INHALER IH PRN (13:05)
[2020-03-30] MEDS ORDERED: ACETAMINOPHEN 325 MG TABLET (FP) PO PRN ×2 (13:06)
[2020-03-30] MEDS ORDERED: chlordiazePOXIDE HCL 25 MG CAPSULE PO PRN (13:06)
[2020-03-30] MEDS ORDERED: cloNIDine HCL 0.1 MG TABLET PO PRN (13:06)
[2020-03-30] MEDS ORDERED: MAGNESIUM CITRATE 300 ML BOTTLE PO PRN (13:06)
[2020-03-30] MEDS ORDERED: MENTHOL/PHENOL 1 EACH UD MM PRN (13:06)
[2020-03-30] MEDS ORDERED: BISMUTH SUBSALICYLATE 524 MG/30 ML UD PO PRN (13:06)
[2020-03-30] MEDS ORDERED: MAG HYDROX/AL HYDROX/SIMETH 30 ML UNIT-DOSE CUP PO PRN (13:06)
[2020-03-30] MEDS ORDERED: METHADONE HCL 10 MG TABLET (FOR DETOX USE ONLY) PO ONE (13:30)
[2020-03-30] MEDS: NICOTINE 21 MG/24 HOURS TOPICAL PATCH TD SCH (13:49)
[2020-03-30] MEDS: ONDANSETRON *ODT* 4 MG TABLET SL PRN (13:58)
[2020-03-30] MEDS: MAGNESIUM HYDROX 2400MG/30ML ORAL SUSPENSION 30 ML CUP PO PRN (13:58)
[2020-03-30] MEDS: METHOCARBAMOL 500 MG TABLET PO PRN (13:58)
[2020-03-30] MEDS: IBUPROFEN 400 MG TABLET (FP) PO PRN (13:58)
[2020-03-30] MEDS ORDERED: hydrOXYzine PAMOATE 25 MG CAPSULE (FP) PO SCH (14:00)
[2020-03-30 17:57] LABS: POTASSIUM 3.6 mmol/L (3.5-5.1)
[2020-03-30 17:58] LABS: HEMOGLOBIN 11.6 GM/dL (10.7-15.3); MCH 29.9 pg (25.7-33.7); MCHC 33.1 g/dl (32.0-36.0); MEAN CELL VOLUME 90.3 fl (80-96); MEAN PLT VOLUME 7.5 fl (7.5-11.1); PLATELET COUNT 334 K/MM3 (134-434); RBC 3.87 M/mm3 (3.60-5.2); RDW 16.9 % (11.6-15.6); WHITE BLOOD COUNT 7.5 K/mm3 (4.0-10.0)
[2020-03-30 17:59] LABS: ALBUMIN 3.1 g/dl (3.4-5.0); CALCIUM 8.5 mg/dL (8.5-10.1)
[2020-03-30 18:02] LABS: CREATININE 0.7 mg/dL (0.55-1.3)
[2020-03-30 18:04] LABS: BILIRUBIN,TOTAL 0.3 mg/dL (0.2-1); TOT PROT 7.2 g/dl (6.4-8.2)
[2020-03-30] MEDS: chlordiazePOXIDE HCL 25 MG CAPSULE PO SCH ×2 (18:09→22:35)
[2020-03-30 19:03] LABS: HIV INTERPRETATION NEGATIVE (NEGATIVE)
[2020-03-30] MEDS: THIAMINE HCL 100 MG TABLET (FP) PO SCH (22:35)
[2020-03-30] MEDS: MELATONIN 5 MG TABLETS PO SCH (22:35)
[2020-03-31] MEDS: chlordiazePOXIDE HCL 25 MG CAPSULE PO SCH ×4 (05:10→22:09)
[2020-03-31] MEDS ORDERED: METHADONE HCL 10 MG TABLET (FOR DETOX USE ONLY) ONE (09:26)
[2020-03-31] MEDS ORDERED: METHADONE HCL 5 MG TABLET (FOR DETOX USE ONLY) ONE (09:26)
[2020-03-31] MEDS ORDERED: METHADONE (DETOX) 20 MG, METHADONE (DETOX) 5 MG PO ONE (10:00)
[2020-03-31] MEDS: NICOTINE 21 MG/24 HOURS TOPICAL PATCH TD SCH (10:11)
[2020-03-31] MEDS: IBUPROFEN 400 MG TABLET (FP) PO PRN (10:14)
[2020-03-31] MEDS: PRENATAL VITAMINS W/ FOLIC ACID TABLET (FP) PO SCH (10:15)
[2020-03-31] MEDS: busPIRone HCL 5 MG TABLET PO SCH ×2 (14:25→22:09)
[2020-03-31] MEDS: risperiDONE 1 MG TABLET PO SCH ×2 (14:26→22:09)
[2020-03-31] MEDS: ESCITALOPRAM OXALATE 10 MG TABLET PO SCH (14:26)
[2020-03-31] MEDS: THIAMINE HCL 100 MG TABLET (FP) PO SCH (22:09)
[2020-03-31] MEDS: MELATONIN 5 MG TABLETS PO SCH (22:11)
[2020-04-01] MEDS: busPIRone HCL 5 MG TABLET PO SCH ×3 (06:29→21:49)
[2020-04-01] MEDS: chlordiazePOXIDE HCL 25 MG CAPSULE PO SCH ×4 (06:29→22:05)
[2020-04-01] MEDS: IBUPROFEN 400 MG TABLET (FP) PO PRN (06:45)
[2020-04-01] MEDS ORDERED: METHADONE HCL 10 MG TABLET (FOR DETOX USE ONLY) PO ONE (10:00)
[2020-04-01] MEDS: METHOCARBAMOL 500 MG TABLET PO PRN ×2 (10:28→16:51)
[2020-04-01] MEDS: PRENATAL VITAMINS W/ FOLIC ACID TABLET (FP) PO SCH (10:30)
[2020-04-01] MEDS: ESCITALOPRAM OXALATE 10 MG TABLET PO SCH (10:30)
[2020-04-01] MEDS: NICOTINE 21 MG/24 HOURS TOPICAL PATCH TD SCH (10:30)
[2020-04-01] MEDS: risperiDONE 1 MG TABLET PO SCH ×2 (10:30→21:49)
[2020-04-01] MEDS: NICOTINE POLACRILEX 2 MG GUM BUC PRN ×2 (10:54→17:32)
[2020-04-01 11:11] LABS: POTASSIUM 4.2 mmol/L (3.5-5.1)
[2020-04-01 11:16] LABS: ALBUMIN 2.8 g/dl (3.4-5.0); BLOOD UREA NITROGEN 9.7 mg/dL (7-18); CALCIUM 8.5 mg/dL (8.5-10.1)
[2020-04-01 11:19] LABS: CREATININE 0.6 mg/dL (0.55-1.3)
[2020-04-01 11:20] LABS: BILIRUBIN,TOTAL 0.5 mg/dL (0.2-1)
[2020-04-01 11:21] LABS: TOT PROT 6.8 g/dl (6.4-8.2)
[2020-04-01] MEDS ORDERED: COLLOIDAL OATMEAL 1 BAR EACH TP ONE (12:00)
[2020-04-01] MEDS: ONDANSETRON *ODT* 4 MG TABLET SL PRN (16:51)
[2020-04-01] MEDS: MELATONIN 5 MG TABLETS PO SCH (21:49)
[2020-04-01] MEDS: THIAMINE HCL 100 MG TABLET (FP) PO SCH (21:49)
[2020-04-01] MEDS: MAGNESIUM HYDROX 2400MG/30ML ORAL SUSPENSION 30 ML CUP PO PRN (21:50)
[2020-04-01] MEDS: IBUPROFEN 600 MG TABLET (FP) PO PRN (21:50)
[2020-04-02] MEDS ORDERED: chlordiazePOXIDE HCL 10 MG CAPSULE PO PRN
[2020-04-02] MEDS: METHOCARBAMOL 500 MG TABLET PO PRN (05:50)
[2020-04-02] MEDS: chlordiazePOXIDE HCL 10 MG CAPSULE PO SCH ×4 (05:50→22:44)
[2020-04-02] MEDS: IBUPROFEN 600 MG TABLET (FP) PO PRN (05:51)
[2020-04-02] MEDS: MAGNESIUM HYDROX 2400MG/30ML ORAL SUSPENSION 30 ML CUP PO PRN (05:53)
[2020-04-02] MEDS: busPIRone HCL 5 MG TABLET PO SCH ×3 (05:53→22:44)
[2020-04-02] MEDS ORDERED: METHADONE HCL 5 MG TABLET (FOR DETOX USE ONLY) ONE (08:56)
[2020-04-02] MEDS ORDERED: METHADONE HCL 10 MG TABLET (FOR DETOX USE ONLY) ONE (08:57)
[2020-04-02] MEDS: ONDANSETRON *ODT* 4 MG TABLET SL PRN (09:58)
[2020-04-02] MEDS ORDERED: METHADONE (DETOX) 10 MG, METHADONE (DETOX) 5 MG PO ONE (10:00)
[2020-04-02] MEDS: ESCITALOPRAM OXALATE 10 MG TABLET PO SCH (10:36)
[2020-04-02] MEDS: risperiDONE 1 MG TABLET PO SCH ×2 (10:36→22:43)
[2020-04-02] MEDS: PRENATAL VITAMINS W/ FOLIC ACID TABLET (FP) PO SCH (10:36)
[2020-04-02] MEDS: NICOTINE 21 MG/24 HOURS TOPICAL PATCH TD SCH (10:39)
[2020-04-02] MEDS ORDERED: TRIMETHOBENZAMIDE HCL 200MG/2ML INJ IM PRN (11:03)
[2020-04-02] MEDS: METHYL SALICYLATE/MENTHOL OINT 30 GM TUBE TP SCH ×2 (14:03→22:49)
[2020-04-02] MEDS ORDERED: TRIMETHOBENZAMIDE HCL 200MG/2ML INJ IM ONE (21:27)
[2020-04-02] MEDS: hydrOXYzine PAMOATE 25 MG CAPSULE (FP) PO PRN (22:44)
[2020-04-02] MEDS: MELATONIN 5 MG TABLETS PO SCH (22:48)
[2020-04-02] MEDS: THIAMINE HCL 100 MG TABLET (FP) PO SCH (22:48)
[2020-04-02] MEDS: ONDANSETRON *ODT* 4 MG TABLET SL SCH (23:21)
[2020-04-03] MEDS: busPIRone HCL 5 MG TABLET PO SCH ×3 (05:51→22:06)
[2020-04-03] MEDS: chlordiazePOXIDE HCL 10 MG CAPSULE PO SCH ×2 (05:51→18:40)
[2020-04-03] MEDS: ONDANSETRON *ODT* 4 MG TABLET SL SCH ×3 (05:51→10:32)
[2020-04-03] MEDS: METHOCARBAMOL 750 MG TABLET PO PRN ×2 (05:53→22:36)
[2020-04-03] MEDS ORDERED: METHADONE HCL 10 MG TABLET (FOR DETOX USE ONLY) PO ONE (10:00)
[2020-04-03] MEDS: METHYL SALICYLATE/MENTHOL OINT 30 GM TUBE TP SCH ×2 (10:30→22:10)
[2020-04-03] MEDS: NICOTINE 21 MG/24 HOURS TOPICAL PATCH TD SCH (10:31)
[2020-04-03] MEDS: ESCITALOPRAM OXALATE 10 MG TABLET PO SCH (10:31)
[2020-04-03] MEDS: risperiDONE 1 MG TABLET PO SCH ×2 (10:31→22:06)
[2020-04-03] MEDS: PRENATAL VITAMINS W/ FOLIC ACID TABLET (FP) PO SCH (10:31)
[2020-04-03] MEDS ORDERED: ONDANSETRON *ODT* 4 MG TABLET SL PRN (11:19)
[2020-04-03] MEDS: MAGNESIUM HYDROX 2400MG/30ML ORAL SUSPENSION 30 ML CUP PO PRN (15:22)
[2020-04-03] MEDS ORDERED: cloNIDine HCL 0.1 MG TABLET PO ONE (18:29)
[2020-04-03] MEDS: POLYETHYLENE GLYCOL 3350 119 GM BTL PO SCH (21:02)
[2020-04-03] MEDS: THIAMINE HCL 100 MG TABLET (FP) PO SCH (22:06)
[2020-04-03] MEDS: MELATONIN 5 MG TABLETS PO SCH (22:07)
[2020-04-03] MEDS: hydrOXYzine PAMOATE 25 MG CAPSULE (FP) PO PRN (22:07)
[2020-04-03] MEDS: cloNIDine HCL 0.1 MG TABLET PO SCH (22:10)
[2020-04-04] MEDS ORDERED: chlordiazePOXIDE HCL 10 MG CAPSULE PO ONE (05:00)
[2020-04-04] MEDS: busPIRone HCL 5 MG TABLET PO SCH (05:43)
[2020-04-04] MEDS: cloNIDine HCL 0.1 MG TABLET PO SCH (05:44)
[2020-04-04] MEDS ORDERED: METHADONE HCL 5 MG TABLET (FOR DETOX USE ONLY) PO ONE (06:00)
[2020-04-04 06:12] VITALS: TEMP 98.1
[2020-04-04] MEDS: risperiDONE 1 MG TABLET PO SCH (10:25)
[2020-04-04] MEDS: POLYETHYLENE GLYCOL 3350 119 GM BTL PO SCH (10:25)
[2020-04-04] MEDS: ESCITALOPRAM OXALATE 10 MG TABLET PO SCH (10:25)
[2020-04-04] MEDS: METHYL SALICYLATE/MENTHOL OINT 30 GM TUBE TP SCH (10:25)
[2020-04-04] MEDS: NICOTINE 21 MG/24 HOURS TOPICAL PATCH TD SCH (10:25)
[2020-04-04] MEDS: PRENATAL VITAMINS W/ FOLIC ACID TABLET (FP) PO SCH (10:25)
[2020-04-04 11:29] VITALS: BP 97/57; PULSE 92
== END 2020-04-04 12:18 | disposition home or self-care (01) | DRG 774 ==
LOC: YASAS 10:57 → Y6N 12:26
PROVIDERS: ADMIT Allergy & Immunology; ATTEND Allergy & Immunology
PROC: HZ2ZZZZ Detoxification Services for Substance Abuse Treatment (ICD-10-PCS; principal; 2020-03-30)
DX: F10.230 Alcohol dependence with withdrawal, uncomplicated (principal); F14.20 Cocaine dependence, uncomplicated; F12.20 Cannabis dependence, uncomplicated; F17.210 Nicotine dependence, cigarettes, uncomplicated; F31.81 Bipolar II disorder; F19.24 Other psychoactive substance dependence with psychoactive substance-induced mood disorder; F19.280 Other psychoactive substance dependence with psychoactive substance-induced anxiety disorder; F19.282 Other psychoactive substance dependence with psychoactive substance-induced sleep disorder; I10 Essential (primary) hypertension; J45.909 Unspecified asthma, uncomplicated; G47.00 Insomnia, unspecified; M19.90 Unspecified osteoarthritis, unspecified site; M54.5 Low back pain; G89.29 Other chronic pain; M17.0 Bilateral primary osteoarthritis of knee; R11.2 Nausea with vomiting, unspecified; R10.9 Unspecified abdominal pain; K59.00 Constipation, unspecified; Z91.19 Patient's noncompliance with other medical treatment and regimen; Z56.0 Unemployment, unspecified
CPT/HCPCS: 36415; 80053; 81025; 85027; 86780; 87389; 93005; 93010; C9803; J0735; J2794; Q0162; U0003

== ENCOUNTER 2020-04-02 15:23 | Emergency (ER) | payer OTHER ==
[2020-04-02] MEDS ORDERED: METOCLOPRAMIDE HCL INJECTION 10 MG/2 ML VIAL IVPUSH ONE (17:06)
[2020-04-02] MEDS ORDERED: LACTATED RINGERS SOLUTION 1000 ML INFUS.BAG IV ONE (17:06)
[2020-04-02] MEDS ORDERED: ACETAMINOPHEN 1000 MG/100 ML VIAL (NON FORMULARY) IVPB ONE (17:16)
[2020-04-02] MEDS ORDERED: HALOPERIDOL LACTATE 5 MG/ML IM ONE (17:46)
[2020-04-02] MEDS ORDERED: HALOPERIDOL LACTATE 5 MG/ML ONE (17:48)
[2020-04-02 17:51] LABS: BASO % 0.6 % (0-2.0); EOS % 0.6 % (0-4.5); HEMATOCRIT 38.7 % (32.4-45.2); HEMOGLOBIN 12.6 GM/dL (10.7-15.3); LYMPH % 16.7 % (8-40); MCH 29.4 pg (25.7-33.7); MCHC 32.6 g/dl (32.0-36.0); MEAN CELL VOLUME 90.1 fl (80-96); MEAN PLT VOLUME 6.6 fl (7.5-11.1); MONO % 6.5 % (3.8-10.2); NEUT % 75.6 % (42.8-82.8); PLATELET COUNT 490 K/MM3 (134-434); RDW 16.7 % (11.6-15.6); WHITE BLOOD COUNT 8.8 K/mm3 (4.0-10.0)
[2020-04-02 17:53] LABS: VENOUS BASE EXCESS 6.4 mmol/L (-2-2); VENOUS PCO2 60.1 mmHg (38-52); VENOUS PH 7.367 (7.310-7.410)
[2020-04-02 17:59] VITALS: BP 148/88; PULSE 89; TEMP 98.8; BMI 30.9
[2020-04-02 18:11] LABS: CHLORIDE 100 mmol/L (98-107); POTASSIUM 4.6 mmol/L (3.5-5.1); SODIUM 137 mmol/L (136-145)
[2020-04-02 18:13] LABS: ALBUMIN 3.1 g/dl (3.4-5.0); ANION GAP 9 MMOL/L (8-16); CALCIUM 8.7 mg/dL (8.5-10.1); CO2 28 mmol/L (21-32); GLUCOSE,RANDOM 101 mg/dL (74-106); LIPASE 85 U/L (73-393); MAGNESIUM 2.3 mg/dL (1.8-2.4)
[2020-04-02 18:14] LABS: BLOOD UREA NITROGEN 9.3 mg/dL (7-18)
[2020-04-02 18:16] LABS: CREATININE 0.7 mg/dL (0.55-1.3); SGOT/AST 21 U/L (15-37); SGPT/ALT 17 U/L (13-61)
[2020-04-02 18:18] LABS: BILIRUBIN,TOTAL 0.3 mg/dL (0.2-1); TOT PROT 7.6 g/dl (6.4-8.2)
[2020-04-02 18:19] LABS: ALK PHOS 88 U/L (45-117)
[2020-04-02 19:03] LABS: PH,URINE >= 9.0 (5.0-8.0); URINE APPEARANCE CLEAR; URINE BILIRUBIN NEGATIVE (NEGATIVE); URINE COLOR YELLOW; URINE GLUCOSE (UA) NEGATIVE (NEGATIVE); URINE KETONE NEGATIVE (NEGATIVE); URINE LEUK ESTERASE NEGATIVE (NEGATIVE); URINE NITRITE NEGATIVE (NEGATIVE); URINE PROTEIN NEGATIVE (NEGATIVE); URINE UROBILINOGEN 0.2 mg/dL (0.2-1.0)
== END 2020-04-02 20:39 | disposition home or self-care (01) ==
LOC: JER 15:23
PROC: 3E033NZ Introduction of Analgesics, Hypnotics, Sedatives into Peripheral Vein, Percutaneous Approach (ICD-10-PCS; principal; 2020-04-02)
PROC: 3E033GC Introduction of Other Therapeutic Substance into Peripheral Vein, Percutaneous Approach (ICD-10-PCS; 2020-04-02)
PROC: 3E023NZ Introduction of Analgesics, Hypnotics, Sedatives into Muscle, Percutaneous Approach (ICD-10-PCS; 2020-04-02)
DX: R11.2 Nausea with vomiting, unspecified (principal)
CPT/HCPCS: 36415; 71045-TC-FY; 80053; 81003; 82803; 82962; 83605; 83690; 83735; 84484; 85025; 87086; 93005; 93010; 99285-25; J0131

== ENCOUNTER 2020-08-10 10:38 | Inpatient (IN) | payer OTHER ==
[2020-08-10 11:36] VITALS: BMI 28.1
[2020-08-10] MEDS ORDERED: chlordiazePOXIDE HCL 25 MG CAPSULE PO PRN (11:47)
[2020-08-10] MEDS ORDERED: BISMUTH SUBSALICYLATE 262 MG/15 ML BTL PO PRN (11:47)
[2020-08-10] MEDS ORDERED: MAGNESIUM HYDROX 2400MG/30ML ORAL SUSPENSION 30 ML CUP PO PRN (11:47)
[2020-08-10] MEDS ORDERED: cloNIDine HCL 0.1 MG TABLET PO PRN (11:47)
[2020-08-10] MEDS ORDERED: ONDANSETRON *ODT* 4 MG TABLET SL PRN (11:47)
[2020-08-10] MEDS ORDERED: METHADONE HCL 10 MG TABLET (FOR DETOX USE ONLY) PO ONE (11:47)
[2020-08-10] MEDS ORDERED: IBUPROFEN 400 MG TABLET (FP) PO PRN (11:47)
[2020-08-10] MEDS ORDERED: METHOCARBAMOL 500 MG TABLET PO PRN (11:47)
[2020-08-10] MEDS ORDERED: MAG HYDROX/AL HYDROX/SIMETH 30 ML UNIT-DOSE CUP PO PRN (11:47)
[2020-08-10] MEDS ORDERED: MAGNESIUM CITRATE 300 ML BOTTLE PO PRN (11:47)
[2020-08-10] MEDS ORDERED: MENTHOL/PHENOL 1 EACH UD MM PRN (11:47)
[2020-08-10] MEDS ORDERED: ACETAMINOPHEN 325 MG TABLET (FP) PO PRN ×2 (11:47)
[2020-08-10] MEDS: hydrOXYzine PAMOATE 25 MG CAPSULE (FP) PO SCH ×3 (13:13→22:24)
[2020-08-10] MEDS: AMOXICILLIN 500 MG CAPSULE (FP) PO SCH ×2 (13:13→22:24)
[2020-08-10] MEDS: PRENATAL VITAMINS W/ FOLIC ACID TABLET (FP) PO SCH (13:15)
[2020-08-10] MEDS: NICOTINE 21 MG/24 HOURS TOPICAL PATCH TD SCH (13:16)
[2020-08-10] MEDS: chlordiazePOXIDE HCL 25 MG CAPSULE PO SCH ×3 (13:17→22:25)
[2020-08-10] MEDS: NICOTINE POLACRILEX 2 MG GUM BUC PRN (13:18)
[2020-08-10] MEDS: ESCITALOPRAM OXALATE 10 MG TABLET PO SCH (15:21)
[2020-08-10 17:15] LABS: HEMATOCRIT 36.1 % (32.4-45.2); HEMOGLOBIN 12.5 GM/dL (10.7-15.3); MCH 31.9 pg (25.7-33.7); MCHC 34.7 g/dl (32.0-36.0); MEAN PLT VOLUME 7.4 fl (7.5-11.1); PLATELET COUNT 344 K/MM3 (134-434); RBC 3.93 M/mm3 (3.60-5.2); RDW 14.2 % (11.6-15.6); WHITE BLOOD COUNT 5.6 K/mm3 (4.0-10.0)
[2020-08-10 17:21] LABS: ALBUMIN 3.4 g/dl (3.4-5.0); BLOOD UREA NITROGEN 10.1 mg/dL (7-18); CALCIUM 9.1 mg/dL (8.5-10.1)
[2020-08-10 17:24] LABS: CREATININE 0.7 mg/dL (0.55-1.3)
[2020-08-10 17:26] LABS: BILIRUBIN,TOTAL 0.2 mg/dL (0.2-1); TOT PROT 7.8 g/dl (6.4-8.2)
[2020-08-10] MEDS ORDERED: SUVOREXANT 10 MG TABLET PO PRN (22:00)
[2020-08-10] MEDS: THIAMINE HCL 100 MG TABLET (FP) PO SCH (22:24)
[2020-08-10] MEDS: MELATONIN 5 MG TABLETS PO SCH (22:25)
[2020-08-11] MEDS: hydrOXYzine PAMOATE 25 MG CAPSULE (FP) PO SCH ×5 (06:01→22:21)
[2020-08-11] MEDS: chlordiazePOXIDE HCL 25 MG CAPSULE PO SCH ×4 (06:01→22:39)
[2020-08-11] MEDS: NICOTINE POLACRILEX 2 MG GUM BUC PRN ×3 (06:07→13:53)
[2020-08-11] MEDS ORDERED: METHADONE HCL 10 MG TABLET (FOR DETOX USE ONLY) ONE (08:44)
[2020-08-11] MEDS ORDERED: METHADONE HCL 5 MG TABLET (FOR DETOX USE ONLY) ONE (08:44)
[2020-08-11] MEDS ORDERED: ALBUTEROL SO4 HFA INHALER IH PRN (08:56)
[2020-08-11] MEDS ORDERED: METHADONE (DETOX) 20 MG, METHADONE (DETOX) 5 MG PO ONE (10:00)
[2020-08-11] MEDS: ESCITALOPRAM OXALATE 10 MG TABLET PO SCH (10:10)
[2020-08-11] MEDS: PRENATAL VITAMINS W/ FOLIC ACID TABLET (FP) PO SCH (10:11)
[2020-08-11] MEDS: NICOTINE 21 MG/24 HOURS TOPICAL PATCH TD SCH (10:11)
[2020-08-11] MEDS: CLINDAMYCIN HCL 150 MG CAPSULE (FP) PO SCH ×2 (12:12→17:45)
[2020-08-11] MEDS: CLINDAMYCIN PHOSPHATE 1% TOPICAL GEL 30 GM TUBE TP SCH ×2 (12:12→22:20)
[2020-08-11] MEDS: GABAPENTIN 300 MG CAPSULE PO SCH ×2 (13:50→22:41)
[2020-08-11] MEDS: THIAMINE HCL 100 MG TABLET (FP) PO SCH (22:39)
[2020-08-11] MEDS: MELATONIN 5 MG TABLETS PO SCH (22:46)
[2020-08-12] MEDS: CLINDAMYCIN HCL 150 MG CAPSULE (FP) PO SCH ×4 (00:21→20:37)
[2020-08-12] MEDS: chlordiazePOXIDE HCL 25 MG CAPSULE PO SCH ×4 (04:25→22:43)
[2020-08-12] MEDS: hydrOXYzine PAMOATE 25 MG CAPSULE (FP) PO SCH ×5 (05:39→22:44)
[2020-08-12] MEDS: GABAPENTIN 300 MG CAPSULE PO SCH ×3 (05:39→22:43)
[2020-08-12 09:47] VITALS: TEMP 97.1
[2020-08-12] MEDS ORDERED: LIDOCAINE 5% TOPICAL PATCH TP SCH (10:00)
[2020-08-12] MEDS ORDERED: METHADONE HCL 10 MG TABLET (FOR DETOX USE ONLY) PO ONE (10:00)
[2020-08-12] MEDS: CLINDAMYCIN PHOSPHATE 1% TOPICAL GEL 30 GM TUBE TP SCH ×2 (10:14→22:43)
[2020-08-12] MEDS: ESCITALOPRAM OXALATE 10 MG TABLET PO SCH (10:14)
[2020-08-12] MEDS: PRENATAL VITAMINS W/ FOLIC ACID TABLET (FP) PO SCH (10:15)
[2020-08-12] MEDS: NICOTINE 21 MG/24 HOURS TOPICAL PATCH TD SCH (10:15)
[2020-08-12 13:45] VITALS: BP 136/81; PULSE 122
[2020-08-12] MEDS ORDERED: fentaNYL CITRATE 250 MCG/5 ML VIAL ONE (17:46)
[2020-08-12] MEDS ORDERED: MIDAZOLAM HCL 2 MG/2 ML SINGLE DOSE VIAL ONE (17:46)
[2020-08-12] MEDS ORDERED: PROPOFOL 20 ML ONE (17:49)
[2020-08-12] MEDS ORDERED: KETAMINE HCL 200 MG/20 ML VIAL ONE (18:14)
[2020-08-12] MEDS ORDERED: LIDOCAINE PATCH REMOVAL MC SCH (22:00)
[2020-08-12] MEDS: MELATONIN 5 MG TABLETS PO SCH (22:43)
[2020-08-12] MEDS: THIAMINE HCL 100 MG TABLET (FP) PO SCH (22:44)
[2020-08-13] MEDS ORDERED: chlordiazePOXIDE HCL 10 MG CAPSULE PO PRN
[2020-08-13] MEDS ORDERED: chlordiazePOXIDE HCL 10 MG CAPSULE PO SCH (05:00)
[2020-08-13] MEDS ORDERED: METHADONE (DETOX) 10 MG, METHADONE (DETOX) 5 MG PO ONE (10:00)
[2020-08-14] MEDS ORDERED: chlordiazePOXIDE HCL 10 MG CAPSULE PO SCH (05:00)
[2020-08-14] MEDS ORDERED: METHADONE HCL 10 MG TABLET (FOR DETOX USE ONLY) PO ONE (10:00)
[2020-08-15] MEDS ORDERED: chlordiazePOXIDE HCL 10 MG CAPSULE PO ONE (05:00)
[2020-08-15] MEDS ORDERED: METHADONE HCL 5 MG TABLET (FOR DETOX USE ONLY) PO ONE (06:00)
== END 2020-08-13 00:09 | disposition short-term general hospital (02) | DRG 773 ==
LOC: YASAS 10:38 → Y6N 12:08
PROVIDERS: ADMIT Allergy & Immunology; ATTEND Allergy & Immunology
PROC: HZ2ZZZZ Detoxification Services for Substance Abuse Treatment (ICD-10-PCS; principal; 2020-08-10)
DX: F11.23 Opioid dependence with withdrawal (principal); F10.230 Alcohol dependence with withdrawal, uncomplicated; F14.20 Cocaine dependence, uncomplicated; F12.20 Cannabis dependence, uncomplicated; F17.210 Nicotine dependence, cigarettes, uncomplicated; G62.9 Polyneuropathy, unspecified; F19.280 Other psychoactive substance dependence with psychoactive substance-induced anxiety disorder; F19.282 Other psychoactive substance dependence with psychoactive substance-induced sleep disorder; L02.212 Cutaneous abscess of back [any part, except buttock and flank]; B96.4 Proteus (mirabilis) (morganii) as the cause of diseases classified elsewhere; J45.20 Mild intermittent asthma, uncomplicated; M17.0 Bilateral primary osteoarthritis of knee
CPT/HCPCS: 36415; 80053; 81025; 85027; 86780; 87070; 87186; 87205; C9803; U0003; U0005

== ENCOUNTER 2020-08-12 13:16 | Inpatient (IN) | payer OTHER ==
[~2020-08-12 13:16] MED LIST: FLU VACCINE (FLULAVAL) PF 60 MCG/0.5 ML SYRINGE 2020-2021 IM ONE
[2020-08-12 13:41] VITALS: BMI 28.1
[2020-08-12] MEDS ORDERED: VANCOMYCIN 1,000 MG in DEXTROSE 5%-WATER - 250 ML IVPB ONE (14:25)
[2020-08-12] MEDS ORDERED: morphine CARPU-JECT 4 MG/1 ML DISP.SYRIN IVPUSH ONE (14:29)
[2020-08-12] MEDS ORDERED: ACETAMINOPHEN 1000 MG/100 ML VIAL (NON FORMULARY) IVPB ONE (14:30)
[2020-08-12] MEDS ORDERED: VANCOMYCIN 1 GRAM (PRE-DOCKED) 1,000 MG/250 ML BAG IVPB ONE (14:42)
[2020-08-12] MEDS ORDERED: ACETAMINOPHEN INJECTION 100 ML IVPB ONE (14:42)
[2020-08-12] MEDS ORDERED: morphine SULFATE 4 MG/ML VIAL ONE (14:42)
[2020-08-12 15:05] LABS: BASO % 0.7 % (0-2.0); HEMATOCRIT 37.4 % (32.4-45.2); HEMOGLOBIN 12.5 GM/dL (10.7-15.3); LYMPH % 37.8 % (8-40); MCH 31.2 pg (25.7-33.7); MCHC 33.5 g/dl (32.0-36.0); MEAN CELL VOLUME 93.1 fl (80-96); MEAN PLT VOLUME 7.1 fl (7.5-11.1); MONO % 11.6 % (3.8-10.2); NEUT % 46.9 % (42.8-82.8); PLATELET COUNT 309 K/MM3 (134-434); RBC 4.02 M/mm3 (3.60-5.2); RDW 14.1 % (11.6-15.6); WHITE BLOOD COUNT 5.4 K/mm3 (4.0-10.0)
[2020-08-12 15:11] LABS: INR 0.91 (0.83-1.09)
[2020-08-12] MEDS ORDERED: HYDROmorphone HCL CARPU-JECT 2 MG/1 ML DISP.SYRIN IVPUSH ONE (15:19)
[2020-08-12] MEDS ORDERED: HYDROmorphone HCl 2 MG/ML VIAL ONE (15:23)
[2020-08-12 15:40] LABS: BLOOD UREA NITROGEN 11.2 mg/dL (7-18)
[2020-08-12 15:41] LABS: ALBUMIN 3.4 g/dl (3.4-5.0)
[2020-08-12 15:44] LABS: CREATININE 0.7 mg/dL (0.55-1.3)
[2020-08-12 15:45] LABS: BILIRUBIN,TOTAL 0.2 mg/dL (0.2-1); TOT PROT 7.8 g/dl (6.4-8.2)
[2020-08-12] MEDS ORDERED: ALBUTEROL SO4 0.083% IH SOL 2.5 MG/3 ML VIAL.NEB. NEB PRN ×2 (17:30→18:53)
[2020-08-12] MEDS ORDERED: ALBUTEROL SO4 HFA INHALER IH PRN ×2 (17:30→18:53)
[2020-08-12] MEDS ORDERED: LACTATED RINGERS SOLUTION 1,000 ML IV SCH ×2 (17:30→17:45)
[2020-08-12] MEDS ORDERED: ONDANSETRON 4 MG/2 ML VIAL IVPUSH PRN ×2 (17:38→18:53)
[2020-08-12] MEDS ORDERED: PIPERACILLIN/TAZOB 3.375 GM 3.375 GM in DEXTROSE 5%-WATER - 50 ML IVPB SCH ×3 (17:45→23:45)
[2020-08-12] MEDS: LACTATED RINGERS SOLUTION 1,000 ML IV SCH (21:42)
[2020-08-12] MEDS ORDERED: PIPERACILLIN/TAZOBACTAM 3.375 GM VIAL IVPB ONE (21:53)
[2020-08-12] MEDS ORDERED: DEXTROSE 5%-WATER - 50 ML IVPB ONE (21:53)
[2020-08-12] MEDS: PIPERACILLIN/TAZOB 3.375 GM 3.375 GM in DEXTROSE 5%-WATER - 50 ML IVPB SCH (21:55)
[2020-08-12] MEDS ORDERED: PNEUMOC 13-VAL CONJ-DIP CRM/PF 0.5 ML DISP.SYRIN IM ONE (23:28)
[2020-08-13] MEDS ORDERED: MORPHINE SULFATE 2 MG/ML VIAL IVPUSH ONE ×2 (00:06→06:19)
[2020-08-13] MEDS ORDERED: PIPERACILLIN/TAZOBACTAM 3.375 GM VIAL IVPB ONE ×4 (02:16→17:04)
[2020-08-13] MEDS: PIPERACILLIN/TAZOB 3.375 GM 3.375 GM in DEXTROSE 5%-WATER - 50 ML IVPB SCH ×4 (03:20→17:09)
[2020-08-13 05:06] LABS: EPI CELLS >36 /uL (0-25.1); HYALINE CASTS 4 /uL (0-3.1); URINE APPEARANCE CLOUDY; URINE BACTERIA 204 /uL (0-1359); URINE BILIRUBIN NEGATIVE (NEGATIVE); URINE COLOR YELLOW; URINE GLUCOSE (UA) NEGATIVE (NEGATIVE); URINE KETONE 1+ (NEGATIVE); URINE LEUK ESTERASE 2+ (NEGATIVE); URINE NITRITE NEGATIVE (NEGATIVE); URINE PROTEIN NEGATIVE (NEGATIVE); URINE RBC 25 /uL (0-23.9); URINE UROBILINOGEN 0.2 mg/dL (0.2-1.0); URINE WBC 788 /uL (0-25.8)
[2020-08-13 08:36] LABS: BASO % 0.5 % (0-2.0); EOS % 3.2 % (0-4.5); HEMATOCRIT 32.2 % (32.4-45.2); LYMPH % 33.4 % (8-40); MCH 31.2 pg (25.7-33.7); MCHC 34.1 g/dl (32.0-36.0); MEAN CELL VOLUME 91.7 fl (80-96); MEAN PLT VOLUME 6.9 fl (7.5-11.1); MONO % 10.4 % (3.8-10.2); NEUT % 52.5 % (42.8-82.8); PLATELET COUNT 271 K/MM3 (134-434); RBC 3.51 M/mm3 (3.60-5.2); RDW 14.2 % (11.6-15.6); WHITE BLOOD COUNT 5.4 K/mm3 (4.0-10.0)
[2020-08-13] MEDS ORDERED: DEXTROSE 5%-WATER - 50 ML IVPB ONE ×3 (09:05→17:05)
[2020-08-13 09:28] LABS: ALBUMIN 2.8 g/dl (3.4-5.0); BLOOD UREA NITROGEN 12.3 mg/dL (7-18); CALCIUM 8.3 mg/dL (8.5-10.1); MAGNESIUM 2.1 mg/dL (1.8-2.4)
[2020-08-13 09:31] LABS: CREATININE 0.8 mg/dL (0.55-1.3); PHOSPHOROUS 4.9 mg/dL (2.5-4.9)
[2020-08-13 09:32] LABS: BILIRUBIN,TOTAL 0.3 mg/dL (0.2-1); TOT PROT 6.5 g/dl (6.4-8.2)
[2020-08-13] MEDS ORDERED: chlordiazePOXIDE HCL 25 MG CAPSULE PO PRN (09:47)
[2020-08-13] MEDS ORDERED: LORazepam 2 MG/ML SDV VIAL IVPUSH ONE (10:00)
[2020-08-13] MEDS ORDERED: PNEUMOCOCCAL 23 VACCINE 0.5 ML VIAL IM ONE (10:00)
[2020-08-13] MEDS: chlordiazePOXIDE HCL 25 MG CAPSULE PO SCH ×3 (10:32→23:33)
[2020-08-13] MEDS ORDERED: METHADONE HCL 10 MG TABLET PO SCH (10:45)
[2020-08-13] MEDS: NICOTINE 21 MG/24 HOURS TOPICAL PATCH TD SCH (12:11)
[2020-08-13] MEDS ORDERED: KETOROLAC TROMETHAMINE 15 MG/ML VIAL IVPUSH PRN (13:31)
[2020-08-13] MEDS ORDERED: PT OWN MED DRAWER 7, Y5N ONE ×2 (14:55→15:23)
[2020-08-13] MEDS ORDERED: ACETAMINOPHEN 1000 MG/100 ML VIAL (NON FORMULARY) IVPB PRN (22:43)
[2020-08-13] MEDS: ACETAMINOPHEN 1000 MG/100 ML VIAL (NON FORMULARY) IVPB PRN (23:34)
[2020-08-13] MEDS: LACTATED RINGERS SOLUTION 1,000 ML IV SCH (23:35)
[2020-08-14] MEDS ORDERED: PIPERACILLIN/TAZOBACTAM 3.375 GM VIAL IVPB ONE ×3 (01:41→16:57)
[2020-08-14] MEDS ORDERED: DEXTROSE 5%-WATER - 50 ML IVPB ONE ×2 (01:41→09:25)
[2020-08-14] MEDS: PIPERACILLIN/TAZOB 3.375 GM 3.375 GM in DEXTROSE 5%-WATER - 50 ML IVPB SCH ×3 (02:04→17:01)
[2020-08-14] MEDS: chlordiazePOXIDE HCL 25 MG CAPSULE PO SCH ×4 (06:34→22:52)
[2020-08-14] MEDS: NICOTINE 21 MG/24 HOURS TOPICAL PATCH TD SCH (09:29)
[2020-08-14] MEDS ORDERED: METHADONE HCL 10 MG TABLET (FOR DETOX USE ONLY) PO ONE (10:00)
[2020-08-14] MEDS ORDERED: METHADONE 10 MG, METHADONE 5 MG PO ONE (10:45)
[2020-08-14] MEDS ORDERED: METHADONE HCL 10 MG TABLET ONE (10:46)
[2020-08-14] MEDS ORDERED: METHADONE HCL 5 MG TABLET ONE (10:47)
[2020-08-14 12:03] LABS: BASO % 0.5 % (0-2.0); EOS % 2.7 % (0-4.5); HEMATOCRIT 33.4 % (32.4-45.2); HEMOGLOBIN 11.4 GM/dL (10.7-15.3); LYMPH % 33.9 % (8-40); MCH 31.4 pg (25.7-33.7); MCHC 34.2 g/dl (32.0-36.0); MEAN CELL VOLUME 91.8 fl (80-96); MEAN PLT VOLUME 7.3 fl (7.5-11.1); MONO % 9.4 % (3.8-10.2); NEUT % 53.5 % (42.8-82.8); PLATELET COUNT 297 K/MM3 (134-434); RBC 3.63 M/mm3 (3.60-5.2); RDW 14.1 % (11.6-15.6)
[2020-08-14 12:16] LABS: CALCIUM 8.8 mg/dL (8.5-10.1)
[2020-08-14 12:17] LABS: ALBUMIN 3.2 g/dl (3.4-5.0); MAGNESIUM 2.4 mg/dL (1.8-2.4)
[2020-08-14 12:20] LABS: CREATININE 0.7 mg/dL (0.55-1.3)
[2020-08-14 12:22] LABS: BILIRUBIN,TOTAL 0.2 mg/dL (0.2-1); TOT PROT 7.4 g/dl (6.4-8.2)
[2020-08-14] MEDS: hydrOXYzine PAMOATE 25 MG CAPSULE (FP) PO SCH ×2 (14:31→22:52)
[2020-08-14] MEDS: ESCITALOPRAM OXALATE 10 MG TABLET PO SCH (15:27)
[2020-08-14] MEDS: ACETAMINOPHEN 1000 MG/100 ML VIAL (NON FORMULARY) IVPB PRN ×2 (16:45→22:52)
[2020-08-14] MEDS: LACTATED RINGERS SOLUTION 1,000 ML IV SCH ×2 (17:01→21:17)
[2020-08-14] MEDS ORDERED: PT OWN MED DRAWER 7, Y5N ONE (17:44)
[2020-08-14 21:00] VITALS: BP 108/65; PULSE 89; TEMP 98.3
[2020-08-14] MEDS ORDERED: METHADONE 10 MG, METHADONE 5 MG PO SCH (23:00)
[2020-08-15] MEDS ORDERED: PIPERACILLIN/TAZOBACTAM 3.375 GM VIAL IVPB ONE ×2 (00:56→09:08)
[2020-08-15] MEDS: PIPERACILLIN/TAZOB 3.375 GM 3.375 GM in DEXTROSE 5%-WATER - 50 ML IVPB SCH ×3 (01:01→09:21)
[2020-08-15] MEDS ORDERED: PT OWN MED DRAWER 7, Y5N ONE ×3 (05:44→09:24)
[2020-08-15] MEDS: hydrOXYzine PAMOATE 25 MG CAPSULE (FP) PO SCH (05:48)
[2020-08-15] MEDS: chlordiazePOXIDE HCL 10 MG CAPSULE PO SCH ×2 (05:48→10:10)
[2020-08-15 08:17] LABS: HEMATOCRIT 32.3 % (32.4-45.2); HEMOGLOBIN 11.3 GM/dL (10.7-15.3); MCH 32.1 pg (25.7-33.7); MCHC 34.9 g/dl (32.0-36.0); PLATELET COUNT 289 K/MM3 (134-434); RBC 3.51 M/mm3 (3.60-5.2); RDW 13.8 % (11.6-15.6); WHITE BLOOD COUNT 4.9 K/mm3 (4.0-10.0)
[2020-08-15 08:33] LABS: CALCIUM 8.8 mg/dL (8.5-10.1)
[2020-08-15 08:34] LABS: BLOOD UREA NITROGEN 12.3 mg/dL (7-18); MAGNESIUM 2.3 mg/dL (1.8-2.4)
[2020-08-15 08:35] LABS: CREATININE 0.7 mg/dL (0.55-1.3)
[2020-08-15 08:36] LABS: PHOSPHOROUS 4.4 mg/dL (2.5-4.9)
[2020-08-15 08:37] LABS: BILIRUBIN,TOTAL 0.7 mg/dL (0.2-1)
[2020-08-15] MEDS ORDERED: DEXTROSE 5%-WATER - 50 ML IVPB ONE (09:08)
[2020-08-15] MEDS: ESCITALOPRAM OXALATE 10 MG TABLET PO SCH (09:17)
[2020-08-15] MEDS: NICOTINE 21 MG/24 HOURS TOPICAL PATCH TD SCH (09:25)
[2020-08-15] MEDS ORDERED: METHADONE 10 MG, METHADONE 5 MG PO SCH (10:00)
[2020-08-15] MEDS ORDERED: METHADONE HCL 10 MG TABLET PO ONE ×2 (11:00→23:00)
[2020-08-16] MEDS ORDERED: chlordiazePOXIDE HCL 10 MG CAPSULE PO PRN
[2020-08-16] MEDS ORDERED: chlordiazePOXIDE HCL 10 MG CAPSULE PO SCH (05:00)
[2020-08-16] MEDS ORDERED: METHADONE HCL 5 MG TABLET PO ONE ×2 (11:00→23:00)
[2020-08-17] MEDS ORDERED: chlordiazePOXIDE HCL 10 MG CAPSULE PO ONE (05:00)
== END 2020-08-15 12:30 | disposition home or self-care (01) | DRG 383 ==
LOC: SUPCPDRO 13:16 → JER 13:16 → JERBED 16:12 → J8W 20:34
PROVIDERS: ADMIT Student in an Organized Health Care Education/Training Program; ATTEND Internal Medicine
PROC: 0W9K0ZZ Drainage of Upper Back, Open Approach (ICD-10-PCS; principal; 2020-08-12 17:30)
DX: L02.212 Cutaneous abscess of back [any part, except buttock and flank] (principal); J45.909 Unspecified asthma, uncomplicated; F17.210 Nicotine dependence, cigarettes, uncomplicated; R74.01 Elevation of levels of liver transaminase levels; F10.239 Alcohol dependence with withdrawal, unspecified; F12.20 Cannabis dependence, uncomplicated; F31.89 Other bipolar disorder; F14.20 Cocaine dependence, uncomplicated; I10 Essential (primary) hypertension
CPT/HCPCS: 36415; 76705-TC; 80053; 81003; 83735; 84100; 84703; 85025; 85027; 85610; 86850; 86900; 86901; 87040; 87070; 87186; 87205; 93005; 93010; 94760; 99285-25; C9803; J0131; U0003; U0005

== ENCOUNTER 2021-07-27 12:13 | Inpatient (IN) | payer OTHER ==
[2021-07-27] MEDS ORDERED: VANCOMYCIN 1 GM in D5W (PRE-DOCKED) 1,000 MG/250 ML IVPB ONE (13:05)
[2021-07-27] MEDS ORDERED: PIPERACILLIN/TAZOB 4.5 GM 4.5 GM in DEXTROSE 5%-WATER 100 ML IVPB ONE (13:05)
[2021-07-27] MEDS ORDERED: PIPERACILLIN/TAZOB 4.5 GM 4.5 GM/100 ML BAG IVPB ONE (13:12)
[2021-07-27] MEDS ORDERED: VANCOMYCIN 1 GRAM (PRE-DOCKED) 1,000 MG/250 ML BAG IVPB ONE (13:13)
[2021-07-27] MEDS ORDERED: LORazepam 2 MG TABLET PO ONE (13:39)
[2021-07-27] MEDS ORDERED: methaDONE HCL 10 MG TABLET ONE (13:54)
[2021-07-27] MEDS ORDERED: LORazepam 1 MG TABLET ONE ×2 (13:54→23:46)
[2021-07-27 14:27] LABS: BASO % 0.8 % (0-2.0); EOS % 0.6 % (0-4.5); HEMATOCRIT 38.3 % (32.4-45.2); HEMOGLOBIN 12.7 GM/dL (10.7-15.3); LYMPH % 26.3 % (8-40); MCH 31.2 pg (25.7-33.7); MCHC 33.2 g/dl (32.0-36.0); MEAN CELL VOLUME 93.9 fl (80-96); MEAN PLT VOLUME 7.5 fl (7.5-11.1); MONO % 7.7 % (3.8-10.2); NEUT % 64.6 % (42.8-82.8); PLATELET COUNT 305 10^3/uL (134-434); RBC 4.08 M/mm3 (3.60-5.2); WHITE BLOOD COUNT 7.1 K/mm3 (4.0-10.0)
[2021-07-27 14:33] LABS: INR 0.97 (0.83-1.09); PROTHROMBIN TIME (PATIENT) 11.1 SEC (9.7-13.0)
[2021-07-27 14:36] LABS: ACTIVATED PTT 29.6 SECONDS (25.2-36.5)
[2021-07-27 14:38] LABS: CALCIUM 9.4 mg/dL (8.5-10.1)
[2021-07-27 14:40] LABS: ALBUMIN 3.7 g/dl (3.4-5.0); BLOOD UREA NITROGEN 12.4 mg/dL (7-18)
[2021-07-27 14:42] LABS: CREATININE 0.7 mg/dL (0.55-1.3)
[2021-07-27 14:44] LABS: BILIRUBIN,TOTAL 0.4 mg/dL (0.2-1); TOT PROT 7.5 g/dl (6.4-8.2)
[2021-07-27] MEDS ORDERED: SODIUM CHLORIDE 0.9% 500 ML INFUS.BAG IV ONE (16:35)
[2021-07-27] MEDS ORDERED: LORazepam 2 MG/ML SDV VIAL IVPUSH ONE (18:33)
[2021-07-27] MEDS ORDERED: ACETAMINOPHEN 1000 MG/100 ML BAG IVPB ONE (22:27)
[2021-07-27] MEDS ORDERED: MELATONIN 5 MG TABLETS PO ONE (22:27)
[2021-07-27] MEDS ORDERED: MELATONIN 5 MG TABLETS ONE (22:32)
[2021-07-27] MEDS ORDERED: ACETAMINOPHEN INJECTION 100 ML IVPB ONE (22:33)
[2021-07-27] MEDS ORDERED: LORazepam 1 MG TABLET PO PRN (22:45)
[2021-07-27] MEDS ORDERED: methaDONE HCL 10 MG TABLET (FOR DETOX USE ONLY) PO ONE (22:47)
[2021-07-27] MEDS ORDERED: cloNIDine HCL 0.1 MG TABLET PO PRN (22:47)
[2021-07-27] MEDS ORDERED: LORazepam 2 MG TABLET PO SCH (23:00)
[2021-07-28 02:16] VITALS: BMI 27.8
[2021-07-28] MEDS: NICOTINE 21 MG/24 HOURS TOPICAL PATCH TD SCH ×2 (04:59→09:54)
[2021-07-28] MEDS: LORazepam 1 MG TABLET PO SCH ×4 (05:15→23:33)
[2021-07-28 07:53] LABS: HEMATOCRIT 34.6 % (32.4-45.2); HEMOGLOBIN 11.9 GM/dL (10.7-15.3); MCH 31.6 pg (25.7-33.7); MCHC 34.3 g/dl (32.0-36.0); MEAN CELL VOLUME 92.3 fl (80-96); MEAN PLT VOLUME 7.5 fl (7.5-11.1); PLATELET COUNT 273 10^3/uL (134-434); RBC 3.75 M/mm3 (3.60-5.2); RDW 15.2 % (11.6-15.6); WHITE BLOOD COUNT 5.5 K/mm3 (4.0-10.0)
[2021-07-28 08:09] LABS: CHOLESTEROL 168 mg/dL (50-200); TRIGLYCERIDES 123 mg/dL (0-150)
[2021-07-28 08:10] LABS: LDL CHOLESTEROL (ONLY SJRH) 96 mg/dL (5-100)
[2021-07-28 08:12] LABS: HDL CHOLESTEROL 57 mg/dL (40-60)
[2021-07-28 08:13] LABS: CALCIUM 8.3 mg/dL (8.5-10.1)
[2021-07-28 08:14] LABS: BLOOD UREA NITROGEN 12.9 mg/dL (7-18); MAGNESIUM 2.1 mg/dL (1.8-2.4)
[2021-07-28 08:17] LABS: BILIRUBIN,TOTAL 0.6 mg/dL (0.2-1); CREATININE 0.8 mg/dL (0.55-1.3); PHOSPHOROUS 4.8 mg/dL (2.5-4.9); TOT PROT 6.3 g/dl (6.4-8.2)
[2021-07-28 08:27] LABS: ALBUMIN 2.8 g/dl (3.4-5.0)
[2021-07-28] MEDS ORDERED: DOXYCYCLINE HYCLATE 100 MG VIAL ONE (09:40)
[2021-07-28] MEDS ORDERED: DEXTROSE 5%-WATER 100 ML IVPB ONE (09:41)
[2021-07-28] MEDS ORDERED: methaDONE HCL 10 MG TABLET ONE (09:43)
[2021-07-28] MEDS: ENOXAPARIN NA (PORCINE) 40 MG/0.4 ML DISP.SYRIN SQ SCH (09:54)
[2021-07-28] MEDS ORDERED: ERTAPENEM SODIUM 1 GM in SODIUM CHLORIDE 50 ML IVPB SCH (10:00)
[2021-07-28] MEDS ORDERED: DOXYCYCLINE INJECTION 100 MG in DEXTROSE 5%-WATER 100 ML IVPB SCH (10:00)
[2021-07-28] MEDS ORDERED: FLU VACC QS2021-22(6MOS UP)/PF 60 MCG/0.5 ML SYRINGE IM ONE ×2 (10:00)
[2021-07-28] MEDS ORDERED: CEFTRIAXONE 1 GM in DEXTROSE 5%-WATER - 50 ML IVPB SCH (11:30)
[2021-07-28] MEDS ORDERED: cefTRIAXone SODIUM 1 GM VIAL ONE (11:31)
[2021-07-28] MEDS ORDERED: DEXTROSE 5%-WATER - 50 ML IVPB ONE ×3 (11:32→18:19)
[2021-07-28] MEDS: ACETAMINOPHEN 325 MG TABLET (FP) PO PRN ×2 (12:11→21:38)
[2021-07-28] MEDS ORDERED: PIPERACILLIN/TAZOBACTAM 3.375 GM VIAL IVPB ONE ×2 (13:26→18:19)
[2021-07-28] MEDS: PIPERACILLIN/TAZOB 3.375 GM 3.375 GM in DEXTROSE 5%-WATER - 50 ML IVPB SCH ×2 (13:46→18:28)
[2021-07-28] MEDS: VANCOMYCIN/WATER FOR INJ (PEG) 1,000 MG/200 ML BAG IVPB SCH (14:26)
[2021-07-28] MEDS ORDERED: ALBUTEROL SO4 HFA INHALER IH PRN (16:02)
[2021-07-28 17:32] LABS: EPI CELLS >36 /uL (0-25.1); HYALINE CASTS 1 /uL (0-3.1); PH,URINE 5.5 (5.0-8.0); URINE APPEARANCE CLEAR; URINE BACTERIA 114 /uL (0-1359); URINE BILIRUBIN NEGATIVE (NEGATIVE); URINE COLOR YELLOW; URINE GLUCOSE (UA) NEGATIVE (NEGATIVE); URINE KETONE NEGATIVE (NEGATIVE); URINE LEUK ESTERASE 2+ (NEGATIVE); URINE NITRITE NEGATIVE (NEGATIVE); URINE PROTEIN NEGATIVE (NEGATIVE); URINE RBC 13 /uL (0-23.9); URINE UROBILINOGEN 0.2 mg/dL (0.2-1.0); URINE WBC 58 /uL (0-25.8)
[2021-07-28] MEDS: LIDOCAINE 5% TOPICAL PATCH TP SCH (21:15)
[2021-07-28] MEDS ORDERED: MELATONIN 5 MG TABLETS PO SCH (22:00)
[2021-07-28] MEDS ORDERED: LIDOCAINE PATCH REMOVAL MC SCH (22:00)
[2021-07-29] MEDS: VANCOMYCIN/WATER FOR INJ (PEG) 1,000 MG/200 ML BAG IVPB SCH ×2 (01:00→12:26)
[2021-07-29] MEDS ORDERED: DEXTROSE 5%-WATER - 50 ML IVPB ONE ×3 (01:11→16:40)
[2021-07-29] MEDS ORDERED: PIPERACILLIN/TAZOBACTAM 3.375 GM VIAL IVPB ONE ×3 (01:11→16:40)
[2021-07-29] MEDS: PIPERACILLIN/TAZOB 3.375 GM 3.375 GM in DEXTROSE 5%-WATER - 50 ML IVPB SCH ×3 (03:00→17:00)
[2021-07-29] MEDS: LORazepam 1 MG TABLET PO SCH ×4 (05:52→22:46)
[2021-07-29 07:13] LABS: CALCIUM 8.5 mg/dL (8.5-10.1)
[2021-07-29 07:14] LABS: ALBUMIN 3.1 g/dl (3.4-5.0); BLOOD UREA NITROGEN 11.7 mg/dL (7-18)
[2021-07-29 07:18] LABS: CREATININE 0.8 mg/dL (0.55-1.3)
[2021-07-29 07:20] LABS: BILIRUBIN,TOTAL 0.6 mg/dL (0.2-1)
[2021-07-29] MEDS: NICOTINE 21 MG/24 HOURS TOPICAL PATCH TD SCH (09:29)
[2021-07-29] MEDS: LIDOCAINE 5% TOPICAL PATCH TP SCH (09:29)
[2021-07-29] MEDS: ENOXAPARIN NA (PORCINE) 40 MG/0.4 ML DISP.SYRIN SQ SCH (09:30)
[2021-07-29] MEDS ORDERED: methaDONE HCL 10 MG TABLET PO ONE (10:00)
[2021-07-29] MEDS ORDERED: ALBUTEROL SO4 HFA INHALER IH PRN (15:16)
[2021-07-29] MEDS ORDERED: ACETAMINOPHEN 325 MG TABLET (FP) PO PRN (15:16)
[2021-07-29] MEDS ORDERED: cloNIDine HCL 0.1 MG TABLET PO PRN (15:16)
[2021-07-29] MEDS: MELATONIN 5 MG TABLETS PO SCH (21:21)
[2021-07-29] MEDS: LIDOCAINE PATCH REMOVAL MC SCH (21:23)
[2021-07-29] MEDS: ONDANSETRON 4 MG/2 ML VIAL IVPUSH PRN (23:26)
[2021-07-30] MEDS ORDERED: LORazepam 0.5 MG TABLET PO PRN ×2
[2021-07-30] MEDS: VANCOMYCIN/WATER FOR INJ (PEG) 1,000 MG/200 ML BAG IVPB SCH ×2 (00:58→13:46)
[2021-07-30] MEDS ORDERED: DEXTROSE 5%-WATER - 50 ML IVPB ONE ×3 (02:48→16:56)
[2021-07-30] MEDS ORDERED: PIPERACILLIN/TAZOBACTAM 3.375 GM VIAL IVPB ONE ×3 (02:48→16:56)
[2021-07-30] MEDS: PIPERACILLIN/TAZOB 3.375 GM 3.375 GM in DEXTROSE 5%-WATER - 50 ML IVPB SCH ×3 (02:55→17:00)
[2021-07-30] MEDS: ONDANSETRON 4 MG/2 ML VIAL IVPUSH PRN ×2 (04:49→09:09)
[2021-07-30] MEDS ORDERED: LORazepam 0.5 MG TABLET PO SCH (05:00)
[2021-07-30] MEDS: LORazepam 0.5 MG TABLET PO SCH ×4 (06:39→22:15)
[2021-07-30] MEDS ORDERED: methaDONE HCL 10 MG TABLET ONE (09:06)
[2021-07-30] MEDS: ENOXAPARIN NA (PORCINE) 40 MG/0.4 ML DISP.SYRIN SQ SCH (09:09)
[2021-07-30] MEDS: LIDOCAINE 5% TOPICAL PATCH TP SCH (09:10)
[2021-07-30] MEDS ORDERED: NICOTINE 21 MG/24 HOURS TOPICAL PATCH TD SCH (10:00)
[2021-07-30] MEDS: LACTATED RINGERS SOLUTION 1,000 ML/1,000 ML INFUS.BAG IV SCH (11:20)
[2021-07-30] MEDS: PANTOPRAZOLE SODIUM 40 MG VIAL IVPUSH SCH (11:25)
[2021-07-30] MEDS: MAG HYDROX/AL HYDROX/SIMETH 30 ML UNIT-DOSE CUP PO SCH ×2 (11:25→17:00)
[2021-07-30] MEDS: METOCLOPRAMIDE HCL INJECTION 10 MG/2 ML VIAL IVPUSH PRN ×2 (11:25→21:19)
[2021-07-30 14:00] LABS: BASO % 0.7 % (0-2.0); EOS % 0.1 % (0-4.5); HEMATOCRIT 42.5 % (32.4-45.2); HEMOGLOBIN 14.2 GM/dL (10.7-15.3); LYMPH % 13.4 % (8-40); MCH 30.9 pg (25.7-33.7); MCHC 33.5 g/dl (32.0-36.0); MEAN CELL VOLUME 92.2 fl (80-96); MEAN PLT VOLUME 7.3 fl (7.5-11.1); MONO % 3.2 % (3.8-10.2); NEUT % 82.6 % (42.8-82.8); PLATELET COUNT 327 10^3/uL (134-434); RDW 15.1 % (11.6-15.6); WHITE BLOOD COUNT 8.7 K/mm3 (4.0-10.0)
[2021-07-30 14:19] LABS: ALBUMIN 3.7 g/dl (3.4-5.0); CALCIUM 8.8 mg/dL (8.5-10.1)
[2021-07-30 14:22] LABS: CREATININE 0.8 mg/dL (0.55-1.3)
[2021-07-30 14:24] LABS: BILIRUBIN,TOTAL 0.6 mg/dL (0.2-1); TOT PROT 8.4 g/dl (6.4-8.2)
[2021-07-30] MEDS: MELATONIN 5 MG TABLETS PO SCH (22:16)
[2021-07-30] MEDS: LIDOCAINE PATCH REMOVAL MC SCH (22:52)
[2021-07-31] MEDS ORDERED: PIPERACILLIN/TAZOBACTAM 3.375 GM VIAL IVPB ONE ×2 (01:02→08:58)
[2021-07-31] MEDS ORDERED: DEXTROSE 5%-WATER - 50 ML IVPB ONE ×3 (01:03→16:30)
[2021-07-31] MEDS: MAG HYDROX/AL HYDROX/SIMETH 30 ML UNIT-DOSE CUP PO SCH ×5 (01:04→17:18)
[2021-07-31] MEDS: PIPERACILLIN/TAZOB 3.375 GM 3.375 GM in DEXTROSE 5%-WATER - 50 ML IVPB SCH ×2 (01:45→09:05)
[2021-07-31] MEDS: LACTATED RINGERS SOLUTION 1,000 ML/1,000 ML INFUS.BAG IV SCH ×2 (03:43→18:17)
[2021-07-31] MEDS: METOCLOPRAMIDE HCL INJECTION 10 MG/2 ML VIAL IVPUSH PRN ×2 (03:57→17:18)
[2021-07-31] MEDS ORDERED: LORazepam 0.5 MG TABLET PO ONE ×2 (05:00)
[2021-07-31] MEDS: LIDOCAINE 5% TOPICAL PATCH TP SCH (09:04)
[2021-07-31] MEDS: ENOXAPARIN NA (PORCINE) 40 MG/0.4 ML DISP.SYRIN SQ SCH (09:04)
[2021-07-31] MEDS: PANTOPRAZOLE SODIUM 40 MG VIAL IVPUSH SCH (09:05)
[2021-07-31] MEDS ORDERED: methaDONE HCL 10 MG TABLET PO ONE ×2 (10:00)
[2021-07-31 11:15] LABS: BASO % 0.6 % (0-2.0); EOS % 0.1 % (0-4.5); HEMOGLOBIN 13.3 GM/dL (10.7-15.3); LYMPH % 16.1 % (8-40); MCH 31.6 pg (25.7-33.7); MCHC 34.2 g/dl (32.0-36.0); MEAN CELL VOLUME 92.5 fl (80-96); MEAN PLT VOLUME 7.6 fl (7.5-11.1); NEUT % 75.2 % (42.8-82.8); PLATELET COUNT 299 10^3/uL (134-434); RBC 4.22 M/mm3 (3.60-5.2); WHITE BLOOD COUNT 10.5 K/mm3 (4.0-10.0)
[2021-07-31 11:24] LABS: CALCIUM 8.7 mg/dL (8.5-10.1)
[2021-07-31 11:25] LABS: ALBUMIN 3.4 g/dl (3.4-5.0); BLOOD UREA NITROGEN 15.5 mg/dL (7-18)
[2021-07-31 11:28] LABS: CREATININE 0.8 mg/dL (0.55-1.3)
[2021-07-31 11:30] LABS: BILIRUBIN,TOTAL 0.8 mg/dL (0.2-1); TOT PROT 7.5 g/dl (6.4-8.2)
[2021-07-31] MEDS: LORazepam 2 MG/ML SDV VIAL IVPUSH PRN ×2 (13:05→20:20)
[2021-07-31] MEDS: POLYETHYLENE GLYCOL (HEALTHYLAX) 3350 17 GM PACKET PO SCH (13:06)
[2021-07-31 13:29] LABS: INR 1.12 (0.83-1.09); PROTHROMBIN TIME (PATIENT) 12.9 SEC (9.7-13.0)
[2021-07-31] MEDS ORDERED: CEFTRIAXONE 1,000 MG in DEXTROSE 5%-WATER - 50 ML IVPB ONE (14:50)
[2021-07-31] MEDS ORDERED: cefTRIAXone SODIUM 1 GM VIAL ONE (16:29)
[2021-07-31] MEDS: CEFTRIAXONE 1 GM in DEXTROSE 5%-WATER - 50 ML IVPB SCH (16:33)
[2021-07-31] MEDS: cloNIDine HCL 0.1 MG TABLET PO PRN (20:29)
[2021-07-31] MEDS: MELATONIN 5 MG TABLETS PO SCH (21:39)
[2021-07-31] MEDS: LIDOCAINE PATCH REMOVAL MC SCH (22:11)
[2021-08-01] MEDS: MAG HYDROX/AL HYDROX/SIMETH 30 ML UNIT-DOSE CUP PO SCH ×3 (00:07→11:59)
[2021-08-01] MEDS: METOCLOPRAMIDE HCL INJECTION 10 MG/2 ML VIAL IVPUSH PRN ×2 (02:04→09:42)
[2021-08-01] MEDS: LORazepam 2 MG/ML SDV VIAL IVPUSH PRN ×2 (02:37→08:53)
[2021-08-01] MEDS: LACTATED RINGERS SOLUTION 1,000 ML/1,000 ML INFUS.BAG IV SCH ×2 (06:48→10:37)
[2021-08-01 08:15] LABS: BASO % 0.6 % (0-2.0); EOS % 0.1 % (0-4.5); HEMATOCRIT 37.3 % (32.4-45.2); HEMOGLOBIN 12.8 GM/dL (10.7-15.3); LYMPH % 18.3 % (8-40); MCH 31.5 pg (25.7-33.7); MCHC 34.3 g/dl (32.0-36.0); MEAN CELL VOLUME 91.8 fl (80-96); MEAN PLT VOLUME 7.4 fl (7.5-11.1); MONO % 8.9 % (3.8-10.2); NEUT % 72.1 % (42.8-82.8); PLATELET COUNT 300 10^3/uL (134-434); RBC 4.06 M/mm3 (3.60-5.2); RDW 14.7 % (11.6-15.6); WHITE BLOOD COUNT 10.3 K/mm3 (4.0-10.0)
[2021-08-01 08:43] LABS: ALBUMIN 3.2 g/dl (3.4-5.0); BLOOD UREA NITROGEN 12.2 mg/dL (7-18)
[2021-08-01 08:45] LABS: CREATININE 0.7 mg/dL (0.55-1.3)
[2021-08-01 08:47] LABS: BILIRUBIN,TOTAL 0.8 mg/dL (0.2-1); TOT PROT 7.1 g/dl (6.4-8.2)
[2021-08-01] MEDS: cloNIDine HCL 0.1 MG TABLET PO PRN (09:19)
[2021-08-01] MEDS ORDERED: DEXTROSE 5%-WATER - 50 ML IVPB ONE (09:35)
[2021-08-01] MEDS ORDERED: cefTRIAXone SODIUM 1 GM VIAL ONE (09:35)
[2021-08-01] MEDS: CEFTRIAXONE 1 GM in DEXTROSE 5%-WATER - 50 ML IVPB SCH (09:41)
[2021-08-01] MEDS: LIDOCAINE 5% TOPICAL PATCH TP SCH (09:41)
[2021-08-01] MEDS: POLYETHYLENE GLYCOL (HEALTHYLAX) 3350 17 GM PACKET PO SCH ×2 (09:42→09:58)
[2021-08-01] MEDS: ENOXAPARIN NA (PORCINE) 40 MG/0.4 ML DISP.SYRIN SQ SCH (10:39)
[2021-08-01] MEDS ORDERED: clonazePAM 0.5 MG TABLET PO PRN (11:09)
[2021-08-01] MEDS ORDERED: amLODIPine BESYLATE 10 MG TABLET (FP) PO SCH (11:15)
[2021-08-01] MEDS ORDERED: methaDONE HCL 10 MG TABLET ONE (11:55)
[2021-08-01 14:45] VITALS: BP 130/85; PULSE 75; TEMP 98.7
[2021-08-02] MEDS ORDERED: methaDONE HCL 10 MG TABLET PO SCH (06:00)
== END 2021-08-01 15:43 | disposition left against medical advice (07) | DRG 344 ==
LOC: JER 12:13 → JERBED 21:02 → J4W 07-28 01:13 → J5S 07-29 14:11
PROVIDERS: ADMIT Internal Medicine
DX: M46.20 Osteomyelitis of vertebra, site unspecified (principal); L02.212 Cutaneous abscess of back [any part, except buttock and flank]; E87.1 Hypo-osmolality and hyponatremia; F14.20 Cocaine dependence, uncomplicated; K83.8 Other specified diseases of biliary tract; K76.0 Fatty (change of) liver, not elsewhere classified; F20.0 Paranoid schizophrenia; L03.312 Cellulitis of back [any part except buttock and flank]; F10.20 Alcohol dependence, uncomplicated; F11.23 Opioid dependence with withdrawal; F17.210 Nicotine dependence, cigarettes, uncomplicated; F31.81 Bipolar II disorder; F32.A Depression, unspecified; I10 Essential (primary) hypertension; I51.7 Cardiomegaly; J45.909 Unspecified asthma, uncomplicated; K70.9 Alcoholic liver disease, unspecified; R74.01 Elevation of levels of liver transaminase levels; D72.829 Elevated white blood cell count, unspecified
CPT/HCPCS: 36415; 71046-TC-FY; 72129-TC; 74018-TC-FY; 76604; 76705-TC; 80053; 80061; 81003; 82550; 82977; 83735; 84100; 84443; 84484; 84703; 85025; 85027; 85610; 85651; 85730; 86140; 86611; 86705; 86803; 86850; 86900; 86901; 87040; 87070; 87186; 87205; 87340; 87517; 93005; 93010; 97116-GP; 97161-GP; 99285-25; G0480; J0735